=== PATIENT | male | born 1975 | race Caucasian/White ===

== ENCOUNTER → 2017-02-13 | Outpatient (CLI) | payer MEDICAID | LOC: RAD 09:00 | PROVIDERS: ATTEND Internal Medicine | DX: F03.91 Unspecified dementia, unspecified severity, with behavioral disturbance (principal) | CPT/HCPCS: 70551 ==

== ENCOUNTER 2017-04-28 15:52 | Emergency (ER) | payer MEDICAID ==
[2017-04-28] MEDS ORDERED: NORMAL SALINE 1000 ML 1,000 ML IV ONE (16:26)
--- NOTE | 2017-04-28 16:28 | ER Document Report ---
ED Medical Screen (RME) - General Chief Complaint: Chest Pain Stated Complaint: CHEST PAIN Time Seen by Provider: 04/28/17 16:25 Mode of Arrival: Wheelchair Information source: Patient TRAVEL OUTSIDE OF THE [place] IN LAST 30 DAYS: No - HPI Patient complains to provider of: dizziness, weakness , CP Onset: Other - Pt with h/o alcohol abuse with recent ETOH use with c/o dizziness , CP, and hallucinations for the past 1-2 days. - Related Data Allergies/Adverse Reactions: Coconut * [Coconut] Adverse Reaction (Severe, Verified 03/24/15 15:37) stomach swells pineapple [Pineapple] Adverse Reaction (Severe, Verified 03/24/15 15:37) stomach swells cherries Adverse Reaction (Severe, Uncoded 03/24/15 15:37) stomach swells Past Medical History - Social History Chew tobacco use (# tins/day): No Frequency of alcohol use: Heavy Drug Abuse: None - Past Medical History Cardiac Medical History: Reports: Hx Hypercholesterolemia, Hx Hypertension Denies: Hx Coronary Artery Disease, Hx Heart Attack Pulmonary Medical History: Reports: Hx Asthma, Hx Bronchitis, Hx COPD, Hx Pneumonia - multiple Neurological Medical History: Reports: Hx Migraine, Hx Seizures. Denies: Hx Cerebrovascular Accident Renal/ Medical History: Denies: Hx Peritoneal Dialysis Musculoskeltal Medical History: Reports Hx Arthritis, Reports Hx Musculoskeletal Deformity, Reports Hx Musculoskeletal Trauma Psychiatric Medical History: Reports: Hx Depression Traumatic Medical History: Reports: Hx Fractures Past Surgical History: Reports: Hx Oral Surgery, Hx Orthopedic Surgery - bilateral knees, left hand, leg - Immunizations Immunizations up to date: Yes Hx Diphtheria, Pertussis, Tetanus Vaccination: Yes Physical Exam - Vital signs Vitals: Temp Pulse Resp BP Pulse Ox 98.1 F 84 20 125/84 94 04/28/17 16:09 04/28/17 16:09 04/28/17 16:09 04/28/17 16:09 04/28/17 16:09 Course - Vital Signs Vital signs: Temp Pulse Resp BP Pulse Ox 98.1 F 82 20 125/84 90 L 04/28/17 16:09 04/28/17 16:19 04/28/17 16:09 04/28/17 16:09 04/28/17 16:19
--- NOTE | 2017-04-28 16:58 | ER Document Report ---
ED Cardiac - General Chief Complaint: Chest Pain Stated Complaint: CHEST PAIN Time Seen by Provider: 04/28/17 16:25 Mode of Arrival: Wheelchair Notes: The patient is a 41-year-old male, past medical history chronic alcoholism, COPD , presents with 3 weeks of chest heaviness, lightheadedness and intermittent hallucinations. He was to see his primary care physician this week for these symptoms, but he was unable to see him. Patient is not currently having any chest pain or hallucinations at this time. He denies shortness of breath, leg swelling, nausea, vomiting, hemoptysis, headache, numbness, tingling or ataxia. TRAVEL OUTSIDE OF THE [place] IN LAST 30 DAYS: No - Related Data Allergies/Adverse Reactions: Coconut * [Coconut] Adverse Reaction (Severe, Verified 03/24/15 15:37) stomach swells pineapple [Pineapple] Adverse Reaction (Severe, Verified 03/24/15 15:37) stomach swells cherries Adverse Reaction (Severe, Uncoded 03/24/15 15:37) stomach swells Past Medical History - General Information source: Patient - Social History Smoking Status: Current Every Day Smoker Chew tobacco use (# tins/day): No Frequency of alcohol use: Heavy Drug Abuse: None Family History: Arthritis, Hypertension, Malignancy Patient has suicidal ideation: No Patient has homicidal ideation: No - Past Medical History Cardiac Medical History: Reports: Hx Hypercholesterolemia, Hx Hypertension Denies: Hx Coronary Artery Disease, Hx Heart Attack Pulmonary Medical History: Reports: Hx Asthma, Hx Bronchitis, Hx COPD, Hx Pneumonia - multiple Neurological Medical History: Reports: Hx Migraine, Hx Seizures. Denies: Hx Cerebrovascular Accident Renal/ Medical History: Denies: Hx Peritoneal Dialysis Musculoskeltal Medical History: Reports Hx Arthritis, Reports Hx Musculoskeletal Deformity, Reports Hx Musculoskeletal Trauma Psychiatric Medical History: Reports: Hx Depression Traumatic Medical History: Reports: Hx Fractures Past Surgical History: Reports: Hx Oral Surgery, Hx Orthopedic Surgery - bilateral knees, left hand, leg - Immunizations Immunizations up to date: Yes Hx Diphtheria, Pertussis, Tetanus Vaccination: Yes Hx Pneumococcal Vaccination: 07/16/13 Review of Systems - Review of Systems Notes: REVIEW OF SYSTEMS: CONSTITUTIONAL: -fevers, -chills EENT: -eye pain, -difficulty swallowing, -nasal congestion CARDIOVASCULAR: +chest pain, -syncope. RESPIRATORY: -cough, -SOB GASTROINTESTINAL: -abdominal pain, -nausea, -vomiting, -diarrhea GENITOURINARY: -dysuria, -hematuria MUSCULOSKELETAL: -back pain, -neck pain SKIN: -rash or skin lesions. HEMATOLOGIC: -easy bruising or bleeding. LYMPHATIC: -swollen, enlarged glands. NEUROLOGICAL: -altered mental status or loss of consciousness, -headache PSYCHIATRIC: -anxiety, -depression, +intermittent hallucinations ALL OTHER SYSTEMS REVIEWED AND NEGATIVE. Physical Exam - Vital signs Vitals: Temp Pulse Resp BP Pulse Ox 98.1 F 84 20 125/84 94 04/28/17 16:04/28/17 16:04/28/17 16:04/28/17 16:04/28/17 16:09 - Notes Notes: PHYSICAL EXAMINATION: GENERAL: Well-appearing, well-nourished and in no acute distress. HEAD: Atraumatic, normocephalic. EYES: Pupils equal round and reactive to light, extraocular movements intact, sclera anicteric, conjunctiva are normal. ENT: nares patent, oropharynx clear without exudates. Moist mucous membranes. NECK: Normal range of motion, supple without lymphadenopathy LUNGS: Respiratory distress, mild wheezing HEART: Regular rate and rhythm without murmurs ABDOMEN: Soft, nontender, normoactive bowel sounds. No guarding, no rebound. No masses appreciated. EXTREMITIES: Normal range of motion, no pitting or edema. No cyanosis. NEUROLOGICAL: Cranial nerves grossly intact. Normal speech, normal gait. Normal sensory and motor exams. No posterior cerebellar signs. PSYCH: Normal mood, normal affect. SKIN: Warm, Dry, normal turgor, no rashes or lesions noted. Course - Re-evaluation Re-evalutation: Patient appears well. He has no signs of posterior cerebellar involvement at this time. His alcohol level was 333, but he is ambulating with a steady gait and his family member is in the emergency room who is sober and will take him home. His ETOH level is frequently in the 300s and has known to go through withdrawal if he gets any lower. Offered detox, but he declined at this time. Labs are unremarkable. His HEART is 2 and he is PERC negative. Patient is safe to go home with follow-up with his primary care physician. Will send him home with thiamine, folate and instructions to drink plenty of fluids. He may have possible early onset Wernike's/Korsakoff's due to the heavy drinking that may be causing some of his symptoms. - Vital Signs Vital signs: Temp Pulse Resp BP Pulse Ox 97.9 F 79 14 138/85 H 95 04/28/17 19:09 04/28/17 19:09 04/28/17 19:09 04/28/17 19:09 04/28/17 19:09 - Laboratory Result Diagrams: 04/28/17 18:06 04/28/17 16:35 Laboratory results interpreted by me: 04/28/17 04/28/17 04/28/17 16:35 16:40 18:06 WBC 3.4 L RDW 16.3 H Plt Count 47 L Monocytes % 15.0 H BUN 6 L Glucose 154 H AST 92 H Urine Protein 100 H Urine Ketones TRACE H Urine Urobilinogen 4.0 H Ur Leukocyte Esterase TRACE H Serum Alcohol 332 H* - Diagnostic Test Radiology reviewed: Image reviewed, Reports reviewed Radiology results interpreted by me: CT Head: NAD CXR: NAD - EKG Interpretation by Me EKG shows normal: Sinus rhythm, [place], Intervals, QRS Complexes, ST-T Waves Rate: Normal When compared to previous EKG there are: No significant change Discharge - Discharge Clinical Impression: Alcohol intoxication Qualifiers: Complication of substance-induced condition: uncomplicated Qualified Code(s): F10.920 - Alcohol use, unspecified with intoxication, uncomplicated Chest pain Qualifiers: Chest pain type: unspecified Qualified Code(s): R07.9 - Chest pain, unspecified Condition: Stable Disposition: HOME, SELF-CARE Additional Instructions: Your blood work, EKG, head CT and chest x-ray does not show any emergent findings. You must follow-up with your primary care physician for further evaluation and treatment. Take folate and thiamine as directed. Try to cut down on your alcohol use. CHEST PAIN OF UNCLEAR CAUSE: The exact cause of your chest pain isn't clear. Fortunately, there is no evidence of a dangerous medical condition. Further testing may be required to find the source of the pain. Most often, we find that this pain is coming from the chest wall -- the muscles or rib joints in the chest. But chest pain can come from the lung and lung lining, the esophagus, the heart valves or heart lining, and even the stomach or gallbladder. Rest. Eat lightly until the pain is gone. We may prescribe medicine for pain and inflammation. You should call the physician immediately if the pain radiates to the shoulder, jaw or arms; if you start to run a fever or develop a cough; or if you develop shortness of breath, or other new or alarming symptoms. NORMAL EXAM AND WORKUP: At this time, your examination and workup show no significant abnormality. No significant abnormal physical findings were noted. All laboratory, EKG, and imaging (x-ray, CT scans, ultrasound) studies that were ordered show no significant abnormality. Although your examination and all studies that were ordered showed no significant abnormal finding, there are no examinations and no studies that are 100% accurate. There is always the possibility that some abnormality could exist and not be detected with physical examination or within the limits and capabilities of laboratory and other studies. You should return or follow up as you were instructed on your visit today for further evaluation if your symptoms do not resolve. CHEST WALL PAIN: Your chest pain may be coming from the chest wall. This is often caused by straining the muscles or joints in the chest during physical activity, direct trauma, coughing, or vigorous vomiting. Persons with arthritis are especially prone to this type of pain, due to inflammation of the cartilage joints near the breast bone. Occasionally, no cause can be found. Rest from strenuous physical activity. This kind of chest pain is usually made worse by movement of the chest. Depending on the symptoms, we may prescribe medicine for pain, muscle relaxation, and antiinflammatory effects. If the pain is new, and seems to be due to muscle strain, cold packs can help. Otherwise, apply gentle warmth to the painful area for 15 minutes every hour or two. You should call contact the doctor immediately if things change. Further evaluation is needed if you develop a fever or cough, if the nature of the pain changes, or if you become short of breath. ANGINA EPISODE: Your physician has diagnosed the pain you experienced as an episode of angina. Angina occurs when a portion of the heart muscle temporarily lacks oxygen. It does not cause any permanent heart damage, but serves as a warning. Hospitalization is not necessary now. Evaluation of your cardiac condition , and medical therapy for angina will be necessary. It's important you be sure to keep all appointments and take medication exactly as prescribed. Angina is usually treated with a type of "nitrate" medication. This is available as ointment, pills, or sublingual (under the tongue) tablets. Depending on your clinical situation, other medications may be added to help control angina. These may include beta blockers or calcium blockers. If episodes of angina are occurring with increased frequency, or if chest pain lasts longer than 15 minutes or does not respond to nitroglycerin, you must seek emergency medical care immediately. FOLLOW-UP CARE: If you have been referred to a physician for follow-up care, call the physician s office for an appointment as you were instructed or within the next two days. If you experience worsening or a significant change in your symptoms, notify the physician immediately or return to the Emergency Department at any time for re-evaluation. ACUTE ALCOHOL INTOXICATION and ALCOHOL ABUSE: Your evaluation revealed very high levels of alcohol. You can from drinking a large amount of alcohol rapidly! Further, there's the risk of falls , traffic accidents, and fights. A high portion (about 50 percent) of the serious injuries seen in hospital emergency rooms are caused by alcohol. Alcohol overdosage is usually due to an underlying emotional or psychiatric problem. You may benefit from counselling. If "binge" drinking is an ongoing problem for you, or if you drink ANY AMOUNT of alcohol EVERY day, you most likely have a tendency to alcoholism. You should avoid alcohol totally. We can refer you for treatment. Persons with alcohol problems are often also prone to other addictions -- you should discuss any use of medications or drugs with the doctor. You should be watched at home for the next several hours by someone who has not been drinking. Get extra fluids for the next 24 hours. Call the doctor if there is repeated vomiting, increasing headache, decreasing level of alertness, or any other worsening. CHRONIC ALCOHOLISM and ALCOHOL ABUSE: Your evaluation reveals evidence of chronic alcoholism, an addiction to alcohol. The tendency to alcoholism may be inherited. Chronic use of alcohol weakens muscles, causes fatty deposits in the liver , damages the stomach, makes you more prone to infections, and can cause defects in unborn children. In the long run, brain atrophy and cirrhosis of the liver result. You are also at greater risk for certain types of cancer, such as cancer of the mouth, throat, stomach, and liver. Counselling services are available to help you. In-hospital treatment programs often help. Support groups such as Alcoholics Anonymous can be very useful in beating this addiction. Your physician can make a referral for you. As alcoholics often are prone to other addictions, you should discuss your use of any other medications with the doctor. FOLLOW-UP CARE: If you have been referred to a physician for follow-up care, call the physician s office for an appointment as you were instructed or within the next two days. If you experience worsening or a significant change in your symptoms, notify the physician immediately or return to the Emergency Department at any time for re-evaluation. Prescriptions: Folic Acid 1 mg PO DAILY #30 tablet Thiamine HCl [Thiamine 100 mg Tablet] 100 mg PO DAILY #30 tablet Referrals: TOMAS UMANA MD [Primary Care Provider] - Follow up as needed
--- NOTE | 2017-04-28 17:12 | RADIOLOGY REPORT (SQ) ---
EXAM DESCRIPTION: CHEST PA/LAT COMPLETED DATE/TIME: 04/28/2017 4:56 pm REASON FOR STUDY: CP COMPARISON: 01/12/2016 EXAM PARAMETERS: NUMBER OF VIEWS: two views TECHNIQUE: Digital Frontal and Lateral radiographic views of the chest acquired. RADIATION DOSE: NA LIMITATIONS: none FINDINGS: LUNGS AND PLEURA: No opacities, masses or pneumothorax. No pleural effusion. MEDIASTINUM AND HILAR STRUCTURES: No masses or contour abnormalities. HEART AND VASCULAR STRUCTURES: Heart normal size. No evidence for failure. BONES: No acute findings. HARDWARE: None in the chest. OTHER: No other significant finding. IMPRESSION: NO SIGNIFICANT RADIOGRAPHIC FINDING IN THE CHEST. TECHNICAL DOCUMENTATION: JOB ID: [id number] [employer]- All Rights Reserved
--- NOTE | 2017-04-28 17:17 | RADIOLOGY REPORT (SQ) ---
EXAM DESCRIPTION: CT HEAD WITHOUT COMPLETED DATE/TIME: 04/28/2017 4:58 pm REASON FOR STUDY: CP COMPARISON: MRI 02/13/2017 CT 04/26/2014 TECHNIQUE: Axial images acquired through the brain without intravenous contrast. Images reviewed wi th bone, brain and subdural windows. Images stored on PACS. All CT scanners at this facility use dose modulation, iterative reconstruction, and/or weight based d osing when appropriate to reduce radiation dose to as low as reasonably achievable (ALARA). [facility]: Dose Right [facility]: CareDose [facility]: Dose Right [facility]: Teradose 4D [facility]: Fitness Interactive Experience RADIATION DOSE: Up-to-date CT equipment and radiation dose reduction techniques were employed. CTDIv ol: 64.6 mGy. DLP: 1163 mGy-cm. mGy. LIMITATIONS: None. FINDINGS: VENTRICLES: Normal size and contour. CEREBRUM: No masses. No hemorrhage. No midline shift. Normal hammer/white matter differentiation. N o evidence for acute infarction. CEREBELLUM: No masses. No hemorrhage. No alteration of density. No evidence for acute infarction. EXTRAAXIAL SPACES: No fluid collections. No masses. ORBITS AND GLOBE: No intra- or extraconal masses. Normal contour of globe without masses. CALVARIUM: No fracture. PARANASAL SINUSES: No fluid or mucosal thickening. SOFT TISSUES: No mass or hematoma. OTHER: No other significant finding. IMPRESSION: NORMAL BRAIN CT WITHOUT CONTRAST. TECHNICAL DOCUMENTATION: JOB ID: [id number] Quality ID # [id number]: Final reports with documentation of one or more dose reduction techniques (e.g., Au tomated exposure control, adjustment of the mA and/or kV according to patient size, use of iterative reconstruction technique) 2010 [employer]- All Rights Reserved
[2017-04-28 17:34] LABS: APPEARANCE,URINE SLIGHTLY-CLOUDY; BILIRUBIN,URINE NEGATIVE (NEGATIVE); GLUCOSE, URINE NEGATIVE (NEGATIVE); KETONES,URINE TRACE mg/dL (NEGATIVE); LEUKOCYTE ESTERASE,URINE TRACE (NEGATIVE); NITRITE,URINE NEGATIVE (NEGATIVE); PROTEIN,URINE 100 mg/dL (NEGATIVE); URINE SPECIFIC GRAVITY 1.029
[2017-04-28 17:43] LABS: URINE BARBITURATES SCREEN NEGATIVE; URINE METHADONE SCREEN NEGATIVE; URINE OPIATES LOW NEGATIVE; URINE PHENCYCLIDINE SCREEN NEGATIVE
[2017-04-28 17:52] LABS: ALANINE AMINOTRANSFERASE 42 U/L (21-72); ALKALINE PHOSPHATASE 94 U/L (38-126); ANION GAP 13 (5-19); ASPARTATE AMINO TRANSFERASE 92 U/L (17-59); BILIRUBIN,DIRECT 0.4 mg/dL (0.0-0.4); BILIRUBIN,TOTAL 0.6 mg/dL (0.2-1.3); BLOOD UREA NITROGEN 6 mg/dL (7-20); CALCIUM 8.5 mg/dL (8.4-10.2); CARBON DIOXIDE 27 mmol/L (22-30); CHLORIDE 99 mmol/L (98-107); CREATINE KINASE 149 U/L (55-170); CREATININE RESULT 0.52 mg/dL (0.52-1.25); GLUCOSE 154 mg/dL (75-110); POTASSIUM 4.6 mmol/L (3.6-5.0); SODIUM 138.7 mmol/L (137-145); TOTAL PROTEIN 7.8 g/dL (6.3-8.2)
[2017-04-28 18:03] LABS: ALCOHOL 332 mg/dL (NONE DETECTED)
[2017-04-28] MEDS ORDERED: FOLIC ACID 1 MG TABLET PO ONE (18:07)
[2017-04-28] MEDS ORDERED: THIAMINE HCL 100 MG TABLET PO ONE (18:07)
[2017-04-28 18:21] LABS: ABSOLUTE LYMPHOCYTES (AUTO) 0.6 10^3/uL (0.5-4.7); ABSOLUTE MONOCYTES (AUTO) 0.5 10^3/uL (0.1-1.4); ABSOLUTE NEUT (AUTO) 2.3 10^3/uL (1.7-8.2); BASOPHILS % (AUTO) 0.6 % (0-2); EOSINOPHILS % (AUTO) 0.1 % (0-6); HEMATOCRIT 43.6 % (37.9-51.0); HEMOGLOBIN 14.4 g/dL (13.5-17.0); HGB HCT DIFFERENCE -0.4; LYMPHOCYTES % (AUTO) 17.7 % (13-45); MEAN CORPUSCULAR HEMOGLOBIN 31.8 pg (27.0-33.4); MEAN CORPUSCULAR HGB CONC 33.1 g/dL (32.0-36.0); MEAN CORPUSCULAR VOLUME 96 fl (80-97); RED BLOOD COUNT 4.53 10^6/uL (4.35-5.55); RED CELL DISTRIBUTION WIDTH 16.3 % (11.5-14.0); SEGMENTED NEUTROPHILS % (AUTO) 66.6 % (42-78); WHITE BLOOD COUNT 3.4 10^3/uL (4.0-10.5)
[2017-04-28] MEDS ORDERED: IPRATROPIUM/ALBUTEROL 0.5-2.5 MG/3 ML AMPUL NEB ONE (18:40)
[2017-04-28 19:09] VITALS: BP 138/85
--- NOTE | 2017-04-28 20:19 | EKG REPORT ---
SEVERITY:- NORMAL ECG - SINUS RHYTHM : Confirmed by: Daniel Arciniega MD 28-Apr-2017 20:18:25
== END 2017-04-28 19:21 | disposition home or self-care (01) ==
LOC: ER 15:52
DX: R07.9 Chest pain, unspecified (principal); F10.920 Alcohol use, unspecified with intoxication, uncomplicated; F17.200 Nicotine dependence, unspecified, uncomplicated; R44.3 Hallucinations, unspecified; J44.9 Chronic obstructive pulmonary disease, unspecified; E78.00 Pure hypercholesterolemia, unspecified; I10 Essential (primary) hypertension; Y90.8 Blood alcohol level of 240 mg/100 ml or more
CPT/HCPCS: 93005; 94640; 99285; 96360; 36415; 80307 ×2; 82550; 85025; 80053; 81001; 84484; 71020; 70450; 93010; J3490 ×2; J7030; J7620

== ENCOUNTER 2018-01-30 07:25 | Inpatient (IN) | payer MEDICAID ==
--- NOTE | 2018-01-30 07:30 | ER Document Report ---
ED General - General Stated Complaint: DIFFICULTY BREATHING Time Seen by Provider: 01/30/18 07:30 Mode of Arrival: Medic Information source: Patient, Emergency Med Personnel Notes: 42-year-old male history of COPD presents with complaints of productive cough of unknown duration. Patient was found by EMS to have a temperature 100.2 satting 89% on room air. Patient is not on oxygen at home, he was given DuoNeb and Solu-Medrol. Patient does have a history of cirrhosis of liver patient denies any abdominal pain chest pain does note he fell earlier this morning. Does have a history of alcohol use TRAVEL OUTSIDE OF THE [place] IN LAST 30 DAYS: No - HPI Onset: Other Onset/Duration: Worse Quality of pain: No pain Severity: Moderate Pain Level: Denies Associated symptoms: Productive cough, Fever, Shortness of breath Exacerbated by: Coughing Relieved by: Denies Similar symptoms previously: Yes Recently seen / treated by doctor: Yes - Related Data Allergies/Adverse Reactions: Coconut * [Coconut] Adverse Reaction (Severe, Verified 03/24/15 15:37) stomach swells pineapple [Pineapple] Adverse Reaction (Severe, Verified 03/24/15 15:37) stomach swells cherries Adverse Reaction (Severe, Uncoded 03/24/15 15:37) stomach swells Past Medical History - Social History Smoking Status: Current Every Day Smoker Cigarette use (# per day): Yes Chew tobacco use (# tins/day): No Smoking Education Provided: No Family History: Arthritis, Hypertension, Malignancy - Past Medical History Cardiac Medical History: Reports: Hx Hypercholesterolemia, Hx Hypertension Denies: Hx Coronary Artery Disease, Hx Heart Attack Pulmonary Medical History: Reports: Hx Asthma, Hx Bronchitis, Hx COPD, Hx Pneumonia - multiple Neurological Medical History: Reports: Hx Migraine, Hx Seizures. Denies: Hx Cerebrovascular Accident Renal/ Medical History: Denies: Hx Peritoneal Dialysis Musculoskeltal Medical History: Reports Hx Arthritis, Reports Hx Musculoskeletal Deformity, Reports Hx Musculoskeletal Trauma Psychiatric Medical History: Reports: Hx Depression Traumatic Medical History: Reports: Hx Fractures Past Surgical History: Reports: Hx Oral Surgery, Hx Orthopedic Surgery - bilateral knees, left hand, leg - Immunizations Immunizations up to date: Yes Hx Diphtheria, Pertussis, Tetanus Vaccination: Yes Hx Pneumococcal Vaccination: 07/16/13 Review of Systems - Review of Systems Notes: REVIEW OF SYSTEMS: CONSTITUTIONAL : admits ot feeling warm EENT: Denies eye, ear, throat, or mouth pain or symptoms. Denies nasal or sinus congestion or discharge. Denies throat, tongue, or mouth swelling or difficulty swallowing. CARDIOVASCULAR: Denies chest pain. Denies palpitations or racing or irregular heart beat. Denies ankle edema. RESPIRATORY: admits to productive cough GASTROINTESTINAL: Denies abdominal pain or distention. Denies nausea, vomiting , or diarrhea. Denies blood in vomitus, stools, or per rectum. Denies black, tarry stools. Denies constipation. GENITOURINARY: Denies difficulty urinating, painful urination, burning, frequency, blood in urine, or discharge. MUSCULOSKELETAL: Denies back or neck pain or stiffness. Denies joint pain or swelling. SKIN: Denies rash, lesions or sores. HEMATOLOGIC : Denies easy bruising or bleeding. LYMPHATIC: Denies swollen, enlarged glands. NEUROLOGICAL: Denies confusion or altered mental status. Denies passing out or loss of consciousness. Denies dizziness or lightheadedness. Denies headache. Denies weakness or paralysis or loss of use of either side. Denies problems with gait or speech. Denies sensory loss, numbness, or tingling. Denies seizures. PSYCHIATRIC: Denies anxiety or stress. Denies depression, suicidal ideation, or homicidal ideation. ALL OTHER SYSTEMS REVIEWED AND NEGATIVE. Dictation was performed using [employer] voice recognition software PHYSICAL EXAMINATION: GENERAL: appears older than stated age , temp 100.2 HEAD: Atraumatic, normocephalic. EYES: Pupils equal round and reactive to light, extraocular movements intact, sclera anicteric, conjunctiva are normal. ENT: Nares patent, oropharynx clear without exudates. Moist mucous membranes. NECK: Normal range of motion, supple without lymphadenopathy LUNGS: crackles with wheezing all throughout HEART: Regular rate and rhythm without murmurs ABDOMEN: Soft, nontender, nondistended abdomen. No guarding, no rebound. No masses appreciated. Musculoskeletal: Normal range of motion, no pitting or edema. No cyanosis. NEUROLOGICAL: Cranial nerves grossly intact. Normal speech, normal gait. Normal sensory, motor exams PSYCH: Normal mood, normal affect. SKIN: hot ot touch, old scars left leg Physical Exam - Vital signs Vitals: Resp BP Pulse Ox 21 H 159/94 H 91 L 04/17/18 07:36 01/30/18 07:36 01/30/18 07:36 Course - Re-evaluation Re-evalutation: 01/30/18 07:40 Patient has probable pneumonia and meets sirs criteria at this time, he will be kept on nasal cannula, lab work pending 01/30/18 09:49 pt noted to have pneumonia, meets spesis criteria at this time, will admit ot pcp - Vital Signs Vital signs: Temp Pulse Resp BP Pulse Ox 100.7 F H 30 H 159/94 H 92 01/30/18 07:43 01/30/18 09:00 01/30/18 07:36 01/30/18 09:00 - Laboratory Result Diagrams: 01/30/18 07:30 01/30/18 07:30 Laboratory results interpreted by me: 01/30/18 01/30/18 01/30/18 07:30 07:30 07:30 RBC 4.19 L MCV 98 H RDW 17.0 H Plt Count 50 L Seg Neutrophils % 78.7 H Lymphocytes % 8.3 L Sodium 135.3 L Chloride 93 L BUN 3 L Creatinine 0.51 L Lactic Acid 2.6 H Direct Bilirubin 0.6 H Urine Protein Urine Ketones Urine Blood 01/30/18 08:05 RBC MCV RDW Plt Count Seg Neutrophils % Lymphocytes % Sodium Chloride BUN Creatinine Lactic Acid Direct Bilirubin Urine Protein >=500 H Urine Ketones 20 H Urine Blood MODERATE H - Diagnostic Test Radiology reviewed: Image reviewed - chest 2 view consistnat with pneumonia, Reports reviewed Critical Care Note - Critical Care Note Total time excluding time spent on procedures (mins): 38 Comments: minutes of critical care time spent in direct contact evaluating and reevaluating the patient, treating symptoms, reviewing labs and studies and speaking with family and consultants excluding any procedures Discharge - Discharge Clinical Impression: Hypoxemia COPD (chronic obstructive pulmonary disease) Qualifiers: COPD type: unspecified COPD Qualified Code(s): J44.9 - Chronic obstructive pulmonary disease, unspecified Pneumonia Qualifiers: Pneumonia type: due to unspecified organism Laterality: right Lung location: upper lobe of lung Qualified Code(s): J18.1 - Lobar pneumonia, unspecified organism Condition: Stable Disposition: ADMITTED INPATIENT Admitting Provider: Hospitalist Unit Admitted: [facility]
[2018-01-30] MEDS ORDERED: IBUPROFEN 800 MG TABLET PO ONE (07:31)
[2018-01-30] MEDS ORDERED: CEFTRIAXONE INJ 1000 MG VIAL IV ONE (07:31)
[2018-01-30 07:49] LABS: VENOUS BLOOD BASE EXCESS 3.5 mmol/L; VENOUS BLOOD HCO3 28.9 mmol/L (20-32); VENOUS BLOOD PCO2 46.5 mmHg (35-63); VENOUS BLOOD PH 7.41 (7.30-7.42)
[2018-01-30] MEDS: NORMAL SALINE 1000 ML 1,000 ML IV PRN ×3 (07:57→21:24)
[2018-01-30 08:00] LABS: INTERNATIONAL RATION (INR) 1.07; PROTHROMBIN TIME 14.4 SEC (11.4-15.4)
[2018-01-30 08:03] LABS: ABSOLUTE LYMPHOCYTES (AUTO) 0.7 10^3/uL (0.5-4.7); ABSOLUTE NEUT (AUTO) 6.5 10^3/uL (1.7-8.2); BASOPHILS % (AUTO) 0.1 % (0-2); EOSINOPHILS % (AUTO) 0.1 % (0-6); HEMOGLOBIN 13.9 g/dL (13.5-17.0); LYMPHOCYTES % (AUTO) 8.3 % (13-45); MEAN CORPUSCULAR HEMOGLOBIN 33.1 pg (27.0-33.4); MEAN CORPUSCULAR HGB CONC 33.8 g/dL (32.0-36.0); MEAN CORPUSCULAR VOLUME 98 fl (80-97); MONOCYTES % (AUTO) 12.8 % (3-13); RED BLOOD COUNT 4.19 10^6/uL (4.35-5.55); SEGMENTED NEUTROPHILS % (AUTO) 78.7 % (42-78); TOTAL CELLS COUNTED % (AUTO) 100 %; WHITE BLOOD COUNT 8.2 10^3/uL (4.0-10.5)
[2018-01-30 08:08] LABS: ALANINE AMINOTRANSFERASE 35 U/L (21-72); ALBUMIN 3.8 g/dL (3.5-5.0); ALKALINE PHOSPHATASE 78 U/L (38-126); ANION GAP 14 (5-19); ASPARTATE AMINO TRANSFERASE 49 U/L (17-59); BILIRUBIN,DIRECT 0.6 mg/dL (0.0-0.4); BILIRUBIN,TOTAL 0.9 mg/dL (0.2-1.3); BLOOD UREA NITROGEN 3 mg/dL (7-20); CALCIUM 9.3 mg/dL (8.4-10.2); CARBON DIOXIDE 28 mmol/L (22-30); CHLORIDE 93 mmol/L (98-107); GLUCOSE 105 mg/dL (75-110); POTASSIUM 3.9 mmol/L (3.6-5.0); SODIUM 135.3 mmol/L (137-145); TOTAL PROTEIN 7.3 g/dL (6.3-8.2)
[2018-01-30] MEDS ORDERED: NORMAL SALINE 1000 ML 1,000 ML IV ONE (08:10)
[2018-01-30 08:19] LABS: PLATELET COUNT 50 10^3/uL (150-450)
--- NOTE | 2018-01-30 08:19 | RADIOLOGY REPORT (SQ) ---
EXAM DESCRIPTION: CHEST SINGLE VIEW COMPLETED DATE/TIME: 01/30/2018 8:07 am REASON FOR STUDY: bed 20 sepsis protocol COMPARISON: Chest films 04/28/2017, 01/12/2016 EXAM PARAMETERS: NUMBER OF VIEWS: One view. TECHNIQUE: Single frontal radiographic view of the chest acquired. RADIATION DOSE: NA LIMITATIONS: None. FINDINGS: LUNGS AND PLEURA: Question early or developing infiltrate in the medial aspect right upper lobe marked with a crow. Remainder of the lungs are well inflated and clear. No pleural effusion. No pneumothorax. MEDIASTINUM AND HILAR STRUCTURES: No masses. Contour normal. HEART AND VASCULAR STRUCTURES: Heart normal in size. Normal vasculature. BONES: No acute findings. HARDWARE: None in the chest. OTHER: No other significant finding. IMPRESSION: Airspace disease medial right upper lobe, worrisome for early or developing pneumonia. TECHNICAL DOCUMENTATION: JOB ID: [id number] [employer]- All Rights Reserved Reading location - IP/workstation name: [email or web address]
[2018-01-30 08:38] LABS: APPEARANCE,URINE SLIGHTLY-CLOUDY; BILIRUBIN,URINE NEGATIVE (NEGATIVE); COLOR,URINE YELLOW; GLUCOSE, URINE NEGATIVE (NEGATIVE); KETONES,URINE 20 mg/dL (NEGATIVE); LEUKOCYTE ESTERASE,URINE NEGATIVE (NEGATIVE); NITRITE,URINE NEGATIVE (NEGATIVE); PROTEIN,URINE >=500 mg/dL (NEGATIVE); URINE SPECIFIC GRAVITY 1.011; UROBILINOGEN,URINE NEGATIVE mg/dL (<2.0)
--- NOTE | 2018-01-30 09:24 | EKG REPORT ---
SEVERITY:- BORDERLINE ECG - SINUS TACHYCARDIA PROBABLE LEFT ATRIAL ABNORMALITY BORDERLINE PROLONGED QT INTERVAL : Confirmed by: Cherelle Castro 30-Jan-2018 09:23:23
[2018-01-30] MEDS: LORAZEPAM INJ 2 MG/1 ML VIAL IV SCH (18:32)
[2018-01-30 20:15] LABS: URINE CREATININE 102.1 mg/dL (22-328)
[2018-01-30 20:24] LABS: UR PRO/CREAT RATIO RESULT 3.3 mg/mg (0.0-0.2); URINE PROTEIN 332.7 mg/dL (<12)
[2018-01-30 21:02] LABS: HEMATOCRIT 42.7 % (37.9-51.0); HEMOGLOBIN 14.2 g/dL (13.5-17.0); MEAN CORPUSCULAR HGB CONC 33.2 g/dL (32.0-36.0); MEAN CORPUSCULAR VOLUME 99 fl (80-97); RED CELL DISTRIBUTION WIDTH 16.7 % (11.5-14.0); WHITE BLOOD COUNT 7.6 10^3/uL (4.0-10.5)
[2018-01-30 21:03] LABS: INTERNATIONAL RATION (INR) 1.11; PROTHROMBIN TIME 14.8 SEC (11.4-15.4)
[2018-01-30 21:18] LABS: PLATELET COUNT 51 10^3/uL (150-450)
[2018-01-30 21:18] LABS: APPEARANCE,URINE CLEAR; BILIRUBIN,URINE NEGATIVE (NEGATIVE); COLOR,URINE YELLOW; GLUCOSE, URINE 50 mg/dL (NEGATIVE); KETONES,URINE 80 mg/dL (NEGATIVE); LEUKOCYTE ESTERASE,URINE NEGATIVE (NEGATIVE); NITRITE,URINE NEGATIVE (NEGATIVE); PROTEIN,URINE 100 mg/dL (NEGATIVE); URINE SPECIFIC GRAVITY 1.011; UROBILINOGEN,URINE NEGATIVE mg/dL (<2.0)
[2018-01-30 21:21] LABS: ABSOLUTE LYMPHOCYTES# (MANUAL) 0.6 10^3/uL (0.5-4.7); ABSOLUTE MONOCYTES # (MANUAL) 0.1 10^3/uL (0.1-1.4); ABSOLUTE NEUTROPHILS# (MANUAL) 6.9 10^3/uL (1.7-8.2); ALANINE AMINOTRANSFERASE 31 U/L (21-72); ALBUMIN 3.5 g/dL (3.5-5.0); ALKALINE PHOSPHATASE 77 U/L (38-126); AMYLASE < 30 U/L (30-110); ANION GAP 11 (5-19); ASPARTATE AMINO TRANSFERASE 47 U/L (17-59); BASOPHILS % (MANUAL) 0 % (0-2); BILIRUBIN,DIRECT 0.5 mg/dL (0.0-0.4); BILIRUBIN,TOTAL 0.7 mg/dL (0.2-1.3); BLOOD UREA NITROGEN 9 mg/dL (7-20); CALCIUM 9.1 mg/dL (8.4-10.2); CARBON DIOXIDE 31 mmol/L (22-30); CHLORIDE 100 mmol/L (98-107); EOSINOPHILS % (MANUAL) 0 % (0-6); GLUCOSE 126 mg/dL (75-110); LIPASE 14.3 U/L (23-300); LYMPHOCYTES % (MANUAL) 8 % (13-45); MONOCYTES % (MANUAL) 1 % (3-13); PHOSPHORUS 3.7 mg/dL (2.5-4.5); POTASSIUM 3.4 mmol/L (3.6-5.0); SEGMENTED NEUTROPHILS % (MAN) 91 % (42-78); SODIUM 141.7 mmol/L (137-145); TOTAL CELLS COUNTED 100; TOTAL PROTEIN 6.9 g/dL (6.3-8.2)
[2018-01-30 21:22] LABS: ANISOCYTOSIS 1+; PLATELET COMMENT DECREASED; POIKILOCYTOSIS SLIGHT; POLYCHROMASIA SLIGHT; TARGET CELLS SLIGHT
[2018-01-30] MEDS: CLINDAMYCIN 600 MG/D5W RTU 600 MG/50 ML RTUPB IV SCH (21:24)
[2018-01-30 21:31] LABS: CREATINE KINASE MB 1.38 ng/mL (<4.55)
[2018-01-30 21:32] LABS: URINE AMPHETAMINES SCREEN NEGATIVE; URINE BARBITURATES SCREEN NEGATIVE; URINE COCAINE SCREEN NEGATIVE; URINE MARIJUANA (THC) SCREEN NEGATIVE; URINE METHADONE SCREEN NEGATIVE; URINE PHENCYCLIDINE SCREEN NEGATIVE
[2018-01-30 21:35] LABS: FREE T4 (FREE THYROXINE) 1.19 ng/dL (0.78-2.19); TROPONIN I < 0.012 ng/mL
[2018-01-30 21:41] LABS: ARTERIAL BLOOD BASE EXCESS 4.3 mmol/L; ARTERIAL BLOOD HCO3 28.9 mmol/L (20-26); ARTERIAL BLOOD O2 SATURATION 93.4 % (94-98); ARTERIAL BLOOD PCO2 43.2 mmHg (35-45); ARTERIAL BLOOD PH 7.44 (7.35-7.45); ARTERIAL BLOOD PO2 64.8 mmHg (80-100); ARTERIAL BLOOD TOTAL CO2 30.3 mmol/L (23-27)
[2018-01-30 21:43] LABS: URINE BENZODIAZEPINES SCREEN UNCONFIRMED POSITIVE
[2018-01-30 21:44] LABS: ARTERIAL BLOOD FIO2 26%
[2018-01-30 21:49] LABS: THYROID STIMULATING HORMONE 0.32 uIU/mL (0.47-4.68)
[2018-01-30] MEDS ORDERED: THIAMINE HCL INJ 200 MG/2 ML VIAL IV PRN (22:05)
[2018-01-30] MEDS ORDERED: FOLIC ACID INJ 5 MG/1 ML 10 ML VIAL IV PRN (22:06)
[2018-01-30] MEDS ORDERED: ALBUTEROL SULFATE HFA (90 MCG/PUFF) 200 PUFF/8.5 GM MDI IH PRN (22:14)
--- NOTE | 2018-01-30 22:14 | PDOC H&P ---
History of Present Illness Admission Date/PCP: 01/30/18 09:59 History of Present Illness: RODNEY L[address] is a 42 year old male, Patient is an alcoholic he was transferred from his residence by EMS to the emergency room for evaluation of shortness of breath. When he arrived in the emergency room he was evaluated he was found to be alcohol intoxicated it was just 9 a.m. in the morning on his alcohol level is above legal limit, this patient has remained drunk all the time he has alcohol liver disease, alcohol liver cirrhosis complicated with thrombocytopenia, hepatic encephalopathy. In the emergency room a chest x-ray was done it showed infiltrate in the right upper lobe probably due to aspiration. The blood gas on FiO2 of 26%, pH is 7.4, PO2 64.8, bicarbonate 28.9 PCO2 43.2, he also have hyperammonemia, history taking was a challenge from this patient.He was appropriately Given IV lorazepam in the emerrgency , The last time he was admitted to this hospital he developed alcohol withdrawal syndrome history taking was a challenge Due to excessive somnolence most likely from the intravenous lorazepam but he was given the emergency room Past Medical History Cardiac Medical History: Reports: Hyperlipidema, Hypertension Pulmonary Medical History: Reports: Asthma, Bronchitis, Chronic Obstructive Pulmonary Disease (COPD), Pneumonia - multiple Neurological Medical History: Reports: Migraine, Seizures GI Medical History: Reports: Cirrhosis Musculoskeltal Medical History: Reports: Arthritis Psychiatric Medical History: Reports: Alcohol Dependency, Depression Hematology: Reports: Other - Thrombocytopenia Past Surgical History Past Surgical History: Reports: Orthopedic Surgery - bilateral knees, left hand , leg Social History Smoking Status: Current Every Day Smoker Frequency of Alcohol Use: Heavy Hx Recreational Drug Use: No Drugs: None Hx Prescription Drug Abuse: No Family History Family History: Arthritis, Hypertension, Malignancy Parental Family History Reviewed: Yes Children Family History Reviewed: Yes Sibling(s) Family History Reviewed.: Yes Medication/Allergy Home Medications: Albuterol Sulfate [Proair HFA Inhalation Aerosol 8.5 gm MDI] 2 puff IH Q4HP PRN 01/30/18 Albuterol Sulfate [Ventolin 0.083% Neb 2.5 mg/3 mL Ampul] 2.5 mg NEB RTQ4HP PRN 01/30/18 Aspirin/Caffeine [Bc Powder Packet] 1 packet PO Q6HP PRN 01/30/18 Clonidine HCl [Catapres 0.2 mg Tablet] 0.2 mg PO Q8 01/30/18 Cyclobenzaprine HCl [Flexeril 10 mg Tablet] 10 mg PO TID 01/30/18 Diazepam [Valium 5 mg Tablet] 5 mg PO QPMP PRN 01/30/18 Donepezil HCl [Aricept 5 mg Tablet] 5 mg PO QHS 01/30/18 Fluoxetine HCl [Prozac] 40 mg PO QAM 01/30/18 Fluticasone/Salmeterol [Advair 250-50 Diskus 28 dose] 1 puff IH Q12 01/30/18 Hydrocodone/Acetaminophen [[place] 10-325 mg Tablet] 1 tab PO QID 01/30/18 Levetiracetam [Keppra 500 mg Tablet] 500 mg PO Q12 01/30/18 Pregabalin [Lyrica 50 mg Capsule] 50 mg PO Q12 01/30/18 Quetiapine Fumarate [Seroquel Xr] 150 mg PO QPM 01/30/18 Thiamine HCl [Vitamin B-1] 500 mg PO DAILY 01/30/18 Tiotropium [place] [Spiriva Handihaler 18 mcg/dose (30 Dose)] 18 mcg PO DAILY Trazodone HCl [Desyrel] 150 mg PO QHS 01/30/18 Allergies/Adverse Reactions: Coconut * [Coconut] Adverse Reaction (Severe, Verified 03/24/15 15:37) stomach swells pineapple [Pineapple] Adverse Reaction (Severe, Verified 03/24/15 15:37) stomach swells cherries Adverse Reaction (Severe, Uncoded 03/24/15 15:37) stomach swells Review of Systems ROS unobtainable: Due to mental status Physical Exam Vital Signs: Temp Pulse Resp BP Pulse Ox 97.4 F 65 20 181/99 H 96 01/30/18 20:33 01/30/18 20:33 01/30/18 20:33 01/30/18 20:33 01/30/18 20:33 Intake & Output 01/29/18 01/30/18 01/31/18 06:59 06:59 06:59 Intake Total 10 Balance 10 Weight 85.6 kg General appearance: PRESENT: other - Excessive somnolence Head exam: PRESENT: atraumatic, normocephalic Eye exam: PRESENT: conjunctiva pink, EOMI, PERRLA Ear exam: PRESENT: normal external ear exam Mouth exam: PRESENT: moist, tongue midline Neck exam: PRESENT: full ROM Respiratory exam: PRESENT: rhonchi Cardiovascular exam: PRESENT: RRR, +S1, +S2 Pulses: PRESENT: normal dorsalis pedis pul, +2 pedal pulses bilateral Vascular exam: PRESENT: normal capillary refill GI/Abdominal exam: PRESENT: normal bowel sounds, soft Rectal exam: PRESENT: deferred Neurological exam: PRESENT: altered Skin exam: PRESENT: dry, intact, warm. ABSENT: cyanosis, rash Results Laboratory Results: 01/30/18 20:30 01/30/18 20:30 01/30/18 01/30/18 01/30/18 11:30 20:30 20:30 WBC 7.6 RBC 4.30 L Hgb 14.2 Hct 42.7 MCV 99 H MCH 33.0 MCHC 33.2 RDW 16.7 H Plt Count 51 L Seg Neutrophils % Not Reportable Lymphocytes % Not Reportable Monocytes % Not Reportable Eosinophils % Not Reportable Basophils % Not Reportable Absolute Neutrophils Not Reportable Absolute Lymphocytes Not Reportable Absolute Monocytes Not Reportable Absolute Eosinophils Not Reportable Absolute Basophils Not Reportable Carbonic Acid HCO3/H2CO3 Ratio ABG pH ABG pCO2 ABG pO2 ABG HCO3 ABG O2 Saturation ABG Base Excess FiO2 Sodium 141.7 Potassium 3.4 L Chloride 100 Carbon Dioxide 31 H Anion Gap 11 BUN 9 Creatinine 0.37 L Est GFR ( Amer) > 60 Est GFR (Non-Af Amer) > 60 Glucose 126 H Lactic Acid 1.2 Calcium 9.1 Phosphorus 3.7 Magnesium 1.9 Total Bilirubin 0.7 AST 47 ALT 31 Alkaline Phosphatase 77 Ammonia Total Protein 6.9 Albumin 3.5 Amylase < 30 L Lipase 14.3 L TSH Free T4 Urine Color Urine Appearance Urine pH Ur Specific [place] Urine Protein Urine Glucose (UA) Urine Ketones Urine Blood Urine Nitrite Ur Leukocyte Esterase Urine RBC (Auto) 01/30/18 01/30/18 01/30/18 20:30 20:30 20:50 WBC RBC Hgb Hct MCV MCH MCHC RDW Plt Count Seg Neutrophils % Lymphocytes % Monocytes % Eosinophils % Basophils % Absolute Neutrophils Absolute Lymphocytes Absolute Monocytes Absolute Eosinophils Absolute Basophils Carbonic Acid HCO3/H2CO3 Ratio ABG pH ABG pCO2 ABG pO2 ABG HCO3 ABG O2 Saturation ABG Base Excess FiO2 Sodium Potassium Chloride Carbon Dioxide Anion Gap BUN Creatinine Est GFR ( Amer) Est GFR (Non-Af Amer) Glucose Lactic Acid Calcium Phosphorus Magnesium Total Bilirubin AST ALT Alkaline Phosphatase Ammonia 38.6 H Total Protein Albumin Amylase Lipase TSH 0.32 L Free T4 1.19 Urine Color YELLOW Urine Appearance CLEAR Urine pH 5.0 Ur Specific [place] 1.011 Urine Protein 100 H Urine Glucose (UA) 50 H Urine Ketones 80 H Urine Blood MODERATE H Urine Nitrite NEGATIVE Ur Leukocyte Esterase NEGATIVE Urine RBC (Auto) 1 01/30/18 21:28 WBC RBC Hgb Hct MCV MCH MCHC RDW Plt Count Seg Neutrophils % Lymphocytes % Monocytes % Eosinophils % Basophils % Absolute Neutrophils Absolute Lymphocytes Absolute Monocytes Absolute Eosinophils Absolute Basophils Carbonic Acid 1.30 HCO3/H2CO3 Ratio 22:1 ABG pH 7.44 ABG pCO2 43.2 ABG pO2 64.8 L ABG HCO3 28.9 H ABG O2 Saturation 93.4 L ABG Base Excess 4.3 FiO2 26% Sodium Potassium Chloride Carbon Dioxide Anion Gap BUN Creatinine Est GFR ( Amer) Est GFR (Non-Af Amer) Glucose Lactic Acid Calcium Phosphorus Magnesium Total Bilirubin AST ALT Alkaline Phosphatase Ammonia Total Protein Albumin Amylase Lipase TSH Free T4 Urine Color Urine Appearance Urine pH Ur Specific [place] Urine Protein Urine Glucose (UA) Urine Ketones Urine Blood Urine Nitrite Ur Leukocyte Esterase Urine RBC (Auto) 01/30/18 01/30/18 01/30/18 20:30 20:30 20:30 Creatine Kinase 180 H CK-MB (CK-2) 1.38 Troponin I < 0.012 NT-Pro-B Natriuret Pep 1200 H Impressions: Chest X-Ray 01/30/18 07:26 IMPRESSION: Airspace disease medial right upper lobe, worrisome for early or developing pneumonia. Assessment & Plan - Diagnosis (1) Acute hypoxemic respiratory failure Is this a current diagnosis for this admission?: Yes Plan: Continue oxygen nasal cannula (2) Aspiration pneumonia Qualifiers: Aspiration pneumonia type: unspecified Laterality: right Lung location: upper lobe of lung Qualified Code(s): J69.0 - Pneumonitis due to inhalation of food and vomit Is this a current diagnosis for this admission?: Yes Plan: Start Levaquin and clindamycin (3) Alcohol intoxication Qualifiers: Complication of substance-induced condition: with delirium Qualified Code(s ): F10.921 - Alcohol use, unspecified with intoxication delirium Is this a current diagnosis for this admission?: Yes Plan: Continue lorazepam (4) COPD (chronic obstructive pulmonary disease) Qualifiers: COPD type: unspecified COPD Qualified Code(s): J44.9 - Chronic obstructive pulmonary disease, unspecified Is this a current diagnosis for this admission?: Yes (5) Thrombocytopenia Is this a current diagnosis for this admission?: Yes
[2018-01-30] MEDS ORDERED: THIAMINE HCL 100 MG, FOLIC ACID 1 MG in NORMAL SALINE 250 ML IV ONE (22:15)
[2018-01-30] MEDS: IPRATROPIUM/ALBUTEROL 0.5-2.5 MG/3 ML AMPUL NEB SCH (22:36)
[2018-01-30] MEDS: LEVOFLOXACIN 750 MG/D5W RTU 750 MG/150 ML RTUPB IV SCH (22:47)
--- NOTE | 2018-01-30 22:54 | RADIOLOGY REPORT (SQ) ---
EXAM DESCRIPTION: CT CHEST WITHOUT COMPLETED DATE/TIME: 01/30/2018 10:24 pm REASON FOR STUDY: pneumonia COMPARISON: 01/02/2016 TECHNIQUE: CT scan performed of the chest without intravenous contrast. Images reviewed with lung, soft tissue and bone windows. Reconstructed coronal and sagittal MPR images reviewed. All images st ored on PACS. All CT scanners at this facility use dose modulation, iterative reconstruction, and/or weight based d osing when appropriate to reduce radiation dose to as low as reasonably achievable (ALARA). [facility]: Dose Right [facility]: CareDose [facility]: Dose Right [facility]: Teradose 4D [facility]: [employer] RADIATION DOSE: CT Rad equipment meets quality standard of care and radiation dose reduction techniq ues were employed. CTDIvol: 19.0 mGy. DLP: 712 mGy-cm. mGy. LIMITATIONS: No technical limitations. FINDINGS: LUNGS AND PLEURA: Multiple areas of patchy consolidation and slhoeut-khvjaa-tnyhx opacity throughout both lungs, greatest in the right upper parahilar region. No pneumothorax. No pleural ef fusion. HILAR AND MEDIASTINAL STRUCTURES: Similar scattered small lymph nodes. HEART AND VASCULAR STRUCTURES: No aneurysm. No pericardial effusion. UPPER ABDOMEN: Moderate fat stranding in the left pararenal space. Fatty liver. Limited exam. THYROID AND OTHER SOFT TISSUES: No masses. No adenopathy. BONES: No acute finding. HARDWARE: None in the chest. OTHER: No other significant findings. IMPRESSION: Multiple areas of patchy consolidation and fxqkpzu-zethvd-zufqn opacity throughout both lungs, greatest in the right upper parahilar region. Moderate fat stranding in the left pararenal spa ce. TECHNICAL DOCUMENTATION: JOB ID: [id number] Quality ID # [id number]: Final reports with documentation of one or more dose reduction techniques (e.g., Au tomated exposure control, adjustment of the mA and/or kV according to patient size, use of iterative reconstruction technique) 2010 [employer]- All Rights Reserved Reading location - IP/workstation name: [email or web address]
[2018-01-30] MEDS ORDERED: FLUTICASONE/SALMETEROL DISKUS 250-50 MCG/DOSE IH ONE ×2 (23:00→23:32)
[2018-01-30] MEDS ORDERED: TRAZODONE HCL 50 MG TABLET PO ONE (23:00)
[2018-01-30] MEDS ORDERED: PREGABALIN 50 MG CAPSULE PO ONE (23:00)
[2018-01-30] MEDS ORDERED: CLONIDINE HCL 0.2 MG TABLET PO ONE (23:00)
[2018-01-30] MEDS ORDERED: FOLIC ACID INJ 5 MG/1 ML 10 ML VIAL ONE (23:33)
[2018-01-31] MEDS: FLUOXETINE HCL 20 MG CAPSULE PO SCH ×2 (00:29→07:58)
[2018-01-31] MEDS: LORAZEPAM INJ 2 MG/1 ML VIAL IV SCH ×5 (00:43→21:09)
[2018-01-31] MEDS: IPRATROPIUM/ALBUTEROL 0.5-2.5 MG/3 ML AMPUL NEB SCH ×5 (01:39→14:00)
[2018-01-31 03:23] LABS: CREATINE KINASE MB 1.29 ng/mL (<4.55); TROPONIN I < 0.012 ng/mL
[2018-01-31] MEDS: CLINDAMYCIN 600 MG/D5W RTU 600 MG/50 ML RTUPB IV SCH ×3 (06:09→21:09)
[2018-01-31] MEDS: CLONIDINE HCL 0.2 MG TABLET PO SCH ×3 (06:11→21:07)
[2018-01-31 08:37] LABS: HEMATOCRIT 40.6 % (37.9-51.0); HEMOGLOBIN 13.5 g/dL (13.5-17.0); MEAN CORPUSCULAR HGB CONC 33.2 g/dL (32.0-36.0); MEAN CORPUSCULAR VOLUME 100 fl (80-97); RED BLOOD COUNT 4.08 10^6/uL (4.35-5.55); RED CELL DISTRIBUTION WIDTH 16.8 % (11.5-14.0); WHITE BLOOD COUNT 7.3 10^3/uL (4.0-10.5)
[2018-01-31 08:54] LABS: ALANINE AMINOTRANSFERASE 34 U/L (21-72); ALBUMIN 3.2 g/dL (3.5-5.0); ALKALINE PHOSPHATASE 68 U/L (38-126); ANION GAP 11 (5-19); ASPARTATE AMINO TRANSFERASE 49 U/L (17-59); BILIRUBIN,DIRECT 0.5 mg/dL (0.0-0.4); BILIRUBIN,TOTAL 0.6 mg/dL (0.2-1.3); BLOOD UREA NITROGEN 12 mg/dL (7-20); CALCIUM 8.8 mg/dL (8.4-10.2); CARBON DIOXIDE 29 mmol/L (22-30); CHLORIDE 103 mmol/L (98-107); CHOLESTEROL 119.11 mg/dL (0-200); GLUCOSE 127 mg/dL (75-110); POTASSIUM 3.2 mmol/L (3.6-5.0); SODIUM 143.2 mmol/L (137-145); TOTAL PROTEIN 6.4 g/dL (6.3-8.2); TRIGLYCERIDES 65 mg/dL (<150)
[2018-01-31 08:55] LABS: ABSOLUTE LYMPHOCYTES# (MANUAL) 0.2 10^3/uL (0.5-4.7); ABSOLUTE MONOCYTES # (MANUAL) 0.7 10^3/uL (0.1-1.4); ABSOLUTE NEUTROPHILS# (MANUAL) 6.4 10^3/uL (1.7-8.2); BASOPHILS % (MANUAL) 0 % (0-2); EOSINOPHILS % (MANUAL) 0 % (0-6); LYMPHOCYTES % (MANUAL) 3 % (13-45); MONOCYTES % (MANUAL) 9 % (3-13); SEGMENTED NEUTROPHILS % (MAN) 88 % (42-78); TOTAL CELLS COUNTED 100
[2018-01-31 08:58] LABS: CREATINE KINASE MB 1.02 ng/mL (<4.55)
[2018-01-31 09:05] LABS: DIRECT LDL 40 mg/dL (<100)
[2018-01-31 09:08] LABS: TROPONIN I < 0.012 ng/mL
[2018-01-31 09:12] LABS: TOXIC GRANULATION SLIGHT; TOXIC VACUOLATION PRESENT
[2018-01-31 09:13] LABS: ANISOCYTOSIS 1+; POLYCHROMASIA SLIGHT
[2018-01-31 09:14] LABS: PLATELET COMMENT DECREASED; PLATELET COUNT 53 10^3/uL (150-450)
[2018-01-31] MEDS ORDERED: THIAMINE HCL 100 MG, FOLIC ACID 1 MG in NORMAL SALINE 250 ML IV SCH ×2 (10:00→22:00)
[2018-01-31] MEDS ORDERED: LORAZEPAM INJ 2 MG/1 ML VIAL ONE (10:49)
[2018-01-31] MEDS: PREGABALIN 50 MG CAPSULE PO SCH ×2 (10:50→21:08)
[2018-01-31] MEDS: FLUTICASONE/SALMETEROL DISKUS 250-50 MCG/DOSE IH SCH ×2 (10:51→21:03)
[2018-01-31] MEDS ORDERED: LORAZEPAM INJ 2 MG/1 ML VIAL IV ONE (11:00)
[2018-01-31] MEDS: NORMAL SALINE 1000 ML 1,000 ML IV PRN (11:09)
[2018-01-31] MEDS ORDERED: TRAMADOL HCL 50 MG TABLET PO PRN (16:08)
[2018-01-31] MEDS ORDERED: POTASSIUM CHLORIDE 10 MEQ TABLET.SA PO ONE (16:30)
[2018-01-31] MEDS ORDERED: LORAZEPAM 1 MG TABLET PO SCH (18:00)
--- NOTE | 2018-01-31 18:57 | PDOC PROGRESS REPORT ---
Subjective Progress Note for:: 01/31/18 Subjective:: He was seen by the bedside, he has diffuse bilateral pneumonia, he has tremors of his extremities, the frequency of the Lorazepam was increased from every 6 hours to every 4 hours Reason For Visit: ASPIRATION PNEUMONIA, ALCOHOLISM, ETOH LIVER Physical Exam Vital Signs: Temp Pulse Resp BP Pulse Ox 98.6 F 82 21 H 167/91 H 93 01/31/18 16:02 01/31/18 16:54 01/31/18 16:54 01/31/18 16:02 01/31/18 16:54 Intake & Output 01/30/18 01/31/18 02/01/18 06:59 06:59 06:59 Intake Total 1410 3850 Output Total 1200 Balance 210 3850 Weight 84.4 kg General appearance: PRESENT: mild distress Eye exam: PRESENT: PERRLA Respiratory exam: PRESENT: rhonchi Cardiovascular exam: PRESENT: +S1, +S2 GI/Abdominal exam: PRESENT: soft Neurological exam: PRESENT: alert Results Laboratory Results: 01/31/18 08:10 01/31/18 08:10 01/30/18 01/30/18 01/30/18 20:30 20:30 20:30 WBC 7.6 RBC 4.30 L Hgb 14.2 Hct 42.7 MCV 99 H MCH 33.0 MCHC 33.2 RDW 16.7 H Plt Count 51 L Seg Neutrophils % Not Reportable Lymphocytes % Not Reportable Monocytes % Not Reportable Eosinophils % Not Reportable Basophils % Not Reportable Absolute Neutrophils Not Reportable Absolute Lymphocytes Not Reportable Absolute Monocytes Not Reportable Absolute Eosinophils Not Reportable Absolute Basophils Not Reportable Carbonic Acid HCO3/H2CO3 Ratio ABG pH ABG pCO2 ABG pO2 ABG HCO3 ABG O2 Saturation ABG Base Excess FiO2 Sodium 141.7 Potassium 3.4 L Chloride 100 Carbon Dioxide 31 H Anion Gap 11 BUN 9 Creatinine 0.37 L Est GFR ( Amer) > 60 Est GFR (Non-Af Amer) > 60 Glucose 126 H Calcium 9.1 Phosphorus 3.7 Magnesium 1.9 Total Bilirubin 0.7 AST 47 ALT 31 Alkaline Phosphatase 77 Ammonia Total Protein 6.9 Albumin 3.5 Triglycerides Cholesterol LDL Cholesterol Direct VLDL Cholesterol HDL Cholesterol Amylase < 30 L Lipase 14.3 L TSH 0.32 L Free T4 1.19 Urine Color Urine Appearance Urine pH Ur Specific [place] Urine Protein Urine Glucose (UA) Urine Ketones Urine Blood Urine Nitrite Ur Leukocyte Esterase Urine RBC (Auto) 01/30/18 01/30/18 01/30/18 20:30 20:50 21:28 WBC RBC Hgb Hct MCV MCH MCHC RDW Plt Count Seg Neutrophils % Lymphocytes % Monocytes % Eosinophils % Basophils % Absolute Neutrophils Absolute Lymphocytes Absolute Monocytes Absolute Eosinophils Absolute Basophils Carbonic Acid 1.30 HCO3/H2CO3 Ratio 22:1 ABG pH 7.44 ABG pCO2 43.2 ABG pO2 64.8 L ABG HCO3 28.9 H ABG O2 Saturation 93.4 L ABG Base Excess 4.3 FiO2 26% Sodium Potassium Chloride Carbon Dioxide Anion Gap BUN Creatinine Est GFR ( Amer) Est GFR (Non-Af Amer) Glucose Calcium Phosphorus Magnesium Total Bilirubin AST ALT Alkaline Phosphatase Ammonia 38.6 H Total Protein Albumin Triglycerides Cholesterol LDL Cholesterol Direct VLDL Cholesterol HDL Cholesterol Amylase Lipase TSH Free T4 Urine Color YELLOW Urine Appearance CLEAR Urine pH 5.0 Ur Specific [place] 1.011 Urine Protein 100 H Urine Glucose (UA) 50 H Urine Ketones 80 H Urine Blood MODERATE H Urine Nitrite NEGATIVE Ur Leukocyte Esterase NEGATIVE Urine RBC (Auto) 1 01/31/18 01/31/18 08:10 08:10 WBC 7.3 RBC 4.08 L Hgb 13.5 Hct 40.6 MCV 100 H MCH 33.0 MCHC 33.2 RDW 16.8 H Plt Count 53 L Seg Neutrophils % Not Reportable Lymphocytes % Not Reportable Monocytes % Not Reportable Eosinophils % Not Reportable Basophils % Not Reportable Absolute Neutrophils Not Reportable Absolute Lymphocytes Not Reportable Absolute Monocytes Not Reportable Absolute Eosinophils Not Reportable Absolute Basophils Not Reportable Carbonic Acid HCO3/H2CO3 Ratio ABG pH ABG pCO2 ABG pO2 ABG HCO3 ABG O2 Saturation ABG Base Excess FiO2 Sodium 143.2 Potassium 3.2 L Chloride 103 Carbon Dioxide 29 Anion Gap 11 BUN 12 Creatinine 0.41 L Est GFR ( Amer) > 60 Est GFR (Non-Af Amer) > 60 Glucose 127 H Calcium 8.8 Phosphorus Magnesium 1.9 Total Bilirubin 0.6 AST 49 ALT 34 Alkaline Phosphatase 68 Ammonia Total Protein 6.4 Albumin 3.2 L Triglycerides 65 Cholesterol 119.11 LDL Cholesterol Direct 40 VLDL Cholesterol 13.0 HDL Cholesterol 58 Amylase Lipase TSH Free T4 Urine Color Urine Appearance Urine pH Ur Specific [place] Urine Protein Urine Glucose (UA) Urine Ketones Urine Blood Urine Nitrite Ur Leukocyte Esterase Urine RBC (Auto) 01/30/18 01/30/18 01/30/18 20:30 20:30 20:30 Creatine Kinase 180 H CK-MB (CK-2) 1.38 Troponin I < 0.012 NT-Pro-B Natriuret Pep 1200 H 01/31/18 01/31/18 01/31/18 02:37 02:37 08:10 Creatine Kinase 130 98 CK-MB (CK-2) 1.29 Troponin I < 0.012 NT-Pro-B Natriuret Pep 01/31/18 08:10 Creatine Kinase CK-MB (CK-2) 1.02 Troponin I < 0.012 NT-Pro-B Natriuret Pep Impressions: Chest CT 01/30/18 00:00 IMPRESSION: Multiple areas of patchy consolidation and vntiqvc-xivegf-aucub opacity throughout both lungs, greatest in the right upper parahilar region. Moderate fat stranding in the left pararenal space. Chest X-Ray 01/30/18 07:26 IMPRESSION: Airspace disease medial right upper lobe, worrisome for early or developing pneumonia. Assessment & Plan - Diagnosis (1) Acute hypoxemic respiratory failure Is this a current diagnosis for this admission?: Yes (2) Aspiration pneumonia Qualifiers: Aspiration pneumonia type: unspecified Laterality: right Lung location: upper lobe of lung Qualified Code(s): J69.0 - Pneumonitis due to inhalation of food and vomit Is this a current diagnosis for this admission?: Yes Plan: Continue IV antibiotic (3) Alcohol intoxication Qualifiers: Complication of substance-induced condition: with delirium Qualified Code(s ): F10.921 - Alcohol use, unspecified with intoxication delirium Is this a current diagnosis for this admission?: Yes Plan: Continue IV lorazepam to prevent alcohol withdrawal syndrome (4) COPD (chronic obstructive pulmonary disease) Qualifiers: COPD type: unspecified COPD Qualified Code(s): J44.9 - Chronic obstructive pulmonary disease, unspecified Is this a current diagnosis for this admission?: Yes (5) Thrombocytopenia Is this a current diagnosis for this admission?: Yes
[2018-01-31] MEDS: LEVOFLOXACIN 750 MG/D5W RTU 750 MG/150 ML RTUPB IV SCH (20:21)
[2018-01-31] MEDS: TRAZODONE HCL 50 MG TABLET PO SCH (21:08)
[2018-02-01] MEDS: LORAZEPAM INJ 2 MG/1 ML VIAL IV SCH ×4 (01:04→11:15)
--- NOTE | 2018-02-01 02:02 | Physician Advisory Note ---
Physician Advisor ProgressNote .: Pursuant to the plan for [facility], I have reviewed the medical record for this patient. Physician Advisor Statement: Pt with "labored" breathing initially, with low pO2 1st PM, O2 sats as low as 94 % despite 2L O2, along w/initial tachycardia/tachypnea, supporting dx of Ac REsp Failure. Please consider documenting, if you agree: 1. Dx for which pt takes Aricept 2. Medical necessity: each day, the reason(s) pt not yet safe for d/c home, what is being done for pt Thanks! CK
[2018-02-01] MEDS: CLONIDINE HCL 0.2 MG TABLET PO SCH ×3 (04:36→21:14)
[2018-02-01 05:44] LABS: ABSOLUTE LYMPHOCYTES (AUTO) 0.6 10^3/uL (0.5-4.7); ABSOLUTE MONOCYTES (AUTO) 0.7 10^3/uL (0.1-1.4); ABSOLUTE NEUT (AUTO) 3.6 10^3/uL (1.7-8.2); BASOPHILS % (AUTO) 0.2 % (0-2); HEMATOCRIT 40.8 % (37.9-51.0); HEMOGLOBIN 13.6 g/dL (13.5-17.0); LYMPHOCYTES % (AUTO) 12.1 % (13-45); MEAN CORPUSCULAR HGB CONC 33.3 g/dL (32.0-36.0); MEAN CORPUSCULAR VOLUME 99 fl (80-97); RED BLOOD COUNT 4.12 10^6/uL (4.35-5.55); RED CELL DISTRIBUTION WIDTH 16.9 % (11.5-14.0); SEGMENTED NEUTROPHILS % (AUTO) 72.7 % (42-78); TOTAL CELLS COUNTED % (AUTO) 100 %; WHITE BLOOD COUNT 4.9 10^3/uL (4.0-10.5)
[2018-02-01] MEDS: CLINDAMYCIN 600 MG/D5W RTU 600 MG/50 ML RTUPB IV SCH ×3 (05:50→21:19)
[2018-02-01 05:57] LABS: ALANINE AMINOTRANSFERASE 74 U/L (21-72); ALBUMIN 3.5 g/dL (3.5-5.0); ALKALINE PHOSPHATASE 79 U/L (38-126); ANION GAP 13 (5-19); ASPARTATE AMINO TRANSFERASE 178 U/L (17-59); BILIRUBIN,DIRECT 0.6 mg/dL (0.0-0.4); BLOOD UREA NITROGEN 9 mg/dL (7-20); CALCIUM 8.9 mg/dL (8.4-10.2); CARBON DIOXIDE 28 mmol/L (22-30); CHLORIDE 95 mmol/L (98-107); GLUCOSE 95 mg/dL (75-110); POTASSIUM 3.3 mmol/L (3.6-5.0); SODIUM 136.2 mmol/L (137-145); TOTAL PROTEIN 6.9 g/dL (6.3-8.2)
[2018-02-01 06:19] LABS: PLATELET COUNT 56 10^3/uL (150-450)
[2018-02-01] MEDS ORDERED: LORAZEPAM INJ 2 MG/1 ML VIAL IV ONE ×3 (06:45→13:15)
[2018-02-01] MEDS: FLUOXETINE HCL 20 MG CAPSULE PO SCH (07:28)
[2018-02-01] MEDS ORDERED: SUCCINYLCHOLINE CHLORIDE INJ 200 MG/10 ML VIAL ONE (07:52)
[2018-02-01] MEDS ORDERED: ROCURONIUM BROMIDE INJ 50 MG/5 ML VIAL IV ONE (07:52)
[2018-02-01] MEDS: PREGABALIN 50 MG CAPSULE PO SCH ×2 (09:44→21:18)
[2018-02-01] MEDS: FLUTICASONE/SALMETEROL DISKUS 250-50 MCG/DOSE IH SCH ×2 (09:44→21:06)
[2018-02-01] MEDS ORDERED: POTASSIUM CHLORIDE 10 MEQ TABLET.SA PO ONE (10:30)
[2018-02-01] MEDS ORDERED: MAGNESIUM SULFATE 1 GM/D5W 100 ML IV ONE (11:00)
[2018-02-01] MEDS: MAGNESIUM SULFATE/D5W 1 GM/100 ML RTUPB IV SCH ×5 (13:00→16:35)
[2018-02-01] MEDS ORDERED: LORAZEPAM INJ 2 MG/1 ML VIAL ONE ×2 (13:15→13:47)
[2018-02-01] MEDS ORDERED: MAGNESIUM SULFATE/D5W 1 GM/100 ML RTUPB IV ONE ×2 (13:19→13:21)
[2018-02-01] MEDS ORDERED: PROPOFOL 100 ML IV ONE (13:32)
[2018-02-01 13:34] LABS: ARTERIAL BLOOD BASE EXCESS 1.1 mmol/L; ARTERIAL BLOOD FIO2 100%; ARTERIAL BLOOD H2CO3 1.03 mmol/L (1.05-1.35); ARTERIAL BLOOD HCO3 24.2 mmol/L (20-26); ARTERIAL BLOOD O2 SATURATION 98.1 % (94-98); ARTERIAL BLOOD PCO2 34.3 mmHg (35-45); ARTERIAL BLOOD PH 7.47 (7.35-7.45); ARTERIAL BLOOD PO2 104.1 mmHg (80-100); ARTERIAL BLOOD TOTAL CO2 25.2 mmol/L (23-27)
[2018-02-01] MEDS ORDERED: HYDROMORPHONE HCL INJ/PF 2 MG/ML AMPULE ONE (13:44)
[2018-02-01] MEDS ORDERED: POTASSIUM CHLORIDE 10 MEQ TABLET.SA PO SCH (14:00)
--- NOTE | 2018-02-01 14:10 | Progress Note ---
Provider Note Provider Note: A manuela clarke was called at approximately 1 pm. The patient is 42 yr old male with a h/o ETOH abuse. He reportedly had seizures, vent into Ventriculat tachycardia followed by unresponsiveness and loss of pulse. He lost his pulse and Dr. Castro noted V fib. CPR was started and he was shocked once with ROSC. He was given a total of 4 mg IV Ativan for tremulousness likely due to alcohol withdrawal. He was also hypomagnesemic and was given 2 grams of Mag sulfate. I discussed his case with his attending physician Dr. Mccarty and he was in agreement with transfer to ICU, intubation and Ativan gtt.
[2018-02-01 15:05] LABS: ARTERIAL BLOOD BASE EXCESS 2.8 mmol/L; ARTERIAL BLOOD H2CO3 1.27 mmol/L (1.05-1.35); ARTERIAL BLOOD HCO3 27.4 mmol/L (20-26); ARTERIAL BLOOD O2 SATURATION 96.3 % (94-98); ARTERIAL BLOOD PCO2 42.1 mmHg (35-45); ARTERIAL BLOOD PH 7.43 (7.35-7.45); ARTERIAL BLOOD PO2 81.3 mmHg (80-100); ARTERIAL BLOOD TOTAL CO2 28.7 mmol/L (23-27)
[2018-02-01] MEDS ORDERED: POTASSI CL 20 MEQ/50 ML RIDER 20 MEQ/50 ML RTUPB IV SCH (15:06)
[2018-02-01 15:09] LABS: ARTERIAL BLOOD FIO2 40%
[2018-02-01] MEDS: PROPOFOL 100 ML IV PRN ×3 (15:09→20:33)
--- NOTE | 2018-02-01 15:23 | RADIOLOGY REPORT (SQ) ---
EXAM DESCRIPTION: CHEST SINGLE VIEW COMPLETED DATE/TIME: 02/01/2018 3:08 pm REASON FOR STUDY: Intubation/NG tube placement COMPARISON: 01/30/2018. NUMBER OF VIEWS: One view. TECHNIQUE: Single frontal radiographic image of the chest acquired. LIMITATIONS: Overlying support apparatus. FINDINGS: LUNGS AND PLEURA: Stable appearance. No pneumothorax. MEDIASTINUM AND HEART: Stable heart size and mediastinal structures. SUPPORT DEVICES: Endotracheal tube tip between thoracic inlet and varghese. Nasogastric tube tip in th e stomach. BONY STRUCTURES: No acute findings. HARDWARE: None. OTHER: No other significant finding. IMPRESSION: Good position of support apparatus. No pneumothorax. Reading location - IP/workstation name: [email or web address]
[2018-02-01] MEDS ORDERED: POTASSIUM CHLORIDE 20 MEQ/15 ML UDCUP NG ONE (15:30)
[2018-02-01] MEDS: LORAZEPAM INJ 2 MG/1 ML VIAL IV PRN (15:32)
[2018-02-01 15:38] LABS: ABSOLUTE LYMPHOCYTES (AUTO) 1.3 10^3/uL (0.5-4.7); ABSOLUTE MONOCYTES (AUTO) 0.7 10^3/uL (0.1-1.4); ABSOLUTE NEUT (AUTO) 2.8 10^3/uL (1.7-8.2); BASOPHILS % (AUTO) 0.3 % (0-2); EOSINOPHILS % (AUTO) 0.1 % (0-6); HEMATOCRIT 44.9 % (37.9-51.0); LYMPHOCYTES % (AUTO) 26.8 % (13-45); MEAN CORPUSCULAR HEMOGLOBIN 33.1 pg (27.0-33.4); MEAN CORPUSCULAR HGB CONC 33.4 g/dL (32.0-36.0); MEAN CORPUSCULAR VOLUME 99 fl (80-97); RED BLOOD COUNT 4.54 10^6/uL (4.35-5.55); RED CELL DISTRIBUTION WIDTH 16.8 % (11.5-14.0); SEGMENTED NEUTROPHILS % (AUTO) 57.8 % (42-78); TOTAL CELLS COUNTED % (AUTO) 100 %; WHITE BLOOD COUNT 4.8 10^3/uL (4.0-10.5)
[2018-02-01 15:43] LABS: ALANINE AMINOTRANSFERASE 120 U/L (21-72); ALBUMIN 3.8 g/dL (3.5-5.0); ALKALINE PHOSPHATASE 89 U/L (38-126); ANION GAP 7 (5-19); ASPARTATE AMINO TRANSFERASE 400 U/L (17-59); BILIRUBIN,DIRECT 0.7 mg/dL (0.0-0.4); BILIRUBIN,TOTAL 1.2 mg/dL (0.2-1.3); BLOOD UREA NITROGEN 11 mg/dL (7-20); CALCIUM 10.1 mg/dL (8.4-10.2); CARBON DIOXIDE 34 mmol/L (22-30); CHLORIDE 92 mmol/L (98-107); CREATINE KINASE 874 U/L (55-170); GLUCOSE 147 mg/dL (75-110); PHOSPHORUS 4.7 mg/dL (2.5-4.5); POTASSIUM 3.5 mmol/L (3.6-5.0); SODIUM 133.1 mmol/L (137-145); TOTAL PROTEIN 7.2 g/dL (6.3-8.2)
[2018-02-01 15:52] LABS: PLATELET COUNT 58 10^3/uL (150-450)
[2018-02-01 15:55] LABS: CREATINE KINASE MB 1.95 ng/mL (<4.55); TROPONIN I 0.019 ng/mL
--- NOTE | 2018-02-01 17:25 | RADIOLOGY REPORT (SQ) ---
EXAM DESCRIPTION: CT HEAD WITH COMPLETED DATE/TIME: 02/01/2018 5:09 pm REASON FOR STUDY: new seiziures in thrombocytopenic patient COMPARISON: April 2017 TECHNIQUE: Axial images acquired through the brain with intravenous contrast. Images reviewed with b one, brain and subdural windows. Images stored on PACS. All CT scanners at this facility use dose modulation, iterative reconstruction, and/or weight based d osing when appropriate to reduce radiation dose to as low as reasonably achievable (ALARA). [facility]: Dose Right [facility]: CareDose [facility]: Dose Right [facility]: Teradose 4D [facility]: [employer] CONTRAST TYPE AND DOSE: contrast/concentration: Isovue 370.00 mg/ml; Total Contrast Delivered: 50.0 ml; Total Saline Delivered: 50.0 ml RENAL FUNCTION: None required. The patient is less than 50 years old. RADIATION DOSE: CT Rad equipment meets quality standard of care and radiation dose reduction techniq ues were employed. CTDIvol: 64.6 mGy. DLP: 1292 mGy-cm.. LIMITATIONS: None. FINDINGS: VENTRICLES: Normal size and contour. CEREBRUM: No masses. No hemorrhage. No midline shift. Normal hammer/white matter differentiation. No ev idence for acute infarction. No enhancing lesions. There is some mild prominence of the cortical sul ci unchanged from the previous study CEREBELLUM: No masses. No hemorrhage. No alteration of density. No evidence for acute infarction. No enhancing lesions. EXTRA-AXIAL SPACES: No fluid collections. No enhancing lesions. ORBITS AND GLOBE: No intra- or extraconal masses. Normal contour of globe without masses. CALVARIUM: No fracture. PARANASAL SINUSES: No fluid or mucosal thickening. SOFT TISSUES: No mass or hematoma. OTHER: On the more inferior sections and NG tube and ET tube are identified IMPRESSION: No significant intracranial abnormalities were identified. Other findings as noted abov e. EVIDENCE OF ACUTE STROKE: NO. TECHNICAL DOCUMENTATION: JOB ID: [id number] Quality ID # [id number]: Final reports with documentation of one or more dose reduction techniques (e.g., Au tomated exposure control, adjustment of the mA and/or kV according to patient size, use of iterative reconstruction technique) 2010 [employer]- All Rights Reserved Reading location - IP/workstation name: [email or web address]
[2018-02-01] MEDS ORDERED: POTASSIUM CHLORIDE 20 MEQ/15 ML UDCUP NG SCH ×2 (18:00→19:30)
[2018-02-01] MEDS: NORMAL SALINE 1000 ML 1,000 ML IV PRN (18:38)
[2018-02-01 18:41] LABS: APPEARANCE,URINE SLIGHTLY-CLOUDY; BILIRUBIN,URINE NEGATIVE (NEGATIVE); COLOR,URINE YELLOW; GLUCOSE, URINE 50 mg/dL (NEGATIVE); KETONES,URINE TRACE mg/dL (NEGATIVE); LEUKOCYTE ESTERASE,URINE NEGATIVE (NEGATIVE); NITRITE,URINE NEGATIVE (NEGATIVE); PROTEIN,URINE 100 mg/dL (NEGATIVE); URINE SPECIFIC GRAVITY 1.019; UROBILINOGEN,URINE NEGATIVE mg/dL (<2.0)
--- NOTE | 2018-02-01 19:28 | XCELERA REPORT ---
[address] [address] Transthoracic Echocardiogram Report Name: RODNEY LANE Age: 42 yrs Gender: Male : 1975 Patient Status: Inpatient Patient Location: ICU^2^A Study Date: 02/01/2018 03:23 PM Height: 72 in Weight: 195 lb BSA: 2.1 m2 Procedure: A complete two-dimensional transthoracic echocardiogram was performed (2D, M-mode, spectral and color flow Doppler). The study was technically difficult with many images being suboptimal in quality. Reason For Study: Left Ventricular Hypertrophy, ETOH Abuse Ordering Physician: CHERELLE HUBBARD Performed By: Mary Biswas Interpretation Summary There is mild concentric left ventricular hypertrophy. The left ventricle is grossly normal size. Left ventricular systolic function is borderline reduced. The Ejection Fraction estimate is 50-55% Doppler measurements suggest pseudonormalized left ventricular relaxation, which is associated with grade II/IV or mild to moderate diastolic dysfunction There is borderline global hypokinesis of the left ventricle. Borderline right ventricular enlargement. The right ventricular systolic function is borderline reduced. Borderline left atrial enlargement. The right atrium is normal in size There is a trace amount of mitral regurgitation There is no mitral valve stenosis. There is no aortic valve stenosis No aortic regurgitation is present. There is a trace or physiologic amount of tricuspid regurgitation Tricuspid regurgitation jet envelope not well defined to measure RV systolic pressure accurately. There is no tricuspid stenosis. The aortic root is not well visualized but is probably normal size. The inferior vena cava appeared normal and decreased < 50% with respiration (RAP 10-15 mmHg) There is no pericardial effusion. MMode/2D Measurements & Calculations RVDd: 2.9 cm LVIDd: 4.7 cm FS: 24.8 % Ao root diam: 2.7 cm IVSd: 1.2 cm LVIDs: 3.5 cm EDV(Teich): 100.7 ml LVPWd: 1.2 cm ESV(Teich): 51.3 ml Ao root area: 5.7 cm2 EF(Teich): 49.1 % Doppler Measurements & Calculations MV E max aguilar: MV dec slope: Ao V2 max: LV V1 max P.2 cm/sec 77.9 cm/sec 2.1 mmHg MV A max aguilar: 158.7 cm/sec2 Ao max PG: LV V1 max: 35.3 cm/sec MV dec time: 0.27 sec2.4 mmHg 71.7 cm/sec MV E/A: 1.2 PA V2 max: 59.5 cm/sec PA max P.4 mmHg Left Ventricle The left ventricle is grossly normal size. There is mild concentric left ventricular hypertrophy. Left ventricular systolic function is borderline reduced. The Ejection Fraction estimate is 50-55%. Doppler measurements suggest pseudonormalized left ventricular relaxation, which is associated with grade II/IV or mild to moderate diastolic dysfunction. There is borderline global hypokinesis of the left ventricle. Right Ventricle Borderline right ventricular enlargement. There is normal right ventricular wall thickness. The right ventricular systolic function is borderline reduced. Atria The right atrium is normal in size. Borderline left atrial enlargement. Interarterial septum not well visualized and not well dopplered. Cannot comment on ASD/PFO presence. Mitral Valve The mitral valve is grossly normal. There is no mitral valve stenosis. There is a trace amount of mitral regurgitation. Aortic Valve The aortic valve is not well visualized secondary to technical limitations. There is no aortic valve stenosis. No aortic regurgitation is present. Tricuspid Valve The tricuspid valve is not well visualized secondary to technical limitations. There is no tricuspid stenosis. There is a trace or physiologic amount of tricuspid regurgitation. Tricuspid regurgitation jet envelope not well defined to measure RV systolic pressure accurately. Pulmonic Valve The pulmonic valve is not well visualized. Great Vessels The aortic root is not well visualized but is probably normal size. The inferior vena cava appeared normal and decreased < 50% with respiration (RAP 10-15 mmHg). Effusions There is no pericardial effusion. : CHERELLE HUBBARD > Cherelle Hubbard
[2018-02-01] MEDS: LEVOFLOXACIN 750 MG/D5W RTU 750 MG/150 ML RTUPB IV SCH (20:33)
[2018-02-01] MEDS: TRAZODONE HCL 50 MG TABLET PO SCH (21:18)
[2018-02-01] MEDS: LORAZEPAM 24 MG/240 ML BAG IV PRN (21:43)
--- NOTE | 2018-02-01 21:58 | PDOC CONSULTATION ---
Consultation Consult Date: 02/01/18 Attending physician:: LYNN LAWRENCE Consult reason:: Acute respiratory failure/seizures/pna History of Present Illness Admission Date/PCP: 01/30/18 09:59 History of Present Illness: RODNEY LANE is a 42 year old male Admitted to 3 S. reportedly had witnessed seizures followed by apnea and cardiopulmonary arrest he subsequently brought to the ICU intubated and sedated. It is suspected that he may have gone into DTs compouned by thrombocytopenia most likely from alcohol bone marrow supression Past Medical History Cardiac Medical History: Reports: Hyperlipidema, Hypertension Denies: Coronary Artery Disease, Myocardial Infarction Pulmonary Medical History: Reports: Asthma, Bronchitis, Chronic Obstructive Pulmonary Disease (COPD), Pneumonia - multiple EENT Medical History: Reports: Other - Thrombocytopenia Neurological Medical History: Reports: Migraine, Seizures GI Medical History: Reports: Cirrhosis Musculoskeltal Medical History: Reports: Arthritis Psychiatric Medical History: Reports: Alcohol Dependency, Depression Hematology: Reports: Other - Thrombocytopenia Denies: Anemia Past Surgical History Past Surgical History: Reports: Orthopedic Surgery - bilateral knees, left hand , leg Social History Smoking Status: Current Every Day Smoker Frequency of Alcohol Use: Heavy Hx Recreational Drug Use: No Drugs: None Hx Prescription Drug Abuse: No Family History Family History: Arthritis, Hypertension, Malignancy Parental Family History Reviewed: No Children Family History Reviewed: No Sibling(s) Family History Reviewed.: No Medication/Allergy Home Medications: Albuterol Sulfate [Proair HFA Inhalation Aerosol 8.5 gm MDI] 2 puff IH Q4HP PRN 01/30/18 Albuterol Sulfate [Ventolin 0.083% Neb 2.5 mg/3 mL Ampul] 2.5 mg NEB RTQ4HP PRN 01/30/18 Aspirin/Caffeine [Bc Powder Packet] 1 packet PO Q6HP PRN 01/30/18 Clonidine HCl [Catapres 0.2 mg Tablet] 0.2 mg PO Q8 01/30/18 Cyclobenzaprine HCl [Flexeril 10 mg Tablet] 10 mg PO TID 01/30/18 Diazepam [Valium 5 mg Tablet] 5 mg PO QPMP PRN 01/30/18 Donepezil HCl [Aricept 5 mg Tablet] 5 mg PO QHS 01/30/18 Fluoxetine HCl [Prozac] 40 mg PO QAM 01/30/18 Fluticasone/Salmeterol [Advair 250-50 Diskus 28 dose] 1 puff IH Q12 01/30/18 Hydrocodone/Acetaminophen [Belen 10-325 mg Tablet] 1 tab PO QID 01/30/18 Levetiracetam [Keppra 500 mg Tablet] 500 mg PO Q12 01/30/18 Pregabalin [Lyrica 50 mg Capsule] 50 mg PO Q12 01/30/18 Quetiapine Fumarate [Seroquel Xr] 150 mg PO QPM 01/30/18 Thiamine HCl [Vitamin B-1] 500 mg PO DAILY 01/30/18 Tiotropium [place] [Spiriva Handihaler 18 mcg/dose (30 Dose)] 18 mcg PO DAILY Trazodone HCl [Desyrel] 150 mg PO QHS 01/30/18 Allergies/Adverse Reactions: Coconut * [Coconut] Adverse Reaction (Severe, Verified 03/24/15 15:37) stomach swells pineapple [Pineapple] Adverse Reaction (Severe, Verified 03/24/15 15:37) stomach swells cherries Adverse Reaction (Severe, Uncoded 03/24/15 15:37) stomach swells Review of Systems ROS unobtainable: Due to endotracheal tube Physical Exam Vital Signs: Temp Pulse Resp BP Pulse Ox 99.1 F 93 16 165/90 H 98 02/01/18 11:51 02/01/18 11:51 02/01/18 11:51 02/01/18 11:51 02/01/18 13:54 Intake & Output 01/31/18 02/01/18 02/02/18 06:59 06:59 06:59 Intake Total 1410 5600 Output Total 1200 1225 Balance 210 4375 Weight 84.4 kg 88.8 kg General appearance: PRESENT: no acute distress, disheveled, well-developed, well -nourished. ABSENT: cooperative Head exam: PRESENT: atraumatic, normocephalic Eye exam: PRESENT: conjunctiva pale. ABSENT: EOMI, nystagmus, periorbital swelling, scleral icterus Mouth exam: PRESENT: dry mucosa, neck supple, tongue midline, other - ET tube Neck exam: ABSENT: carotid bruit, JVD, lymphadenopathy, thyromegaly, tracheal deviation, tracheostomy Respiratory exam: PRESENT: decreased breath sounds, prolonged expiratory phas, rales, rhonchi, symmetrical, unlabored. ABSENT: retraction, stridor, tachypnea Cardiovascular exam: PRESENT: RRR, +S1, +S2, tachycardia Pulses: PRESENT: normal radial pulses GI/Abdominal exam: PRESENT: diminished bowel sounds, soft Extremities exam: ABSENT: calf tenderness, clubbing, joint swelling Neurological exam: ABSENT: awake, oriented to person Skin exam: PRESENT: dry, warm Results Laboratory Results: 02/01/18 05:21 02/01/18 05:21 02/01/18 02/01/18 02/01/18 05:21 05:21 09:33 WBC 4.9 RBC 4.12 L Hgb 13.6 Hct 40.8 MCV 99 H MCH 33.0 MCHC 33.3 RDW 16.9 H Plt Count 56 L Seg Neutrophils % 72.7 Lymphocytes % 12.1 L Monocytes % 15.0 H Eosinophils % 0.0 Basophils % 0.2 Absolute Neutrophils 3.6 Absolute Lymphocytes 0.6 Absolute Monocytes 0.7 Absolute Eosinophils 0.0 Absolute Basophils 0.0 Carbonic Acid HCO3/H2CO3 Ratio ABG pH ABG pCO2 ABG pO2 ABG HCO3 ABG O2 Saturation ABG Base Excess FiO2 Sodium 136.2 L Potassium 3.3 L Chloride 95 L Carbon Dioxide 28 Anion Gap 13 BUN 9 Creatinine 0.44 L Est GFR ( Amer) > 60 Est GFR (Non-Af Amer) > 60 Glucose 95 Calcium 8.9 Magnesium 1.5 L Total Bilirubin 1.0 AST 178 H ALT 74 H Alkaline Phosphatase 79 Total Protein 6.9 Albumin 3.5 Stool Occult Blood NEGATIVE 02/01/18 13:21 WBC RBC Hgb Hct MCV MCH MCHC RDW Plt Count Seg Neutrophils % Lymphocytes % Monocytes % Eosinophils % Basophils % Absolute Neutrophils Absolute Lymphocytes Absolute Monocytes Absolute Eosinophils Absolute Basophils Carbonic Acid 1.03 L HCO3/H2CO3 Ratio 23:1 ABG pH 7.47 H ABG pCO2 34.3 L ABG pO2 104.1 H ABG HCO3 24.2 ABG O2 Saturation 98.1 H ABG Base Excess 1.1 FiO2 100% Sodium Potassium Chloride Carbon Dioxide Anion Gap BUN Creatinine Est GFR ( Amer) Est GFR (Non-Af Amer) Glucose Calcium Magnesium Total Bilirubin AST ALT Alkaline Phosphatase Total Protein Albumin Stool Occult Blood 01/30/18 01/30/18 01/30/18 20:30 20:30 20:30 Creatine Kinase 180 H CK-MB (CK-2) 1.38 Troponin I < 0.012 NT-Pro-B Natriuret Pep 1200 H 01/31/18 01/31/18 01/31/18 02:37 02:37 08:10 Creatine Kinase 130 98 CK-MB (CK-2) 1.29 Troponin I < 0.012 NT-Pro-B Natriuret Pep 01/31/18 08:10 Creatine Kinase CK-MB (CK-2) 1.02 Troponin I < 0.012 NT-Pro-B Natriuret Pep Impressions: Chest CT 01/30/18 00:00 IMPRESSION: Multiple areas of patchy consolidation and thwygds-gkwxwn-ahyxw opacity throughout both lungs, greatest in the right upper parahilar region. Moderate fat stranding in the left pararenal space. Chest X-Ray 01/30/18 07:26 IMPRESSION: Airspace disease medial right upper lobe, worrisome for early or developing pneumonia. Assessment & Plan - Diagnosis (1) Acute hypoxemic respiratory failure Is this a current diagnosis for this admission?: Yes Plan: mechanical ventilation maintain ph,PAO2 (2) Aspiration pneumonia Qualifiers: Aspiration pneumonia type: unspecified Laterality: right Lung location: upper lobe of lung Qualified Code(s): J69.0 - Pneumonitis due to inhalation of food and vomit Is this a current diagnosis for this admission?: Yes Plan: culture ,antibiotic as you have initiated (3) COPD (chronic obstructive pulmonary disease) Qualifiers: COPD type: unspecified COPD Qualified Code(s): J44.9 - Chronic obstructive pulmonary disease, unspecified Is this a current diagnosis for this admission?: Yes Plan: LABA+LAMA and prn CLIVE (4) Thrombocytopenia Is this a current diagnosis for this admission?: Yes Plan: Labs- All tests 24 hr 01/30/18 01/30/18 01/31/18 07:30 20:30 08:10 Plt Count 50 L 51 L 53 L 02/01/18 02/01/18 05:21 13:21 Plt Count 56 L 58 L (5) Alcohol withdrawal seizure with complication Is this a current diagnosis for this admission?: Yes Plan: r/o 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
[2018-02-01] MEDS: NORMAL SALINE 1000 ML 1,000 ML with THIAMINE HCL 100 MG, MVI, ADULT NO.1 WITH VIT K 10 ... IV SCH ×4 (22:12)
--- NOTE | 2018-02-01 22:38 | PDOC PROGRESS REPORT ---
Subjective Progress Note for:: 02/01/18 Subjective:: Patient developed ventricular fibrillation, CODE BLUE was activated, transferred to ICU intubated on mechanical ventilation Reason For Visit: ASPIRATION PNEUMONIA, ALCOHOLISM, ETOH LIVER Physical Exam Vital Signs: Temp Pulse Resp BP Pulse Ox 98.2 F 74 14 131/99 H 99 02/01/18 22:00 02/01/18 18:00 02/01/18 21:02 02/01/18 21:02 02/01/18 21:02 Intake & Output 01/31/18 02/01/18 02/02/18 06:59 06:59 06:59 Intake Total 1410 5600 908 Output Total 1200 1225 600 Balance 210 4375 308 Weight 84.4 kg 88.8 kg General appearance: PRESENT: other - Sedated and intubated Eye exam: PRESENT: PERRLA Respiratory exam: PRESENT: other - Auscultation, equal air entry in both lung fournier Cardiovascular exam: PRESENT: +S1, +S2 GI/Abdominal exam: PRESENT: soft Neurological exam: PRESENT: other - Sedated Results Laboratory Results: 02/01/18 13:21 02/01/18 13:21 02/01/18 02/01/18 02/01/18 05:21 05:21 05:21 WBC 4.9 RBC 4.12 L Hgb 13.6 Hct 40.8 MCV 99 H MCH 33.0 MCHC 33.3 RDW 16.9 H Plt Count 56 L Seg Neutrophils % 72.7 Lymphocytes % 12.1 L Monocytes % 15.0 H Eosinophils % 0.0 Basophils % 0.2 Absolute Neutrophils 3.6 Absolute Lymphocytes 0.6 Absolute Monocytes 0.7 Absolute Eosinophils 0.0 Absolute Basophils 0.0 Carbonic Acid HCO3/H2CO3 Ratio ABG pH ABG pCO2 ABG pO2 ABG HCO3 ABG O2 Saturation ABG Base Excess FiO2 Sodium 136.2 L Potassium 3.3 L Chloride 95 L Carbon Dioxide 28 Anion Gap 13 BUN 9 Creatinine 0.44 L Est GFR ( Amer) > 60 Est GFR (Non-Af Amer) > 60 Glucose 95 Calcium 8.9 Phosphorus Magnesium 1.5 L Total Bilirubin 1.0 AST 178 H ALT 74 H Alkaline Phosphatase 79 Total Protein 6.9 Albumin 3.5 Triglycerides 83 Urine Color Urine Appearance Urine pH Ur Specific [place] Urine Protein Urine Glucose (UA) Urine Ketones Urine Blood Urine Nitrite Ur Leukocyte Esterase Urine WBC (Auto) Urine RBC (Auto) Stool Occult Blood 02/01/18 02/01/18 02/01/18 09:33 13:21 13:21 WBC RBC Hgb Hct MCV MCH MCHC RDW Plt Count Seg Neutrophils % Lymphocytes % Monocytes % Eosinophils % Basophils % Absolute Neutrophils Absolute Lymphocytes Absolute Monocytes Absolute Eosinophils Absolute Basophils Carbonic Acid 1.03 L HCO3/H2CO3 Ratio 23:1 ABG pH 7.47 H ABG pCO2 34.3 L ABG pO2 104.1 H ABG HCO3 24.2 ABG O2 Saturation 98.1 H ABG Base Excess 1.1 FiO2 100% Sodium 133.1 L Potassium 3.5 L Chloride 92 L Carbon Dioxide 34 H Anion Gap 7 BUN 11 Creatinine 0.56 Est GFR ( Amer) > 60 Est GFR (Non-Af Amer) > 60 Glucose 147 H Calcium 10.1 Phosphorus 4.7 H Magnesium 2.4 H Total Bilirubin 1.2 AST 400 H ALT 120 H Alkaline Phosphatase 89 Total Protein 7.2 Albumin 3.8 Triglycerides Urine Color Urine Appearance Urine pH Ur Specific [place] Urine Protein Urine Glucose (UA) Urine Ketones Urine Blood Urine Nitrite Ur Leukocyte Esterase Urine WBC (Auto) Urine RBC (Auto) Stool Occult Blood NEGATIVE 02/01/18 02/01/18 02/01/18 13:21 14:45 18:00 WBC 4.8 RBC 4.54 Hgb 15.0 Hct 44.9 MCV 99 H MCH 33.1 MCHC 33.4 RDW 16.8 H Plt Count 58 L Seg Neutrophils % 57.8 Lymphocytes % 26.8 Monocytes % 15.0 H Eosinophils % 0.1 Basophils % 0.3 Absolute Neutrophils 2.8 Absolute Lymphocytes 1.3 Absolute Monocytes 0.7 Absolute Eosinophils 0.0 Absolute Basophils 0.0 Carbonic Acid 1.27 HCO3/H2CO3 Ratio 21:1 ABG pH 7.43 ABG pCO2 42.1 ABG pO2 81.3 ABG HCO3 27.4 H ABG O2 Saturation 96.3 ABG Base Excess 2.8 FiO2 40% Sodium Potassium Chloride Carbon Dioxide Anion Gap BUN Creatinine Est GFR ( Amer) Est GFR (Non-Af Amer) Glucose Calcium Phosphorus Magnesium Total Bilirubin AST ALT Alkaline Phosphatase Total Protein Albumin Triglycerides Urine Color YELLOW Urine Appearance SLIGHTLY-CLOUDY Urine pH 7.0 Ur Specific [place] 1.019 Urine Protein 100 H Urine Glucose (UA) 50 H Urine Ketones TRACE H Urine Blood SMALL H Urine Nitrite NEGATIVE Ur Leukocyte Esterase NEGATIVE Urine WBC (Auto) 2 Urine RBC (Auto) 1 Stool Occult Blood 01/30/18 01/30/18 01/30/18 20:30 20:30 20:30 Creatine Kinase 180 H CK-MB (CK-2) 1.38 Troponin I < 0.012 NT-Pro-B Natriuret Pep 1200 H 01/31/18 01/31/18 01/31/18 02:37 02:37 08:10 Creatine Kinase 130 98 CK-MB (CK-2) 1.29 Troponin I < 0.012 NT-Pro-B Natriuret Pep 01/31/18 02/01/18 02/01/18 08:10 13:21 13:21 Creatine Kinase 874 H CK-MB (CK-2) 1.02 1.95 Troponin I < 0.012 0.019 NT-Pro-B Natriuret Pep Impressions: Chest CT 01/30/18 00:00 IMPRESSION: Multiple areas of patchy consolidation and fuxinya-mfyrpn-gtqbm opacity throughout both lungs, greatest in the right upper parahilar region. Moderate fat stranding in the left pararenal space. Chest X-Ray 02/01/18 00:00 IMPRESSION: Good position of support apparatus. No pneumothorax. Head CT 02/01/18 15:11 IMPRESSION: No significant intracranial abnormalities were identified. Other findings as noted above. EVIDENCE OF ACUTE STROKE: NO. Assessment & Plan - Diagnosis (1) Acute hypoxemic respiratory failure Is this a current diagnosis for this admission?: Yes (2) Aspiration pneumonia Qualifiers: Aspiration pneumonia type: unspecified Laterality: right Lung location: upper lobe of lung Qualified Code(s): J69.0 - Pneumonitis due to inhalation of food and vomit Is this a current diagnosis for this admission?: Yes (3) Alcohol intoxication Qualifiers: Complication of substance-induced condition: with delirium Qualified Code(s ): F10.921 - Alcohol use, unspecified with intoxication delirium Is this a current diagnosis for this admission?: Yes (4) COPD (chronic obstructive pulmonary disease) Qualifiers: COPD type: unspecified COPD Qualified Code(s): J44.9 - Chronic obstructive pulmonary disease, unspecified Is this a current diagnosis for this admission?: Yes (5) Thrombocytopenia Is this a current diagnosis for this admission?: Yes (6) Cardiopulmonary arrest Is this a current diagnosis for this admission?: Yes Plan: Patient Supposedly developed ventricular fibrillation status post defibrillation (7) Alcohol withdrawal syndrome Qualifiers: Complication of substance-induced condition: with unspecified complication Qualified Code(s): F10.239 - Alcohol dependence with withdrawal, unspecified Is this a current diagnosis for this admission?: Yes Plan: Start lorazepam drip patient probably developed alcohol withdrawal syndrome (8) Ventricular fibrillation Is this a current diagnosis for this admission?: Yes Plan: 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
--- NOTE | 2018-02-01 23:02 | EKG REPORT ---
SEVERITY:- ABNORMAL ECG - SINUS RHYTHM BORDERLINE INFERIOR Q WAVES BORDERLINE T ABNORMALITIES, ANT-LAT LEADS PROLONGED QT INTERVAL : Confirmed by: Cherelle Castro 01-Feb-2018 23:01:44
--- NOTE | 2018-02-01 23:03 | EKG REPORT ---
SEVERITY:- ABNORMAL ECG - SINUS RHYTHM BORDERLINE INFERIOR Q WAVES BORDERLINE T ABNORMALITIES, ANT-LAT LEADS PROLONGED QT INTERVAL : Confirmed by: Cherelle Castro 01-Feb-2018 23:02:19
[2018-02-02] MEDS: PROPOFOL 100 ML IV PRN ×6 (00:25→23:55)
[2018-02-02] MEDS: LORAZEPAM 24 MG/240 ML BAG IV PRN ×8 (00:43→23:54)
[2018-02-02 04:11] LABS: ABSOLUTE LYMPHOCYTES (AUTO) 0.5 10^3/uL (0.5-4.7); ABSOLUTE MONOCYTES (AUTO) 0.5 10^3/uL (0.1-1.4); ABSOLUTE NEUT (AUTO) 1.6 10^3/uL (1.7-8.2); BASOPHILS % (AUTO) 0.4 % (0-2); EOSINOPHILS % (AUTO) 0.3 % (0-6); HEMATOCRIT 39.3 % (37.9-51.0); HEMOGLOBIN 13.3 g/dL (13.5-17.0); LYMPHOCYTES % (AUTO) 17.8 % (13-45); MEAN CORPUSCULAR HGB CONC 33.7 g/dL (32.0-36.0); MEAN CORPUSCULAR VOLUME 98 fl (80-97); MONOCYTES % (AUTO) 18.8 % (3-13); RED BLOOD COUNT 4.02 10^6/uL (4.35-5.55); RED CELL DISTRIBUTION WIDTH 16.6 % (11.5-14.0); SEGMENTED NEUTROPHILS % (AUTO) 62.7 % (42-78); TOTAL CELLS COUNTED % (AUTO) 100 %
[2018-02-02 04:20] LABS: ALANINE AMINOTRANSFERASE 128 U/L (21-72); ALBUMIN 2.9 g/dL (3.5-5.0); ALKALINE PHOSPHATASE 68 U/L (38-126); ANION GAP 9 (5-19); ASPARTATE AMINO TRANSFERASE 220 U/L (17-59); BILIRUBIN,DIRECT 0.6 mg/dL (0.0-0.4); BILIRUBIN,TOTAL 0.7 mg/dL (0.2-1.3); BLOOD UREA NITROGEN 10 mg/dL (7-20); CALCIUM 7.7 mg/dL (8.4-10.2); CARBON DIOXIDE 26 mmol/L (22-30); CHLORIDE 97 mmol/L (98-107); GLUCOSE 136 mg/dL (75-110); POTASSIUM 3.7 mmol/L (3.6-5.0); SODIUM 131.6 mmol/L (137-145); TOTAL PROTEIN 5.9 g/dL (6.3-8.2)
[2018-02-02 04:43] LABS: WHITE BLOOD COUNT 2.6 10^3/uL (4.0-10.5)
[2018-02-02 04:55] LABS: PLATELET COUNT 50 10^3/uL (150-450)
[2018-02-02 06:08] LABS: ARTERIAL BLOOD BASE EXCESS 1.4 mmol/L; ARTERIAL BLOOD H2CO3 1.23 mmol/L (1.05-1.35); ARTERIAL BLOOD HCO3 25.9 mmol/L (20-26); ARTERIAL BLOOD PCO2 40.8 mmHg (35-45); ARTERIAL BLOOD PH 7.42 (7.35-7.45); ARTERIAL BLOOD PO2 89.6 mmHg (80-100); ARTERIAL BLOOD TOTAL CO2 27.2 mmol/L (23-27)
[2018-02-02 06:11] LABS: ARTERIAL BLOOD FIO2 30%
[2018-02-02] MEDS: NORMAL SALINE 1000 ML 1,000 ML IV PRN ×2 (06:17→20:05)
[2018-02-02] MEDS: CLONIDINE HCL 0.2 MG TABLET PO SCH ×3 (06:23→21:55)
[2018-02-02] MEDS: CLINDAMYCIN 600 MG/D5W RTU 600 MG/50 ML RTUPB IV SCH ×3 (06:24→21:54)
--- NOTE | 2018-02-02 07:23 | RADIOLOGY REPORT (SQ) ---
EXAM DESCRIPTION: CHEST SINGLE VIEW CLINICAL HISTORY: resp arrest. Intubated patient. COMPARISON: 02/01/2018 FINDINGS: Single frontal view of the chest. No tracheal tube with tip 3 cm above the varghese. NG tube and side-port below the diaphragm. Leads overlie the chest. Cardiomediastinal silhouette is unremarkable. No consolidation, pneumothorax, or pleural effusion. No displaced rib fractures identified. Upper abdominal soft tissues are unremarkable. IMPRESSION: 1. Support tubes and lines in appropriate radiographic position. No significant interval change.
[2018-02-02] MEDS: HYDROMORPHONE HCL INJ/PF 2 MG/ML AMPULE IV PRN ×2 (09:31→18:44)
[2018-02-02] MEDS: PREGABALIN 50 MG CAPSULE PO SCH ×2 (10:01→21:55)
[2018-02-02] MEDS: FLUOXETINE HCL 20 MG CAPSULE PO SCH (10:03)
--- NOTE | 2018-02-02 10:23 | EKG REPORT ---
SEVERITY:- ABNORMAL ECG - SINUS RHYTHM PROBABLE LEFT ATRIAL ABNORMALITY NONSPECIFIC INTRAVENTRICULAR CONDUCTION DELAY QT PROLONGED : Confirmed by: Cherelle Castro 02-Feb-2018 10:23:33
[2018-02-02] MEDS: FLUTICASONE/SALMETEROL DISKUS 250-50 MCG/DOSE IH SCH ×2 (11:17→21:36)
[2018-02-02] MEDS ORDERED: METOPROLOL TARTRATE PF/INJ 5 MG/5 ML SDV IV ONE (11:28)
[2018-02-02] MEDS: MORPHINE SULFATE 10 MG/ML INJ IV PRN ×3 (11:35→22:19)
--- NOTE | 2018-02-02 21:08 | PDOC PROGRESS REPORT ---
Subjective Progress Note for:: 02/02/18 Subjective:: Patient seen by the bedside intubated and sedated Reason For Visit: ASPIRATION PNEUMONIA, ALCOHOLISM, ETOH LIVER Physical Exam Vital Signs: Temp Pulse Resp BP Pulse Ox 99.0 F 69 18 144/102 H 97 02/02/18 18:00 02/02/18 18:00 02/02/18 19:02 02/02/18 19:02 02/02/18 19:02 Intake & Output 02/01/18 02/02/18 02/03/18 06:59 06:59 06:59 Intake Total 5600 4469 1949 Output Total 1225 1075 640 Balance 4375 3394 1309 Weight 88.8 kg 88.1 kg Head exam: PRESENT: other - Sedated Respiratory exam: PRESENT: clear to auscultation nikia Cardiovascular exam: PRESENT: +S1, +S2 Neurological exam: PRESENT: other - Sedated Results Laboratory Results: 02/02/18 03:54 02/02/18 03:54 02/02/18 02/02/18 02/02/18 03:54 03:54 05:45 WBC 2.6 L D RBC 4.02 L Hgb 13.3 L Hct 39.3 MCV 98 H MCH 33.0 MCHC 33.7 RDW 16.6 H Plt Count 50 L Seg Neutrophils % 62.7 Lymphocytes % 17.8 Monocytes % 18.8 H Eosinophils % 0.3 Basophils % 0.4 Absolute Neutrophils 1.6 L Absolute Lymphocytes 0.5 Absolute Monocytes 0.5 Absolute Eosinophils 0.0 Absolute Basophils 0.0 Carbonic Acid 1.23 HCO3/H2CO3 Ratio 21:1 ABG pH 7.42 ABG pCO2 40.8 ABG pO2 89.6 ABG HCO3 25.9 ABG O2 Saturation 97.0 ABG Base Excess 1.4 FiO2 30% Sodium 131.6 L Potassium 3.7 Chloride 97 L Carbon Dioxide 26 Anion Gap 9 BUN 10 Creatinine 0.37 L Est GFR ( Amer) > 60 Est GFR (Non-Af Amer) > 60 Glucose 136 H Calcium 7.7 L Magnesium 1.9 Total Bilirubin 0.7 AST 220 H ALT 128 H Alkaline Phosphatase 68 Total Protein 5.9 L Albumin 2.9 L 01/30/18 01/30/18 01/30/18 20:30 20:30 20:30 Creatine Kinase 180 H CK-MB (CK-2) 1.38 Troponin I < 0.012 NT-Pro-B Natriuret Pep 1200 H 01/31/18 01/31/18 01/31/18 02:37 02:37 08:10 Creatine Kinase 130 98 CK-MB (CK-2) 1.29 Troponin I < 0.012 NT-Pro-B Natriuret Pep 01/31/18 02/01/18 02/01/18 08:10 13:21 13:21 Creatine Kinase 874 H CK-MB (CK-2) 1.02 1.95 Troponin I < 0.012 0.019 NT-Pro-B Natriuret Pep 02/02/18 10:10 Creatine Kinase CK-MB (CK-2) Troponin I < 0.012 NT-Pro-B Natriuret Pep Impressions: Chest CT 01/30/18 00:00 IMPRESSION: Multiple areas of patchy consolidation and khwuytk-eikhth-gqfau opacity throughout both lungs, greatest in the right upper parahilar region. Moderate fat stranding in the left pararenal space. Head CT 02/01/18 15:11 IMPRESSION: No significant intracranial abnormalities were identified. Other findings as noted above. EVIDENCE OF ACUTE STROKE: NO. Chest X-Ray 02/02/18 06:00 IMPRESSION: 1. Support tubes and lines in appropriate radiographic position. No significant interval change. Assessment & Plan - Diagnosis (1) Acute hypoxemic respiratory failure Is this a current diagnosis for this admission?: Yes Plan: Continue oxygen nasal cannula (2) Aspiration pneumonia Qualifiers: Aspiration pneumonia type: unspecified Laterality: right Lung location: upper lobe of lung Qualified Code(s): J69.0 - Pneumonitis due to inhalation of food and vomit Is this a current diagnosis for this admission?: Yes Plan: Continue IV antibiotic (3) Alcohol intoxication Qualifiers: Complication of substance-induced condition: with delirium Qualified Code(s ): F10.921 - Alcohol use, unspecified with intoxication delirium Is this a current diagnosis for this admission?: Yes Plan: Continue IV lorazepam to prevent alcohol withdrawal syndrome (4) COPD (chronic obstructive pulmonary disease) Qualifiers: COPD type: unspecified COPD Qualified Code(s): J44.9 - Chronic obstructive pulmonary disease, unspecified Is this a current diagnosis for this admission?: Yes (5) Thrombocytopenia Is this a current diagnosis for this admission?: Yes (6) Cardiopulmonary arrest Is this a current diagnosis for this admission?: Yes Plan: Patient Supposedly developed ventricular fibrillation status post defibrillation (7) Alcohol withdrawal syndrome Qualifiers: Complication of substance-induced condition: with unspecified complication Qualified Code(s): F10.239 - Alcohol dependence with withdrawal, unspecified Is this a current diagnosis for this admission?: Yes Plan: Start lorazepam drip patient probably developed alcohol withdrawal syndrome (8) Ventricular fibrillation Is this a current diagnosis for this admission?: Yes Plan: 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
[2018-02-02] MEDS: TRAZODONE HCL 50 MG TABLET PO SCH (21:54)
[2018-02-02] MEDS ORDERED: CEFAZOLIN 1 GM/D5W RTU 1 GM/50 ML RTUPB IV SCH (22:00)
[2018-02-02] MEDS ORDERED: LEVOFLOXACIN 750 MG/D5W RTU 750 MG/150 ML RTUPB IV SCH (22:00)
[2018-02-02] MEDS: NORMAL SALINE 1000 ML 1,000 ML with THIAMINE HCL 100 MG, MVI, ADULT NO.1 WITH VIT K 10 ... IV SCH ×4 (22:06)
[2018-02-02] MEDS ORDERED: CEFEPIME 1 GM/D5W RTU 1 GM/50 ML RTUPB IV ONE (22:47)
[2018-02-02] MEDS: CEFEPIME 1 GM/D5W RTU 1 GM/50 ML RTUPB IV SCH (23:06)
[2018-02-03] MEDS: PROPOFOL 100 ML IV PRN ×3 (04:20→23:56)
[2018-02-03] MEDS: LORAZEPAM 24 MG/240 ML BAG IV PRN (04:21)
[2018-02-03 04:37] LABS: INTERNATIONAL RATION (INR) 1.08; PARTIAL THROMBOPLASTIN TIME 24.7 SEC (23.5-35.8); PROTHROMBIN TIME 14.6 SEC (11.4-15.4)
[2018-02-03 04:38] LABS: ALANINE AMINOTRANSFERASE 95 U/L (21-72); ALBUMIN 2.6 g/dL (3.5-5.0); ALKALINE PHOSPHATASE 57 U/L (38-126); ANION GAP 9 (5-19); ASPARTATE AMINO TRANSFERASE 107 U/L (17-59); BILIRUBIN,DIRECT 0.4 mg/dL (0.0-0.4); BILIRUBIN,TOTAL 0.6 mg/dL (0.2-1.3); BLOOD UREA NITROGEN 5 mg/dL (7-20); CALCIUM 7.9 mg/dL (8.4-10.2); CARBON DIOXIDE 25 mmol/L (22-30); CHLORIDE 101 mmol/L (98-107); GLUCOSE 127 mg/dL (75-110); POTASSIUM 3.6 mmol/L (3.6-5.0); SODIUM 135.2 mmol/L (137-145); TOTAL PROTEIN 5.4 g/dL (6.3-8.2)
[2018-02-03 04:43] LABS: HEMATOCRIT 39.8 % (37.9-51.0); HEMOGLOBIN 13.3 g/dL (13.5-17.0); MEAN CORPUSCULAR HEMOGLOBIN 32.5 pg (27.0-33.4); MEAN CORPUSCULAR HGB CONC 33.3 g/dL (32.0-36.0); MEAN CORPUSCULAR VOLUME 98 fl (80-97); RED BLOOD COUNT 4.08 10^6/uL (4.35-5.55); RED CELL DISTRIBUTION WIDTH 16.4 % (11.5-14.0); WHITE BLOOD COUNT 2.4 10^3/uL (4.0-10.5)
[2018-02-03 04:58] LABS: ABSOLUTE LYMPHOCYTES# (MANUAL) 0.6 10^3/uL (0.5-4.7); ABSOLUTE MONOCYTES # (MANUAL) 0.4 10^3/uL (0.1-1.4); ABSOLUTE NEUTROPHILS# (MANUAL) 1.4 10^3/uL (1.7-8.2); BAND NEUTROPHILS % (MANUAL) 2 % (3-5); EOSINOPHILS % (MANUAL) 1 % (0-6); LYMPHOCYTES % (MANUAL) 23 % (13-45); MONOCYTES % (MANUAL) 16 % (3-13); SEGMENTED NEUTROPHILS % (MAN) 56 % (42-78); TOTAL CELLS COUNTED 100
[2018-02-03 05:02] LABS: ANISOCYTOSIS 1+; POIKILOCYTOSIS SLIGHT; TOXIC GRANULATION SLIGHT; TOXIC VACUOLATION PRESENT
[2018-02-03 05:03] LABS: OVALOCYTES SLIGHT; PLATELET COMMENT DECREASED; PLATELET COUNT 62 10^3/uL (150-450); TEAR DROP CELLS SLIGHT
[2018-02-03] MEDS: CLINDAMYCIN 600 MG/D5W RTU 600 MG/50 ML RTUPB IV SCH ×3 (05:22→21:01)
[2018-02-03] MEDS: CLONIDINE HCL 0.2 MG TABLET PO SCH ×3 (05:23→21:06)
[2018-02-03 05:24] LABS: ARTERIAL BLOOD BASE EXCESS 0.9 mmol/L; ARTERIAL BLOOD FIO2 35%; ARTERIAL BLOOD H2CO3 1.36 mmol/L (1.05-1.35); ARTERIAL BLOOD HCO3 26.4 mmol/L (20-26); ARTERIAL BLOOD O2 SATURATION 96.3 % (94-98); ARTERIAL BLOOD PCO2 45.3 mmHg (35-45); ARTERIAL BLOOD PH 7.38 (7.35-7.45); ARTERIAL BLOOD PO2 85.7 mmHg (80-100); ARTERIAL BLOOD TOTAL CO2 27.8 mmol/L (23-27)
--- NOTE | 2018-02-03 07:08 | RADIOLOGY REPORT (SQ) ---
EXAM DESCRIPTION: CHEST SINGLE VIEW CLINICAL HISTORY: pna/resp failure. Intubated patient. COMPARISON: 02/02/2018 FINDINGS: Single frontal view of the chest. Endotracheal tube with tip 3 cm above the varghese. NG tube with tip below the diaphragm. Leads overlie the chest. Cardiomediastinal silhouette is unremarkable. No consolidation, pneumothorax, or pleural effusion. No displaced rib fractures identified. Upper abdominal soft tissues are unremarkable. IMPRESSION: 1. Support tubes and lines in appropriate radiographic position. No significant interval change. Electronically signed by: Sarbjit Riley 02/03/2018 6:06 AM
[2018-02-03] MEDS: FLUOXETINE HCL 20 MG CAPSULE PO SCH (08:25)
--- NOTE | 2018-02-03 09:19 | EKG REPORT ---
SEVERITY:- ABNORMAL ECG - SINUS RHYTHM PROBABLE LEFT ATRIAL ABNORMALITY PROLONGED QT INTERVAL : Confirmed by: Cherelle Castro 03-Feb-2018 09:18:30
[2018-02-03] MEDS: CEFEPIME 1 GM/D5W RTU 1 GM/50 ML RTUPB IV SCH ×2 (09:20→21:07)
[2018-02-03] MEDS: PREGABALIN 50 MG CAPSULE PO SCH ×2 (09:21→21:10)
[2018-02-03] MEDS: FLUTICASONE/SALMETEROL DISKUS 250-50 MCG/DOSE IH SCH ×2 (09:21→21:17)
--- NOTE | 2018-02-03 09:39 | PDOC CONSULTATION ---
Consultation Consult Date: 02/01/18 Attending physician:: TOMAS UMANA Consult reason:: Status post CPR following torsade History of Present Illness Admission Date/PCP: 01/30/18 09:59 Patient complains of: Currently intubated and sedated. Patient was admitted with alcohol withdrawal. History of Present Illness: RODNEY L[address] is a 42 year old malewith history of alcohol abuse, who was recuperating on the floor when he was noted to go into a cardiac arrest precipitated clearly by polymorphic ventricular tachycardia or torsade noted on the cardiac monitor technician. CPR was started and soon patient was defibrillated into normal rhythm. It seems subsequently patient had a seizures and may have aspirated. He developed some respiratory distress and was subsequently intubated. I been asked to evaluate patient because of polymorphic ventricular tachycardia. Patient had EKGs performed which showed significantly prolonged QTC. Initial cardiac enzyme was noted to be negative. EKGs was without any acute ST-T wave changes. Past Medical History Cardiac Medical History: Reports: Hyperlipidema, Hypertension Denies: Coronary Artery Disease, Myocardial Infarction Pulmonary Medical History: Reports: Asthma, Bronchitis, Chronic Obstructive Pulmonary Disease (COPD), Pneumonia - multiple EENT Medical History: Reports: Other - Thrombocytopenia Neurological Medical History: Reports: Migraine, Seizures GI Medical History: Reports: Cirrhosis Musculoskeltal Medical History: Reports: Arthritis Psychiatric Medical History: Reports: Alcohol Dependency, Depression Hematology: Reports: Other - Thrombocytopenia Denies: Anemia Past Surgical History Past Surgical History: Reports: Orthopedic Surgery - bilateral knees, left hand , leg Social History Information Source: Patient Smoking Status: Current Every Day Smoker Frequency of Alcohol Use: Heavy Hx Recreational Drug Use: No Drugs: None Hx Prescription Drug Abuse: No - Advance Directive Resuscitation Status: Full Code Surrogate healthcare decision maker:: Patient's is the surrogate decision-maker Family History Family History: Arthritis, Hypertension, Malignancy Parental Family History Reviewed: Yes Children Family History Reviewed: Yes Sibling(s) Family History Reviewed.: Yes Medication/Allergy Home Medications: Albuterol Sulfate [Proair HFA Inhalation Aerosol 8.5 gm MDI] 2 puff IH Q4HP PRN 01/30/18 Albuterol Sulfate [Ventolin 0.083% Neb 2.5 mg/3 mL Ampul] 2.5 mg NEB RTQ4HP PRN 01/30/18 Aspirin/Caffeine [Bc Powder Packet] 1 packet PO Q6HP PRN 01/30/18 Clonidine HCl [Catapres 0.2 mg Tablet] 0.2 mg PO Q8 01/30/18 Cyclobenzaprine HCl [Flexeril 10 mg Tablet] 10 mg PO TID 01/30/18 Diazepam [Valium 5 mg Tablet] 5 mg PO QPMP PRN 01/30/18 Donepezil HCl [Aricept 5 mg Tablet] 5 mg PO QHS 01/30/18 Fluoxetine HCl [Prozac] 40 mg PO QAM 01/30/18 Fluticasone/Salmeterol [Advair 250-50 Diskus 28 dose] 1 puff IH Q12 01/30/18 Hydrocodone/Acetaminophen [[place] 10-325 mg Tablet] 1 tab PO QID 01/30/18 Levetiracetam [Keppra 500 mg Tablet] 500 mg PO Q12 01/30/18 Pregabalin [Lyrica 50 mg Capsule] 50 mg PO Q12 01/30/18 Quetiapine Fumarate [Seroquel Xr] 150 mg PO QPM 01/30/18 Thiamine HCl [Vitamin B-1] 500 mg PO DAILY 01/30/18 Tiotropium [place] [Spiriva Handihaler 18 mcg/dose (30 Dose)] 18 mcg PO DAILY Trazodone HCl [Desyrel] 150 mg PO QHS 01/30/18 Allergies/Adverse Reactions: Coconut * [Coconut] Adverse Reaction (Severe, Verified 03/24/15 15:37) stomach swells pineapple [Pineapple] Adverse Reaction (Severe, Verified 03/24/15 15:37) stomach swells cherries Adverse Reaction (Severe, Uncoded 03/24/15 15:37) stomach swells Review of Systems ROS unobtainable: Due to endotracheal tube Physical Exam Vital Signs: Temp Pulse Resp BP Pulse Ox 98.4 F 74 14 119/93 H 99 02/01/18 18:00 02/01/18 18:00 02/01/18 18:00 02/01/18 17:32 02/01/18 18:00 Intake & Output 01/31/18 02/01/18 02/02/18 06:59 06:59 06:59 Intake Total 1410 5600 908 Output Total 1200 1225 525 Balance 210 4377 383 Weight 84.4 kg 88.8 kg Exam: GENERAL: well-nourished and in no acute distress. Patient is intubated and sedated. Orientation cannot be checked HEAD: Atraumatic, normocephalic. EYES: Pupils equal round and reactive to light, extraocular movements could not be checked, sclera anicteric, conjunctiva are normal. ENT: TMs normal, nares patent, oropharynx clear without exudates. Moist mucous membranes. No oral ulcerations or bleeding gums noted NECK: supple without lymphadenopathy or JVD. Trachea is central. No cervical or axillary lymphadenopathy noted. Carotids are 2+ LUNGS: Breath sounds mostly clear to auscultation patient is noted to have bibasal crackles at the extreme bases CHEST: Palpation of the chest wall shows no significant chest wall tenderness or abnormalities. HEART: [place] [employer], No PSH, 2/6 TRENT aortic area, 1/6 hawkins systolic murmur mitral area , no rubs or gallops. ABDOMEN: Soft, no significant tenderness appreciated, normoactive bowel sounds. No guarding, no rebound. No rigidity noted . No masses appreciated. EXTREMITIES: Pedal pulses are 1-2+, no calf tenderness noted, 1+ pedal edema noted. No clubbing or cyanosis. NEUROLOGICAL: The patient cannot participate in the neurological exam but no facial asymmetry noted. Extremities slightly hypotonic PSYCH: This cannot be evaluated. Patient cannot participate. SKIN: No significant ecchymosis, rash, or signs of pruritus noted. MUSCULOSKELETAL EXAM: No significant joint swelling noted. Patient cannot participate in musculoskeletal exam Results Laboratory Results: 02/01/18 13:21 02/01/18 13:21 02/01/18 02/01/18 02/01/18 05:21 05:21 05:21 WBC 4.9 RBC 4.12 L Hgb 13.6 Hct 40.8 MCV 99 H MCH 33.0 MCHC 33.3 RDW 16.9 H Plt Count 56 L Seg Neutrophils % 72.7 Lymphocytes % 12.1 L Monocytes % 15.0 H Eosinophils % 0.0 Basophils % 0.2 Absolute Neutrophils 3.6 Absolute Lymphocytes 0.6 Absolute Monocytes 0.7 Absolute Eosinophils 0.0 Absolute Basophils 0.0 Carbonic Acid HCO3/H2CO3 Ratio ABG pH ABG pCO2 ABG pO2 ABG HCO3 ABG O2 Saturation ABG Base Excess FiO2 Sodium 136.2 L Potassium 3.3 L Chloride 95 L Carbon Dioxide 28 Anion Gap 13 BUN 9 Creatinine 0.44 L Est GFR ( Amer) > 60 Est GFR (Non-Af Amer) > 60 Glucose 95 Calcium 8.9 Phosphorus Magnesium 1.5 L Total Bilirubin 1.0 AST 178 H ALT 74 H Alkaline Phosphatase 79 Total Protein 6.9 Albumin 3.5 Triglycerides 83 Urine Color Urine Appearance Urine pH Ur Specific [place] Urine Protein Urine Glucose (UA) Urine Ketones Urine Blood Urine Nitrite Ur Leukocyte Esterase Urine WBC (Auto) Urine RBC (Auto) Stool Occult Blood 02/01/18 02/01/18 02/01/18 09:33 13:21 13:21 WBC RBC Hgb Hct MCV MCH MCHC RDW Plt Count Seg Neutrophils % Lymphocytes % Monocytes % Eosinophils % Basophils % Absolute Neutrophils Absolute Lymphocytes Absolute Monocytes Absolute Eosinophils Absolute Basophils Carbonic Acid 1.03 L HCO3/H2CO3 Ratio 23:1 ABG pH 7.47 H ABG pCO2 34.3 L ABG pO2 104.1 H ABG HCO3 24.2 ABG O2 Saturation 98.1 H ABG Base Excess 1.1 FiO2 100% Sodium 133.1 L Potassium 3.5 L Chloride 92 L Carbon Dioxide 34 H Anion Gap 7 BUN 11 Creatinine 0.56 Est GFR ( Amer) > 60 Est GFR (Non-Af Amer) > 60 Glucose 147 H Calcium 10.1 Phosphorus 4.7 H Magnesium 2.4 H Total Bilirubin 1.2 AST 400 H ALT 120 H Alkaline Phosphatase 89 Total Protein 7.2 Albumin 3.8 Triglycerides Urine Color Urine Appearance Urine pH Ur Specific [place] Urine Protein Urine Glucose (UA) Urine Ketones Urine Blood Urine Nitrite Ur Leukocyte Esterase Urine WBC (Auto) Urine RBC (Auto) Stool Occult Blood NEGATIVE 02/01/18 02/01/18 02/01/18 13:21 14:45 18:00 WBC 4.8 RBC 4.54 Hgb 15.0 Hct 44.9 MCV 99 H MCH 33.1 MCHC 33.4 RDW 16.8 H Plt Count 58 L Seg Neutrophils % 57.8 Lymphocytes % 26.8 Monocytes % 15.0 H Eosinophils % 0.1 Basophils % 0.3 Absolute Neutrophils 2.8 Absolute Lymphocytes 1.3 Absolute Monocytes 0.7 Absolute Eosinophils 0.0 Absolute Basophils 0.0 Carbonic Acid 1.27 HCO3/H2CO3 Ratio 21:1 ABG pH 7.43 ABG pCO2 42.1 ABG pO2 81.3 ABG HCO3 27.4 H ABG O2 Saturation 96.3 ABG Base Excess 2.8 FiO2 40% Sodium Potassium Chloride Carbon Dioxide Anion Gap BUN Creatinine Est GFR ( Amer) Est GFR (Non-Af Amer) Glucose Calcium Phosphorus Magnesium Total Bilirubin AST ALT Alkaline Phosphatase Total Protein Albumin Triglycerides Urine Color YELLOW Urine Appearance SLIGHTLY-CLOUDY Urine pH 7.0 Ur Specific [place] 1.019 Urine Protein 100 H Urine Glucose (UA) 50 H Urine Ketones TRACE H Urine Blood SMALL H Urine Nitrite NEGATIVE Ur Leukocyte Esterase NEGATIVE Urine WBC (Auto) 2 Urine RBC (Auto) 1 Stool Occult Blood 01/30/18 01/30/18 01/30/18 20:30 20:30 20:30 Creatine Kinase 180 H CK-MB (CK-2) 1.38 Troponin I < 0.012 NT-Pro-B Natriuret Pep 1200 H 01/31/18 01/31/18 01/31/18 02:37 02:37 08:10 Creatine Kinase 130 98 CK-MB (CK-2) 1.29 Troponin I < 0.012 NT-Pro-B Natriuret Pep 01/31/18 02/01/18 02/01/18 08:10 13:21 13:21 Creatine Kinase 874 H CK-MB (CK-2) 1.02 1.95 Troponin I < 0.012 0.019 NT-Pro-B Natriuret Pep EKG Comments: Showed sinus rhythm, significantly prolonged QTC, no acute ST-T wave changes are noted. Impressions: Chest CT 01/30/18 00:00 IMPRESSION: Multiple areas of patchy consolidation and [id number]-[id number] opacity throughout both lungs, greatest in the right upper parahilar region. Moderate fat stranding in the left pararenal space. Chest X-Ray 02/01/18 00:00 IMPRESSION: Good position of support apparatus. No pneumothorax. Head CT 02/01/18 15:11 IMPRESSION: No significant intracranial abnormalities were identified. Other findings as noted above. EVIDENCE OF ACUTE STROKE: NO. Assessment & Plan - Diagnosis (1) Cardiac arrest Is this a current diagnosis for this admission?: Yes (2) Polymorphic ventricular tachycardia Is this a current diagnosis for this admission?: Yes (3) Acute hypoxemic respiratory failure Is this a current diagnosis for this admission?: Yes (4) Alcohol intoxication Qualifiers: Complication of substance-induced condition: with delirium Qualified Code(s ): F10.921 - Alcohol use, unspecified with intoxication delirium Is this a current diagnosis for this admission?: Yes (5) Alcohol withdrawal syndrome Qualifiers: Complication of substance-induced condition: with unspecified complication Qualified Code(s): F10.239 - Alcohol dependence with withdrawal, unspecified Is this a current diagnosis for this admission?: Yes (6) Alcohol withdrawal seizure with complication Is this a current diagnosis for this admission?: Yes (7) Hypokalemia Is this a current diagnosis for this admission?: Yes (8) Hypomagnesemia Is this a current diagnosis for this admission?: Yes - Notes Notes: Cardiac arrest: This is secondary to polymorphic tachycardia, torsade, which was clearly identified on cardiac monitor technician and subsequently patient was resuscitated with single DC shock. Patient's EKG had shown significant QTC prolongation. At this point, causes of QTC prolongation could be ischemia, increased sympathetic discharge from withdrawal, medications etc. Recommend repeat EKG and holding medications that can cause QTC prolongation. Polymorphic ventricular tachycardia: Please see discussion above under cardiac arrest. Hypoxemic respiratory failure: Possibly related to aspiration versus other metabolic cause. May consider ruling out pulmonary embolism at a later date. Continue with intubation and artificial ventilation as well as oxygen supplementation. Alcohol intoxication and withdrawal: Agree with clonidine therapy. Consider beta-sunil therapy. Seizure disorder: Patient has a history of seizure disorder: Continue to observe patient and antiepileptic use as needed or on a regular basis. Hypokalemia: Recommend correction. Hypomagnesemia: Recommend correction - Time Time Spent: 30 to 50 Minutes - CODE STATUS was discussed, patient remains full code. Surrogate decision-maker unchanged. Multiple medical problems were addressed. More than 50% of the time spent coordinating care, discussing management plans with involved caregivers. Management plans discussed with involved personnels. Medical decision making was of moderate to high complexity , patient's has multiple comorbidities. Medications reviewed and adjusted accordingly: Yes
--- NOTE | 2018-02-03 09:43 | PDOC PROGRESS REPORT ---
Subjective Progress Note for:: 02/02/18 Subjective:: Patient about the same but has made some progress. There is no significant change in general condition. Patient remains intubated, sedated, patient however looks comfortable and in acute distress. Medications reviewed. System review: No significant changes Medications reviewed. Patient is maintaining sinus rhythm. QTC noted to be prolonged on EKG Medications: Medications have been reviewed. Reason For Visit: ASPIRATION PNEUMONIA, ALCOHOLISM, ETOH LIVER Physical Exam Vital Signs: Temp Pulse Resp BP Pulse Ox 99.0 F 69 18 144/102 H 97 02/02/18 18:00 02/02/18 18:00 02/02/18 19:02 02/02/18 19:02 02/02/18 20:50 Intake & Output 02/01/18 02/02/18 02/03/18 06:59 06:59 06:59 Intake Total 5600 4469 1949 Output Total 1225 1075 640 Balance 4375 3394 1309 Weight 88.8 kg 88.1 kg Exam: GENERAL: well-nourished and in no acute distress. Patient is intubated and sedated. Orientation cannot be checked HEAD: Atraumatic, normocephalic. EYES: Pupils equal round and reactive to light, extraocular movements could not be checked, sclera anicteric, conjunctiva are normal. ENT: TMs normal, nares patent, oropharynx clear without exudates. Moist mucous membranes. No oral ulcerations or bleeding gums noted NECK: supple without lymphadenopathy or JVD. Trachea is central. No cervical or axillary lymphadenopathy noted. Carotids are 2+ LUNGS: Breath sounds mostly clear to auscultation patient is noted to have bibasal crackles at the extreme bases CHEST: Palpation of the chest wall shows no significant chest wall tenderness or abnormalities. 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 ABDOMEN: Soft, no significant tenderness appreciated, normoactive bowel sounds. No guarding, no rebound. No rigidity noted . No masses appreciated. EXTREMITIES: Pedal pulses are 1-2+, no calf tenderness noted, 1+ pedal edema noted. No clubbing or cyanosis. NEUROLOGICAL: The patient cannot participate in the neurological exam but no facial asymmetry noted. Extremities slightly hypotonic PSYCH: This cannot be evaluated. Patient cannot participate. SKIN: No significant ecchymosis, rash, or signs of pruritus noted. MUSCULOSKELETAL EXAM: No significant joint swelling noted. Patient cannot participate in musculoskeletal exam. Results Laboratory Results: 02/02/18 03:54 02/02/18 03:54 02/02/18 02/02/18 02/02/18 03:54 03:54 05:45 WBC 2.6 L D RBC 4.02 L Hgb 13.3 L Hct 39.3 MCV 98 H MCH 33.0 MCHC 33.7 RDW 16.6 H Plt Count 50 L Seg Neutrophils % 62.7 Lymphocytes % 17.8 Monocytes % 18.8 H Eosinophils % 0.3 Basophils % 0.4 Absolute Neutrophils 1.6 L Absolute Lymphocytes 0.5 Absolute Monocytes 0.5 Absolute Eosinophils 0.0 Absolute Basophils 0.0 Carbonic Acid 1.23 HCO3/H2CO3 Ratio 21:1 ABG pH 7.42 ABG pCO2 40.8 ABG pO2 89.6 ABG HCO3 25.9 ABG O2 Saturation 97.0 ABG Base Excess 1.4 FiO2 30% Sodium 131.6 L Potassium 3.7 Chloride 97 L Carbon Dioxide 26 Anion Gap 9 BUN 10 Creatinine 0.37 L Est GFR ( Amer) > 60 Est GFR (Non-Af Amer) > 60 Glucose 136 H Calcium 7.7 L Magnesium 1.9 Total Bilirubin 0.7 AST 220 H ALT 128 H Alkaline Phosphatase 68 Total Protein 5.9 L Albumin 2.9 L 01/30/18 01/30/18 01/30/18 20:30 20:30 20:30 Creatine Kinase 180 H CK-MB (CK-2) 1.38 Troponin I < 0.012 NT-Pro-B Natriuret Pep 1200 H 01/31/18 01/31/18 01/31/18 02:37 02:37 08:10 Creatine Kinase 130 98 CK-MB (CK-2) 1.29 Troponin I < 0.012 NT-Pro-B Natriuret Pep 01/31/18 02/01/18 02/01/18 08:10 13:21 13:21 Creatine Kinase 874 H CK-MB (CK-2) 1.02 1.95 Troponin I < 0.012 0.019 NT-Pro-B Natriuret Pep 02/02/18 10:10 Creatine Kinase CK-MB (CK-2) Troponin I < 0.012 NT-Pro-B Natriuret Pep EKG Comments: Rhythm strips reviewed shows no recurrence of ventricular tachycardia. Twelve- lead EKG shows prolonged QTC. Repeat EKG in a.m. Impressions: Chest CT 01/30/18 00:00 IMPRESSION: Multiple areas of patchy consolidation and yybyprb-gsglcu-fjzqj opacity throughout both lungs, greatest in the right upper parahilar region. Moderate fat stranding in the left pararenal space. Head CT 02/01/18 15:11 IMPRESSION: No significant intracranial abnormalities were identified. Other findings as noted above. EVIDENCE OF ACUTE STROKE: NO. Chest X-Ray 02/02/18 06:00 IMPRESSION: 1. Support tubes and lines in appropriate radiographic position. No significant interval change. Assessment & Plan - Diagnosis (1) Polymorphic ventricular tachycardia Is this a current diagnosis for this admission?: Yes (2) Cardiac arrest Is this a current diagnosis for this admission?: Yes (3) Acute hypoxemic respiratory failure Is this a current diagnosis for this admission?: Yes (4) Alcohol intoxication Qualifiers: Complication of substance-induced condition: with delirium Qualified Code(s ): F10.921 - Alcohol use, unspecified with intoxication delirium Is this a current diagnosis for this admission?: Yes (5) COPD (chronic obstructive pulmonary disease) Qualifiers: COPD type: unspecified COPD Qualified Code(s): J44.9 - Chronic obstructive pulmonary disease, unspecified Is this a current diagnosis for this admission?: Yes (6) Alcohol withdrawal seizure with complication Is this a current diagnosis for this admission?: Yes (7) Hypokalemia Is this a current diagnosis for this admission?: Yes (8) Hypomagnesemia Is this a current diagnosis for this admission?: Yes - Notes Notes: QT interval is still prolonged on EKG. QTC prolonged. Recommend stopping Floxin IV, will have pharmacy review other medications. Cardiac enzymes repeated and was noted to be negative. 2D echo results reviewed. 2D echo was relatively unremarkable. Cardiac arrest: This is secondary to polymorphic tachycardia, torsade, which was clearly identified on compliance monitor and subsequently patient was resuscitated with single DC shock. Patient's EKG had shown significant QTC prolongation. At this point, causes of QTC prolongation could be ischemia, increased sympathetic discharge from withdrawal, medications etc. Recommend repeat EKG and holding medications that can cause QTC prolongation. Polymorphic ventricular tachycardia: Please see discussion above under cardiac arrest. Hypoxemic respiratory failure: Possibly related to aspiration versus other metabolic cause. May consider ruling out pulmonary embolism at a later date. Continue with intubation and artificial ventilation as well as oxygen supplementation. Alcohol intoxication and withdrawal: Agree with clonidine therapy. Consider beta-sunil therapy. Seizure disorder: Patient has a history of seizure disorder: Continue to observe patient and antiepileptic use as needed or on a regular basis. Electrolyte imbalance: Including hypomagnesemia and hypokalemia has been corrected. - Time Time with patient: Greater than 35 minutes - CODE STATUS was discussed, patient remains full code. Surrogate decision-maker unchanged. Multiple medical problems were addressed. More than 50% of the time spent coordinating care, discussing management plans with involved caregivers. Management plans discussed with involved personnels. Medical decision making was of moderate to high complexity, patient's has multiple comorbidities. Medications reviewed and adjusted accordingly: Yes
--- NOTE | 2018-02-03 09:45 | PDOC PROGRESS REPORT ---
Subjective Progress Note for:: 02/03/18 Subjective:: Patient about the same but has made some progress. There is no significant change in general condition. Patient remains intubated, sedated, patient however looks comfortable and in acute distress. Medications reviewed. System review: No significant changes Medications reviewed. Patient is maintaining sinus rhythm. QTC noted to be prolonged on EKG Medications: Medications have been reviewed. Reason For Visit: ASPIRATION PNEUMONIA, ALCOHOLISM, ETOH LIVER Physical Exam Vital Signs: Temp Pulse Resp BP Pulse Ox 97.5 F 68 19 140/90 H 92 02/03/18 08:00 02/03/18 08:00 02/03/18 09:03 02/03/18 09:03 02/03/18 09:03 Intake & Output 02/02/18 02/03/18 02/04/18 06:59 06:59 06:59 Intake Total 4469 4423 Output Total 1075 4215 575 Balance 3394 208 -575 Weight 88.1 kg 89.8 kg Exam: GENERAL: well-nourished and in no acute distress. Patient is intubated and sedated. Orientation cannot be checked HEAD: Atraumatic, normocephalic. EYES: Pupils equal round and reactive to light, extraocular movements could not be checked, sclera anicteric, conjunctiva are normal. ENT: TMs normal, nares patent, oropharynx clear without exudates. Moist mucous membranes. No oral ulcerations or bleeding gums noted NECK: supple without lymphadenopathy or JVD. Trachea is central. No cervical or axillary lymphadenopathy noted. Carotids are 2+ LUNGS: Breath sounds mostly clear to auscultation patient is noted to have bibasal crackles at the extreme bases CHEST: Palpation of the chest wall shows no significant chest wall tenderness or abnormalities. 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 ABDOMEN: Soft, no significant tenderness appreciated, normoactive bowel sounds. No guarding, no rebound. No rigidity noted . No masses appreciated. EXTREMITIES: Pedal pulses are 1-2+, no calf tenderness noted, 1+ pedal edema noted. No clubbing or cyanosis. NEUROLOGICAL: The patient cannot participate in the neurological exam but no facial asymmetry noted. Extremities slightly hypotonic PSYCH: This cannot be evaluated. Patient cannot participate. SKIN: No significant ecchymosis, rash, or signs of pruritus noted. MUSCULOSKELETAL EXAM: No significant joint swelling noted. Patient cannot participate in musculoskeletal exam Results Laboratory Results: 02/03/18 04:08 02/03/18 04:08 02/03/18 02/03/18 02/03/18 04:08 04:08 05:15 WBC 2.4 L RBC 4.08 L Hgb 13.3 L Hct 39.8 MCV 98 H MCH 32.5 MCHC 33.3 RDW 16.4 H Plt Count 62 L Seg Neutrophils % Not Reportable Lymphocytes % Not Reportable Monocytes % Not Reportable Eosinophils % Not Reportable Basophils % Not Reportable Absolute Neutrophils Not Reportable Absolute Lymphocytes Not Reportable Absolute Monocytes Not Reportable Absolute Eosinophils Not Reportable Absolute Basophils Not Reportable Carbonic Acid 1.36 H HCO3/H2CO3 Ratio 19:1 ABG pH 7.38 ABG pCO2 45.3 H ABG pO2 85.7 ABG HCO3 26.4 H ABG O2 Saturation 96.3 ABG Base Excess 0.9 FiO2 35% Sodium 135.2 L Potassium 3.6 Chloride 101 Carbon Dioxide 25 Anion Gap 9 BUN 5 L Creatinine 0.39 L Est GFR ( Amer) > 60 Est GFR (Non-Af Amer) > 60 Glucose 127 H Calcium 7.9 L Magnesium 1.8 Total Bilirubin 0.6 AST 107 H ALT 95 H Alkaline Phosphatase 57 Total Protein 5.4 L Albumin 2.6 L 01/30/18 01/30/18 01/30/18 20:30 20:30 20:30 Creatine Kinase 180 H CK-MB (CK-2) 1.38 Troponin I < 0.012 NT-Pro-B Natriuret Pep 1200 H 01/31/18 01/31/18 01/31/18 02:37 02:37 08:10 Creatine Kinase 130 98 CK-MB (CK-2) 1.29 Troponin I < 0.012 NT-Pro-B Natriuret Pep 01/31/18 02/01/18 02/01/18 08:10 13:21 13:21 Creatine Kinase 874 H CK-MB (CK-2) 1.02 1.95 Troponin I < 0.012 0.019 NT-Pro-B Natriuret Pep 02/02/18 10:10 Creatine Kinase CK-MB (CK-2) Troponin I < 0.012 NT-Pro-B Natriuret Pep EKG Comments: Twelve-lead EKG shows sinus rhythm, prolonged QTC is still noted. Impressions: Chest CT 01/30/18 00:00 IMPRESSION: Multiple areas of patchy consolidation and hukavcm-zsnhrl-ritef opacity throughout both lungs, greatest in the right upper parahilar region. Moderate fat stranding in the left pararenal space. Head CT 02/01/18 15:11 IMPRESSION: No significant intracranial abnormalities were identified. Other findings as noted above. EVIDENCE OF ACUTE STROKE: NO. Chest X-Ray 02/03/18 06:00 IMPRESSION: 1. Support tubes and lines in appropriate radiographic position. No significant interval change. Assessment & Plan - Diagnosis (1) Polymorphic ventricular tachycardia Is this a current diagnosis for this admission?: Yes (2) Cardiac arrest Is this a current diagnosis for this admission?: Yes (3) Acute hypoxemic respiratory failure Is this a current diagnosis for this admission?: Yes (4) Alcohol intoxication Qualifiers: Complication of substance-induced condition: with delirium Qualified Code(s ): F10.921 - Alcohol use, unspecified with intoxication delirium Is this a current diagnosis for this admission?: Yes (5) COPD (chronic obstructive pulmonary disease) Qualifiers: COPD type: unspecified COPD Qualified Code(s): J44.9 - Chronic obstructive pulmonary disease, unspecified Is this a current diagnosis for this admission?: Yes (6) Alcohol withdrawal seizure with complication Is this a current diagnosis for this admission?: Yes - Notes Notes: Levofloxacin IV is stopped today. We will stop trazodone today. Will have pharmacy consult on other medications likely to prolonged QTC. Cardiac arrest: This is secondary to polymorphic tachycardia, torsade, which was clearly identified on engine monitor and subsequently patient was resuscitated with single DC shock. Patient's EKG had shown significant QTC prolongation. At this point, causes of QTC prolongation could be ischemia, increased sympathetic discharge from withdrawal, medications etc. Recommend repeat EKG and holding medications that can cause QTC prolongation. Polymorphic ventricular tachycardia: Please see discussion above under cardiac arrest. Hypoxemic respiratory failure: Possibly related to aspiration versus other metabolic cause. May consider ruling out pulmonary embolism at a later date. Continue with intubation and artificial ventilation as well as oxygen supplementation. Alcohol intoxication and withdrawal: Agree with clonidine therapy. Consider beta-sunil therapy. Seizure disorder: Patient has a history of seizure disorder: Continue to observe patient and antiepileptic use as needed or on a regular basis. - Time Time with patient: 15-25 minutes - CODE STATUS was discussed, patient remains full code. Surrogate decision-maker unchanged. Multiple medical problems were addressed. More than 50% of the time spent coordinating care, discussing management plans with involved caregivers. Management plans discussed with involved personnels. Medical decision making was of moderate to high complexity , patient's has multiple comorbidities. Medications reviewed and adjusted accordingly: Yes
--- NOTE | 2018-02-03 11:42 | PDOC PROGRESS REPORT ---
Subjective Progress Note for:: 02/03/18 Subjective:: pt Is currently under sedation reducing his Patients that present on the Levaquin is currently stopped due to acute QT prolonged Patient's status post cardiac arrest Reason For Visit: ASPIRATION PNEUMONIA, ALCOHOLISM, ETOH LIVER Physical Exam Vital Signs: Temp Pulse Resp BP Pulse Ox 98.2 F 75 9 L 150/99 H 93 02/03/18 10:00 02/03/18 10:00 02/03/18 10:03 02/03/18 10:03 02/03/18 10:03 Intake & Output 02/02/18 02/03/18 02/04/18 06:59 06:59 06:59 Intake Total 4469 4423 Output Total 1075 4215 635 Balance 3394 208 -635 Weight 88.1 kg 89.8 kg Physical Exam: Currently under sedation elevated anf itubated Eye exam: PRESENT: PERRLA Respiratory exam: PRESENT: clear to auscultation nikia Cardiovascular exam: PRESENT: +S1, +S2 GI/Abdominal exam: PRESENT: normal bowel sounds, soft. ABSENT: tenderness Extremities exam: PRESENT: pedal edema Neurological exam: PRESENT: alert, awake, oriented to person Skin exam: PRESENT: dry Results Laboratory Results: 02/03/18 04:08 02/03/18 04:08 02/03/18 02/03/18 02/03/18 04:08 04:08 05:15 WBC 2.4 L RBC 4.08 L Hgb 13.3 L Hct 39.8 MCV 98 H MCH 32.5 MCHC 33.3 RDW 16.4 H Plt Count 62 L Seg Neutrophils % Not Reportable Lymphocytes % Not Reportable Monocytes % Not Reportable Eosinophils % Not Reportable Basophils % Not Reportable Absolute Neutrophils Not Reportable Absolute Lymphocytes Not Reportable Absolute Monocytes Not Reportable Absolute Eosinophils Not Reportable Absolute Basophils Not Reportable Carbonic Acid 1.36 H HCO3/H2CO3 Ratio 19:1 ABG pH 7.38 ABG pCO2 45.3 H ABG pO2 85.7 ABG HCO3 26.4 H ABG O2 Saturation 96.3 ABG Base Excess 0.9 FiO2 35% Sodium 135.2 L Potassium 3.6 Chloride 101 Carbon Dioxide 25 Anion Gap 9 BUN 5 L Creatinine 0.39 L Est GFR ( Amer) > 60 Est GFR (Non-Af Amer) > 60 Glucose 127 H Calcium 7.9 L Magnesium 1.8 Total Bilirubin 0.6 AST 107 H ALT 95 H Alkaline Phosphatase 57 Total Protein 5.4 L Albumin 2.6 L 01/30/18 01/30/18 01/30/18 20:30 20:30 20:30 Creatine Kinase 180 H CK-MB (CK-2) 1.38 Troponin I < 0.012 NT-Pro-B Natriuret Pep 1200 H 01/31/18 01/31/18 01/31/18 02:37 02:37 08:10 Creatine Kinase 130 98 CK-MB (CK-2) 1.29 Troponin I < 0.012 NT-Pro-B Natriuret Pep 01/31/18 02/01/18 02/01/18 08:10 13:21 13:21 Creatine Kinase 874 H CK-MB (CK-2) 1.02 1.95 Troponin I < 0.012 0.019 NT-Pro-B Natriuret Pep 02/02/18 10:10 Creatine Kinase CK-MB (CK-2) Troponin I < 0.012 NT-Pro-B Natriuret Pep Impressions: Chest CT 01/30/18 00:00 IMPRESSION: Multiple areas of patchy consolidation and bvacvis-vqzxed-giqkg opacity throughout both lungs, greatest in the right upper parahilar region. Moderate fat stranding in the left pararenal space. Head CT 02/01/18 15:11 IMPRESSION: No significant intracranial abnormalities were identified. Other findings as noted above. EVIDENCE OF ACUTE STROKE: NO. Chest X-Ray 02/03/18 06:00 IMPRESSION: 1. Support tubes and lines in appropriate radiographic position. No significant interval change. Assessment & Plan - Diagnosis (1) Acute hypoxemic respiratory failure Is this a current diagnosis for this admission?: Yes (2) Alcohol intoxication Qualifiers: Complication of substance-induced condition: with delirium Qualified Code(s ): F10.921 - Alcohol use, unspecified with intoxication delirium Is this a current diagnosis for this admission?: Yes (3) COPD (chronic obstructive pulmonary disease) Qualifiers: COPD type: unspecified COPD Qualified Code(s): J44.9 - Chronic obstructive pulmonary disease, unspecified Is this a current diagnosis for this admission?: Yes (4) Cardiac arrest Is this a current diagnosis for this admission?: Yes (5) Thrombocytopenia Is this a current diagnosis for this admission?: Yes - Time Time Spent with patient: 15-24 minutes Medications reviewed and adjusted accordingly: Yes Anticipated discharge: Other Within: Other - Inpatient Certification Medical Necessity: Need Close Monitoring Due to Risk of Patient Decompensation Post Hospital Care: D/C [place] Documentation - Plan Summary Plan Summary: stable
[2018-02-03] MEDS: MORPHINE SULFATE 10 MG/ML INJ IV PRN (15:15)
[2018-02-03] MEDS: METOPROLOL TARTRATE PF/INJ 5 MG/5 ML SDV IV PRN (20:48)
[2018-02-03] MEDS: FAMOTIDINE INJ/PF 20 MG/2 ML SDV IV SCH (21:03)
[2018-02-03] MEDS: NORMAL SALINE 1000 ML 1,000 ML with THIAMINE HCL 100 MG, MVI, ADULT NO.1 WITH VIT K 10 ... IV SCH ×4 (21:14)
[2018-02-03] MEDS: HYDROMORPHONE HCL INJ/PF 2 MG/ML AMPULE IV PRN (23:44)
[2018-02-04] MEDS: LORAZEPAM 24 MG/240 ML BAG IV PRN ×2 (00:42→21:12)
[2018-02-04] MEDS: HYDROMORPHONE HCL INJ/PF 2 MG/ML AMPULE IV PRN ×2 (01:53→22:34)
[2018-02-04] MEDS: METOPROLOL TARTRATE PF/INJ 5 MG/5 ML SDV IV PRN (03:54)
[2018-02-04] MEDS: PROPOFOL 100 ML IV PRN ×2 (03:56→20:49)
[2018-02-04] MEDS ORDERED: HYDRALAZINE HCL INJ/PF 20 MG/1 ML SDV ONE (04:27)
[2018-02-04 04:29] LABS: ABSOLUTE EOSINOPHILS # (AUTO) 0.1 10^3/uL (0.0-0.6); ABSOLUTE LYMPHOCYTES (AUTO) 0.7 10^3/uL (0.5-4.7); ABSOLUTE MONOCYTES (AUTO) 0.5 10^3/uL (0.1-1.4); ABSOLUTE NEUT (AUTO) 1.8 10^3/uL (1.7-8.2); BASOPHILS % (AUTO) 0.9 % (0-2); EOSINOPHILS % (AUTO) 1.7 % (0-6); HEMATOCRIT 41.2 % (37.9-51.0); HEMOGLOBIN 13.8 g/dL (13.5-17.0); MEAN CORPUSCULAR HEMOGLOBIN 32.9 pg (27.0-33.4); MEAN CORPUSCULAR HGB CONC 33.6 g/dL (32.0-36.0); MEAN CORPUSCULAR VOLUME 98 fl (80-97); RED CELL DISTRIBUTION WIDTH 16.5 % (11.5-14.0); SEGMENTED NEUTROPHILS % (AUTO) 57.4 % (42-78); TOTAL CELLS COUNTED % (AUTO) 100 %; WHITE BLOOD COUNT 3.1 10^3/uL (4.0-10.5)
[2018-02-04 04:42] LABS: ANION GAP 9 (5-19); BLOOD UREA NITROGEN 6 mg/dL (7-20); CALCIUM 8.1 mg/dL (8.4-10.2); CARBON DIOXIDE 27 mmol/L (22-30); CHLORIDE 106 mmol/L (98-107); GLUCOSE 94 mg/dL (75-110); POTASSIUM 3.3 mmol/L (3.6-5.0); SODIUM 141.7 mmol/L (137-145); TRIGLYCERIDES 108 mg/dL (<150)
[2018-02-04 04:52] LABS: PLATELET COUNT 77 10^3/uL (150-450)
[2018-02-04 04:56] LABS: ARTERIAL BLOOD BASE EXCESS 2.2 mmol/L; ARTERIAL BLOOD HCO3 26.4 mmol/L (20-26); ARTERIAL BLOOD O2 SATURATION 91.9 % (94-98); ARTERIAL BLOOD PCO2 39.9 mmHg (35-45); ARTERIAL BLOOD PH 7.44 (7.35-7.45); ARTERIAL BLOOD PO2 59.9 mmHg (80-100); ARTERIAL BLOOD TOTAL CO2 27.7 mmol/L (23-27)
[2018-02-04 05:00] LABS: ARTERIAL BLOOD FIO2 30%
[2018-02-04] MEDS: CLONIDINE HCL 0.2 MG TABLET PO SCH ×3 (05:03→21:13)
[2018-02-04] MEDS: CLINDAMYCIN 600 MG/D5W RTU 600 MG/50 ML RTUPB IV SCH ×3 (05:03→21:10)
--- NOTE | 2018-02-04 07:01 | RADIOLOGY REPORT (SQ) ---
EXAM DESCRIPTION: CHEST SINGLE VIEW CLINICAL HISTORY: resp failure. Intubated patient. COMPARISON: 02/03/2018 FINDINGS: Single frontal view of the chest. Endotracheal tube with tip 5 cm above the varghese. NG tube with tip below the diaphragm. Leads overlie the chest. Cardiomediastinal silhouette is unremarkable. No consolidation, pneumothorax, or pleural effusion. No displaced rib fractures identified. Upper abdominal soft tissues are unremarkable. IMPRESSION: 1. Support tubes and lines in appropriate radiographic position. No significant interval change. Electronically signed by: Sarbjit Riley 02/04/2018 5:59 AM CDT
[2018-02-04] MEDS: MORPHINE SULFATE 10 MG/ML INJ IV PRN (08:38)
[2018-02-04] MEDS: FLUOXETINE HCL 20 MG CAPSULE PO SCH (08:38)
[2018-02-04] MEDS: NORMAL SALINE 1000 ML 1,000 ML IV PRN ×2 (08:40→19:41)
[2018-02-04] MEDS: FLUTICASONE/SALMETEROL DISKUS 250-50 MCG/DOSE IH SCH ×2 (09:05→21:20)
[2018-02-04] MEDS: FAMOTIDINE INJ/PF 20 MG/2 ML SDV IV SCH ×2 (09:08→21:14)
[2018-02-04] MEDS: PREGABALIN 50 MG CAPSULE PO SCH ×2 (09:10→21:20)
[2018-02-04] MEDS: CEFEPIME 1 GM/D5W RTU 1 GM/50 ML RTUPB IV SCH ×2 (09:11→21:14)
[2018-02-04] MEDS: POTASSIUM CHLORIDE 10 MEQ TABLET.SA PO SCH ×2 (09:17→12:14)
--- NOTE | 2018-02-04 09:35 | EKG REPORT ---
SEVERITY:- ABNORMAL ECG - SINUS RHYTHM PROBABLE INFERIOR INFARCT, AGE INDETERMINATE PROLONGED QT INTERVAL BORDERLINE T ABNORMALITIES, ANT LEADS : Confirmed by: Cherelle Castro 04-Feb-2018 09:35:03
--- NOTE | 2018-02-04 10:51 | PDOC PROGRESS REPORT ---
Subjective Progress Note for:: 02/04/18 Subjective:: Patient is currently doing same Blood pressure was elevated and add the hydralazine Still intubated under sedation's Reason For Visit: ASPIRATION PNEUMONIA, ALCOHOLISM, ETOH LIVER Physical Exam Vital Signs: Temp Pulse Resp BP Pulse Ox 97.6 F 73 14 118/70 99 02/04/18 07:54 02/04/18 08:00 02/04/18 06:18 02/04/18 06:18 02/04/18 08:00 Intake & Output 02/03/18 02/04/18 02/05/18 06:59 06:59 06:59 Intake Total 4423 3426 Output Total 4211 7838 475 Balance 208 -69 -475 Weight 89.8 kg 86.4 kg Physical Exam: Still intubated under sedation General appearance: PRESENT: no acute distress Eye exam: PRESENT: PERRLA Mouth exam: PRESENT: neck supple Respiratory exam: PRESENT: clear to auscultation nikia Cardiovascular exam: PRESENT: +S1, +S2 GI/Abdominal exam: PRESENT: normal bowel sounds, soft Skin exam: PRESENT: dry Results Laboratory Results: 02/04/18 04:13 02/04/18 04:13 02/04/18 02/04/18 02/04/18 04:13 04:13 04:48 WBC 3.1 L RBC 4.20 L Hgb 13.8 Hct 41.2 MCV 98 H MCH 32.9 MCHC 33.6 RDW 16.5 H Plt Count 77 L Seg Neutrophils % 57.4 Lymphocytes % 24.0 Monocytes % 16.0 H Eosinophils % 1.7 Basophils % 0.9 Absolute Neutrophils 1.8 Absolute Lymphocytes 0.7 Absolute Monocytes 0.5 Absolute Eosinophils 0.1 Absolute Basophils 0.0 Carbonic Acid 1.20 HCO3/H2CO3 Ratio 22:1 ABG pH 7.44 ABG pCO2 39.9 ABG pO2 59.9 L ABG HCO3 26.4 H ABG O2 Saturation 91.9 L ABG Base Excess 2.2 FiO2 30% Sodium 141.7 Potassium 3.3 L Chloride 106 Carbon Dioxide 27 Anion Gap 9 BUN 6 L Creatinine 0.39 L Est GFR ( Amer) > 60 Est GFR (Non-Af Amer) > 60 Glucose 94 Calcium 8.1 L Magnesium 1.6 Triglycerides 108 02/01/18 13:57 Sputum Gram Stain - Final 02/01/18 13:57 Sputum Sputum Culture - Final NORMAL DAVEY 01/30/18 01/30/18 01/30/18 20:30 20:30 20:30 Creatine Kinase 180 H CK-MB (CK-2) 1.38 Troponin I < 0.012 NT-Pro-B Natriuret Pep 1200 H 01/31/18 01/31/18 01/31/18 02:37 02:37 08:10 Creatine Kinase 130 98 CK-MB (CK-2) 1.29 Troponin I < 0.012 NT-Pro-B Natriuret Pep 01/31/18 02/01/18 02/01/18 08:10 13:21 13:21 Creatine Kinase 874 H CK-MB (CK-2) 1.02 1.95 Troponin I < 0.012 0.019 NT-Pro-B Natriuret Pep 02/02/18 10:10 Creatine Kinase CK-MB (CK-2) Troponin I < 0.012 NT-Pro-B Natriuret Pep Impressions: Chest CT 01/30/18 00:00 IMPRESSION: Multiple areas of patchy consolidation and vrhgfuu-swulcp-ccuit opacity throughout both lungs, greatest in the right upper parahilar region. Moderate fat stranding in the left pararenal space. Head CT 02/01/18 15:11 IMPRESSION: No significant intracranial abnormalities were identified. Other findings as noted above. EVIDENCE OF ACUTE STROKE: NO. Chest X-Ray 02/04/18 06:00 IMPRESSION: 1. Support tubes and lines in appropriate radiographic position. No significant interval change. Assessment & Plan - Diagnosis (1) Acute hypoxemic respiratory failure Is this a current diagnosis for this admission?: Yes (2) Alcohol intoxication Qualifiers: Complication of substance-induced condition: with delirium Qualified Code(s ): F10.921 - Alcohol use, unspecified with intoxication delirium Is this a current diagnosis for this admission?: Yes (3) COPD (chronic obstructive pulmonary disease) Qualifiers: COPD type: unspecified COPD Qualified Code(s): J44.9 - Chronic obstructive pulmonary disease, unspecified Is this a current diagnosis for this admission?: Yes (4) Cardiac arrest Is this a current diagnosis for this admission?: Yes (5) Thrombocytopenia Is this a current diagnosis for this admission?: Yes - Time Time Spent with patient: 25-34 minutes Medications reviewed and adjusted accordingly: Yes Anticipated discharge: Other Within: Other - Inpatient Certification Medical Necessity: Need Close Monitoring Due to Risk of Patient Decompensation Post Hospital Care: D/C [place] Documentation - Plan Summary Plan Summary: Continues current medication follow with the pulmonary and cardiology
--- NOTE | 2018-02-04 16:16 | PDOC PROGRESS REPORT ---
Subjective Progress Note for:: 02/02/18 Subjective:: Intubated and sedated Reason For Visit: ASPIRATION PNEUMONIA, ALCOHOLISM, ETOH LIVER Physical Exam Vital Signs: Temp Pulse Resp BP Pulse Ox 98.1 F 69 16 106/104 H 97 02/02/18 07:55 02/02/18 07:55 02/02/18 07:55 02/02/18 07:55 02/02/18 07:55 Intake & Output 02/01/18 02/02/18 02/03/18 06:59 06:59 06:59 Intake Total 5600 4469 Output Total 1225 1075 200 Balance 4375 3394 -200 Weight 88.8 kg 88.1 kg General appearance: PRESENT: no acute distress. ABSENT: cooperative Head exam: PRESENT: atraumatic, normocephalic Eye exam: PRESENT: conjunctiva pale. ABSENT: EOMI, nystagmus, periorbital swelling, scleral icterus Mouth exam: PRESENT: dry mucosa, neck supple, tongue midline, other - ET tube in place Neck exam: ABSENT: carotid bruit, JVD, lymphadenopathy, thyromegaly, tracheal deviation, tracheostomy Respiratory exam: PRESENT: decreased breath sounds, prolonged expiratory phas, rales, rhonchi, symmetrical, unlabored. ABSENT: retraction, stridor, tachypnea Cardiovascular exam: PRESENT: RRR, +S1, +S2 Pulses: PRESENT: normal radial pulses GI/Abdominal exam: PRESENT: diminished bowel sounds, soft Gentrourinary exam: PRESENT: indwelling catheter Extremities exam: ABSENT: clubbing, joint swelling Musculoskeletal exam: ABSENT: deformity, dislocation Neurological exam: ABSENT: awake, oriented to person Skin exam: PRESENT: dry, warm Results Laboratory Results: 02/02/18 03:54 02/02/18 03:54 02/01/18 02/01/18 02/01/18 05:21 09:33 13:21 WBC RBC Hgb Hct MCV MCH MCHC RDW Plt Count Seg Neutrophils % Lymphocytes % Monocytes % Eosinophils % Basophils % Absolute Neutrophils Absolute Lymphocytes Absolute Monocytes Absolute Eosinophils Absolute Basophils Carbonic Acid 1.03 L HCO3/H2CO3 Ratio 23:1 ABG pH 7.47 H ABG pCO2 34.3 L ABG pO2 104.1 H ABG HCO3 24.2 ABG O2 Saturation 98.1 H ABG Base Excess 1.1 FiO2 100% Sodium Potassium Chloride Carbon Dioxide Anion Gap BUN Creatinine Est GFR ( Amer) Est GFR (Non-Af Amer) Glucose Calcium Phosphorus Magnesium Total Bilirubin AST ALT Alkaline Phosphatase Total Protein Albumin Triglycerides 83 Urine Color Urine Appearance Urine pH Ur Specific [place] Urine Protein Urine Glucose (UA) Urine Ketones Urine Blood Urine Nitrite Ur Leukocyte Esterase Urine WBC (Auto) Urine RBC (Auto) Stool Occult Blood NEGATIVE 02/01/18 02/01/18 02/01/18 13:21 13:21 14:45 WBC 4.8 RBC 4.54 Hgb 15.0 Hct 44.9 MCV 99 H MCH 33.1 MCHC 33.4 RDW 16.8 H Plt Count 58 L Seg Neutrophils % 57.8 Lymphocytes % 26.8 Monocytes % 15.0 H Eosinophils % 0.1 Basophils % 0.3 Absolute Neutrophils 2.8 Absolute Lymphocytes 1.3 Absolute Monocytes 0.7 Absolute Eosinophils 0.0 Absolute Basophils 0.0 Carbonic Acid 1.27 HCO3/H2CO3 Ratio 21:1 ABG pH 7.43 ABG pCO2 42.1 ABG pO2 81.3 ABG HCO3 27.4 H ABG O2 Saturation 96.3 ABG Base Excess 2.8 FiO2 40% Sodium 133.1 L Potassium 3.5 L Chloride 92 L Carbon Dioxide 34 H Anion Gap 7 BUN 11 Creatinine 0.56 Est GFR ( Amer) > 60 Est GFR (Non-Af Amer) > 60 Glucose 147 H Calcium 10.1 Phosphorus 4.7 H Magnesium 2.4 H Total Bilirubin 1.2 AST 400 H ALT 120 H Alkaline Phosphatase 89 Total Protein 7.2 Albumin 3.8 Triglycerides Urine Color Urine Appearance Urine pH Ur Specific [place] Urine Protein Urine Glucose (UA) Urine Ketones Urine Blood Urine Nitrite Ur Leukocyte Esterase Urine WBC (Auto) Urine RBC (Auto) Stool Occult Blood 02/01/18 02/02/18 02/02/18 18:00 03:54 03:54 WBC 2.6 L D RBC 4.02 L Hgb 13.3 L Hct 39.3 MCV 98 H MCH 33.0 MCHC 33.7 RDW 16.6 H Plt Count 50 L Seg Neutrophils % 62.7 Lymphocytes % 17.8 Monocytes % 18.8 H Eosinophils % 0.3 Basophils % 0.4 Absolute Neutrophils 1.6 L Absolute Lymphocytes 0.5 Absolute Monocytes 0.5 Absolute Eosinophils 0.0 Absolute Basophils 0.0 Carbonic Acid HCO3/H2CO3 Ratio ABG pH ABG pCO2 ABG pO2 ABG HCO3 ABG O2 Saturation ABG Base Excess FiO2 Sodium 131.6 L Potassium 3.7 Chloride 97 L Carbon Dioxide 26 Anion Gap 9 BUN 10 Creatinine 0.37 L Est GFR ( Amer) > 60 Est GFR (Non-Af Amer) > 60 Glucose 136 H Calcium 7.7 L Phosphorus Magnesium 1.9 Total Bilirubin 0.7 AST 220 H ALT 128 H Alkaline Phosphatase 68 Total Protein 5.9 L Albumin 2.9 L Triglycerides Urine Color YELLOW Urine Appearance SLIGHTLY-CLOUDY Urine pH 7.0 Ur Specific [place] 1.019 Urine Protein 100 H Urine Glucose (UA) 50 H Urine Ketones TRACE H Urine Blood SMALL H Urine Nitrite NEGATIVE Ur Leukocyte Esterase NEGATIVE Urine WBC (Auto) 2 Urine RBC (Auto) 1 Stool Occult Blood 02/02/18 05:45 WBC RBC Hgb Hct MCV MCH MCHC RDW Plt Count Seg Neutrophils % Lymphocytes % Monocytes % Eosinophils % Basophils % Absolute Neutrophils Absolute Lymphocytes Absolute Monocytes Absolute Eosinophils Absolute Basophils Carbonic Acid 1.23 HCO3/H2CO3 Ratio 21:1 ABG pH 7.42 ABG pCO2 40.8 ABG pO2 89.6 ABG HCO3 25.9 ABG O2 Saturation 97.0 ABG Base Excess 1.4 FiO2 30% Sodium Potassium Chloride Carbon Dioxide Anion Gap BUN Creatinine Est GFR ( Amer) Est GFR (Non-Af Amer) Glucose Calcium Phosphorus Magnesium Total Bilirubin AST ALT Alkaline Phosphatase Total Protein Albumin Triglycerides Urine Color Urine Appearance Urine pH Ur Specific [place] Urine Protein Urine Glucose (UA) Urine Ketones Urine Blood Urine Nitrite Ur Leukocyte Esterase Urine WBC (Auto) Urine RBC (Auto) Stool Occult Blood 01/30/18 01/30/18 01/30/18 20:30 20:30 20:30 Creatine Kinase 180 H CK-MB (CK-2) 1.38 Troponin I < 0.012 NT-Pro-B Natriuret Pep 1200 H 01/31/18 01/31/18 01/31/18 02:37 02:37 08:10 Creatine Kinase 130 98 CK-MB (CK-2) 1.29 Troponin I < 0.012 NT-Pro-B Natriuret Pep 01/31/18 02/01/18 02/01/18 08:10 13:21 13:21 Creatine Kinase 874 H CK-MB (CK-2) 1.02 1.95 Troponin I < 0.012 0.019 NT-Pro-B Natriuret Pep Impressions: Chest CT 01/30/18 00:00 IMPRESSION: Multiple areas of patchy consolidation and exrfjcc-xoplym-ruckn opacity throughout both lungs, greatest in the right upper parahilar region. Moderate fat stranding in the left pararenal space. Head CT 02/01/18 15:11 IMPRESSION: No significant intracranial abnormalities were identified. Other findings as noted above. EVIDENCE OF ACUTE STROKE: NO. Chest X-Ray 02/02/18 06:00 IMPRESSION: 1. Support tubes and lines in appropriate radiographic position. No significant interval change. Assessment & Plan - Diagnosis (1) Acute hypoxemic respiratory failure Is this a current diagnosis for this admission?: Yes Plan: He did well briefly on sedation vacation;mechanical ventilation maintain ph,PAO2 (2) Aspiration pneumonia Qualifiers: Aspiration pneumonia type: unspecified Laterality: right Lung location: upper lobe of lung Qualified Code(s): J69.0 - Pneumonitis due to inhalation of food and vomit Is this a current diagnosis for this admission?: Yes Plan: culture ,antibiotic as you have initiated (3) COPD (chronic obstructive pulmonary disease) Qualifiers: COPD type: unspecified COPD Qualified Code(s): J44.9 - Chronic obstructive pulmonary disease, unspecified Is this a current diagnosis for this admission?: Yes Plan: LABA+LAMA and prn CLIVE (4) Thrombocytopenia Is this a current diagnosis for this admission?: Yes Plan: Persistent (5) Alcohol withdrawal seizure with complication Is this a current diagnosis for this admission?: Yes Plan: r/o LINEN TECH bleed protect airway benzodiazepam - Time Total Critical Time (Minutes): 40
--- NOTE | 2018-02-04 16:18 | PDOC PROGRESS REPORT ---
Subjective Progress Note for:: 02/03/18 Subjective:: Intubated and sedated Reason For Visit: ASPIRATION PNEUMONIA, ALCOHOLISM, ETOH LIVER Physical Exam Vital Signs: Temp Pulse Resp BP Pulse Ox 97.5 F 68 9 L 150/99 H 93 02/03/18 08:00 02/03/18 08:00 02/03/18 10:03 02/03/18 10:03 02/03/18 10:03 Intake & Output 02/02/18 02/03/18 02/04/18 06:59 06:59 06:59 Intake Total 4469 4423 Output Total 1075 4215 575 Balance 3394 208 -575 Weight 88.1 kg 89.8 kg General appearance: PRESENT: no acute distress, disheveled Head exam: PRESENT: atraumatic, normocephalic Eye exam: PRESENT: conjunctiva pale. ABSENT: EOMI, nystagmus, periorbital swelling, scleral icterus Mouth exam: PRESENT: dry mucosa, neck supple, tongue midline, other - ET tube in place Neck exam: ABSENT: carotid bruit, JVD, lymphadenopathy, thyromegaly, tracheal deviation, tracheostomy Respiratory exam: PRESENT: decreased breath sounds, prolonged expiratory phas, rales, rhonchi, unlabored. ABSENT: retraction, stridor Cardiovascular exam: PRESENT: RRR, +S1, +S2 Pulses: PRESENT: normal radial pulses GI/Abdominal exam: PRESENT: diminished bowel sounds, soft Gentrourinary exam: PRESENT: indwelling catheter Extremities exam: ABSENT: clubbing, joint swelling Musculoskeletal exam: ABSENT: deformity, dislocation Neurological exam: ABSENT: awake, oriented to person Skin exam: PRESENT: dry, warm Results Laboratory Results: 02/03/18 04:08 02/03/18 04:08 02/03/18 02/03/18 02/03/18 04:08 04:08 05:15 WBC 2.4 L RBC 4.08 L Hgb 13.3 L Hct 39.8 MCV 98 H MCH 32.5 MCHC 33.3 RDW 16.4 H Plt Count 62 L Seg Neutrophils % Not Reportable Lymphocytes % Not Reportable Monocytes % Not Reportable Eosinophils % Not Reportable Basophils % Not Reportable Absolute Neutrophils Not Reportable Absolute Lymphocytes Not Reportable Absolute Monocytes Not Reportable Absolute Eosinophils Not Reportable Absolute Basophils Not Reportable Carbonic Acid 1.36 H HCO3/H2CO3 Ratio 19:1 ABG pH 7.38 ABG pCO2 45.3 H ABG pO2 85.7 ABG HCO3 26.4 H ABG O2 Saturation 96.3 ABG Base Excess 0.9 FiO2 35% Sodium 135.2 L Potassium 3.6 Chloride 101 Carbon Dioxide 25 Anion Gap 9 BUN 5 L Creatinine 0.39 L Est GFR ( Amer) > 60 Est GFR (Non-Af Amer) > 60 Glucose 127 H Calcium 7.9 L Magnesium 1.8 Total Bilirubin 0.6 AST 107 H ALT 95 H Alkaline Phosphatase 57 Total Protein 5.4 L Albumin 2.6 L 01/30/18 01/30/18 01/30/18 20:30 20:30 20:30 Creatine Kinase 180 H CK-MB (CK-2) 1.38 Troponin I < 0.012 NT-Pro-B Natriuret Pep 1200 H 01/31/18 01/31/18 01/31/18 02:37 02:37 08:10 Creatine Kinase 130 98 CK-MB (CK-2) 1.29 Troponin I < 0.012 NT-Pro-B Natriuret Pep 01/31/18 02/01/18 02/01/18 08:10 13:21 13:21 Creatine Kinase 874 H CK-MB (CK-2) 1.02 1.95 Troponin I < 0.012 0.019 NT-Pro-B Natriuret Pep 02/02/18 10:10 Creatine Kinase CK-MB (CK-2) Troponin I < 0.012 NT-Pro-B Natriuret Pep Impressions: Chest CT 01/30/18 00:00 IMPRESSION: Multiple areas of patchy consolidation and lzoanqi-vtpmiv-xjjyr opacity throughout both lungs, greatest in the right upper parahilar region. Moderate fat stranding in the left pararenal space. Head CT 02/01/18 15:11 IMPRESSION: No significant intracranial abnormalities were identified. Other findings as noted above. EVIDENCE OF ACUTE STROKE: NO. Chest X-Ray 02/03/18 06:00 IMPRESSION: 1. Support tubes and lines in appropriate radiographic position. No significant interval change. Assessment & Plan - Diagnosis (1) Acute hypoxemic respiratory failure Is this a current diagnosis for this admission?: Yes Plan: He did well briefly on sedation vacation;mechanical ventilation maintain ph,PAO2 (2) Aspiration pneumonia Qualifiers: Aspiration pneumonia type: unspecified Laterality: right Lung location: upper lobe of lung Qualified Code(s): J69.0 - Pneumonitis due to inhalation of food and vomit Is this a current diagnosis for this admission?: Yes Plan: culture ,antibiotic as you have initiated (3) COPD (chronic obstructive pulmonary disease) Qualifiers: COPD type: unspecified COPD Qualified Code(s): J44.9 - Chronic obstructive pulmonary disease, unspecified Is this a current diagnosis for this admission?: Yes Plan: LABA+LAMA and prn CLIVE (4) Thrombocytopenia Is this a current diagnosis for this admission?: Yes Plan: Persistent (5) Alcohol withdrawal seizure with complication Is this a current diagnosis for this admission?: Yes Plan: r/o COMMUTATOR INSPECTOR bleed protect airway benzodiazepam - Time Total Critical Time (Minutes): 40
--- NOTE | 2018-02-04 16:20 | PDOC PROGRESS REPORT ---
Subjective Progress Note for:: 02/04/18 Subjective:: Intubated and sedated Reason For Visit: ASPIRATION PNEUMONIA, ALCOHOLISM, ETOH LIVER Physical Exam Vital Signs: Temp Pulse Resp BP Pulse Ox 97.1 F 71 14 118/70 95 02/04/18 06:00 02/03/18 19:53 02/04/18 06:18 02/04/18 06:18 02/04/18 06:18 Intake & Output 02/03/18 02/04/18 02/05/18 06:59 06:59 06:59 Intake Total 4490 3426 Output Total 4216 5955 Balance 208 -69 Weight 89.8 kg 86.4 kg General appearance: PRESENT: no acute distress. ABSENT: cooperative, disheveled Head exam: PRESENT: atraumatic, normocephalic Eye exam: PRESENT: conjunctiva pale. ABSENT: EOMI, nystagmus, periorbital swelling, scleral icterus Mouth exam: PRESENT: dry mucosa, neck supple, tongue midline, other - ET tube in place Neck exam: ABSENT: carotid bruit, JVD, lymphadenopathy, thyromegaly, tracheal deviation, tracheostomy Respiratory exam: PRESENT: decreased breath sounds, prolonged expiratory phas, rales, rhonchi, unlabored. ABSENT: retraction, stridor Cardiovascular exam: PRESENT: RRR, +S1, +S2 Pulses: PRESENT: normal radial pulses GI/Abdominal exam: PRESENT: diminished bowel sounds, soft Gentrourinary exam: PRESENT: indwelling catheter Extremities exam: ABSENT: clubbing, joint swelling Musculoskeletal exam: ABSENT: deformity, dislocation Neurological exam: ABSENT: awake, oriented to person Skin exam: PRESENT: dry, warm Results Laboratory Results: 02/04/18 04:13 02/04/18 04:13 02/04/18 02/04/18 02/04/18 04:13 04:13 04:48 WBC 3.1 L RBC 4.20 L Hgb 13.8 Hct 41.2 MCV 98 H MCH 32.9 MCHC 33.6 RDW 16.5 H Plt Count 77 L Seg Neutrophils % 57.4 Lymphocytes % 24.0 Monocytes % 16.0 H Eosinophils % 1.7 Basophils % 0.9 Absolute Neutrophils 1.8 Absolute Lymphocytes 0.7 Absolute Monocytes 0.5 Absolute Eosinophils 0.1 Absolute Basophils 0.0 Carbonic Acid 1.20 HCO3/H2CO3 Ratio 22:1 ABG pH 7.44 ABG pCO2 39.9 ABG pO2 59.9 L ABG HCO3 26.4 H ABG O2 Saturation 91.9 L ABG Base Excess 2.2 FiO2 30% Sodium 141.7 Potassium 3.3 L Chloride 106 Carbon Dioxide 27 Anion Gap 9 BUN 6 L Creatinine 0.39 L Est GFR ( Amer) > 60 Est GFR (Non-Af Amer) > 60 Glucose 94 Calcium 8.1 L Magnesium 1.6 Triglycerides 108 01/30/18 01/30/18 01/30/18 20:30 20:30 20:30 Creatine Kinase 180 H CK-MB (CK-2) 1.38 Troponin I < 0.012 NT-Pro-B Natriuret Pep 1200 H 01/31/18 01/31/18 01/31/18 02:37 02:37 08:10 Creatine Kinase 130 98 CK-MB (CK-2) 1.29 Troponin I < 0.012 NT-Pro-B Natriuret Pep 01/31/18 02/01/18 02/01/18 08:10 13:21 13:21 Creatine Kinase 874 H CK-MB (CK-2) 1.02 1.95 Troponin I < 0.012 0.019 NT-Pro-B Natriuret Pep 02/02/18 10:10 Creatine Kinase CK-MB (CK-2) Troponin I < 0.012 NT-Pro-B Natriuret Pep Impressions: Chest CT 01/30/18 00:00 IMPRESSION: Multiple areas of patchy consolidation and ajchmhq-ofqqpn-fibwf opacity throughout both lungs, greatest in the right upper parahilar region. Moderate fat stranding in the left pararenal space. Head CT 02/01/18 15:11 IMPRESSION: No significant intracranial abnormalities were identified. Other findings as noted above. EVIDENCE OF ACUTE STROKE: NO. Chest X-Ray 02/04/18 06:00 IMPRESSION: 1. Support tubes and lines in appropriate radiographic position. No significant interval change. Assessment & Plan - Diagnosis (1) Acute hypoxemic respiratory failure Is this a current diagnosis for this admission?: Yes Plan: He did well briefly on sedation vacation;mechanical ventilation maintain ph,PAO2 (2) Aspiration pneumonia Qualifiers: Aspiration pneumonia type: unspecified Laterality: right Lung location: upper lobe of lung Qualified Code(s): J69.0 - Pneumonitis due to inhalation of food and vomit Is this a current diagnosis for this admission?: Yes Plan: culture ,antibiotic as you have initiated (3) COPD (chronic obstructive pulmonary disease) Qualifiers: COPD type: unspecified COPD Qualified Code(s): J44.9 - Chronic obstructive pulmonary disease, unspecified Is this a current diagnosis for this admission?: Yes Plan: LABA+LAMA and prn CLIVE (4) Thrombocytopenia Is this a current diagnosis for this admission?: Yes Plan: Persistent (5) Alcohol withdrawal seizure with complication Is this a current diagnosis for this admission?: Yes Plan: r/o ETCHED CIRCUIT PROCESSOR bleed protect airway benzodiazepam - Time Total Critical Time (Minutes): 40
--- NOTE | 2018-02-04 17:58 | PDOC PROGRESS REPORT ---
Subjective Progress Note for:: 02/04/18 Subjective:: Patient about the same but has made some progress. There is no significant change in general condition. Patient remains intubated, sedated, patient however looks comfortable and in acute distress. Medications reviewed. System review: No significant changes Medications reviewed. Patient is maintaining sinus rhythm. QTC noted to be prolonged on EKG however this is gradually improving. Medications: Medications have been reviewed. Reason For Visit: ASPIRATION PNEUMONIA, ALCOHOLISM, ETOH LIVER Physical Exam Vital Signs: Temp Pulse Resp BP Pulse Ox 97.6 F 73 22 H 162/99 H 97 02/04/18 07:54 02/04/18 08:00 02/04/18 14:00 02/04/18 13:49 02/04/18 16:00 Intake & Output 02/03/18 02/04/18 02/05/18 06:59 06:59 06:59 Intake Total 4423 3426 Output Total 4215 3495 950 Balance 208 -69 -950 Weight 89.8 kg 86.4 kg Exam: GENERAL: well-nourished and in no acute distress. Patient is intubated and sedated. Orientation cannot be checked HEAD: Atraumatic, normocephalic. EYES: Pupils equal round and reactive to light, extraocular movements could not be checked, sclera anicteric, conjunctiva are normal. ENT: TMs normal, nares patent, oropharynx clear without exudates. Moist mucous membranes. No oral ulcerations or bleeding gums noted NECK: supple without lymphadenopathy or JVD. Trachea is central. No cervical or axillary lymphadenopathy noted. Carotids are 2+ LUNGS: Breath sounds mostly clear to auscultation patient is noted to have bibasal crackles at the extreme bases CHEST: Palpation of the chest wall shows no significant chest wall tenderness or abnormalities. 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 ABDOMEN: Soft, no significant tenderness appreciated, normoactive bowel sounds. No guarding, no rebound. No rigidity noted . No masses appreciated. EXTREMITIES: Pedal pulses are 1-2+, no calf tenderness noted, 1+ pedal edema noted. No clubbing or cyanosis. NEUROLOGICAL: The patient cannot participate in the neurological exam but no facial asymmetry noted. Extremities slightly hypotonic PSYCH: This cannot be evaluated. Patient cannot participate. SKIN: No significant ecchymosis, rash, or signs of pruritus noted. MUSCULOSKELETAL EXAM: No significant joint swelling noted. Patient cannot participate in musculoskeletal exam. Results Laboratory Results: 02/04/18 04:13 02/04/18 04:13 02/04/18 02/04/18 02/04/18 04:13 04:13 04:48 WBC 3.1 L RBC 4.20 L Hgb 13.8 Hct 41.2 MCV 98 H MCH 32.9 MCHC 33.6 RDW 16.5 H Plt Count 77 L Seg Neutrophils % 57.4 Lymphocytes % 24.0 Monocytes % 16.0 H Eosinophils % 1.7 Basophils % 0.9 Absolute Neutrophils 1.8 Absolute Lymphocytes 0.7 Absolute Monocytes 0.5 Absolute Eosinophils 0.1 Absolute Basophils 0.0 Carbonic Acid 1.20 HCO3/H2CO3 Ratio 22:1 ABG pH 7.44 ABG pCO2 39.9 ABG pO2 59.9 L ABG HCO3 26.4 H ABG O2 Saturation 91.9 L ABG Base Excess 2.2 FiO2 30% Sodium 141.7 Potassium 3.3 L Chloride 106 Carbon Dioxide 27 Anion Gap 9 BUN 6 L Creatinine 0.39 L Est GFR ( Amer) > 60 Est GFR (Non-Af Amer) > 60 Glucose 94 Calcium 8.1 L Magnesium 1.6 Triglycerides 108 02/01/18 13:57 Sputum Gram Stain - Final 02/01/18 13:57 Sputum Sputum Culture - Final NORMAL DAVEY 01/30/18 01/30/18 01/30/18 20:30 20:30 20:30 Creatine Kinase 180 H CK-MB (CK-2) 1.38 Troponin I < 0.012 NT-Pro-B Natriuret Pep 1200 H 01/31/18 01/31/18 01/31/18 02:37 02:37 08:10 Creatine Kinase 130 98 CK-MB (CK-2) 1.29 Troponin I < 0.012 NT-Pro-B Natriuret Pep 01/31/18 02/01/18 02/01/18 08:10 13:21 13:21 Creatine Kinase 874 H CK-MB (CK-2) 1.02 1.95 Troponin I < 0.012 0.019 NT-Pro-B Natriuret Pep 02/02/18 10:10 Creatine Kinase CK-MB (CK-2) Troponin I < 0.012 NT-Pro-B Natriuret Pep EKG Comments: Telemetry shows sinus rhythm without any sustained tachycardia or bradycardia. Impressions: Chest CT 01/30/18 00:00 IMPRESSION: Multiple areas of patchy consolidation and mdavopg-njgjqb-payvk opacity throughout both lungs, greatest in the right upper parahilar region. Moderate fat stranding in the left pararenal space. Head CT 02/01/18 15:11 IMPRESSION: No significant intracranial abnormalities were identified. Other findings as noted above. EVIDENCE OF ACUTE STROKE: NO. Chest X-Ray 02/04/18 06:00 IMPRESSION: 1. Support tubes and lines in appropriate radiographic position. No significant interval change. Assessment & Plan - Diagnosis (1) Polymorphic ventricular tachycardia Is this a current diagnosis for this admission?: Yes (2) Cardiac arrest Is this a current diagnosis for this admission?: Yes (3) Acute hypoxemic respiratory failure Is this a current diagnosis for this admission?: Yes (4) Alcohol intoxication Qualifiers: Complication of substance-induced condition: with delirium Qualified Code(s ): F10.921 - Alcohol use, unspecified with intoxication delirium Is this a current diagnosis for this admission?: Yes (5) COPD (chronic obstructive pulmonary disease) Qualifiers: COPD type: unspecified COPD Qualified Code(s): J44.9 - Chronic obstructive pulmonary disease, unspecified Is this a current diagnosis for this admission?: Yes (6) Alcohol withdrawal seizure with complication Is this a current diagnosis for this admission?: Yes - Notes Notes: Levofloxacin IV is stopped day before yesterday. We will stop trazodone yesterday. Pharmacy consultation was performed. At this point these at the 2 suspected culprit for QTC prolongation. Cardiac arrest: This is secondary to polymorphic tachycardia, torsade, which was clearly identified on fitter helper and subsequently patient was resuscitated with single DC shock. Patient's EKG had shown significant QTC prolongation. At this point, causes of QTC prolongation could be ischemia, increased sympathetic discharge from withdrawal, medications etc. from EKG QTC is gradually improving. So far no recurrence of ventricular polymorphic tachycardia. Polymorphic ventricular tachycardia: Please see discussion above under cardiac arrest. Hypoxemic respiratory failure: Possibly related to aspiration versus other metabolic cause. May consider ruling out pulmonary embolism at a later date. Continue with intubation and artificial ventilation as well as oxygen supplementation. Alcohol intoxication and withdrawal: Agree with clonidine therapy. Consider beta-sunil therapy. Seizure disorder: Patient has a history of seizure disorder: Continue to observe patient and antiepileptic use as needed or on a regular basis. - Time Time with patient: Greater than 35 minutes - Continue current support. Will recommend a nuclear stress test prior to discharge to rule out ischemia as cause of QTC prolongation. Medications reviewed and adjusted accordingly: Yes
[2018-02-04] MEDS: NORMAL SALINE 1000 ML 1,000 ML with THIAMINE HCL 100 MG, MVI, ADULT NO.1 WITH VIT K 10 ... IV SCH ×4 (21:15)
--- NOTE | 2018-02-04 23:26 | RADIOLOGY REPORT (SQ) ---
EXAM DESCRIPTION: KUB/ABDOMEN (SINGLE VIEW) COMPLETED DATE/TIME: 02/04/2018 10:47 pm REASON FOR STUDY: NGT Placement COMPARISON: 01/07/2016 NUMBER OF VIEWS: One view. TECHNIQUE: Supine radiographic image of the abdomen acquired. LIMITATIONS: None. FINDINGS: A nasogastric catheter is present with tip overlying the body of the stomach, side port is below the GE junction. Moderate bowel gas. Left basilar atelectasis -effusion. OTHER: No other significant finding. IMPRESSION: A nasogastric catheter is present with tip overlying the body of the stomach, side port is below the GE junction. Moderate bowel gas. Left basilar atelectasis -effusion. TECHNICAL DOCUMENTATION: JOB ID: [id number] [employer]- All Rights Reserved Reading location - IP/workstation name: [email or web address]
[2018-02-05] MEDS: PROPOFOL 100 ML IV PRN ×7 (02:12→21:57)
[2018-02-05 04:07] LABS: ABSOLUTE EOSINOPHILS # (AUTO) 0.1 10^3/uL (0.0-0.6); ABSOLUTE LYMPHOCYTES (AUTO) 0.7 10^3/uL (0.5-4.7); ABSOLUTE MONOCYTES (AUTO) 0.7 10^3/uL (0.1-1.4); ABSOLUTE NEUT (AUTO) 3.3 10^3/uL (1.7-8.2); EOSINOPHILS % (AUTO) 1.7 % (0-6); HEMATOCRIT 38.2 % (37.9-51.0); HEMOGLOBIN 12.8 g/dL (13.5-17.0); MEAN CORPUSCULAR HEMOGLOBIN 32.6 pg (27.0-33.4); MEAN CORPUSCULAR HGB CONC 33.5 g/dL (32.0-36.0); MEAN CORPUSCULAR VOLUME 97 fl (80-97); MONOCYTES % (AUTO) 14.4 % (3-13); RED BLOOD COUNT 3.92 10^6/uL (4.35-5.55); RED CELL DISTRIBUTION WIDTH 16.7 % (11.5-14.0); SEGMENTED NEUTROPHILS % (AUTO) 68.9 % (42-78); TOTAL CELLS COUNTED % (AUTO) 100 %; WHITE BLOOD COUNT 4.8 10^3/uL (4.0-10.5)
[2018-02-05 04:18] LABS: ALANINE AMINOTRANSFERASE 58 U/L (21-72); ALBUMIN 2.5 g/dL (3.5-5.0); ALKALINE PHOSPHATASE 55 U/L (38-126); ANION GAP 7 (5-19); ASPARTATE AMINO TRANSFERASE 49 U/L (17-59); BILIRUBIN,DIRECT 0.4 mg/dL (0.0-0.4); BILIRUBIN,TOTAL 0.7 mg/dL (0.2-1.3); BLOOD UREA NITROGEN 6 mg/dL (7-20); CARBON DIOXIDE 29 mmol/L (22-30); CHLORIDE 102 mmol/L (98-107); GLUCOSE 90 mg/dL (75-110); POTASSIUM 3.1 mmol/L (3.6-5.0); SODIUM 137.6 mmol/L (137-145); TOTAL PROTEIN 5.2 g/dL (6.3-8.2)
[2018-02-05 04:29] LABS: PLATELET COUNT 81 10^3/uL (150-450)
[2018-02-05] MEDS: CLINDAMYCIN 600 MG/D5W RTU 600 MG/50 ML RTUPB IV SCH ×3 (05:36→21:59)
[2018-02-05] MEDS: CLONIDINE HCL 0.2 MG TABLET PO SCH ×3 (05:36→21:58)
[2018-02-05 05:56] LABS: ARTERIAL BLOOD BASE EXCESS 4.7 mmol/L; ARTERIAL BLOOD H2CO3 1.27 mmol/L (1.05-1.35); ARTERIAL BLOOD HCO3 29.1 mmol/L (20-26); ARTERIAL BLOOD O2 SATURATION 95.7 % (94-98); ARTERIAL BLOOD PCO2 42.3 mmHg (35-45); ARTERIAL BLOOD PH 7.46 (7.35-7.45); ARTERIAL BLOOD PO2 75.1 mmHg (80-100); ARTERIAL BLOOD TOTAL CO2 30.4 mmol/L (23-27)
[2018-02-05 06:05] LABS: ARTERIAL BLOOD FIO2 30%
[2018-02-05] MEDS: NORMAL SALINE 1000 ML 1,000 ML IV PRN ×2 (07:19→18:09)
[2018-02-05] MEDS: FLUOXETINE HCL 20 MG CAPSULE PO SCH (07:20)
--- NOTE | 2018-02-05 08:44 | RADIOLOGY REPORT (SQ) ---
EXAM DESCRIPTION: CHEST SINGLE VIEW COMPLETED DATE/TIME: 02/05/2018 6:09 am REASON FOR STUDY: resp failure COMPARISON: 02/05/2018 EXAM PARAMETERS: NUMBER OF VIEWS: One view. TECHNIQUE: Single frontal radiographic view of the chest acquired. RADIATION DOSE: NA LIMITATIONS: None. FINDINGS: LUNGS AND PLEURA: Persistent slight atelectasis or infiltrate at the left lung base. The right lung is clear. No pneumothorax or pleural effusion. MEDIASTINUM AND HILAR STRUCTURES: No masses. Contour normal. HEART AND VASCULAR STRUCTURES: Heart normal in size. Normal vasculature. BONES: No acute findings. HARDWARE: Endotracheal and nasogastric tubes are again identified. Tip of the nasogastric tube in t he fundus of the stomach. OTHER: No other significant finding. IMPRESSION: 1 No significant interval changes since the prior study dated 02/05/2018. Stable appeara nce to the chest. TECHNICAL DOCUMENTATION: JOB ID: [id number] [employer]- All Rights Reserved Reading location - IP/workstation name: [email or web address]
[2018-02-05] MEDS: PREGABALIN 50 MG CAPSULE PO SCH ×2 (09:46→21:58)
[2018-02-05] MEDS: POTASSIUM CHLORIDE 20 MEQ/15 ML UDCUP NG SCH ×2 (09:47→12:04)
[2018-02-05] MEDS: FAMOTIDINE INJ/PF 20 MG/2 ML SDV IV SCH ×2 (09:47→21:57)
[2018-02-05] MEDS: CEFEPIME 1 GM/D5W RTU 1 GM/50 ML RTUPB IV SCH ×2 (09:48→21:59)
[2018-02-05] MEDS: MAGNESIUM SULFATE 1 GM/D5W 100 ML IV SCH ×2 (09:48→12:05)
[2018-02-05] MEDS: FLUTICASONE/SALMETEROL DISKUS 250-50 MCG/DOSE IH SCH ×2 (09:49→22:00)
[2018-02-05] MEDS: LORAZEPAM 24 MG/240 ML BAG IV PRN ×3 (12:02→20:25)
--- NOTE | 2018-02-05 16:00 | PDOC PROGRESS REPORT ---
Subjective Progress Note for:: 02/05/18 Subjective:: Intubated and sedated Reason For Visit: ASPIRATION PNEUMONIA, ALCOHOLISM, ETOH LIVER Physical Exam Vital Signs: Temp Pulse Resp BP Pulse Ox 97.5 F 73 14 159/90 H 98 02/05/18 08:00 02/05/18 08:00 02/05/18 08:00 02/05/18 08:00 02/05/18 08:21 Intake & Output 02/04/18 02/05/18 02/06/18 06:59 06:59 06:59 Intake Total 3426 4892 Output Total 3495 2110 400 Balance -69 2782 -400 Weight 86.4 kg 89.1 kg General appearance: PRESENT: no acute distress, disheveled. ABSENT: cooperative , obese Head exam: PRESENT: atraumatic, normocephalic Eye exam: PRESENT: conjunctiva pale. ABSENT: EOMI, nystagmus, periorbital swelling, scleral icterus Mouth exam: PRESENT: dry mucosa, neck supple, tongue midline, other - ET tube Neck exam: ABSENT: carotid bruit, JVD, lymphadenopathy, thyromegaly, tracheal deviation, tracheostomy Respiratory exam: PRESENT: decreased breath sounds, prolonged expiratory phas, rhonchi, symmetrical, unlabored. ABSENT: retraction, stridor Cardiovascular exam: PRESENT: RRR, +S1, +S2, tachycardia Pulses: PRESENT: normal radial pulses GI/Abdominal exam: PRESENT: diminished bowel sounds, soft Extremities exam: ABSENT: clubbing, joint swelling Musculoskeletal exam: ABSENT: deformity, dislocation Neurological exam: ABSENT: awake, oriented to person Skin exam: PRESENT: dry, warm Results Laboratory Results: 02/05/18 03:54 02/05/18 03:54 02/05/18 02/05/18 02/05/18 03:54 03:54 05:45 WBC 4.8 RBC 3.92 L Hgb 12.8 L Hct 38.2 MCV 97 MCH 32.6 MCHC 33.5 RDW 16.7 H Plt Count 81 L Seg Neutrophils % 68.9 Lymphocytes % 14.0 Monocytes % 14.4 H Eosinophils % 1.7 Basophils % 1.0 Absolute Neutrophils 3.3 Absolute Lymphocytes 0.7 Absolute Monocytes 0.7 Absolute Eosinophils 0.1 Absolute Basophils 0.0 Carbonic Acid 1.27 HCO3/H2CO3 Ratio 22:1 ABG pH 7.46 H ABG pCO2 42.3 ABG pO2 75.1 L ABG HCO3 29.1 H ABG O2 Saturation 95.7 ABG Base Excess 4.7 FiO2 30% Sodium 137.6 Potassium 3.1 L Chloride 102 Carbon Dioxide 29 Anion Gap 7 BUN 6 L Creatinine 0.37 L Est GFR ( Amer) > 60 Est GFR (Non-Af Amer) > 60 Glucose 90 Calcium 8.0 L Magnesium 1.3 L Total Bilirubin 0.7 AST 49 ALT 58 Alkaline Phosphatase 55 Total Protein 5.2 L Albumin 2.5 L 02/01/18 13:57 Sputum Gram Stain - Final 02/01/18 13:57 Sputum Sputum Culture - Final NORMAL DAVEY 01/30/18 01/30/18 01/30/18 20:30 20:30 20:30 Creatine Kinase 180 H CK-MB (CK-2) 1.38 Troponin I < 0.012 NT-Pro-B Natriuret Pep 1200 H 01/31/18 01/31/18 01/31/18 02:37 02:37 08:10 Creatine Kinase 130 98 CK-MB (CK-2) 1.29 Troponin I < 0.012 NT-Pro-B Natriuret Pep 01/31/18 02/01/18 02/01/18 08:10 13:21 13:21 Creatine Kinase 874 H CK-MB (CK-2) 1.02 1.95 Troponin I < 0.012 0.019 NT-Pro-B Natriuret Pep 02/02/18 10:10 Creatine Kinase CK-MB (CK-2) Troponin I < 0.012 NT-Pro-B Natriuret Pep Impressions: Chest CT 01/30/18 00:00 IMPRESSION: Multiple areas of patchy consolidation and xafwehy-zrawjg-kgtzd opacity throughout both lungs, greatest in the right upper parahilar region. Moderate fat stranding in the left pararenal space. Head CT 02/01/18 15:11 IMPRESSION: No significant intracranial abnormalities were identified. Other findings as noted above. EVIDENCE OF ACUTE STROKE: NO. KUB X-Ray 02/04/18 22:21 IMPRESSION: A nasogastric catheter is present with tip overlying the body of the stomach, side port is below the GE junction. Moderate bowel gas. Left basilar atelectasis -effusion. Assessment & Plan - Diagnosis (1) Acute hypoxemic respiratory failure Is this a current diagnosis for this admission?: Yes Plan: He did well briefly on sedation vacation;mechanical ventilation maintain ph,PAO2 (2) Aspiration pneumonia Qualifiers: Aspiration pneumonia type: unspecified Laterality: right Lung location: upper lobe of lung Qualified Code(s): J69.0 - Pneumonitis due to inhalation of food and vomit Is this a current diagnosis for this admission?: Yes Plan: culture ,antibiotic as you have initiated (3) COPD (chronic obstructive pulmonary disease) Qualifiers: COPD type: unspecified COPD Qualified Code(s): J44.9 - Chronic obstructive pulmonary disease, unspecified Is this a current diagnosis for this admission?: Yes Plan: LABA+LAMA and prn CLIVE (4) Thrombocytopenia Is this a current diagnosis for this admission?: Yes Plan: Persistent (5) Alcohol withdrawal seizure with complication Is this a current diagnosis for this admission?: Yes - Time Total Critical Time (Minutes): 45
[2018-02-05] MEDS ORDERED: FUROSEMIDE INJ/PF 20 MG/2 ML SDV ONE (18:35)
[2018-02-05 18:37] LABS: ANION GAP 6 (5-19); BLOOD UREA NITROGEN 4 mg/dL (7-20); CALCIUM 8.3 mg/dL (8.4-10.2); CARBON DIOXIDE 28 mmol/L (22-30); CHLORIDE 101 mmol/L (98-107); GLUCOSE 107 mg/dL (75-110); POTASSIUM 3.9 mmol/L (3.6-5.0); SODIUM 135.1 mmol/L (137-145)
[2018-02-05] MEDS: HYDROMORPHONE HCL INJ/PF 2 MG/ML AMPULE IV PRN (18:47)
--- NOTE | 2018-02-05 19:50 | PDOC PROGRESS REPORT ---
Subjective Progress Note for:: 02/05/18 Subjective:: Patient about the same but has made some progress. There was an attempted extubation this morning but patient failed. Otherwise there is no significant change in general condition. Patient remains intubated, sedated, patient however looks comfortable and in acute distress. Medications reviewed. System review: No significant changes Medications reviewed. Patient is maintaining sinus rhythm. QTC seems to be shortening gradually. Medications: Medications have been reviewed. Reason For Visit: ASPIRATION PNEUMONIA, ALCOHOLISM, ETOH LIVER Physical Exam Vital Signs: Temp Pulse Resp BP Pulse Ox 99.1 F 75 24 H 139/92 H 99 02/05/18 18:00 02/05/18 19:43 02/05/18 18:00 02/05/18 18:00 02/05/18 18:00 Intake & Output 02/04/18 02/05/18 02/06/18 06:59 06:59 06:59 Intake Total 3426 4892 1876 Output Total 3495 2110 2200 Balance -69 2782 -324 Weight 86.4 kg 89.1 kg Exam: GENERAL: well-nourished and in no acute distress. Patient is intubated and sedated. Orientation cannot be checked HEAD: Atraumatic, normocephalic. EYES: Pupils equal round and reactive to light, extraocular movements could not be checked, sclera anicteric, conjunctiva are normal. ENT: TMs normal, nares patent, oropharynx clear without exudates. Moist mucous membranes. No oral ulcerations or bleeding gums noted NECK: supple without lymphadenopathy or JVD. Trachea is central. No cervical or axillary lymphadenopathy noted. Carotids are 2+ LUNGS: Breath sounds mostly clear to auscultation patient is noted to have bibasal crackles at the extreme bases CHEST: Palpation of the chest wall shows no significant chest wall tenderness or abnormalities. 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 ABDOMEN: Soft, no significant tenderness appreciated, normoactive bowel sounds. No guarding, no rebound. No rigidity noted . No masses appreciated. EXTREMITIES: Pedal pulses are 1-2+, no calf tenderness noted, 1+ pedal edema noted. No clubbing or cyanosis. NEUROLOGICAL: The patient cannot participate in the neurological exam but no facial asymmetry noted. Extremities slightly hypotonic PSYCH: This cannot be evaluated. Patient cannot participate. SKIN: No significant ecchymosis, rash, or signs of pruritus noted. MUSCULOSKELETAL EXAM: No significant joint swelling noted. Patient cannot participate in musculoskeletal exam Results Laboratory Results: 02/05/18 03:54 02/05/18 17:50 02/05/18 02/05/18 02/05/18 03:54 03:54 05:45 WBC 4.8 RBC 3.92 L Hgb 12.8 L Hct 38.2 MCV 97 MCH 32.6 MCHC 33.5 RDW 16.7 H Plt Count 81 L Seg Neutrophils % 68.9 Lymphocytes % 14.0 Monocytes % 14.4 H Eosinophils % 1.7 Basophils % 1.0 Absolute Neutrophils 3.3 Absolute Lymphocytes 0.7 Absolute Monocytes 0.7 Absolute Eosinophils 0.1 Absolute Basophils 0.0 Carbonic Acid 1.27 HCO3/H2CO3 Ratio 22:1 ABG pH 7.46 H ABG pCO2 42.3 ABG pO2 75.1 L ABG HCO3 29.1 H ABG O2 Saturation 95.7 ABG Base Excess 4.7 FiO2 30% Sodium 137.6 Potassium 3.1 L Chloride 102 Carbon Dioxide 29 Anion Gap 7 BUN 6 L Creatinine 0.37 L Est GFR ( Amer) > 60 Est GFR (Non-Af Amer) > 60 Glucose 90 Calcium 8.0 L Magnesium 1.3 L Total Bilirubin 0.7 AST 49 ALT 58 Alkaline Phosphatase 55 Total Protein 5.2 L Albumin 2.5 L Stool Occult Blood 02/05/18 02/05/18 11:00 17:50 WBC RBC Hgb Hct MCV MCH MCHC RDW Plt Count Seg Neutrophils % Lymphocytes % Monocytes % Eosinophils % Basophils % Absolute Neutrophils Absolute Lymphocytes Absolute Monocytes Absolute Eosinophils Absolute Basophils Carbonic Acid HCO3/H2CO3 Ratio ABG pH ABG pCO2 ABG pO2 ABG HCO3 ABG O2 Saturation ABG Base Excess FiO2 Sodium 135.1 L Potassium 3.9 Chloride 101 Carbon Dioxide 28 Anion Gap 6 BUN 4 L Creatinine 0.38 L Est GFR ( Amer) > 60 Est GFR (Non-Af Amer) > 60 Glucose 107 Calcium 8.3 L Magnesium 1.9 Total Bilirubin AST ALT Alkaline Phosphatase Total Protein Albumin Stool Occult Blood NEGATIVE 01/30/18 01/30/18 01/30/18 20:30 20:30 20:30 Creatine Kinase 180 H CK-MB (CK-2) 1.38 Troponin I < 0.012 NT-Pro-B Natriuret Pep 1200 H 01/31/18 01/31/18 01/31/18 02:37 02:37 08:10 Creatine Kinase 130 98 CK-MB (CK-2) 1.29 Troponin I < 0.012 NT-Pro-B Natriuret Pep 01/31/18 02/01/18 02/01/18 08:10 13:21 13:21 Creatine Kinase 874 H CK-MB (CK-2) 1.02 1.95 Troponin I < 0.012 0.019 NT-Pro-B Natriuret Pep 02/02/18 10:10 Creatine Kinase CK-MB (CK-2) Troponin I < 0.012 NT-Pro-B Natriuret Pep EKG Comments: Shows sinus rhythm without any sustained tachycardia or bradycardia. Impressions: Chest CT 01/30/18 00:00 IMPRESSION: Multiple areas of patchy consolidation and oygmtvo-vmlhde-ckhjb opacity throughout both lungs, greatest in the right upper parahilar region. Moderate fat stranding in the left pararenal space. Head CT 02/01/18 15:11 IMPRESSION: No significant intracranial abnormalities were identified. Other findings as noted above. EVIDENCE OF ACUTE STROKE: NO. KUB X-Ray 02/04/18 22:21 IMPRESSION: A nasogastric catheter is present with tip overlying the body of the stomach, side port is below the GE junction. Moderate bowel gas. Left basilar atelectasis -effusion. Chest X-Ray 02/05/18 06:00 IMPRESSION: 1 No significant interval changes since the prior study dated 2017. Stable appearance to the chest. Assessment & Plan - Diagnosis (1) Polymorphic ventricular tachycardia Is this a current diagnosis for this admission?: Yes (2) Cardiac arrest Is this a current diagnosis for this admission?: Yes (3) Acute hypoxemic respiratory failure Is this a current diagnosis for this admission?: Yes (4) Alcohol intoxication Qualifiers: Complication of substance-induced condition: with delirium Qualified Code(s ): F10.921 - Alcohol use, unspecified with intoxication delirium Is this a current diagnosis for this admission?: Yes (5) COPD (chronic obstructive pulmonary disease) Qualifiers: COPD type: unspecified COPD Qualified Code(s): J44.9 - Chronic obstructive pulmonary disease, unspecified Is this a current diagnosis for this admission?: Yes (6) Alcohol withdrawal seizure with complication Is this a current diagnosis for this admission?: Yes (7) Hypokalemia Is this a current diagnosis for this admission?: Yes (8) Hypomagnesemia Is this a current diagnosis for this admission?: Yes - Notes Notes: Cardiac arrest: This is secondary to polymorphic tachycardia, torsade, which was clearly identified on hall monitor and subsequently patient was resuscitated with single DC shock. Patient's EKG had shown significant QTC prolongation. At this point, causes of QTC prolongation could be ischemia, increased sympathetic discharge from withdrawal, medications etc. from EKG QTC is gradually improving. So far no recurrence of ventricular polymorphic tachycardia. Polymorphic ventricular tachycardia: Please see discussion above under cardiac arrest. Hypoxemic respiratory failure: Possibly related to aspiration versus other metabolic cause. May consider ruling out pulmonary embolism at a later date. Continue with intubation and artificial ventilation as well as oxygen supplementation. Alcohol intoxication and withdrawal: Agree with clonidine therapy. Consider beta-sunil therapy. Seizure disorder: Patient has a history of seizure disorder: Continue to observe patient and antiepileptic use as needed or on a regular basis. Patient has remained stable from cardiac standpoint for last several days. Point will see patient on as needed basis. Please let me know once patient is extubated and is stable enough to undergo ischemia evaluation with his stress test. Will also recommend a predischarge EKG. - Time Time with patient: 15-25 minutes - CODE STATUS was discussed, patient remains full code. Surrogate decision-maker unchanged. Multiple medical problems were addressed. More than 50% of the time spent coordinating care, discussing management plans with involved caregivers. Management plans discussed with involved personnels. Medical decision making was of moderate to high complexity , patient's has multiple comorbidities. Medications reviewed and adjusted accordingly: Yes
[2018-02-05] MEDS ORDERED: FUROSEMIDE INJ/PF 20 MG/2 ML SDV IV ONE (20:00)
[2018-02-05] MEDS: NORMAL SALINE 1000 ML 1,000 ML with THIAMINE HCL 100 MG, MVI, ADULT NO.1 WITH VIT K 10 ... IV SCH ×4 (21:59)
--- NOTE | 2018-02-05 22:14 | PDOC PROGRESS REPORT ---
Subjective Progress Note for:: 02/05/18 Subjective:: Patient's remaining intubated, sedated ,comfortable Reason For Visit: ASPIRATION PNEUMONIA, ALCOHOLISM, ETOH LIVER Physical Exam Vital Signs: Temp Pulse Resp BP Pulse Ox 99.1 F 75 14 127/78 H 96 02/05/18 18:00 02/05/18 19:43 02/05/18 20:00 02/05/18 19:49 02/05/18 20:00 Intake & Output 02/04/18 02/05/18 02/06/18 06:59 06:59 06:59 Intake Total 3426 4892 1876 Output Total 3497 2969 4185 Balance -69 2782 -849 Weight 86.4 kg 89.1 kg General appearance: PRESENT: no acute distress Head exam: PRESENT: atraumatic, normocephalic Neck exam: PRESENT: full ROM Respiratory exam: PRESENT: clear to auscultation nikia Cardiovascular exam: PRESENT: RRR, +S1, +S2 Pulses: PRESENT: normal dorsalis pedis pul, +2 pedal pulses bilateral Vascular exam: PRESENT: normal capillary refill GI/Abdominal exam: PRESENT: normal bowel sounds, soft Rectal exam: PRESENT: deferred Skin exam: PRESENT: dry, intact, warm Results Laboratory Results: 02/05/18 03:54 02/05/18 17:50 02/05/18 02/05/18 02/05/18 03:54 03:54 05:45 WBC 4.8 RBC 3.92 L Hgb 12.8 L Hct 38.2 MCV 97 MCH 32.6 MCHC 33.5 RDW 16.7 H Plt Count 81 L Seg Neutrophils % 68.9 Lymphocytes % 14.0 Monocytes % 14.4 H Eosinophils % 1.7 Basophils % 1.0 Absolute Neutrophils 3.3 Absolute Lymphocytes 0.7 Absolute Monocytes 0.7 Absolute Eosinophils 0.1 Absolute Basophils 0.0 Carbonic Acid 1.27 HCO3/H2CO3 Ratio 22:1 ABG pH 7.46 H ABG pCO2 42.3 ABG pO2 75.1 L ABG HCO3 29.1 H ABG O2 Saturation 95.7 ABG Base Excess 4.7 FiO2 30% Sodium 137.6 Potassium 3.1 L Chloride 102 Carbon Dioxide 29 Anion Gap 7 BUN 6 L Creatinine 0.37 L Est GFR ( Amer) > 60 Est GFR (Non-Af Amer) > 60 Glucose 90 Calcium 8.0 L Magnesium 1.3 L Total Bilirubin 0.7 AST 49 ALT 58 Alkaline Phosphatase 55 Total Protein 5.2 L Albumin 2.5 L Stool Occult Blood 02/05/18 02/05/18 11:00 17:50 WBC RBC Hgb Hct MCV MCH MCHC RDW Plt Count Seg Neutrophils % Lymphocytes % Monocytes % Eosinophils % Basophils % Absolute Neutrophils Absolute Lymphocytes Absolute Monocytes Absolute Eosinophils Absolute Basophils Carbonic Acid HCO3/H2CO3 Ratio ABG pH ABG pCO2 ABG pO2 ABG HCO3 ABG O2 Saturation ABG Base Excess FiO2 Sodium 135.1 L Potassium 3.9 Chloride 101 Carbon Dioxide 28 Anion Gap 6 BUN 4 L Creatinine 0.38 L Est GFR ( Amer) > 60 Est GFR (Non-Af Amer) > 60 Glucose 107 Calcium 8.3 L Magnesium 1.9 Total Bilirubin AST ALT Alkaline Phosphatase Total Protein Albumin Stool Occult Blood NEGATIVE 01/30/18 01/30/18 01/30/18 20:30 20:30 20:30 Creatine Kinase 180 H CK-MB (CK-2) 1.38 Troponin I < 0.012 NT-Pro-B Natriuret Pep 1200 H 01/31/18 01/31/18 01/31/18 02:37 02:37 08:10 Creatine Kinase 130 98 CK-MB (CK-2) 1.29 Troponin I < 0.012 NT-Pro-B Natriuret Pep 01/31/18 02/01/18 02/01/18 08:10 13:21 13:21 Creatine Kinase 874 H CK-MB (CK-2) 1.02 1.95 Troponin I < 0.012 0.019 NT-Pro-B Natriuret Pep 02/02/18 10:10 Creatine Kinase CK-MB (CK-2) Troponin I < 0.012 NT-Pro-B Natriuret Pep Impressions: Chest CT 01/30/18 00:00 IMPRESSION: Multiple areas of patchy consolidation and fhsfctw-yjslye-hriuj opacity throughout both lungs, greatest in the right upper parahilar region. Moderate fat stranding in the left pararenal space. Head CT 02/01/18 15:11 IMPRESSION: No significant intracranial abnormalities were identified. Other findings as noted above. EVIDENCE OF ACUTE STROKE: NO. KUB X-Ray 02/04/18 22:21 IMPRESSION: A nasogastric catheter is present with tip overlying the body of the stomach, side port is below the GE junction. Moderate bowel gas. Left basilar atelectasis -effusion. Chest X-Ray 02/05/18 06:00 IMPRESSION: 1 No significant interval changes since the prior study dated 2017. Stable appearance to the chest. Assessment & Plan - Diagnosis (1) Acute hypoxemic respiratory failure Is this a current diagnosis for this admission?: Yes (2) Aspiration pneumonia Qualifiers: Aspiration pneumonia type: unspecified Laterality: right Lung location: upper lobe of lung Qualified Code(s): J69.0 - Pneumonitis due to inhalation of food and vomit Is this a current diagnosis for this admission?: Yes (3) Alcohol intoxication Qualifiers: Complication of substance-induced condition: with delirium Qualified Code(s ): F10.921 - Alcohol use, unspecified with intoxication delirium Is this a current diagnosis for this admission?: Yes (4) COPD (chronic obstructive pulmonary disease) Qualifiers: COPD type: unspecified COPD Qualified Code(s): J44.9 - Chronic obstructive pulmonary disease, unspecified Is this a current diagnosis for this admission?: Yes (5) Thrombocytopenia Is this a current diagnosis for this admission?: Yes (6) Cardiopulmonary arrest Is this a current diagnosis for this admission?: Yes (7) Alcohol withdrawal syndrome Qualifiers: Complication of substance-induced condition: with unspecified complication Qualified Code(s): F10.239 - Alcohol dependence with withdrawal, unspecified Is this a current diagnosis for this admission?: Yes (8) Ventricular fibrillation Is this a current diagnosis for this admission?: Yes (9) COPD (chronic obstructive pulmonary disease) Qualifiers: COPD type: unspecified COPD Qualified Code(s): J44.9 - Chronic obstructive pulmonary disease, unspecified Is this a current diagnosis for this admission?: Yes (10) Polymorphic ventricular tachycardia Is this a current diagnosis for this admission?: Yes - Plan Summary Plan Summary: Start tube feed, continue mechanical ventilation, continue sedation
[2018-02-06] MEDS: LORAZEPAM 24 MG/240 ML BAG IV PRN ×6 (00:24→21:19)
[2018-02-06] MEDS: PROPOFOL 100 ML IV PRN ×7 (01:15→21:21)
[2018-02-06 04:12] LABS: HEMATOCRIT 39.7 % (37.9-51.0); HEMOGLOBIN 13.4 g/dL (13.5-17.0); MEAN CORPUSCULAR HEMOGLOBIN 32.8 pg (27.0-33.4); MEAN CORPUSCULAR HGB CONC 33.7 g/dL (32.0-36.0); MEAN CORPUSCULAR VOLUME 97 fl (80-97); RED BLOOD COUNT 4.08 10^6/uL (4.35-5.55); RED CELL DISTRIBUTION WIDTH 16.7 % (11.5-14.0); WHITE BLOOD COUNT 4.6 10^3/uL (4.0-10.5)
[2018-02-06 04:15] LABS: PLATELET COUNT 94 10^3/uL (150-450)
[2018-02-06 04:25] LABS: ANION GAP 8 (5-19); BLOOD UREA NITROGEN 5 mg/dL (7-20); CALCIUM 8.3 mg/dL (8.4-10.2); CARBON DIOXIDE 31 mmol/L (22-30); CHLORIDE 101 mmol/L (98-107); GLUCOSE 113 mg/dL (75-110); SODIUM 139.8 mmol/L (137-145)
[2018-02-06 04:28] LABS: POTASSIUM 3.1 mmol/L (3.6-5.0)
[2018-02-06 04:34] LABS: ABSOLUTE LYMPHOCYTES# (MANUAL) 0.9 10^3/uL (0.5-4.7); ABSOLUTE MONOCYTES # (MANUAL) 0.9 10^3/uL (0.1-1.4); ABSOLUTE NEUTROPHILS# (MANUAL) 2.7 10^3/uL (1.7-8.2); BASOPHILS % (MANUAL) 0 % (0-2); EOSINOPHILS % (MANUAL) 2 % (0-6); LYMPHOCYTES % (MANUAL) 19 % (13-45); MONOCYTES % (MANUAL) 20 % (3-13); SEGMENTED NEUTROPHILS % (MAN) 59 % (42-78); TOTAL CELLS COUNTED 100
[2018-02-06 04:36] LABS: ANISOCYTOSIS 1+
[2018-02-06 04:37] LABS: PLATELET COMMENT DECREASED
[2018-02-06 05:31] LABS: ARTERIAL BLOOD BASE EXCESS 5.2 mmol/L; ARTERIAL BLOOD H2CO3 1.29 mmol/L (1.05-1.35); ARTERIAL BLOOD HCO3 29.6 mmol/L (20-26); ARTERIAL BLOOD O2 SATURATION 95.8 % (94-98); ARTERIAL BLOOD PCO2 42.7 mmHg (35-45); ARTERIAL BLOOD PH 7.46 (7.35-7.45); ARTERIAL BLOOD PO2 75.9 mmHg (80-100); ARTERIAL BLOOD TOTAL CO2 30.9 mmol/L (23-27)
[2018-02-06 05:32] LABS: ARTERIAL BLOOD FIO2 30%
[2018-02-06] MEDS: POTASSIUM CHLORIDE 20 MEQ/15 ML UDCUP NG SCH ×2 (05:54→08:03)
[2018-02-06] MEDS: CLINDAMYCIN 600 MG/D5W RTU 600 MG/50 ML RTUPB IV SCH ×2 (05:54→14:25)
[2018-02-06] MEDS: CLONIDINE HCL 0.2 MG TABLET PO SCH ×3 (05:54→21:20)
[2018-02-06] MEDS: FLUOXETINE HCL 20 MG CAPSULE PO SCH (08:04)
--- NOTE | 2018-02-06 08:27 | RADIOLOGY REPORT (SQ) ---
EXAM DESCRIPTION: CHEST SINGLE VIEW COMPLETED DATE/TIME: 02/06/2018 6:52 am REASON FOR STUDY: pna COMPARISON: CT chest 01/30/2018 Chest films 02/03/2018, 02/04/2018, 02/05/2018 EXAM PARAMETERS: NUMBER OF VIEWS: One view. TECHNIQUE: Single frontal radiographic view of the chest acquired. RADIATION DOSE: NA LIMITATIONS: None. FINDINGS: LUNGS AND PLEURA: Persistent consolidation left lower lobe worrisome for pneumonia. Remainder lungs are well inflated and clear. No pneumothorax. No pleural effusions. MEDIASTINUM AND HILAR STRUCTURES: No masses. Contour normal. HEART AND VASCULAR STRUCTURES: Heart normal in size. Normal vasculature. BONES: No acute findings. HARDWARE: Endotracheal tube tip 4 to 5 cm above the varghese. Nasogastric tube tip and side port in th e stomach. OTHER: No other significant finding. IMPRESSION: Persistent left lower lobe consolidation TECHNICAL DOCUMENTATION: JOB ID: [id number] [employer]- All Rights Reserved Reading location - IP/workstation name: [email or web address]
[2018-02-06] MEDS: FAMOTIDINE INJ/PF 20 MG/2 ML SDV IV SCH ×2 (09:23→21:20)
[2018-02-06] MEDS: CEFEPIME 1 GM/D5W RTU 1 GM/50 ML RTUPB IV SCH ×2 (09:23→21:21)
[2018-02-06] MEDS: PREGABALIN 50 MG CAPSULE PO SCH ×2 (09:23→21:20)
[2018-02-06] MEDS: FLUTICASONE/SALMETEROL DISKUS 250-50 MCG/DOSE IH SCH ×2 (09:24→21:22)
[2018-02-06] MEDS ORDERED: ACETYLCYSTEINE 20% SOLN 800 MG/4 ML VIAL.NEB NEB ONE (10:00)
[2018-02-06] MEDS: HYDRALAZINE HCL INJ/PF 20 MG/1 ML SDV IV PRN (12:32)
[2018-02-06 14:24] LABS: ARTERIAL BLOOD BASE EXCESS 4.9 mmol/L; ARTERIAL BLOOD H2CO3 1.07 mmol/L (1.05-1.35); ARTERIAL BLOOD HCO3 27.8 mmol/L (20-26); ARTERIAL BLOOD O2 SATURATION 93.3 % (94-98); ARTERIAL BLOOD PCO2 35.6 mmHg (35-45); ARTERIAL BLOOD PH 7.51 (7.35-7.45); ARTERIAL BLOOD TOTAL CO2 28.9 mmol/L (23-27)
[2018-02-06 14:25] LABS: ARTERIAL BLOOD FIO2 30%
[2018-02-06] MEDS: IPRATROPIUM/ALBUTEROL 0.5-2.5 MG/3 ML AMPUL NEB PRN ×2 (14:33→20:19)
--- NOTE | 2018-02-06 18:36 | PDOC PROGRESS REPORT ---
Subjective Progress Note for:: 02/06/18 Subjective:: Intubated and sedated Reason For Visit: ASPIRATION PNEUMONIA, ALCOHOLISM, ETOH LIVER Physical Exam Vital Signs: Temp Pulse Resp BP Pulse Ox 96.1 F L 71 14 134/86 H 99 02/06/18 08:00 02/06/18 08:00 02/06/18 08:00 02/06/18 08:00 02/06/18 08:00 Intake & Output 02/05/18 02/06/18 02/07/18 06:59 06:59 06:59 Intake Total 4892 4078 Output Total 7998 4758 160 Balance 2782 -652 -160 Weight 89.1 kg 92.2 kg General appearance: PRESENT: no acute distress, disheveled, well-developed. ABSENT: cooperative Head exam: PRESENT: atraumatic, normocephalic Eye exam: PRESENT: conjunctiva pale. ABSENT: EOMI, nystagmus, periorbital swelling, scleral icterus Mouth exam: PRESENT: dry mucosa, neck supple, tongue midline, other - ET tube in place Neck exam: ABSENT: carotid bruit, JVD, lymphadenopathy, thyromegaly, tracheal deviation, tracheostomy Respiratory exam: PRESENT: decreased breath sounds, prolonged expiratory phas, rhonchi, unlabored. ABSENT: retraction, stridor, tachypnea Cardiovascular exam: PRESENT: RRR, +S1, +S2, tachycardia Pulses: PRESENT: normal radial pulses GI/Abdominal exam: PRESENT: diminished bowel sounds, soft Gentrourinary exam: PRESENT: indwelling catheter Extremities exam: ABSENT: clubbing, joint swelling Musculoskeletal exam: ABSENT: ambulatory, deformity, dislocation Neurological exam: ABSENT: awake, oriented to person Skin exam: PRESENT: dry, warm Results Laboratory Results: 02/06/18 03:55 02/06/18 03:55 02/05/18 02/05/18 02/06/18 11:00 17:50 03:55 WBC RBC Hgb Hct MCV MCH MCHC RDW Plt Count Seg Neutrophils % Lymphocytes % Monocytes % Eosinophils % Basophils % Absolute Neutrophils Absolute Lymphocytes Absolute Monocytes Absolute Eosinophils Absolute Basophils Carbonic Acid HCO3/H2CO3 Ratio ABG pH ABG pCO2 ABG pO2 ABG HCO3 ABG O2 Saturation ABG Base Excess FiO2 Sodium 135.1 L 139.8 Potassium 3.9 3.1 L Chloride 101 101 Carbon Dioxide 28 31 H Anion Gap 6 8 BUN 4 L 5 L Creatinine 0.38 L 0.40 L Est GFR ( Amer) > 60 > 60 Est GFR (Non-Af Amer) > 60 > 60 Glucose 107 113 H Calcium 8.3 L 8.3 L Magnesium 1.9 1.9 Stool Occult Blood NEGATIVE 02/06/18 02/06/18 03:55 05:20 WBC 4.6 RBC 4.08 L Hgb 13.4 L Hct 39.7 MCV 97 MCH 32.8 MCHC 33.7 RDW 16.7 H Plt Count 94 L Seg Neutrophils % Not Reportable Lymphocytes % Not Reportable Monocytes % Not Reportable Eosinophils % Not Reportable Basophils % Not Reportable Absolute Neutrophils Not Reportable Absolute Lymphocytes Not Reportable Absolute Monocytes Not Reportable Absolute Eosinophils Not Reportable Absolute Basophils Not Reportable Carbonic Acid 1.29 HCO3/H2CO3 Ratio 22:1 ABG pH 7.46 H ABG pCO2 42.7 ABG pO2 75.9 L ABG HCO3 29.6 H ABG O2 Saturation 95.8 ABG Base Excess 5.2 FiO2 30% Sodium Potassium Chloride Carbon Dioxide Anion Gap BUN Creatinine Est GFR ( Amer) Est GFR (Non-Af Amer) Glucose Calcium Magnesium Stool Occult Blood 01/30/18 01/30/18 01/30/18 20:30 20:30 20:30 Creatine Kinase 180 H CK-MB (CK-2) 1.38 Troponin I < 0.012 NT-Pro-B Natriuret Pep 1200 H 01/31/18 01/31/18 01/31/18 02:37 02:37 08:10 Creatine Kinase 130 98 CK-MB (CK-2) 1.29 Troponin I < 0.012 NT-Pro-B Natriuret Pep 01/31/18 02/01/18 02/01/18 08:10 13:21 13:21 Creatine Kinase 874 H CK-MB (CK-2) 1.02 1.95 Troponin I < 0.012 0.019 NT-Pro-B Natriuret Pep 02/02/18 10:10 Creatine Kinase CK-MB (CK-2) Troponin I < 0.012 NT-Pro-B Natriuret Pep Impressions: Chest CT 01/30/18 00:00 IMPRESSION: Multiple areas of patchy consolidation and jzmqktn-lhlbzu-ojeim opacity throughout both lungs, greatest in the right upper parahilar region. Moderate fat stranding in the left pararenal space. Head CT 02/01/18 15:11 IMPRESSION: No significant intracranial abnormalities were identified. Other findings as noted above. EVIDENCE OF ACUTE STROKE: NO. KUB X-Ray 02/04/18 22:21 IMPRESSION: A nasogastric catheter is present with tip overlying the body of the stomach, side port is below the GE junction. Moderate bowel gas. Left basilar atelectasis -effusion. Chest X-Ray 02/06/18 06:00 IMPRESSION: Persistent left lower lobe consolidation Assessment & Plan - Diagnosis (1) Acute hypoxemic respiratory failure Is this a current diagnosis for this admission?: Yes Plan: Weaning attempt was unsuccessful resulting in tachycardia tachypnea patient still did not respond appropriately to commands (2) Aspiration pneumonia Qualifiers: Aspiration pneumonia type: unspecified Laterality: right Lung location: upper lobe of lung Qualified Code(s): J69.0 - Pneumonitis due to inhalation of food and vomit Is this a current diagnosis for this admission?: Yes Plan: culture ,antibiotic as you have initiated (3) COPD (chronic obstructive pulmonary disease) Qualifiers: COPD type: unspecified COPD Qualified Code(s): J44.9 - Chronic obstructive pulmonary disease, unspecified Is this a current diagnosis for this admission?: Yes Plan: LABA+LAMA and prn CLIVE (4) Thrombocytopenia Is this a current diagnosis for this admission?: Yes Plan: Slowly improving (5) Alcohol withdrawal seizure with complication Is this a current diagnosis for this admission?: Yes - Time Total Critical Time (Minutes): 45
[2018-02-06] MEDS: ACETYLCYSTEINE 20% SOLN 800 MG/4 ML VIAL.NEB NEB SCH (20:19)
--- NOTE | 2018-02-06 21:01 | PDOC PROGRESS REPORT ---
Subjective Progress Note for:: 02/06/18 Subjective:: Patient is sedated Reason For Visit: ASPIRATION PNEUMONIA, ALCOHOLISM, ETOH LIVER Physical Exam Vital Signs: Temp Pulse Resp BP Pulse Ox 98.6 F 95 22 H 109/66 91 L 02/06/18 18:00 02/06/18 19:43 02/06/18 18:00 02/06/18 18:00 02/06/18 18:00 Intake & Output 02/05/18 02/06/18 02/07/18 06:59 06:59 06:59 Intake Total 4886 7928 4009 Output Total 4835 2901 1335 Balance 6682 -858 992 Weight 89.1 kg 92.2 kg General appearance: PRESENT: no acute distress Respiratory exam: PRESENT: clear to auscultation nikia Cardiovascular exam: PRESENT: +S1, +S2 GI/Abdominal exam: PRESENT: soft Results Laboratory Results: 02/06/18 03:55 02/06/18 03:55 02/06/18 02/06/18 02/06/18 03:55 03:55 05:20 WBC 4.6 RBC 4.08 L Hgb 13.4 L Hct 39.7 MCV 97 MCH 32.8 MCHC 33.7 RDW 16.7 H Plt Count 94 L Seg Neutrophils % Not Reportable Lymphocytes % Not Reportable Monocytes % Not Reportable Eosinophils % Not Reportable Basophils % Not Reportable Absolute Neutrophils Not Reportable Absolute Lymphocytes Not Reportable Absolute Monocytes Not Reportable Absolute Eosinophils Not Reportable Absolute Basophils Not Reportable Carbonic Acid 1.29 HCO3/H2CO3 Ratio 22:1 ABG pH 7.46 H ABG pCO2 42.7 ABG pO2 75.9 L ABG HCO3 29.6 H ABG O2 Saturation 95.8 ABG Base Excess 5.2 FiO2 30% Sodium 139.8 Potassium 3.1 L Chloride 101 Carbon Dioxide 31 H Anion Gap 8 BUN 5 L Creatinine 0.40 L Est GFR ( Amer) > 60 Est GFR (Non-Af Amer) > 60 Glucose 113 H Calcium 8.3 L Magnesium 1.9 02/06/18 14:15 WBC RBC Hgb Hct MCV MCH MCHC RDW Plt Count Seg Neutrophils % Lymphocytes % Monocytes % Eosinophils % Basophils % Absolute Neutrophils Absolute Lymphocytes Absolute Monocytes Absolute Eosinophils Absolute Basophils Carbonic Acid 1.07 HCO3/H2CO3 Ratio 25:1 ABG pH 7.51 H ABG pCO2 35.6 ABG pO2 60.0 L ABG HCO3 27.8 H ABG O2 Saturation 93.3 L ABG Base Excess 4.9 FiO2 30% Sodium Potassium Chloride Carbon Dioxide Anion Gap BUN Creatinine Est GFR ( Amer) Est GFR (Non-Af Amer) Glucose Calcium Magnesium 01/30/18 01/30/18 01/30/18 20:30 20:30 20:30 Creatine Kinase 180 H CK-MB (CK-2) 1.38 Troponin I < 0.012 NT-Pro-B Natriuret Pep 1200 H 01/31/18 01/31/18 01/31/18 02:37 02:37 08:10 Creatine Kinase 130 98 CK-MB (CK-2) 1.29 Troponin I < 0.012 NT-Pro-B Natriuret Pep 01/31/18 02/01/18 02/01/18 08:10 13:21 13:21 Creatine Kinase 874 H CK-MB (CK-2) 1.02 1.95 Troponin I < 0.012 0.019 NT-Pro-B Natriuret Pep 02/02/18 10:10 Creatine Kinase CK-MB (CK-2) Troponin I < 0.012 NT-Pro-B Natriuret Pep Impressions: Chest CT 01/30/18 00:00 IMPRESSION: Multiple areas of patchy consolidation and ufglqbf-tqvbcw-grkjt opacity throughout both lungs, greatest in the right upper parahilar region. Moderate fat stranding in the left pararenal space. Head CT 02/01/18 15:11 IMPRESSION: No significant intracranial abnormalities were identified. Other findings as noted above. EVIDENCE OF ACUTE STROKE: NO. KUB X-Ray 02/04/18 22:21 IMPRESSION: A nasogastric catheter is present with tip overlying the body of the stomach, side port is below the GE junction. Moderate bowel gas. Left basilar atelectasis -effusion. Chest X-Ray 02/06/18 06:00 IMPRESSION: Persistent left lower lobe consolidation Assessment & Plan - Diagnosis (1) Acute hypoxemic respiratory failure Is this a current diagnosis for this admission?: Yes (2) Aspiration pneumonia Qualifiers: Aspiration pneumonia type: unspecified Laterality: right Lung location: upper lobe of lung Qualified Code(s): J69.0 - Pneumonitis due to inhalation of food and vomit Is this a current diagnosis for this admission?: Yes (3) Alcohol intoxication Qualifiers: Complication of substance-induced condition: with delirium Qualified Code(s ): F10.921 - Alcohol use, unspecified with intoxication delirium Is this a current diagnosis for this admission?: Yes (4) COPD (chronic obstructive pulmonary disease) Qualifiers: COPD type: unspecified COPD Qualified Code(s): J44.9 - Chronic obstructive pulmonary disease, unspecified Is this a current diagnosis for this admission?: Yes (5) Thrombocytopenia Is this a current diagnosis for this admission?: Yes (6) Cardiopulmonary arrest Is this a current diagnosis for this admission?: Yes (7) Alcohol withdrawal syndrome Qualifiers: Complication of substance-induced condition: with unspecified complication Qualified Code(s): F10.239 - Alcohol dependence with withdrawal, unspecified Is this a current diagnosis for this admission?: Yes (8) Ventricular fibrillation Is this a current diagnosis for this admission?: Yes (9) COPD (chronic obstructive pulmonary disease) Qualifiers: COPD type: unspecified COPD Qualified Code(s): J44.9 - Chronic obstructive pulmonary disease, unspecified Is this a current diagnosis for this admission?: Yes (10) Polymorphic ventricular tachycardia Is this a current diagnosis for this admission?: Yes - Plan Summary Plan Summary: Continue mechanical ventilation support, continue Lorazepam infusion, continue tube feeds, continue IV antibiotic. Patient scheduled for weaning trials tomorrow with light sedation
[2018-02-06] MEDS: NORMAL SALINE 1000 ML 1,000 ML IV PRN (21:19)
[2018-02-06] MEDS: NORMAL SALINE 1000 ML 1,000 ML with THIAMINE HCL 100 MG, MVI, ADULT NO.1 WITH VIT K 10 ... IV SCH ×4 (21:20)
[2018-02-07] MEDS: PROPOFOL 100 ML IV PRN ×4 (01:41→23:56)
[2018-02-07 04:05] LABS: ABSOLUTE EOSINOPHILS # (AUTO) 0.1 10^3/uL (0.0-0.6); ABSOLUTE LYMPHOCYTES (AUTO) 0.7 10^3/uL (0.5-4.7); ABSOLUTE MONOCYTES (AUTO) 0.8 10^3/uL (0.1-1.4); ABSOLUTE NEUT (AUTO) 2.7 10^3/uL (1.7-8.2); BASOPHILS % (AUTO) 0.9 % (0-2); EOSINOPHILS % (AUTO) 1.2 % (0-6); HEMATOCRIT 38.5 % (37.9-51.0); HEMOGLOBIN 12.9 g/dL (13.5-17.0); LYMPHOCYTES % (AUTO) 15.7 % (13-45); MEAN CORPUSCULAR HEMOGLOBIN 32.7 pg (27.0-33.4); MEAN CORPUSCULAR HGB CONC 33.6 g/dL (32.0-36.0); MEAN CORPUSCULAR VOLUME 97 fl (80-97); MONOCYTES % (AUTO) 18.8 % (3-13); PLATELET COUNT 113 10^3/uL (150-450); RED BLOOD COUNT 3.95 10^6/uL (4.35-5.55); SEGMENTED NEUTROPHILS % (AUTO) 63.4 % (42-78); TOTAL CELLS COUNTED % (AUTO) 100 %; WHITE BLOOD COUNT 4.2 10^3/uL (4.0-10.5)
[2018-02-07 04:19] LABS: ANION GAP 8 (5-19); BLOOD UREA NITROGEN 6 mg/dL (7-20); CALCIUM 8.6 mg/dL (8.4-10.2); CARBON DIOXIDE 30 mmol/L (22-30); CHLORIDE 104 mmol/L (98-107); GLUCOSE 115 mg/dL (75-110); POTASSIUM 3.7 mmol/L (3.6-5.0); SODIUM 141.7 mmol/L (137-145); TRIGLYCERIDES 53 mg/dL (<150)
[2018-02-07] MEDS: LORAZEPAM 24 MG/240 ML BAG IV PRN ×2 (04:20→14:39)
[2018-02-07] MEDS: HYDRALAZINE HCL INJ/PF 20 MG/1 ML SDV IV PRN ×2 (04:24→17:34)
[2018-02-07] MEDS: CLONIDINE HCL 0.2 MG TABLET PO SCH ×3 (05:08→21:33)
[2018-02-07 05:20] LABS: ARTERIAL BLOOD FIO2 30%; ARTERIAL BLOOD H2CO3 0.95 mmol/L (1.05-1.35); ARTERIAL BLOOD HCO3 26.1 mmol/L (20-26); ARTERIAL BLOOD O2 SATURATION 96.6 % (94-98); ARTERIAL BLOOD PCO2 31.6 mmHg (35-45); ARTERIAL BLOOD PH 7.54 (7.35-7.45); ARTERIAL BLOOD PO2 75.8 mmHg (80-100); ARTERIAL BLOOD TOTAL CO2 27.1 mmol/L (23-27)
--- NOTE | 2018-02-07 07:33 | RADIOLOGY REPORT (SQ) ---
EXAM DESCRIPTION: CHEST SINGLE VIEW CLINICAL HISTORY: 42 years Male, pna/resp failure COMPARISON: One day prior. NUMBER OF VIEWS/TECHNIQUE: 1/AP FINDINGS: Moderate opacity-layered effusion of the left lower hemithorax, normal cardiac silhouette, adequate appearing endotracheal tube tip is 4.5 cm from the varghese, and adequate appearing enteric tube with tip partially obscured. No pneumothorax. No acute bone defect. IMPRESSION: No significant change.
[2018-02-07] MEDS: FLUOXETINE HCL 20 MG CAPSULE PO SCH (08:04)
[2018-02-07] MEDS: NORMAL SALINE 1000 ML 1,000 ML IV PRN ×2 (08:05→19:33)
[2018-02-07] MEDS: IPRATROPIUM/ALBUTEROL 0.5-2.5 MG/3 ML AMPUL NEB PRN ×2 (08:34→20:27)
[2018-02-07] MEDS: ACETYLCYSTEINE 20% SOLN 800 MG/4 ML VIAL.NEB NEB SCH ×2 (08:35→20:27)
[2018-02-07] MEDS: MORPHINE SULFATE 10 MG/ML INJ IV PRN ×2 (08:35→11:54)
[2018-02-07] MEDS: FLUTICASONE/SALMETEROL DISKUS 250-50 MCG/DOSE IH SCH ×2 (09:45→21:34)
[2018-02-07] MEDS: PREGABALIN 50 MG CAPSULE PO SCH ×2 (09:48→21:34)
[2018-02-07] MEDS: FAMOTIDINE INJ/PF 20 MG/2 ML SDV IV SCH ×2 (09:48→21:33)
[2018-02-07] MEDS: CEFEPIME 1 GM/D5W RTU 1 GM/50 ML RTUPB IV SCH ×2 (09:48→21:33)
[2018-02-07 10:27] LABS: ARTERIAL BLOOD BASE EXCESS 3.4 mmol/L; ARTERIAL BLOOD H2CO3 1.05 mmol/L (1.05-1.35); ARTERIAL BLOOD HCO3 26.4 mmol/L (20-26); ARTERIAL BLOOD O2 SATURATION 97.6 % (94-98); ARTERIAL BLOOD PCO2 34.9 mmHg (35-45); ARTERIAL BLOOD PO2 90.9 mmHg (80-100); ARTERIAL BLOOD TOTAL CO2 27.5 mmol/L (23-27)
[2018-02-07 10:28] LABS: ARTERIAL BLOOD FIO2 1L
--- NOTE | 2018-02-07 19:58 | PDOC PROGRESS REPORT ---
Subjective Progress Note for:: 02/07/18 Subjective:: Patient was seen in the unit today presently on weaning trials, on light sedation with lorazepam infusion Reason For Visit: ASPIRATION PNEUMONIA, ALCOHOLISM, ETOH LIVER Physical Exam Vital Signs: Temp Pulse Resp BP Pulse Ox 98.8 F 96 13 124/74 97 02/07/18 18:46 02/07/18 18:46 02/07/18 18:46 02/07/18 18:46 02/07/18 18:46 Intake & Output 02/06/18 02/07/18 02/08/18 06:59 06:59 06:59 Intake Total 4070 6553 2173 Output Total 2376 6315 1150 Balance -652 2813 1023 Weight 92.2 kg 93.3 kg Eye exam: PRESENT: PERRLA Neck exam: PRESENT: full ROM Respiratory exam: PRESENT: clear to auscultation nikia Cardiovascular exam: PRESENT: RRR, +S1, +S2 Vascular exam: PRESENT: normal capillary refill GI/Abdominal exam: PRESENT: soft Rectal exam: PRESENT: deferred Results Laboratory Results: 02/07/18 03:57 02/07/18 03:57 02/07/18 02/07/18 02/07/18 03:57 03:57 05:09 WBC 4.2 RBC 3.95 L Hgb 12.9 L Hct 38.5 MCV 97 MCH 32.7 MCHC 33.6 RDW 17.0 H Plt Count 113 L Seg Neutrophils % 63.4 Lymphocytes % 15.7 Monocytes % 18.8 H Eosinophils % 1.2 Basophils % 0.9 Absolute Neutrophils 2.7 Absolute Lymphocytes 0.7 Absolute Monocytes 0.8 Absolute Eosinophils 0.1 Absolute Basophils 0.0 Carbonic Acid 0.95 L HCO3/H2CO3 Ratio 27:1 ABG pH 7.54 H ABG pCO2 31.6 L ABG pO2 75.8 L ABG HCO3 26.1 H ABG O2 Saturation 96.6 ABG Base Excess 4.0 FiO2 30% Sodium 141.7 Potassium 3.7 Chloride 104 Carbon Dioxide 30 Anion Gap 8 BUN 6 L Creatinine 0.36 L Est GFR ( Amer) > 60 Est GFR (Non-Af Amer) > 60 Glucose 115 H Calcium 8.6 Magnesium 1.9 Triglycerides 53 02/07/18 10:05 WBC RBC Hgb Hct MCV MCH MCHC RDW Plt Count Seg Neutrophils % Lymphocytes % Monocytes % Eosinophils % Basophils % Absolute Neutrophils Absolute Lymphocytes Absolute Monocytes Absolute Eosinophils Absolute Basophils Carbonic Acid 1.05 HCO3/H2CO3 Ratio 25:1 ABG pH 7.50 H ABG pCO2 34.9 L ABG pO2 90.9 ABG HCO3 26.4 H ABG O2 Saturation 97.6 ABG Base Excess 3.4 FiO2 1L Sodium Potassium Chloride Carbon Dioxide Anion Gap BUN Creatinine Est GFR ( Amer) Est GFR (Non-Af Amer) Glucose Calcium Magnesium Triglycerides 01/30/18 01/30/18 01/30/18 20:30 20:30 20:30 Creatine Kinase 180 H CK-MB (CK-2) 1.38 Troponin I < 0.012 NT-Pro-B Natriuret Pep 1200 H 01/31/18 01/31/18 01/31/18 02:37 02:37 08:10 Creatine Kinase 130 98 CK-MB (CK-2) 1.29 Troponin I < 0.012 NT-Pro-B Natriuret Pep 01/31/18 02/01/18 02/01/18 08:10 13:21 13:21 Creatine Kinase 874 H CK-MB (CK-2) 1.02 1.95 Troponin I < 0.012 0.019 NT-Pro-B Natriuret Pep 02/02/18 10:10 Creatine Kinase CK-MB (CK-2) Troponin I < 0.012 NT-Pro-B Natriuret Pep Impressions: Chest CT 01/30/18 00:00 IMPRESSION: Multiple areas of patchy consolidation and nfsrzht-thxmss-ngrqb opacity throughout both lungs, greatest in the right upper parahilar region. Moderate fat stranding in the left pararenal space. Head CT 02/01/18 15:11 IMPRESSION: No significant intracranial abnormalities were identified. Other findings as noted above. EVIDENCE OF ACUTE STROKE: NO. KUB X-Ray 02/04/18 22:21 IMPRESSION: A nasogastric catheter is present with tip overlying the body of the stomach, side port is below the GE junction. Moderate bowel gas. Left basilar atelectasis -effusion. Chest X-Ray 02/07/18 06:00 IMPRESSION: No significant change. Assessment & Plan - Diagnosis (1) Acute hypoxemic respiratory failure Is this a current diagnosis for this admission?: Yes Plan: Patient still on mechanical ventilation (2) Aspiration pneumonia Qualifiers: Aspiration pneumonia type: unspecified Laterality: right Lung location: upper lobe of lung Qualified Code(s): J69.0 - Pneumonitis due to inhalation of food and vomit Is this a current diagnosis for this admission?: Yes Plan: Continue IV antibiotic (3) Alcohol intoxication Qualifiers: Complication of substance-induced condition: with delirium Qualified Code(s ): F10.921 - Alcohol use, unspecified with intoxication delirium Is this a current diagnosis for this admission?: Yes Plan: On IV lorazepam infusion (4) COPD (chronic obstructive pulmonary disease) Qualifiers: COPD type: unspecified COPD Qualified Code(s): J44.9 - Chronic obstructive pulmonary disease, unspecified Is this a current diagnosis for this admission?: Yes (5) Thrombocytopenia Is this a current diagnosis for this admission?: Yes (6) Cardiopulmonary arrest Is this a current diagnosis for this admission?: Yes (7) Alcohol withdrawal syndrome Qualifiers: Complication of substance-induced condition: with unspecified complication Qualified Code(s): F10.239 - Alcohol dependence with withdrawal, unspecified Is this a current diagnosis for this admission?: Yes (8) Ventricular fibrillation Is this a current diagnosis for this admission?: Yes (9) COPD (chronic obstructive pulmonary disease) Qualifiers: COPD type: unspecified COPD Qualified Code(s): J44.9 - Chronic obstructive pulmonary disease, unspecified Is this a current diagnosis for this admission?: Yes (10) Polymorphic ventricular tachycardia Is this a current diagnosis for this admission?: Yes
[2018-02-07] MEDS: NORMAL SALINE 1000 ML 1,000 ML with THIAMINE HCL 100 MG, MVI, ADULT NO.1 WITH VIT K 10 ... IV SCH ×4 (21:33)
[2018-02-08] MEDS: LORAZEPAM 24 MG/240 ML BAG IV PRN (01:56)
[2018-02-08] MEDS: HYDRALAZINE HCL INJ/PF 20 MG/1 ML SDV IV PRN ×3 (04:02→18:00)
[2018-02-08] MEDS: PROPOFOL 100 ML IV PRN (04:02)
[2018-02-08 05:21] LABS: ARTERIAL BLOOD BASE EXCESS 4.1 mmol/L; ARTERIAL BLOOD HCO3 27.4 mmol/L (20-26); ARTERIAL BLOOD PCO2 36.4 mmHg (35-45); ARTERIAL BLOOD PH 7.49 (7.35-7.45); ARTERIAL BLOOD TOTAL CO2 28.5 mmol/L (23-27)
[2018-02-08 05:23] LABS: ARTERIAL BLOOD FIO2 30%
[2018-02-08] MEDS: NORMAL SALINE 1000 ML 1,000 ML IV PRN ×2 (05:27→15:47)
[2018-02-08] MEDS: CLONIDINE HCL 0.2 MG TABLET PO SCH ×3 (05:27→21:10)
--- NOTE | 2018-02-08 06:42 | RADIOLOGY REPORT (SQ) ---
EXAM DESCRIPTION: CHEST SINGLE VIEW CLINICAL HISTORY: 42 years Male, resp failure COMPARISON: One day prior. NUMBER OF VIEWS/TECHNIQUE: 1/AP FINDINGS: Small bilateral costophrenic effusion/opacity. Normal cardiac silhouette. Adequate appearing endotracheal tube with tip 6.5 cm from the vagrhese. Adequate enteric tube with tip obscured distally. No pneumothorax. No acute bone defect. IMPRESSION: No significant change.
[2018-02-08 06:47] LABS: ABSOLUTE BASOPHILS # (AUTO) 0.1 10^3/uL (0.0-0.2); ABSOLUTE EOSINOPHILS # (AUTO) 0.1 10^3/uL (0.0-0.6); ABSOLUTE LYMPHOCYTES (AUTO) 0.6 10^3/uL (0.5-4.7); ABSOLUTE MONOCYTES (AUTO) 0.7 10^3/uL (0.1-1.4); ABSOLUTE NEUT (AUTO) 3.8 10^3/uL (1.7-8.2); BASOPHILS % (AUTO) 1.4 % (0-2); EOSINOPHILS % (AUTO) 1.5 % (0-6); HEMATOCRIT 36.6 % (37.9-51.0); HEMOGLOBIN 12.3 g/dL (13.5-17.0); LYMPHOCYTES % (AUTO) 11.7 % (13-45); MEAN CORPUSCULAR HEMOGLOBIN 32.7 pg (27.0-33.4); MEAN CORPUSCULAR HGB CONC 33.7 g/dL (32.0-36.0); MEAN CORPUSCULAR VOLUME 97 fl (80-97); MONOCYTES % (AUTO) 13.1 % (3-13); PLATELET COUNT 133 10^3/uL (150-450); RED BLOOD COUNT 3.77 10^6/uL (4.35-5.55); SEGMENTED NEUTROPHILS % (AUTO) 72.3 % (42-78); TOTAL CELLS COUNTED % (AUTO) 100 %; WHITE BLOOD COUNT 5.3 10^3/uL (4.0-10.5)
[2018-02-08 07:02] LABS: ANION GAP 9 (5-19); BLOOD UREA NITROGEN 7 mg/dL (7-20); CALCIUM 8.8 mg/dL (8.4-10.2); CARBON DIOXIDE 28 mmol/L (22-30); CHLORIDE 104 mmol/L (98-107); GLUCOSE 110 mg/dL (75-110); POTASSIUM 3.8 mmol/L (3.6-5.0); SODIUM 140.9 mmol/L (137-145)
[2018-02-08] MEDS: FLUOXETINE HCL 20 MG CAPSULE PO SCH (07:56)
[2018-02-08] MEDS: IPRATROPIUM/ALBUTEROL 0.5-2.5 MG/3 ML AMPUL NEB PRN (08:13)
[2018-02-08] MEDS: ACETYLCYSTEINE 20% SOLN 800 MG/4 ML VIAL.NEB NEB SCH ×2 (08:13→20:19)
[2018-02-08] MEDS: FLUTICASONE/SALMETEROL DISKUS 250-50 MCG/DOSE IH SCH ×2 (08:17→21:12)
[2018-02-08] MEDS: HYDROMORPHONE HCL INJ/PF 2 MG/ML AMPULE IV PRN ×2 (08:35→18:00)
[2018-02-08] MEDS ORDERED: DEXAMETHASONE SOD PHOSPHATE INJ 4 MG/1 ML VIAL IV ONE (09:13)
[2018-02-08] MEDS: CEFEPIME 1 GM/D5W RTU 1 GM/50 ML RTUPB IV SCH ×2 (09:13→21:10)
[2018-02-08] MEDS: FAMOTIDINE INJ/PF 20 MG/2 ML SDV IV SCH ×2 (09:14→21:11)
[2018-02-08] MEDS: PREGABALIN 50 MG CAPSULE PO SCH ×2 (09:14→21:10)
[2018-02-08] MEDS ORDERED: METHYLPREDNISOLONE INJ 40 MG/1 ML SDV IV SCH (10:00)
--- NOTE | 2018-02-08 11:56 | PDOC PROGRESS REPORT ---
Subjective Progress Note for:: 02/07/18 Subjective:: Intubated and sedated Reason For Visit: ASPIRATION PNEUMONIA, ALCOHOLISM, ETOH LIVER Physical Exam Vital Signs: Temp Pulse Resp BP Pulse Ox 99.1 F 78 0 L 140/88 H 97 02/06/18 22:00 02/07/18 07:49 02/07/18 06:00 02/07/18 05:51 02/07/18 06:00 Intake & Output 02/06/18 02/07/18 02/08/18 06:59 06:59 06:59 Intake Total 4073 5737 Output Total 4757 5465 Balance -652 2813 Weight 92.2 kg 93.3 kg General appearance: PRESENT: no acute distress, disheveled, well-developed, well -nourished. ABSENT: cooperative Head exam: PRESENT: atraumatic, normocephalic Eye exam: PRESENT: conjunctiva pale. ABSENT: EOMI, nystagmus, periorbital swelling, scleral icterus Mouth exam: PRESENT: dry mucosa, neck supple, tongue midline, other - ET tube Neck exam: ABSENT: carotid bruit, JVD, lymphadenopathy, thyromegaly, tracheal deviation, tracheostomy Respiratory exam: PRESENT: decreased breath sounds, prolonged expiratory phas, rales, rhonchi, unlabored. ABSENT: retraction, stridor, tachypnea Cardiovascular exam: PRESENT: RRR, +S1, +S2, tachycardia Pulses: PRESENT: normal radial pulses GI/Abdominal exam: PRESENT: diminished bowel sounds, soft Extremities exam: ABSENT: calf tenderness, clubbing, joint swelling Musculoskeletal exam: ABSENT: ambulatory, deformity, dislocation Neurological exam: ABSENT: awake, oriented to person Skin exam: PRESENT: dry, warm Results Laboratory Results: 02/07/18 03:57 02/07/18 03:57 02/06/18 02/07/18 02/07/18 14:15 03:57 03:57 WBC 4.2 RBC 3.95 L Hgb 12.9 L Hct 38.5 MCV 97 MCH 32.7 MCHC 33.6 RDW 17.0 H Plt Count 113 L Seg Neutrophils % 63.4 Lymphocytes % 15.7 Monocytes % 18.8 H Eosinophils % 1.2 Basophils % 0.9 Absolute Neutrophils 2.7 Absolute Lymphocytes 0.7 Absolute Monocytes 0.8 Absolute Eosinophils 0.1 Absolute Basophils 0.0 Carbonic Acid 1.07 HCO3/H2CO3 Ratio 25:1 ABG pH 7.51 H ABG pCO2 35.6 ABG pO2 60.0 L ABG HCO3 27.8 H ABG O2 Saturation 93.3 L ABG Base Excess 4.9 FiO2 30% Sodium 141.7 Potassium 3.7 Chloride 104 Carbon Dioxide 30 Anion Gap 8 BUN 6 L Creatinine 0.36 L Est GFR ( Amer) > 60 Est GFR (Non-Af Amer) > 60 Glucose 115 H Calcium 8.6 Magnesium 1.9 Triglycerides 53 02/07/18 05:09 WBC RBC Hgb Hct MCV MCH MCHC RDW Plt Count Seg Neutrophils % Lymphocytes % Monocytes % Eosinophils % Basophils % Absolute Neutrophils Absolute Lymphocytes Absolute Monocytes Absolute Eosinophils Absolute Basophils Carbonic Acid 0.95 L HCO3/H2CO3 Ratio 27:1 ABG pH 7.54 H ABG pCO2 31.6 L ABG pO2 75.8 L ABG HCO3 26.1 H ABG O2 Saturation 96.6 ABG Base Excess 4.0 FiO2 30% Sodium Potassium Chloride Carbon Dioxide Anion Gap BUN Creatinine Est GFR ( Amer) Est GFR (Non-Af Amer) Glucose Calcium Magnesium Triglycerides 01/30/18 01/30/18 01/30/18 20:30 20:30 20:30 Creatine Kinase 180 H CK-MB (CK-2) 1.38 Troponin I < 0.012 NT-Pro-B Natriuret Pep 1200 H 01/31/18 01/31/18 01/31/18 02:37 02:37 08:10 Creatine Kinase 130 98 CK-MB (CK-2) 1.29 Troponin I < 0.012 NT-Pro-B Natriuret Pep 01/31/18 02/01/18 02/01/18 08:10 13:21 13:21 Creatine Kinase 874 H CK-MB (CK-2) 1.02 1.95 Troponin I < 0.012 0.019 NT-Pro-B Natriuret Pep 02/02/18 10:10 Creatine Kinase CK-MB (CK-2) Troponin I < 0.012 NT-Pro-B Natriuret Pep Impressions: Chest CT 01/30/18 00:00 IMPRESSION: Multiple areas of patchy consolidation and xmuejuj-lobxzx-zqemp opacity throughout both lungs, greatest in the right upper parahilar region. Moderate fat stranding in the left pararenal space. Head CT 02/01/18 15:11 IMPRESSION: No significant intracranial abnormalities were identified. Other findings as noted above. EVIDENCE OF ACUTE STROKE: NO. KUB X-Ray 02/04/18 22:21 IMPRESSION: A nasogastric catheter is present with tip overlying the body of the stomach, side port is below the GE junction. Moderate bowel gas. Left basilar atelectasis -effusion. Chest X-Ray 02/07/18 06:00 IMPRESSION: No significant change. Assessment & Plan - Diagnosis (1) Acute hypoxemic respiratory failure Is this a current diagnosis for this admission?: Yes Plan: Weaning attempt was unsuccessful resulting in tachycardia tachypnea patient still did not respond appropriately to commands (2) Aspiration pneumonia Qualifiers: Aspiration pneumonia type: unspecified Laterality: right Lung location: upper lobe of lung Qualified Code(s): J69.0 - Pneumonitis due to inhalation of food and vomit Is this a current diagnosis for this admission?: Yes Plan: culture ,antibiotic as you have initiated (3) COPD (chronic obstructive pulmonary disease) Qualifiers: COPD type: unspecified COPD Qualified Code(s): J44.9 - Chronic obstructive pulmonary disease, unspecified Is this a current diagnosis for this admission?: Yes Plan: LABA+LAMA and prn CLIVE (4) Thrombocytopenia Is this a current diagnosis for this admission?: No (5) Alcohol withdrawal seizure with complication Is this a current diagnosis for this admission?: No - Time Total Critical Time (Minutes): 40
--- NOTE | 2018-02-08 11:59 | PDOC PROGRESS REPORT ---
Subjective Progress Note for:: 02/08/18 Subjective:: Intubated and sedated but arousable Reason For Visit: ASPIRATION PNEUMONIA, ALCOHOLISM, ETOH LIVER Physical Exam Vital Signs: Temp Pulse Resp BP Pulse Ox 98.1 F 94 22 H 153/82 H 95 02/08/18 05:27 02/07/18 20:27 02/08/18 06:09 02/08/18 06:09 02/08/18 06:08 Intake & Output 02/07/18 02/08/18 02/09/18 06:59 06:59 06:59 Intake Total 5768 5339 Output Total 2957 4502 685 Balance 2813 0934 -685 Weight 93.3 kg 94.8 kg General appearance: PRESENT: no acute distress, cooperative, disheveled, well- developed, well-nourished Head exam: PRESENT: atraumatic, normocephalic Eye exam: PRESENT: conjunctiva pale, EOMI. ABSENT: nystagmus, periorbital swelling, scleral icterus Mouth exam: PRESENT: dry mucosa, neck supple, tongue midline, other - ET tube Neck exam: ABSENT: carotid bruit, JVD, lymphadenopathy, thyromegaly, tracheal deviation, tracheostomy Respiratory exam: PRESENT: decreased breath sounds, prolonged expiratory phas, rales, rhonchi, unlabored. ABSENT: retraction, stridor, symmetrical, tachypnea Cardiovascular exam: PRESENT: RRR, +S1, +S2 Pulses: PRESENT: normal radial pulses GI/Abdominal exam: PRESENT: diminished bowel sounds, soft Extremities exam: ABSENT: calf tenderness, clubbing, joint swelling Musculoskeletal exam: ABSENT: deformity, dislocation Neurological exam: PRESENT: awake, oriented to person Skin exam: PRESENT: dry, warm Results Laboratory Results: 02/08/18 06:38 02/08/18 06:38 02/07/18 02/08/18 02/08/18 10:05 05:12 06:38 WBC RBC Hgb Hct MCV MCH MCHC RDW Plt Count Seg Neutrophils % Lymphocytes % Monocytes % Eosinophils % Basophils % Absolute Neutrophils Absolute Lymphocytes Absolute Monocytes Absolute Eosinophils Absolute Basophils Carbonic Acid 1.05 1.10 HCO3/H2CO3 Ratio 25:1 24:1 ABG pH 7.50 H 7.49 H ABG pCO2 34.9 L 36.4 ABG pO2 90.9 84.0 ABG HCO3 26.4 H 27.4 H ABG O2 Saturation 97.6 97.0 ABG Base Excess 3.4 4.1 FiO2 1L 30% Sodium 140.9 Potassium 3.8 Chloride 104 Carbon Dioxide 28 Anion Gap 9 BUN 7 Creatinine 0.34 L Est GFR ( Amer) > 60 Est GFR (Non-Af Amer) > 60 Glucose 110 Calcium 8.8 Magnesium 2.0 02/08/18 06:38 WBC 5.3 RBC 3.77 L Hgb 12.3 L Hct 36.6 L MCV 97 MCH 32.7 MCHC 33.7 RDW 17.0 H Plt Count 133 L Seg Neutrophils % 72.3 Lymphocytes % 11.7 L Monocytes % 13.1 H Eosinophils % 1.5 Basophils % 1.4 Absolute Neutrophils 3.8 Absolute Lymphocytes 0.6 Absolute Monocytes 0.7 Absolute Eosinophils 0.1 Absolute Basophils 0.1 Carbonic Acid HCO3/H2CO3 Ratio ABG pH ABG pCO2 ABG pO2 ABG HCO3 ABG O2 Saturation ABG Base Excess FiO2 Sodium Potassium Chloride Carbon Dioxide Anion Gap BUN Creatinine Est GFR ( Amer) Est GFR (Non-Af Amer) Glucose Calcium Magnesium 01/30/18 01/30/18 01/30/18 20:30 20:30 20:30 Creatine Kinase 180 H CK-MB (CK-2) 1.38 Troponin I < 0.012 NT-Pro-B Natriuret Pep 1200 H 01/31/18 01/31/18 01/31/18 02:37 02:37 08:10 Creatine Kinase 130 98 CK-MB (CK-2) 1.29 Troponin I < 0.012 NT-Pro-B Natriuret Pep 01/31/18 02/01/18 02/01/18 08:10 13:21 13:21 Creatine Kinase 874 H CK-MB (CK-2) 1.02 1.95 Troponin I < 0.012 0.019 NT-Pro-B Natriuret Pep 02/02/18 10:10 Creatine Kinase CK-MB (CK-2) Troponin I < 0.012 NT-Pro-B Natriuret Pep Impressions: Chest CT 01/30/18 00:00 IMPRESSION: Multiple areas of patchy consolidation and qvkegpz-oowqpw-hubwf opacity throughout both lungs, greatest in the right upper parahilar region. Moderate fat stranding in the left pararenal space. Head CT 02/01/18 15:11 IMPRESSION: No significant intracranial abnormalities were identified. Other findings as noted above. EVIDENCE OF ACUTE STROKE: NO. KUB X-Ray 02/04/18 22:21 IMPRESSION: A nasogastric catheter is present with tip overlying the body of the stomach, side port is below the GE junction. Moderate bowel gas. Left basilar atelectasis -effusion. Chest X-Ray 02/08/18 06:00 IMPRESSION: No significant change. Assessment & Plan - Diagnosis (1) Acute hypoxemic respiratory failure Is this a current diagnosis for this admission?: Yes Plan: rr;min vent;fio2;airway pressures ok to extubate (2) Aspiration pneumonia Qualifiers: Aspiration pneumonia type: unspecified Laterality: right Lung location: upper lobe of lung Qualified Code(s): J69.0 - Pneumonitis due to inhalation of food and vomit Is this a current diagnosis for this admission?: Yes Plan: culture ,antibiotic as you have initiated (3) COPD (chronic obstructive pulmonary disease) Qualifiers: COPD type: unspecified COPD Qualified Code(s): J44.9 - Chronic obstructive pulmonary disease, unspecified Is this a current diagnosis for this admission?: Yes (4) Thrombocytopenia Is this a current diagnosis for this admission?: No (5) Alcohol withdrawal seizure with complication Is this a current diagnosis for this admission?: No - Time Total Critical Time (Minutes): 55
[2018-02-08] MEDS: METHYLPREDNISOLONE INJ 40 MG/1 ML SDV IV SCH ×2 (13:19→21:11)
[2018-02-08] MEDS ORDERED: METOPROLOL TARTRATE 50 MG TABLET ONE (15:53)
[2018-02-08] MEDS ORDERED: METOPROLOL SUCCINATE 50 MG TAB.SR.24H PO ONE (16:30)
[2018-02-08] MEDS: LORAZEPAM INJ 2 MG/1 ML VIAL IV PRN ×2 (18:01→21:28)
[2018-02-08 18:19] LABS: ARTERIAL BLOOD H2CO3 1.29 mmol/L (1.05-1.35); ARTERIAL BLOOD HCO3 29.5 mmol/L (20-26); ARTERIAL BLOOD O2 SATURATION 94.7 % (94-98); ARTERIAL BLOOD PCO2 42.8 mmHg (35-45); ARTERIAL BLOOD PH 7.46 (7.35-7.45); ARTERIAL BLOOD PO2 69.5 mmHg (80-100); ARTERIAL BLOOD TOTAL CO2 30.8 mmol/L (23-27)
[2018-02-08 18:21] LABS: ARTERIAL BLOOD FIO2 2L
--- NOTE | 2018-02-08 20:38 | PDOC PROGRESS REPORT ---
Subjective Progress Note for:: 02/08/18 Subjective:: Asked to see patient because of tachycardia. Medications reviewed. System review: No significant changes Medications reviewed. Patient is maintaining sinus rhythm. Sinus tachycardia noted. Blood pressure noted to be elevated. Medications: Medications have been reviewed. Reason For Visit: ASPIRATION PNEUMONIA, ALCOHOLISM, ETOH LIVER Physical Exam Vital Signs: Temp Pulse Resp BP Pulse Ox 98.4 F 102 H 13 158/91 H 96 02/08/18 19:34 02/08/18 20:34 02/08/18 18:55 02/08/18 17:56 02/08/18 18:55 Intake & Output 02/07/18 02/08/18 02/09/18 06:59 06:59 06:59 Intake Total 5787 5339 1340 Output Total 2955 2785 2620 Balance 2813 2554 -1280 Weight 93.3 kg 94.8 kg Exam: GENERAL: well-nourished and in no acute distress. Patient is alert but not oriented to place time or person. HEAD: Atraumatic, normocephalic. EYES: Pupils equal round and reactive to light, extraocular movements intact, sclera anicteric, conjunctiva are normal. ENT: TMs normal, nares patent, oropharynx clear without exudates. Moist mucous membranes. No oral ulcerations or bleeding gums noted NECK: supple without lymphadenopathy or JVD. Trachea is central. No cervical or axillary lymphadenopathy noted. Carotids are 2+ LUNGS: Breath sounds bibasilar fine crackles at bases. No significant dullness noted. CHEST: Palpation of chest wall shows no significant chest wall tenderness. HEART: [place] GLASS ETCHER, No PSH, 2/6 TRENT aortic area, 1/6 hawkins systolic murmur mitral area, rubs or gallops. ABDOMEN: Soft, no significant tenderness appreciated, normoactive bowel sounds. No guarding, no rebound. No rigidity noted . No masses appreciated. EXTREMITIES: Pedal pulses are 1-2+, no calf tenderness noted, Trace + pedal edema noted. No clubbing or cyanosis. NEUROLOGICAL: Patient is alert but is not able to participate in neurological exam because of patient's current mental status PSYCH: Patient cannot participate in a neurologic and psych exam because of the patient's current mental status SKIN: No significant ecchymosis, rash, ulcerations or signs of pruritus noted. MUSCULOSKELETAL EXAM: No significant joint swelling noted. Results Laboratory Results: 02/08/18 06:38 02/08/18 06:38 02/08/18 02/08/18 02/08/18 05:12 06:38 06:38 WBC 5.3 RBC 3.77 L Hgb 12.3 L Hct 36.6 L MCV 97 MCH 32.7 MCHC 33.7 RDW 17.0 H Plt Count 133 L Seg Neutrophils % 72.3 Lymphocytes % 11.7 L Monocytes % 13.1 H Eosinophils % 1.5 Basophils % 1.4 Absolute Neutrophils 3.8 Absolute Lymphocytes 0.6 Absolute Monocytes 0.7 Absolute Eosinophils 0.1 Absolute Basophils 0.1 Carbonic Acid 1.10 HCO3/H2CO3 Ratio 24:1 ABG pH 7.49 H ABG pCO2 36.4 ABG pO2 84.0 ABG HCO3 27.4 H ABG O2 Saturation 97.0 ABG Base Excess 4.1 FiO2 30% Sodium 140.9 Potassium 3.8 Chloride 104 Carbon Dioxide 28 Anion Gap 9 BUN 7 Creatinine 0.34 L Est GFR ( Amer) > 60 Est GFR (Non-Af Amer) > 60 Glucose 110 Calcium 8.8 Magnesium 2.0 02/08/18 18:10 WBC RBC Hgb Hct MCV MCH MCHC RDW Plt Count Seg Neutrophils % Lymphocytes % Monocytes % Eosinophils % Basophils % Absolute Neutrophils Absolute Lymphocytes Absolute Monocytes Absolute Eosinophils Absolute Basophils Carbonic Acid 1.29 HCO3/H2CO3 Ratio 22:1 ABG pH 7.46 H ABG pCO2 42.8 ABG pO2 69.5 L ABG HCO3 29.5 H ABG O2 Saturation 94.7 ABG Base Excess 5.0 FiO2 2L Sodium Potassium Chloride Carbon Dioxide Anion Gap BUN Creatinine Est GFR ( Amer) Est GFR (Non-Af Amer) Glucose Calcium Magnesium 01/30/18 01/30/18 01/30/18 20:30 20:30 20:30 Creatine Kinase 180 H CK-MB (CK-2) 1.38 Troponin I < 0.012 NT-Pro-B Natriuret Pep 1200 H 01/31/18 01/31/18 01/31/18 02:37 02:37 08:10 Creatine Kinase 130 98 CK-MB (CK-2) 1.29 Troponin I < 0.012 NT-Pro-B Natriuret Pep 01/31/18 02/01/18 02/01/18 08:10 13:21 13:21 Creatine Kinase 874 H CK-MB (CK-2) 1.02 1.95 Troponin I < 0.012 0.019 NT-Pro-B Natriuret Pep 02/02/18 10:10 Creatine Kinase CK-MB (CK-2) Troponin I < 0.012 NT-Pro-B Natriuret Pep EKG Comments: Telemetry shows sinus tachycardia. Impressions: Chest CT 01/30/18 00:00 IMPRESSION: Multiple areas of patchy consolidation and klalsmx-fzjito-koyxi opacity throughout both lungs, greatest in the right upper parahilar region. Moderate fat stranding in the left pararenal space. Head CT 02/01/18 15:11 IMPRESSION: No significant intracranial abnormalities were identified. Other findings as noted above. EVIDENCE OF ACUTE STROKE: NO. KUB X-Ray 02/04/18 22:21 IMPRESSION: A nasogastric catheter is present with tip overlying the body of the stomach, side port is below the GE junction. Moderate bowel gas. Left basilar atelectasis -effusion. Chest X-Ray 02/08/18 06:00 IMPRESSION: No significant change. Assessment & Plan - Diagnosis (1) Polymorphic ventricular tachycardia Is this a current diagnosis for this admission?: Yes (2) Cardiac arrest Is this a current diagnosis for this admission?: Yes (3) Acute hypoxemic respiratory failure Is this a current diagnosis for this admission?: Yes (4) Alcohol intoxication Qualifiers: Complication of substance-induced condition: with delirium Qualified Code(s ): F10.921 - Alcohol use, unspecified with intoxication delirium Is this a current diagnosis for this admission?: Yes (5) COPD (chronic obstructive pulmonary disease) Qualifiers: COPD type: unspecified COPD Qualified Code(s): J44.9 - Chronic obstructive pulmonary disease, unspecified Is this a current diagnosis for this admission?: Yes (6) Alcohol withdrawal seizure with complication Is this a current diagnosis for this admission?: No (7) Hypokalemia Is this a current diagnosis for this admission?: Yes (8) Hypomagnesemia Is this a current diagnosis for this admission?: Yes - Notes Notes: Patient currently now extubated. He is noted to have sinus tachycardia. Currently confused and not able to consent. Will start patient on metoprolol succinate 25 mg p.o. twice daily, to be increased as tolerated. Once patient able to consent and cooperate, will consider scheduling a nuclear stress test. For blood pressure control, recommend clonidine and also angiotensin receptor sunil/NADER inhibitor. - Time Time with patient: 15-25 minutes - CODE STATUS was discussed, patient remains full code. Surrogate decision-maker unchanged. Multiple medical problems were addressed. More than 50% of the time spent coordinating care, discussing management plans with involved caregivers. Management plans discussed with involved personnels. Medical decision making was of moderate to high complexity , patient's has multiple comorbidities. Medications reviewed and adjusted accordingly: Yes
[2018-02-08] MEDS: NORMAL SALINE 1000 ML 1,000 ML with THIAMINE HCL 100 MG, MVI, ADULT NO.1 WITH VIT K 10 ... IV SCH ×4 (21:10)
--- NOTE | 2018-02-08 22:45 | PDOC PROGRESS REPORT ---
Subjective Progress Note for:: 02/08/18 Subjective:: Patient is extubated,Still agitated requiring sedation with lorazepam but overall stable Reason For Visit: ASPIRATION PNEUMONIA, ALCOHOLISM, ETOH LIVER Physical Exam Vital Signs: Temp Pulse Resp BP Pulse Ox 98.4 F 102 H 15 154/88 H 98 02/08/18 19:34 02/08/18 20:34 02/08/18 22:36 02/08/18 22:36 02/08/18 22:36 Intake & Output 02/07/18 02/08/18 02/09/18 06:59 06:59 06:59 Intake Total 5726 5339 1340 Output Total 2952 2785 2620 Balance 2813 2554 -1280 Weight 93.3 kg 94.8 kg General appearance: PRESENT: no acute distress Eye exam: PRESENT: PERRLA Respiratory exam: PRESENT: decreased breath sounds Cardiovascular exam: PRESENT: +S1, +S2 GI/Abdominal exam: PRESENT: soft Neurological exam: PRESENT: alert Results Laboratory Results: 02/08/18 06:38 02/08/18 06:38 02/08/18 02/08/18 02/08/18 05:12 06:38 06:38 WBC 5.3 RBC 3.77 L Hgb 12.3 L Hct 36.6 L MCV 97 MCH 32.7 MCHC 33.7 RDW 17.0 H Plt Count 133 L Seg Neutrophils % 72.3 Lymphocytes % 11.7 L Monocytes % 13.1 H Eosinophils % 1.5 Basophils % 1.4 Absolute Neutrophils 3.8 Absolute Lymphocytes 0.6 Absolute Monocytes 0.7 Absolute Eosinophils 0.1 Absolute Basophils 0.1 Carbonic Acid 1.10 HCO3/H2CO3 Ratio 24:1 ABG pH 7.49 H ABG pCO2 36.4 ABG pO2 84.0 ABG HCO3 27.4 H ABG O2 Saturation 97.0 ABG Base Excess 4.1 FiO2 30% Sodium 140.9 Potassium 3.8 Chloride 104 Carbon Dioxide 28 Anion Gap 9 BUN 7 Creatinine 0.34 L Est GFR ( Amer) > 60 Est GFR (Non-Af Amer) > 60 Glucose 110 Calcium 8.8 Magnesium 2.0 02/08/18 18:10 WBC RBC Hgb Hct MCV MCH MCHC RDW Plt Count Seg Neutrophils % Lymphocytes % Monocytes % Eosinophils % Basophils % Absolute Neutrophils Absolute Lymphocytes Absolute Monocytes Absolute Eosinophils Absolute Basophils Carbonic Acid 1.29 HCO3/H2CO3 Ratio 22:1 ABG pH 7.46 H ABG pCO2 42.8 ABG pO2 69.5 L ABG HCO3 29.5 H ABG O2 Saturation 94.7 ABG Base Excess 5.0 FiO2 2L Sodium Potassium Chloride Carbon Dioxide Anion Gap BUN Creatinine Est GFR ( Amer) Est GFR (Non-Af Amer) Glucose Calcium Magnesium 01/30/18 01/30/18 01/30/18 20:30 20:30 20:30 Creatine Kinase 180 H CK-MB (CK-2) 1.38 Troponin I < 0.012 NT-Pro-B Natriuret Pep 1200 H 01/31/18 01/31/18 01/31/18 02:37 02:37 08:10 Creatine Kinase 130 98 CK-MB (CK-2) 1.29 Troponin I < 0.012 NT-Pro-B Natriuret Pep 01/31/18 02/01/18 02/01/18 08:10 13:21 13:21 Creatine Kinase 874 H CK-MB (CK-2) 1.02 1.95 Troponin I < 0.012 0.019 NT-Pro-B Natriuret Pep 02/02/18 10:10 Creatine Kinase CK-MB (CK-2) Troponin I < 0.012 NT-Pro-B Natriuret Pep Impressions: Chest CT 01/30/18 00:00 IMPRESSION: Multiple areas of patchy consolidation and bkofulo-hrdrti-hvxid opacity throughout both lungs, greatest in the right upper parahilar region. Moderate fat stranding in the left pararenal space. Head CT 02/01/18 15:11 IMPRESSION: No significant intracranial abnormalities were identified. Other findings as noted above. EVIDENCE OF ACUTE STROKE: NO. KUB X-Ray 02/04/18 22:21 IMPRESSION: A nasogastric catheter is present with tip overlying the body of the stomach, side port is below the GE junction. Moderate bowel gas. Left basilar atelectasis -effusion. Chest X-Ray 02/08/18 06:00 IMPRESSION: No significant change. Assessment & Plan - Diagnosis (1) Acute hypoxemic respiratory failure Is this a current diagnosis for this admission?: Yes (2) Aspiration pneumonia Qualifiers: Aspiration pneumonia type: unspecified Laterality: right Lung location: upper lobe of lung Qualified Code(s): J69.0 - Pneumonitis due to inhalation of food and vomit Is this a current diagnosis for this admission?: Yes (3) Alcohol intoxication Qualifiers: Complication of substance-induced condition: with delirium Qualified Code(s ): F10.921 - Alcohol use, unspecified with intoxication delirium Is this a current diagnosis for this admission?: Yes (4) COPD (chronic obstructive pulmonary disease) Qualifiers: COPD type: unspecified COPD Qualified Code(s): J44.9 - Chronic obstructive pulmonary disease, unspecified Is this a current diagnosis for this admission?: Yes (5) Thrombocytopenia Is this a current diagnosis for this admission?: Yes (6) Cardiopulmonary arrest Is this a current diagnosis for this admission?: Yes (7) Alcohol withdrawal syndrome Qualifiers: Complication of substance-induced condition: with unspecified complication Qualified Code(s): F10.239 - Alcohol dependence with withdrawal, unspecified Is this a current diagnosis for this admission?: Yes (8) Ventricular fibrillation Is this a current diagnosis for this admission?: Yes (9) COPD (chronic obstructive pulmonary disease) Qualifiers: COPD type: unspecified COPD Qualified Code(s): J44.9 - Chronic obstructive pulmonary disease, unspecified Is this a current diagnosis for this admission?: Yes (10) Polymorphic ventricular tachycardia Is this a current diagnosis for this admission?: Yes - Plan Summary Plan Summary: Continue treatment
[2018-02-09] MEDS: HYDRALAZINE HCL INJ/PF 20 MG/1 ML SDV IV PRN (00:45)
[2018-02-09] MEDS: HYDROMORPHONE HCL INJ/PF 2 MG/ML AMPULE IV PRN ×2 (00:54→12:53)
[2018-02-09 04:05] LABS: ABSOLUTE LYMPHOCYTES (AUTO) 0.6 10^3/uL (0.5-4.7); ABSOLUTE MONOCYTES (AUTO) 0.4 10^3/uL (0.1-1.4); ABSOLUTE NEUT (AUTO) 5.6 10^3/uL (1.7-8.2); BASOPHILS % (AUTO) 0.6 % (0-2); EOSINOPHILS % (AUTO) 0.1 % (0-6); HEMOGLOBIN 12.1 g/dL (13.5-17.0); MEAN CORPUSCULAR HEMOGLOBIN 32.7 pg (27.0-33.4); MEAN CORPUSCULAR HGB CONC 33.7 g/dL (32.0-36.0); MEAN CORPUSCULAR VOLUME 97 fl (80-97); MONOCYTES % (AUTO) 5.8 % (3-13); PLATELET COUNT 151 10^3/uL (150-450); RED CELL DISTRIBUTION WIDTH 16.5 % (11.5-14.0); SEGMENTED NEUTROPHILS % (AUTO) 84.5 % (42-78); TOTAL CELLS COUNTED % (AUTO) 100 %; WHITE BLOOD COUNT 6.6 10^3/uL (4.0-10.5)
[2018-02-09 04:22] LABS: BLOOD UREA NITROGEN 13 mg/dL (7-20); CALCIUM 9.1 mg/dL (8.4-10.2); CHLORIDE 102 mmol/L (98-107); GLUCOSE 110 mg/dL (75-110); POTASSIUM 3.9 mmol/L (3.6-5.0)
[2018-02-09 04:37] LABS: ANION GAP 6 (5-19); CARBON DIOXIDE 31 mmol/L (22-30); SODIUM 138.8 mmol/L (137-145)
[2018-02-09] MEDS: METHYLPREDNISOLONE INJ 40 MG/1 ML SDV IV SCH ×3 (05:21→22:18)
[2018-02-09] MEDS: CLONIDINE HCL 0.2 MG TABLET PO SCH ×3 (05:22→22:15)
[2018-02-09] MEDS: METOPROLOL SUCCINATE 50 MG TAB.SR.24H PO SCH ×2 (05:22→17:39)
[2018-02-09 05:24] LABS: ARTERIAL BLOOD BASE EXCESS 2.7 mmol/L; ARTERIAL BLOOD H2CO3 1.29 mmol/L (1.05-1.35); ARTERIAL BLOOD HCO3 27.5 mmol/L (20-26); ARTERIAL BLOOD O2 SATURATION 96.4 % (94-98); ARTERIAL BLOOD PH 7.42 (7.35-7.45); ARTERIAL BLOOD PO2 83.3 mmHg (80-100); ARTERIAL BLOOD TOTAL CO2 28.8 mmol/L (23-27)
[2018-02-09 05:27] LABS: ARTERIAL BLOOD FIO2 30%
[2018-02-09] MEDS: NORMAL SALINE 1000 ML 1,000 ML IV PRN (05:27)
--- NOTE | 2018-02-09 06:22 | RADIOLOGY REPORT (SQ) ---
EXAM DESCRIPTION: CHEST SINGLE VIEW CLINICAL HISTORY: 42 years Male, pna COMPARISON: One day prior. NUMBER OF VIEWS/TECHNIQUE: 1/AP FINDINGS: Small right basilar opacity-effusion, mild central edema pattern, normal cardiac silhouette, normal cardiac silhouette. Interval extubation. No pneumothorax. No acute bone defect. IMPRESSION: No significant change.
[2018-02-09] MEDS: ACETYLCYSTEINE 20% SOLN 800 MG/4 ML VIAL.NEB NEB SCH ×2 (08:31→19:46)
[2018-02-09] MEDS: ALBUTEROL SULFATE 0.083% NEB 2.5 MG/3 ML AMPUL NEB PRN (08:31)
[2018-02-09] MEDS: PREGABALIN 50 MG CAPSULE PO SCH ×2 (09:21→22:15)
[2018-02-09] MEDS: LORAZEPAM INJ 2 MG/1 ML VIAL IV PRN ×4 (09:21→20:11)
[2018-02-09] MEDS: FAMOTIDINE INJ/PF 20 MG/2 ML SDV IV SCH ×2 (09:21→22:19)
[2018-02-09] MEDS: FLUOXETINE HCL 20 MG CAPSULE PO SCH (09:22)
[2018-02-09] MEDS: CEFEPIME 1 GM/D5W RTU 1 GM/50 ML RTUPB IV SCH (09:26)
[2018-02-09] MEDS: FLUTICASONE/SALMETEROL DISKUS 250-50 MCG/DOSE IH SCH ×2 (09:26→22:21)
[2018-02-09] MEDS ORDERED: FUROSEMIDE INJ/PF 20 MG/2 ML SDV IV ONE (11:00)
[2018-02-09] MEDS ORDERED: OLANZAPINE 2.5 MG TABLET PO ONE (11:30)
[2018-02-09] MEDS ORDERED: HALOPERIDOL LACTATE INJ 5 MG/1 ML VIAL ONE (13:43)
[2018-02-09] MEDS ORDERED: FUROSEMIDE INJ/PF 20 MG/2 ML SDV IV SCH ×2 (18:00→22:00)
[2018-02-09] MEDS: IPRATROPIUM/ALBUTEROL 0.5-2.5 MG/3 ML AMPUL NEB PRN (19:46)
--- NOTE | 2018-02-09 20:53 | PDOC PROGRESS REPORT ---
Subjective Progress Note for:: 02/09/18 Subjective:: Patient was seen by the bedside he remains agitated, presently on lorazepam as needed for agitation he was also giving 1 dose of haldol1 mg IV trying to avoid this medication because it could prolong QTC, patient already suffered from torsades with ventricular fibrillation status post cardiac fibrillation with DC shock. Patient will be transferred to stepdown unit, presently stable enough just for that Reason For Visit: ASPIRATION PNEUMONIA, ALCOHOLISM, ETOH LIVER Physical Exam Vital Signs: Temp Pulse Resp BP Pulse Ox 98.3 F 87 18 151/98 H 96 02/09/18 20:00 02/09/18 20:00 02/09/18 20:00 02/09/18 20:00 02/09/18 20:00 Intake & Output 02/08/18 02/09/18 02/10/18 06:59 06:59 06:59 Intake Total 5339 3189 1717 Output Total 2785 3055 2975 Balance 2554 134 -1258 Weight 94.8 kg 93.9 kg General appearance: PRESENT: no acute distress Eye exam: PRESENT: PERRLA Respiratory exam: PRESENT: clear to auscultation nikia Cardiovascular exam: PRESENT: +S1, +S2 GI/Abdominal exam: PRESENT: soft Neurological exam: PRESENT: alert Results Laboratory Results: 02/09/18 03:53 02/09/18 03:53 02/09/18 02/09/18 02/09/18 03:53 03:53 05:15 WBC 6.6 RBC 3.70 L Hgb 12.1 L Hct 36.0 L MCV 97 MCH 32.7 MCHC 33.7 RDW 16.5 H Plt Count 151 Seg Neutrophils % 84.5 H Lymphocytes % 9.0 L Monocytes % 5.8 Eosinophils % 0.1 Basophils % 0.6 Absolute Neutrophils 5.6 Absolute Lymphocytes 0.6 Absolute Monocytes 0.4 Absolute Eosinophils 0.0 Absolute Basophils 0.0 Carbonic Acid 1.29 HCO3/H2CO3 Ratio 21:1 ABG pH 7.42 ABG pCO2 43.0 ABG pO2 83.3 ABG HCO3 27.5 H ABG O2 Saturation 96.4 ABG Base Excess 2.7 FiO2 30% Sodium 138.8 Potassium 3.9 Chloride 102 Carbon Dioxide 31 H Anion Gap 6 BUN 13 Creatinine 0.33 L Est GFR ( Amer) > 60 Est GFR (Non-Af Amer) > 60 Glucose 110 Calcium 9.1 Magnesium 1.9 Ammonia 02/09/18 18:00 WBC RBC Hgb Hct MCV MCH MCHC RDW Plt Count Seg Neutrophils % Lymphocytes % Monocytes % Eosinophils % Basophils % Absolute Neutrophils Absolute Lymphocytes Absolute Monocytes Absolute Eosinophils Absolute Basophils Carbonic Acid HCO3/H2CO3 Ratio ABG pH ABG pCO2 ABG pO2 ABG HCO3 ABG O2 Saturation ABG Base Excess FiO2 Sodium Potassium Chloride Carbon Dioxide Anion Gap BUN Creatinine Est GFR ( Amer) Est GFR (Non-Af Amer) Glucose Calcium Magnesium Ammonia 17.3 01/30/18 01/30/18 01/30/18 20:30 20:30 20:30 Creatine Kinase 180 H CK-MB (CK-2) 1.38 Troponin I < 0.012 NT-Pro-B Natriuret Pep 1200 H 01/31/18 01/31/18 01/31/18 02:37 02:37 08:10 Creatine Kinase 130 98 CK-MB (CK-2) 1.29 Troponin I < 0.012 NT-Pro-B Natriuret Pep 01/31/18 02/01/18 02/01/18 08:10 13:21 13:21 Creatine Kinase 874 H CK-MB (CK-2) 1.02 1.95 Troponin I < 0.012 0.019 NT-Pro-B Natriuret Pep 02/02/18 10:10 Creatine Kinase CK-MB (CK-2) Troponin I < 0.012 NT-Pro-B Natriuret Pep Impressions: Chest CT 01/30/18 00:00 IMPRESSION: Multiple areas of patchy consolidation and zywxwij-qlbrkx-zrxkx opacity throughout both lungs, greatest in the right upper parahilar region. Moderate fat stranding in the left pararenal space. Head CT 02/01/18 15:11 IMPRESSION: No significant intracranial abnormalities were identified. Other findings as noted above. EVIDENCE OF ACUTE STROKE: NO. KUB X-Ray 02/04/18 22:21 IMPRESSION: A nasogastric catheter is present with tip overlying the body of the stomach, side port is below the GE junction. Moderate bowel gas. Left basilar atelectasis -effusion. Chest X-Ray 02/09/18 06:00 IMPRESSION: No significant change. Assessment & Plan - Diagnosis (1) Acute hypoxemic respiratory failure Is this a current diagnosis for this admission?: Yes (2) Aspiration pneumonia Qualifiers: Aspiration pneumonia type: unspecified Laterality: right Lung location: upper lobe of lung Qualified Code(s): J69.0 - Pneumonitis due to inhalation of food and vomit Is this a current diagnosis for this admission?: Yes (3) Alcohol intoxication Qualifiers: Complication of substance-induced condition: with delirium Qualified Code(s ): F10.921 - Alcohol use, unspecified with intoxication delirium Is this a current diagnosis for this admission?: Yes (4) COPD (chronic obstructive pulmonary disease) Qualifiers: COPD type: unspecified COPD Qualified Code(s): J44.9 - Chronic obstructive pulmonary disease, unspecified Is this a current diagnosis for this admission?: Yes (5) Thrombocytopenia Is this a current diagnosis for this admission?: Yes (6) Cardiopulmonary arrest Is this a current diagnosis for this admission?: Yes (7) Alcohol withdrawal syndrome Qualifiers: Complication of substance-induced condition: with unspecified complication Qualified Code(s): F10.239 - Alcohol dependence with withdrawal, unspecified Is this a current diagnosis for this admission?: Yes (8) Ventricular fibrillation Is this a current diagnosis for this admission?: Yes (9) COPD (chronic obstructive pulmonary disease) Qualifiers: COPD type: unspecified COPD Qualified Code(s): J44.9 - Chronic obstructive pulmonary disease, unspecified Is this a current diagnosis for this admission?: Yes (10) Polymorphic ventricular tachycardia Is this a current diagnosis for this admission?: Yes - Plan Summary Plan Summary: Transfer patient to telemetry floor, continue all other treatment
[2018-02-09] MEDS: NORMAL SALINE 1000 ML 1,000 ML with THIAMINE HCL 100 MG, MVI, ADULT NO.1 WITH VIT K 10 ... IV SCH ×4 (22:14)
[2018-02-10] MEDS: LORAZEPAM INJ 2 MG/1 ML VIAL IV PRN ×5 (01:22→19:04)
[2018-02-10] MEDS: METOPROLOL SUCCINATE 50 MG TAB.SR.24H PO SCH ×2 (06:01→17:04)
[2018-02-10] MEDS: CLONIDINE HCL 0.2 MG TABLET PO SCH ×3 (06:01→21:52)
[2018-02-10] MEDS: METHYLPREDNISOLONE INJ 40 MG/1 ML SDV IV SCH ×2 (06:01→13:43)
[2018-02-10] MEDS: FLUOXETINE HCL 20 MG CAPSULE PO SCH (07:33)
[2018-02-10] MEDS: ALBUTEROL SULFATE 0.083% NEB 2.5 MG/3 ML AMPUL NEB PRN ×2 (08:09→20:19)
[2018-02-10] MEDS: ACETYLCYSTEINE 20% SOLN 800 MG/4 ML VIAL.NEB NEB SCH ×2 (08:10→20:19)
[2018-02-10] MEDS: OLANZAPINE 2.5 MG TABLET PO SCH (09:24)
[2018-02-10] MEDS: PREGABALIN 50 MG CAPSULE PO SCH ×2 (09:25→21:52)
[2018-02-10] MEDS: FLUTICASONE/SALMETEROL DISKUS 250-50 MCG/DOSE IH SCH ×2 (09:27→21:52)
--- NOTE | 2018-02-10 15:31 | PDOC PROGRESS REPORT ---
Subjective Progress Note for:: 02/10/18 Subjective:: Patient was downgraded yesterday to telemetry bed but is still in ICU bed, confused restrained, I advised the RN on the case to ensure that this patient is transferred out of ICU because some of the confusion could be from ICU psychosis, treatment for that is to get him out of ICU immediately. The RN was requesting Haldol to chemically restrain him but I reminded the RN that this patient had torsades due to QTC prolongation and haldol should be avoided Reason For Visit: ASPIRATION PNEUMONIA, ALCOHOLISM, ETOH LIVER Physical Exam Vital Signs: Temp Pulse Resp BP Pulse Ox 99.7 F 94 16 172/87 H 99 02/10/18 07:37 02/10/18 08:10 02/10/18 14:00 02/10/18 13:44 02/10/18 08:10 Intake & Output 02/09/18 02/10/18 02/11/18 06:59 06:59 06:59 Intake Total 3189 2827 100 Output Total 3051 5025 2460 Balance 134 -2198 -2360 Weight 93.9 kg General appearance: PRESENT: no acute distress Respiratory exam: PRESENT: clear to auscultation nikia Cardiovascular exam: PRESENT: +S1, +S2 Results Laboratory Results: 02/09/18 03:53 02/09/18 03:53 02/09/18 18:00 Ammonia 17.3 01/30/18 01/30/18 01/30/18 20:30 20:30 20:30 Creatine Kinase 180 H CK-MB (CK-2) 1.38 Troponin I < 0.012 NT-Pro-B Natriuret Pep 1200 H 01/31/18 01/31/18 01/31/18 02:37 02:37 08:10 Creatine Kinase 130 98 CK-MB (CK-2) 1.29 Troponin I < 0.012 NT-Pro-B Natriuret Pep 01/31/18 02/01/18 02/01/18 08:10 13:21 13:21 Creatine Kinase 874 H CK-MB (CK-2) 1.02 1.95 Troponin I < 0.012 0.019 NT-Pro-B Natriuret Pep 02/02/18 10:10 Creatine Kinase CK-MB (CK-2) Troponin I < 0.012 NT-Pro-B Natriuret Pep Impressions: Chest CT 01/30/18 00:00 IMPRESSION: Multiple areas of patchy consolidation and jwkslyj-xhbtnq-vlsfr opacity throughout both lungs, greatest in the right upper parahilar region. Moderate fat stranding in the left pararenal space. Head CT 02/01/18 15:11 IMPRESSION: No significant intracranial abnormalities were identified. Other findings as noted above. EVIDENCE OF ACUTE STROKE: NO. KUB X-Ray 02/04/18 22:21 IMPRESSION: A nasogastric catheter is present with tip overlying the body of the stomach, side port is below the GE junction. Moderate bowel gas. Left basilar atelectasis -effusion. Chest X-Ray 02/09/18 06:00 IMPRESSION: No significant change. Assessment & Plan - Diagnosis (1) Acute hypoxemic respiratory failure Is this a current diagnosis for this admission?: Yes (2) Aspiration pneumonia Qualifiers: Aspiration pneumonia type: unspecified Laterality: right Lung location: upper lobe of lung Qualified Code(s): J69.0 - Pneumonitis due to inhalation of food and vomit Is this a current diagnosis for this admission?: Yes (3) Alcohol intoxication Qualifiers: Complication of substance-induced condition: with delirium Qualified Code(s ): F10.921 - Alcohol use, unspecified with intoxication delirium Is this a current diagnosis for this admission?: Yes (4) COPD (chronic obstructive pulmonary disease) Qualifiers: COPD type: unspecified COPD Qualified Code(s): J44.9 - Chronic obstructive pulmonary disease, unspecified Is this a current diagnosis for this admission?: Yes (5) Thrombocytopenia Is this a current diagnosis for this admission?: Yes (6) Cardiopulmonary arrest Is this a current diagnosis for this admission?: Yes (7) Alcohol withdrawal syndrome Qualifiers: Complication of substance-induced condition: with unspecified complication Qualified Code(s): F10.239 - Alcohol dependence with withdrawal, unspecified Is this a current diagnosis for this admission?: Yes (8) Ventricular fibrillation Is this a current diagnosis for this admission?: Yes (9) COPD (chronic obstructive pulmonary disease) Qualifiers: COPD type: unspecified COPD Qualified Code(s): J44.9 - Chronic obstructive pulmonary disease, unspecified Is this a current diagnosis for this admission?: Yes (10) Polymorphic ventricular tachycardia Is this a current diagnosis for this admission?: Yes - Plan Summary Plan Summary: Transfer out of ICU 2 discontinue Solu-Medrol. Start prednisone
[2018-02-10 15:58] LABS: ABSOLUTE LYMPHOCYTES (AUTO) 0.7 10^3/uL (0.5-4.7); ABSOLUTE MONOCYTES (AUTO) 0.5 10^3/uL (0.1-1.4); ABSOLUTE NEUT (AUTO) 4.6 10^3/uL (1.7-8.2); BASOPHILS % (AUTO) 0.4 % (0-2); EOSINOPHILS % (AUTO) 0.1 % (0-6); HEMATOCRIT 37.6 % (37.9-51.0); HEMOGLOBIN 12.5 g/dL (13.5-17.0); LYMPHOCYTES % (AUTO) 11.8 % (13-45); MEAN CORPUSCULAR HEMOGLOBIN 32.4 pg (27.0-33.4); MEAN CORPUSCULAR HGB CONC 33.3 g/dL (32.0-36.0); MEAN CORPUSCULAR VOLUME 97 fl (80-97); MONOCYTES % (AUTO) 8.6 % (3-13); RED BLOOD COUNT 3.86 10^6/uL (4.35-5.55); RED CELL DISTRIBUTION WIDTH 16.2 % (11.5-14.0); SEGMENTED NEUTROPHILS % (AUTO) 79.1 % (42-78); TOTAL CELLS COUNTED % (AUTO) 100 %; WHITE BLOOD COUNT 5.9 10^3/uL (4.0-10.5)
[2018-02-10 16:06] LABS: ALANINE AMINOTRANSFERASE 85 U/L (21-72); ALBUMIN 3.5 g/dL (3.5-5.0); ALKALINE PHOSPHATASE 79 U/L (38-126); ANION GAP 13 (5-19); ASPARTATE AMINO TRANSFERASE 92 U/L (17-59); BILIRUBIN,DIRECT 0.4 mg/dL (0.0-0.4); BILIRUBIN,TOTAL 0.9 mg/dL (0.2-1.3); BLOOD UREA NITROGEN 10 mg/dL (7-20); CALCIUM 9.4 mg/dL (8.4-10.2); CARBON DIOXIDE 33 mmol/L (22-30); CHLORIDE 97 mmol/L (98-107); GLUCOSE 136 mg/dL (75-110); SODIUM 142.9 mmol/L (137-145); TOTAL PROTEIN 6.8 g/dL (6.3-8.2)
[2018-02-10 16:30] LABS: PLATELET COUNT 177 10^3/uL (150-450)
[2018-02-10] MEDS: POTASSIUM CHLORIDE 10 MEQ TABLET.SA PO SCH ×2 (17:03→19:01)
[2018-02-10] MEDS: NORMAL SALINE 1000 ML 1,000 ML with THIAMINE HCL 100 MG, MVI, ADULT NO.1 WITH VIT K 10 ... IV SCH ×4 (21:56)
[2018-02-11] MEDS: LORAZEPAM INJ 2 MG/1 ML VIAL IV PRN ×6 (02:47→17:13)
[2018-02-11 04:15] LABS: ABSOLUTE LYMPHOCYTES (AUTO) 1.6 10^3/uL (0.5-4.7); ABSOLUTE MONOCYTES (AUTO) 0.7 10^3/uL (0.1-1.4); ABSOLUTE NEUT (AUTO) 3.5 10^3/uL (1.7-8.2); BASOPHILS % (AUTO) 0.5 % (0-2); EOSINOPHILS % (AUTO) 0.2 % (0-6); HEMATOCRIT 36.6 % (37.9-51.0); HEMOGLOBIN 12.5 g/dL (13.5-17.0); LYMPHOCYTES % (AUTO) 27.6 % (13-45); MEAN CORPUSCULAR HEMOGLOBIN 32.8 pg (27.0-33.4); MEAN CORPUSCULAR VOLUME 97 fl (80-97); MONOCYTES % (AUTO) 12.6 % (3-13); PLATELET COUNT 182 10^3/uL (150-450); RED BLOOD COUNT 3.79 10^6/uL (4.35-5.55); RED CELL DISTRIBUTION WIDTH 16.1 % (11.5-14.0); SEGMENTED NEUTROPHILS % (AUTO) 59.1 % (42-78); TOTAL CELLS COUNTED % (AUTO) 100 %; WHITE BLOOD COUNT 5.9 10^3/uL (4.0-10.5)
[2018-02-11 04:38] LABS: ALANINE AMINOTRANSFERASE 110 U/L (21-72); ALBUMIN 3.2 g/dL (3.5-5.0); ALKALINE PHOSPHATASE 79 U/L (38-126); ANION GAP 9 (5-19); ASPARTATE AMINO TRANSFERASE 123 U/L (17-59); BILIRUBIN,DIRECT 0.3 mg/dL (0.0-0.4); BILIRUBIN,TOTAL 0.8 mg/dL (0.2-1.3); BLOOD UREA NITROGEN 10 mg/dL (7-20); CALCIUM 9.2 mg/dL (8.4-10.2); CARBON DIOXIDE 32 mmol/L (22-30); CHLORIDE 100 mmol/L (98-107); GLUCOSE 95 mg/dL (75-110); POTASSIUM 3.1 mmol/L (3.6-5.0); SODIUM 140.5 mmol/L (137-145); TOTAL PROTEIN 6.4 g/dL (6.3-8.2)
[2018-02-11] MEDS: CLONIDINE HCL 0.2 MG TABLET PO SCH ×3 (05:19→21:40)
[2018-02-11] MEDS: METOPROLOL SUCCINATE 50 MG TAB.SR.24H PO SCH ×2 (05:20→17:14)
[2018-02-11] MEDS: ALBUTEROL SULFATE 0.083% NEB 2.5 MG/3 ML AMPUL NEB PRN (08:17)
[2018-02-11] MEDS: ACETYLCYSTEINE 20% SOLN 800 MG/4 ML VIAL.NEB NEB SCH ×2 (08:17→19:56)
[2018-02-11] MEDS: FLUOXETINE HCL 20 MG CAPSULE PO SCH (08:27)
[2018-02-11] MEDS: PREDNISONE 20 MG TABLET PO SCH (09:31)
[2018-02-11] MEDS: OLANZAPINE 2.5 MG TABLET PO SCH (09:31)
[2018-02-11] MEDS: PREGABALIN 50 MG CAPSULE PO SCH ×2 (09:31→21:40)
[2018-02-11] MEDS: FLUTICASONE/SALMETEROL DISKUS 250-50 MCG/DOSE IH SCH ×2 (09:32→21:41)
[2018-02-11] MEDS ORDERED: POTASSIUM CHLORIDE 10 MEQ TABLET.SA PO ONE (11:30)
--- NOTE | 2018-02-11 14:48 | PDOC PROGRESS REPORT ---
Subjective Progress Note for:: 02/11/18 Subjective:: Patient now more alert and able to be more cooperative. Patient has been downgraded and to be moved out of ICU. Medications reviewed. System review: No significant changes Medications reviewed. Patient is maintaining sinus rhythm. Sinus tachycardia noted. Blood pressure noted to be elevated. Medications: Medications have been reviewed. Reason For Visit: ASPIRATION PNEUMONIA, ALCOHOLISM, ETOH LIVER Physical Exam Vital Signs: Temp Pulse Resp BP Pulse Ox 98.4 F 76 17 161/100 H 100 02/11/18 14:42 02/11/18 08:17 02/11/18 14:37 02/11/18 14:37 02/11/18 14:42 Intake & Output 02/10/18 02/11/18 02/12/18 06:59 06:59 06:59 Intake Total 2827 1607 200 Output Total 5025 6660 2150 Balance -0567 -3012 -0895 Weight 87.9 kg Exam: GENERAL: well-nourished and in no acute distress. Alert and oriented x2 HEAD: Atraumatic, normocephalic. EYES: Pupils equal round and reactive to light, extraocular movements intact, sclera anicteric, conjunctiva are normal. ENT: TMs normal, nares patent, oropharynx clear without exudates. Moist mucous membranes. No oral ulcerations or bleeding gums noted NECK: supple without lymphadenopathy. Trachea is central. No cervical or axillary lymphadenopathy noted. Carotids are 2+, JVD WNL LUNGS: Respiration seems nonlabored, no significant accessory muscle action noted. Breath sounds shows few bibasilar crackles and few a scattered wheezes rales or rhonchi noted. No significant dullness noted on percussion. CHEST: Palpation of the chest wall shows no significant chest wall tenderness. 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 ABDOMEN: Soft, no significant tenderness appreciated, normoactive bowel sounds. No guarding, no rebound. No rigidity noted . No masses appreciated. EXTREMITIES: Pedal pulses are 1-2+, no calf tenderness noted. No clubbing or cyanosis. negative pedal edema noted NEUROLOGICAL: Focused neurological exam showed no significant neurologic deficit. Normal speech, no focal weakness appreciated. PSYCH: Normal mood, normal affect. Judgment and insight not checked. SKIN: No significant ecchymosis, skin is noted to be warm. MUSCULOSKELETAL EXAM: No significant acute joint swelling noted. Results Laboratory Results: 02/11/18 04:07 02/11/18 04:07 02/10/18 02/10/18 02/11/18 15:39 15:39 04:07 WBC 5.9 5.9 RBC 3.86 L 3.79 L Hgb 12.5 L 12.5 L Hct 37.6 L 36.6 L MCV 97 97 MCH 32.4 32.8 MCHC 33.3 34.0 RDW 16.2 H 16.1 H Plt Count 177 182 Seg Neutrophils % 79.1 H 59.1 Lymphocytes % 11.8 L 27.6 Monocytes % 8.6 12.6 Eosinophils % 0.1 0.2 Basophils % 0.4 0.5 Absolute Neutrophils 4.6 3.5 Absolute Lymphocytes 0.7 1.6 Absolute Monocytes 0.5 0.7 Absolute Eosinophils 0.0 0.0 Absolute Basophils 0.0 0.0 Sodium 142.9 Potassium 3.0 L* Chloride 97 L Carbon Dioxide 33 H Anion Gap 13 BUN 10 Creatinine 0.37 L Est GFR ( Amer) > 60 Est GFR (Non-Af Amer) > 60 Glucose 136 H Calcium 9.4 Total Bilirubin 0.9 AST 92 H ALT 85 H Alkaline Phosphatase 79 Total Protein 6.8 Albumin 3.5 02/11/18 04:07 WBC RBC Hgb Hct MCV MCH MCHC RDW Plt Count Seg Neutrophils % Lymphocytes % Monocytes % Eosinophils % Basophils % Absolute Neutrophils Absolute Lymphocytes Absolute Monocytes Absolute Eosinophils Absolute Basophils Sodium 140.5 Potassium 3.1 L Chloride 100 Carbon Dioxide 32 H Anion Gap 9 BUN 10 Creatinine 0.35 L Est GFR ( Amer) > 60 Est GFR (Non-Af Amer) > 60 Glucose 95 Calcium 9.2 Total Bilirubin 0.8 AST 123 H ALT 110 H Alkaline Phosphatase 79 Total Protein 6.4 Albumin 3.2 L 01/30/18 01/30/18 01/30/18 20:30 20:30 20:30 Creatine Kinase 180 H CK-MB (CK-2) 1.38 Troponin I < 0.012 NT-Pro-B Natriuret Pep 1200 H 01/31/18 01/31/18 01/31/18 02:37 02:37 08:10 Creatine Kinase 130 98 CK-MB (CK-2) 1.29 Troponin I < 0.012 NT-Pro-B Natriuret Pep 01/31/18 02/01/18 02/01/18 08:10 13:21 13:21 Creatine Kinase 874 H CK-MB (CK-2) 1.02 1.95 Troponin I < 0.012 0.019 NT-Pro-B Natriuret Pep 02/02/18 10:10 Creatine Kinase CK-MB (CK-2) Troponin I < 0.012 NT-Pro-B Natriuret Pep EKG Comments: Shows sinus rhythm with intermittent tachycardia Impressions: Chest CT 01/30/18 00:00 IMPRESSION: Multiple areas of patchy consolidation and vwjhreb-utdmal-qpjfg opacity throughout both lungs, greatest in the right upper parahilar region. Moderate fat stranding in the left pararenal space. Head CT 02/01/18 15:11 IMPRESSION: No significant intracranial abnormalities were identified. Other findings as noted above. EVIDENCE OF ACUTE STROKE: NO. KUB X-Ray 02/04/18 22:21 IMPRESSION: A nasogastric catheter is present with tip overlying the body of the stomach, side port is below the GE junction. Moderate bowel gas. Left basilar atelectasis -effusion. Chest X-Ray 02/09/18 06:00 IMPRESSION: No significant change. Assessment & Plan - Diagnosis (1) Polymorphic ventricular tachycardia Is this a current diagnosis for this admission?: Yes (2) Cardiac arrest Is this a current diagnosis for this admission?: Yes (3) Acute hypoxemic respiratory failure Is this a current diagnosis for this admission?: Yes (4) Alcohol intoxication Qualifiers: Complication of substance-induced condition: with delirium Qualified Code(s ): F10.921 - Alcohol use, unspecified with intoxication delirium Is this a current diagnosis for this admission?: Yes (5) COPD (chronic obstructive pulmonary disease) Qualifiers: COPD type: unspecified COPD Qualified Code(s): J44.9 - Chronic obstructive pulmonary disease, unspecified Is this a current diagnosis for this admission?: Yes (6) Alcohol withdrawal seizure with complication Is this a current diagnosis for this admission?: No (7) Hypokalemia Is this a current diagnosis for this admission?: Yes (8) Hypomagnesemia Is this a current diagnosis for this admission?: Yes - Notes Notes: Patient generally improved. However did not feel patient will be able to cooperate with his stress test. At this point will possibly tentatively scheduled patient for a stress test on Monday. An EKG will be obtained tomorrow to look for QTc interval. - Time Time with patient: 15-25 minutes
[2018-02-11] MEDS: CYCLOBENZAPRINE HCL 10 MG TABLET PO PRN ×2 (15:27→23:29)
--- NOTE | 2018-02-11 15:53 | PDOC PROGRESS REPORT ---
Subjective Progress Note for:: 02/09/18 Subjective:: 24h s/p extubation stable Reason For Visit: ASPIRATION PNEUMONIA, ALCOHOLISM, ETOH LIVER Physical Exam Vital Signs: Temp Pulse Resp BP Pulse Ox 97.9 F 93 17 145/79 H 99 02/09/18 06:00 02/09/18 08:31 02/09/18 08:36 02/09/18 08:36 02/09/18 08:36 Intake & Output 02/08/18 02/09/18 02/10/18 06:59 06:59 06:59 Intake Total 5339 3189 Output Total 2785 3055 225 Balance 2554 134 -225 Weight 94.8 kg 93.9 kg General appearance: PRESENT: no acute distress, cooperative, disheveled Head exam: PRESENT: atraumatic, normocephalic Eye exam: PRESENT: conjunctiva pale, EOMI. ABSENT: nystagmus, periorbital swelling, scleral icterus Mouth exam: PRESENT: moist, neck supple, tongue midline Neck exam: ABSENT: carotid bruit, JVD, lymphadenopathy, thyromegaly, tracheal deviation, tracheostomy Respiratory exam: PRESENT: decreased breath sounds, rales, rhonchi, unlabored. ABSENT: tachypnea Cardiovascular exam: PRESENT: RRR, +S1, +S2 Pulses: PRESENT: normal radial pulses GI/Abdominal exam: PRESENT: diminished bowel sounds, soft Gentrourinary exam: ABSENT: testicular tenderness Extremities exam: ABSENT: calf tenderness, clubbing Musculoskeletal exam: ABSENT: deformity, dislocation Neurological exam: PRESENT: alert, awake Psychiatric exam: PRESENT: flat affect Skin exam: PRESENT: dry, warm Results Laboratory Results: 02/09/18 03:53 02/09/18 03:53 02/08/18 02/09/18 02/09/18 18:10 03:53 03:53 WBC 6.6 RBC 3.70 L Hgb 12.1 L Hct 36.0 L MCV 97 MCH 32.7 MCHC 33.7 RDW 16.5 H Plt Count 151 Seg Neutrophils % 84.5 H Lymphocytes % 9.0 L Monocytes % 5.8 Eosinophils % 0.1 Basophils % 0.6 Absolute Neutrophils 5.6 Absolute Lymphocytes 0.6 Absolute Monocytes 0.4 Absolute Eosinophils 0.0 Absolute Basophils 0.0 Carbonic Acid 1.29 HCO3/H2CO3 Ratio 22:1 ABG pH 7.46 H ABG pCO2 42.8 ABG pO2 69.5 L ABG HCO3 29.5 H ABG O2 Saturation 94.7 ABG Base Excess 5.0 FiO2 2L Sodium 138.8 Potassium 3.9 Chloride 102 Carbon Dioxide 31 H Anion Gap 6 BUN 13 Creatinine 0.33 L Est GFR ( Amer) > 60 Est GFR (Non-Af Amer) > 60 Glucose 110 Calcium 9.1 Magnesium 1.9 02/09/18 05:15 WBC RBC Hgb Hct MCV MCH MCHC RDW Plt Count Seg Neutrophils % Lymphocytes % Monocytes % Eosinophils % Basophils % Absolute Neutrophils Absolute Lymphocytes Absolute Monocytes Absolute Eosinophils Absolute Basophils Carbonic Acid 1.29 HCO3/H2CO3 Ratio 21:1 ABG pH 7.42 ABG pCO2 43.0 ABG pO2 83.3 ABG HCO3 27.5 H ABG O2 Saturation 96.4 ABG Base Excess 2.7 FiO2 30% Sodium Potassium Chloride Carbon Dioxide Anion Gap BUN Creatinine Est GFR ( Amer) Est GFR (Non-Af Amer) Glucose Calcium Magnesium 01/30/18 01/30/18 01/30/18 20:30 20:30 20:30 Creatine Kinase 180 H CK-MB (CK-2) 1.38 Troponin I < 0.012 NT-Pro-B Natriuret Pep 1200 H 01/31/18 01/31/18 01/31/18 02:37 02:37 08:10 Creatine Kinase 130 98 CK-MB (CK-2) 1.29 Troponin I < 0.012 NT-Pro-B Natriuret Pep 01/31/18 02/01/18 02/01/18 08:10 13:21 13:21 Creatine Kinase 874 H CK-MB (CK-2) 1.02 1.95 Troponin I < 0.012 0.019 NT-Pro-B Natriuret Pep 02/02/18 10:10 Creatine Kinase CK-MB (CK-2) Troponin I < 0.012 NT-Pro-B Natriuret Pep Impressions: Chest CT 01/30/18 00:00 IMPRESSION: Multiple areas of patchy consolidation and uhuskiq-qxohzf-jbhqq opacity throughout both lungs, greatest in the right upper parahilar region. Moderate fat stranding in the left pararenal space. Head CT 02/01/18 15:11 IMPRESSION: No significant intracranial abnormalities were identified. Other findings as noted above. EVIDENCE OF ACUTE STROKE: NO. KUB X-Ray 02/04/18 22:21 IMPRESSION: A nasogastric catheter is present with tip overlying the body of the stomach, side port is below the GE junction. Moderate bowel gas. Left basilar atelectasis -effusion. Chest X-Ray 02/09/18 06:00 IMPRESSION: No significant change. Assessment & Plan - Diagnosis (1) Acute hypoxemic respiratory failure Is this a current diagnosis for this admission?: Yes Plan: stable s/p extubation (2) Aspiration pneumonia Qualifiers: Aspiration pneumonia type: unspecified Laterality: right Lung location: upper lobe of lung Qualified Code(s): J69.0 - Pneumonitis due to inhalation of food and vomit Is this a current diagnosis for this admission?: Yes Plan: improving;not resolved chest physio therapy (3) COPD (chronic obstructive pulmonary disease) Qualifiers: COPD type: unspecified COPD Qualified Code(s): J44.9 - Chronic obstructive pulmonary disease, unspecified Is this a current diagnosis for this admission?: Yes Plan: LABA+LAMA and prn CLIVE (4) Thrombocytopenia Is this a current diagnosis for this admission?: No (5) Alcohol withdrawal seizure with complication Is this a current diagnosis for this admission?: No - Time Total Critical Time (Minutes): 35
--- NOTE | 2018-02-11 15:54 | PDOC PROGRESS REPORT ---
Subjective Progress Note for:: 02/11/18 Subjective:: Patient seen by the bedside he was downgraded 2 days ago he is still in ICU ,He should be moved out of ICU very quickly Reason For Visit: ASPIRATION PNEUMONIA, ALCOHOLISM, ETOH LIVER Physical Exam Vital Signs: Temp Pulse Resp BP Pulse Ox 98.4 F 76 17 161/100 H 100 02/11/18 14:42 02/11/18 08:17 02/11/18 14:37 02/11/18 14:37 02/11/18 14:42 Intake & Output 02/10/18 02/11/18 02/12/18 06:59 06:59 06:59 Intake Total 2827 1607 200 Output Total 3018 1439 9619 [facility] -6198 -7869 -8060 Weight 87.9 kg General appearance: PRESENT: no acute distress Eye exam: PRESENT: PERRLA Respiratory exam: PRESENT: clear to auscultation nikia Cardiovascular exam: PRESENT: +S1, +S2 GI/Abdominal exam: PRESENT: soft Neurological exam: PRESENT: alert Results Laboratory Results: 02/11/18 04:07 02/11/18 04:07 02/10/18 02/10/18 02/11/18 15:39 15:39 04:07 WBC 5.9 5.9 RBC 3.86 L 3.79 L Hgb 12.5 L 12.5 L Hct 37.6 L 36.6 L MCV 97 97 MCH 32.4 32.8 MCHC 33.3 34.0 RDW 16.2 H 16.1 H Plt Count 177 182 Seg Neutrophils % 79.1 H 59.1 Lymphocytes % 11.8 L 27.6 Monocytes % 8.6 12.6 Eosinophils % 0.1 0.2 Basophils % 0.4 0.5 Absolute Neutrophils 4.6 3.5 Absolute Lymphocytes 0.7 1.6 Absolute Monocytes 0.5 0.7 Absolute Eosinophils 0.0 0.0 Absolute Basophils 0.0 0.0 Sodium 142.9 Potassium 3.0 L* Chloride 97 L Carbon Dioxide 33 H Anion Gap 13 BUN 10 Creatinine 0.37 L Est GFR ( Amer) > 60 Est GFR (Non-Af Amer) > 60 Glucose 136 H Calcium 9.4 Total Bilirubin 0.9 AST 92 H ALT 85 H Alkaline Phosphatase 79 Total Protein 6.8 Albumin 3.5 02/11/18 04:07 WBC RBC Hgb Hct MCV MCH MCHC RDW Plt Count Seg Neutrophils % Lymphocytes % Monocytes % Eosinophils % Basophils % Absolute Neutrophils Absolute Lymphocytes Absolute Monocytes Absolute Eosinophils Absolute Basophils Sodium 140.5 Potassium 3.1 L Chloride 100 Carbon Dioxide 32 H Anion Gap 9 BUN 10 Creatinine 0.35 L Est GFR ( Amer) > 60 Est GFR (Non-Af Amer) > 60 Glucose 95 Calcium 9.2 Total Bilirubin 0.8 AST 123 H ALT 110 H Alkaline Phosphatase 79 Total Protein 6.4 Albumin 3.2 L 01/30/18 01/30/18 01/30/18 20:30 20:30 20:30 Creatine Kinase 180 H CK-MB (CK-2) 1.38 Troponin I < 0.012 NT-Pro-B Natriuret Pep 1200 H 01/31/18 01/31/18 01/31/18 02:37 02:37 08:10 Creatine Kinase 130 98 CK-MB (CK-2) 1.29 Troponin I < 0.012 NT-Pro-B Natriuret Pep 01/31/18 02/01/18 02/01/18 08:10 13:21 13:21 Creatine Kinase 874 H CK-MB (CK-2) 1.02 1.95 Troponin I < 0.012 0.019 NT-Pro-B Natriuret Pep 02/02/18 10:10 Creatine Kinase CK-MB (CK-2) Troponin I < 0.012 NT-Pro-B Natriuret Pep Impressions: Chest CT 01/30/18 00:00 IMPRESSION: Multiple areas of patchy consolidation and sxtzjmy-udkutt-cjreh opacity throughout both lungs, greatest in the right upper parahilar region. Moderate fat stranding in the left pararenal space. Head CT 02/01/18 15:11 IMPRESSION: No significant intracranial abnormalities were identified. Other findings as noted above. EVIDENCE OF ACUTE STROKE: NO. KUB X-Ray 02/04/18 22:21 IMPRESSION: A nasogastric catheter is present with tip overlying the body of the stomach, side port is below the GE junction. Moderate bowel gas. Left basilar atelectasis -effusion. Chest X-Ray 02/09/18 06:00 IMPRESSION: No significant change. Assessment & Plan - Diagnosis (1) Acute hypoxemic respiratory failure Is this a current diagnosis for this admission?: Yes (2) Aspiration pneumonia Qualifiers: Qualified Code(s): J69.0 - Pneumonitis due to inhalation of food and vomit Is this a current diagnosis for this admission?: Yes (3) Alcohol intoxication Qualifiers: Qualified Code(s): F10.921 - Alcohol use, unspecified with intoxication delirium Is this a current diagnosis for this admission?: Yes (4) COPD (chronic obstructive pulmonary disease) Qualifiers: Qualified Code(s): J44.9 - Chronic obstructive pulmonary disease, unspecified Is this a current diagnosis for this admission?: Yes (5) Thrombocytopenia Is this a current diagnosis for this admission?: Yes (6) Cardiopulmonary arrest Is this a current diagnosis for this admission?: Yes (7) Alcohol withdrawal syndrome Qualifiers: Qualified Code(s): F10.239 - Alcohol dependence with withdrawal, unspecified Is this a current diagnosis for this admission?: Yes (8) Ventricular fibrillation Is this a current diagnosis for this admission?: Yes (9) COPD (chronic obstructive pulmonary disease) Qualifiers: Qualified Code(s): J44.9 - Chronic obstructive pulmonary disease, unspecified Is this a current diagnosis for this admission?: Yes (10) Polymorphic ventricular tachycardia Is this a current diagnosis for this admission?: Yes
--- NOTE | 2018-02-11 16:16 | PDOC PROGRESS REPORT ---
Subjective Progress Note for:: 02/11/18 Subjective:: Patient seen by the bedside he was downgraded 2 days ago he is still in ICU ,He should be moved out of ICU very quickly Reason For Visit: ASPIRATION PNEUMONIA, ALCOHOLISM, ETOH LIVER Physical Exam Vital Signs: Temp Pulse Resp BP Pulse Ox 98.4 F 76 17 161/100 H 100 02/11/18 14:42 02/11/18 08:17 02/11/18 14:37 02/11/18 14:37 02/11/18 14:42 Intake & Output 02/10/18 02/11/18 02/12/18 06:59 06:59 06:59 Intake Total 2827 1607 200 Output Total 4874 1366 6154 Balance -3753 -7487 -7175 Weight 87.9 kg General appearance: PRESENT: no acute distress Eye exam: PRESENT: PERRLA Respiratory exam: PRESENT: clear to auscultation nikia Cardiovascular exam: PRESENT: +S1, +S2 GI/Abdominal exam: PRESENT: soft Results Laboratory Results: 02/11/18 04:07 02/11/18 04:07 02/10/18 02/11/18 02/11/18 15:39 04:07 04:07 WBC 5.9 5.9 RBC 3.86 L 3.79 L Hgb 12.5 L 12.5 L Hct 37.6 L 36.6 L MCV 97 97 MCH 32.4 32.8 MCHC 33.3 34.0 RDW 16.2 H 16.1 H Plt Count 177 182 Seg Neutrophils % 79.1 H 59.1 Lymphocytes % 11.8 L 27.6 Monocytes % 8.6 12.6 Eosinophils % 0.1 0.2 Basophils % 0.4 0.5 Absolute Neutrophils 4.6 3.5 Absolute Lymphocytes 0.7 1.6 Absolute Monocytes 0.5 0.7 Absolute Eosinophils 0.0 0.0 Absolute Basophils 0.0 0.0 Sodium 140.5 Potassium 3.1 L Chloride 100 Carbon Dioxide 32 H Anion Gap 9 BUN 10 Creatinine 0.35 L Est GFR ( Amer) > 60 Est GFR (Non-Af Amer) > 60 Glucose 95 Calcium 9.2 Total Bilirubin 0.8 AST 123 H ALT 110 H Alkaline Phosphatase 79 Total Protein 6.4 Albumin 3.2 L 01/30/18 01/30/18 01/30/18 20:30 20:30 20:30 Creatine Kinase 180 H CK-MB (CK-2) 1.38 Troponin I < 0.012 NT-Pro-B Natriuret Pep 1200 H 01/31/18 01/31/18 01/31/18 02:37 02:37 08:10 Creatine Kinase 130 98 CK-MB (CK-2) 1.29 Troponin I < 0.012 NT-Pro-B Natriuret Pep 01/31/18 02/01/18 02/01/18 08:10 13:21 13:21 Creatine Kinase 874 H CK-MB (CK-2) 1.02 1.95 Troponin I < 0.012 0.019 NT-Pro-B Natriuret Pep 02/02/18 10:10 Creatine Kinase CK-MB (CK-2) Troponin I < 0.012 NT-Pro-B Natriuret Pep Impressions: Chest CT 01/30/18 00:00 IMPRESSION: Multiple areas of patchy consolidation and gcfxvud-xiyvmu-wccha opacity throughout both lungs, greatest in the right upper parahilar region. Moderate fat stranding in the left pararenal space. Head CT 02/01/18 15:11 IMPRESSION: No significant intracranial abnormalities were identified. Other findings as noted above. EVIDENCE OF ACUTE STROKE: NO. KUB X-Ray 02/04/18 22:21 IMPRESSION: A nasogastric catheter is present with tip overlying the body of the stomach, side port is below the GE junction. Moderate bowel gas. Left basilar atelectasis -effusion. Chest X-Ray 02/09/18 06:00 IMPRESSION: No significant change. Assessment & Plan - Diagnosis (1) Acute hypoxemic respiratory failure Is this a current diagnosis for this admission?: Yes (2) Aspiration pneumonia Qualifiers: Aspiration pneumonia type: unspecified Laterality: right Lung location: upper lobe of lung Qualified Code(s): J69.0 - Pneumonitis due to inhalation of food and vomit Is this a current diagnosis for this admission?: Yes (3) Alcohol intoxication Qualifiers: Complication of substance-induced condition: with delirium Qualified Code(s ): F10.921 - Alcohol use, unspecified with intoxication delirium Is this a current diagnosis for this admission?: Yes (4) COPD (chronic obstructive pulmonary disease) Qualifiers: COPD type: unspecified COPD Qualified Code(s): J44.9 - Chronic obstructive pulmonary disease, unspecified Is this a current diagnosis for this admission?: Yes (5) Thrombocytopenia Is this a current diagnosis for this admission?: Yes (6) Cardiopulmonary arrest Is this a current diagnosis for this admission?: Yes (7) Alcohol withdrawal syndrome Qualifiers: Complication of substance-induced condition: with unspecified complication Qualified Code(s): F10.239 - Alcohol dependence with withdrawal, unspecified Is this a current diagnosis for this admission?: Yes (8) Ventricular fibrillation Is this a current diagnosis for this admission?: Yes (9) COPD (chronic obstructive pulmonary disease) Qualifiers: COPD type: unspecified COPD Qualified Code(s): J44.9 - Chronic obstructive pulmonary disease, unspecified Is this a current diagnosis for this admission?: Yes (10) Polymorphic ventricular tachycardia Is this a current diagnosis for this admission?: Yes
[2018-02-11] MEDS: IPRATROPIUM/ALBUTEROL 0.5-2.5 MG/3 ML AMPUL NEB PRN (19:57)
[2018-02-11] MEDS: NORMAL SALINE 1000 ML 1,000 ML with THIAMINE HCL 100 MG, MVI, ADULT NO.1 WITH VIT K 10 ... IV SCH ×4 (21:35)
[2018-02-12] MEDS: LORAZEPAM INJ 2 MG/1 ML VIAL IV PRN ×2 (04:52→22:08)
[2018-02-12] MEDS: METOPROLOL SUCCINATE 50 MG TAB.SR.24H PO SCH ×2 (06:01→16:36)
[2018-02-12] MEDS: CLONIDINE HCL 0.2 MG TABLET PO SCH ×3 (06:02→21:51)
--- NOTE | 2018-02-12 06:55 | EKG REPORT ---
SEVERITY:- ABNORMAL ECG - SINUS RHYTHM PROLONGED QT INTERVAL : Confirmed by: Cherelle Castro 12-Feb-2018 06:53:58
[2018-02-12] MEDS: FLUOXETINE HCL 20 MG CAPSULE PO SCH (07:43)
[2018-02-12] MEDS: HYDRALAZINE HCL INJ/PF 20 MG/1 ML SDV IV PRN (07:43)
[2018-02-12] MEDS: ACETYLCYSTEINE 20% SOLN 800 MG/4 ML VIAL.NEB NEB SCH ×2 (08:20→20:09)
[2018-02-12] MEDS: IPRATROPIUM/ALBUTEROL 0.5-2.5 MG/3 ML AMPUL NEB PRN (08:20)
--- NOTE | 2018-02-12 08:45 | PDOC PROGRESS REPORT ---
Subjective Progress Note for:: 02/12/18 Subjective:: 24h s/p extubation stable Reason For Visit: ASPIRATION PNEUMONIA, ALCOHOLISM, ETOH LIVER Physical Exam Vital Signs: Temp Pulse Resp BP Pulse Ox 99.0 F 81 14 187/104 H 95 02/12/18 07:45 02/12/18 08:20 02/12/18 08:20 02/12/18 07:45 02/12/18 08:20 Intake & Output 02/11/18 02/12/18 02/13/18 06:59 06:59 06:59 Intake Total 1607 300 Output Total 6660 2150 Balance -5053 -1850 Weight 87.9 kg General appearance: PRESENT: no acute distress, disheveled, well-developed Head exam: PRESENT: atraumatic, normocephalic Eye exam: PRESENT: conjunctiva pale, EOMI. ABSENT: nystagmus, periorbital swelling, scleral icterus Mouth exam: PRESENT: dry mucosa, neck supple, tongue midline Neck exam: ABSENT: carotid bruit, JVD, lymphadenopathy, thyromegaly, tracheal deviation, tracheostomy Respiratory exam: PRESENT: decreased breath sounds, prolonged expiratory phas, unlabored Cardiovascular exam: PRESENT: RRR, +S1, +S2 Pulses: PRESENT: normal radial pulses GI/Abdominal exam: PRESENT: diminished bowel sounds, soft Extremities exam: ABSENT: calf tenderness, clubbing Musculoskeletal exam: ABSENT: deformity, dislocation Neurological exam: PRESENT: awake Skin exam: PRESENT: dry, warm Results Laboratory Results: 02/11/18 04:07 02/11/18 04:07 01/30/18 01/30/18 01/30/18 20:30 20:30 20:30 Creatine Kinase 180 H CK-MB (CK-2) 1.38 Troponin I < 0.012 NT-Pro-B Natriuret Pep 1200 H 01/31/18 01/31/18 01/31/18 02:37 02:37 08:10 Creatine Kinase 130 98 CK-MB (CK-2) 1.29 Troponin I < 0.012 NT-Pro-B Natriuret Pep 01/31/18 02/01/18 02/01/18 08:10 13:21 13:21 Creatine Kinase 874 H CK-MB (CK-2) 1.02 1.95 Troponin I < 0.012 0.019 NT-Pro-B Natriuret Pep 02/02/18 10:10 Creatine Kinase CK-MB (CK-2) Troponin I < 0.012 NT-Pro-B Natriuret Pep Impressions: Chest CT 01/30/18 00:00 IMPRESSION: Multiple areas of patchy consolidation and zenivlq-vukqqa-gcckn opacity throughout both lungs, greatest in the right upper parahilar region. Moderate fat stranding in the left pararenal space. Head CT 02/01/18 15:11 IMPRESSION: No significant intracranial abnormalities were identified. Other findings as noted above. EVIDENCE OF ACUTE STROKE: NO. KUB X-Ray 02/04/18 22:21 IMPRESSION: A nasogastric catheter is present with tip overlying the body of the stomach, side port is below the GE junction. Moderate bowel gas. Left basilar atelectasis -effusion. Chest X-Ray 02/09/18 06:00 IMPRESSION: No significant change. Assessment & Plan - Diagnosis (1) Acute hypoxemic respiratory failure Is this a current diagnosis for this admission?: Yes Plan: stable (2) Aspiration pneumonia Qualifiers: Aspiration pneumonia type: unspecified Laterality: right Lung location: upper lobe of lung Qualified Code(s): J69.0 - Pneumonitis due to inhalation of food and vomit Is this a current diagnosis for this admission?: Yes Plan: improving;not resolved continue chest physio therapy (3) COPD (chronic obstructive pulmonary disease) Qualifiers: COPD type: unspecified COPD Qualified Code(s): J44.9 - Chronic obstructive pulmonary disease, unspecified Is this a current diagnosis for this admission?: Yes Plan: LABA+LAMA and prn CLIVE (4) Thrombocytopenia Is this a current diagnosis for this admission?: No (5) Alcohol withdrawal seizure with complication Is this a current diagnosis for this admission?: No
[2018-02-12] MEDS: PREDNISONE 20 MG TABLET PO SCH (10:09)
[2018-02-12] MEDS: PREGABALIN 50 MG CAPSULE PO SCH ×2 (10:09→21:51)
[2018-02-12] MEDS: OLANZAPINE 2.5 MG TABLET PO SCH (10:09)
[2018-02-12] MEDS: POTASSIUM CHLORIDE 10 MEQ TABLET.SA PO SCH (10:09)
[2018-02-12] MEDS: FLUTICASONE/SALMETEROL DISKUS 250-50 MCG/DOSE IH SCH (10:09)
--- NOTE | 2018-02-12 21:02 | PDOC PROGRESS REPORT ---
Subjective Progress Note for:: 02/12/18 Subjective:: He complaining of dizziness now out of ICU to medical floor Reason For Visit: ASPIRATION PNEUMONIA, ALCOHOLISM, ETOH LIVER Physical Exam Vital Signs: Temp Pulse Resp BP Pulse Ox 98.3 F 73 16 149/95 H 97 02/12/18 15:04 02/12/18 15:04 02/12/18 15:04 02/12/18 15:04 02/12/18 16:14 Intake & Output 02/11/18 02/12/18 02/13/18 06:59 06:59 06:59 Intake Total 1607 300 720 Output Total 6660 2150 400 Balance -5053 -1850 320 Weight 87.9 kg General appearance: PRESENT: no acute distress Eye exam: PRESENT: PERRLA Respiratory exam: PRESENT: clear to auscultation nikia Cardiovascular exam: PRESENT: +S1, +S2 GI/Abdominal exam: PRESENT: soft Neurological exam: PRESENT: alert Results Laboratory Results: 02/11/18 04:07 02/11/18 04:07 01/30/18 01/30/18 01/30/18 20:30 20:30 20:30 Creatine Kinase 180 H CK-MB (CK-2) 1.38 Troponin I < 0.012 NT-Pro-B Natriuret Pep 1200 H 01/31/18 01/31/18 01/31/18 02:37 02:37 08:10 Creatine Kinase 130 98 CK-MB (CK-2) 1.29 Troponin I < 0.012 NT-Pro-B Natriuret Pep 01/31/18 02/01/18 02/01/18 08:10 13:21 13:21 Creatine Kinase 874 H CK-MB (CK-2) 1.02 1.95 Troponin I < 0.012 0.019 NT-Pro-B Natriuret Pep 02/02/18 10:10 Creatine Kinase CK-MB (CK-2) Troponin I < 0.012 NT-Pro-B Natriuret Pep Impressions: Chest CT 01/30/18 00:00 IMPRESSION: Multiple areas of patchy consolidation and hjmwcya-uzxjag-kbkjr opacity throughout both lungs, greatest in the right upper parahilar region. Moderate fat stranding in the left pararenal space. Head CT 02/01/18 15:11 IMPRESSION: No significant intracranial abnormalities were identified. Other findings as noted above. EVIDENCE OF ACUTE STROKE: NO. KUB X-Ray 02/04/18 22:21 IMPRESSION: A nasogastric catheter is present with tip overlying the body of the stomach, side port is below the GE junction. Moderate bowel gas. Left basilar atelectasis -effusion. Chest X-Ray 02/09/18 06:00 IMPRESSION: No significant change. Assessment & Plan - Diagnosis (1) Acute hypoxemic respiratory failure Is this a current diagnosis for this admission?: Yes (2) Aspiration pneumonia Qualifiers: Aspiration pneumonia type: unspecified Laterality: right Lung location: upper lobe of lung Qualified Code(s): J69.0 - Pneumonitis due to inhalation of food and vomit Is this a current diagnosis for this admission?: Yes (3) Alcohol intoxication Qualifiers: Complication of substance-induced condition: with delirium Qualified Code(s ): F10.921 - Alcohol use, unspecified with intoxication delirium Is this a current diagnosis for this admission?: Yes (4) COPD (chronic obstructive pulmonary disease) Qualifiers: COPD type: unspecified COPD Qualified Code(s): J44.9 - Chronic obstructive pulmonary disease, unspecified Is this a current diagnosis for this admission?: Yes (5) Thrombocytopenia Is this a current diagnosis for this admission?: No (6) Cardiopulmonary arrest Is this a current diagnosis for this admission?: Yes (7) Alcohol withdrawal syndrome Qualifiers: Complication of substance-induced condition: with unspecified complication Qualified Code(s): F10.239 - Alcohol dependence with withdrawal, unspecified Is this a current diagnosis for this admission?: Yes (8) Ventricular fibrillation Is this a current diagnosis for this admission?: Yes (9) COPD (chronic obstructive pulmonary disease) Qualifiers: COPD type: unspecified COPD Qualified Code(s): J44.9 - Chronic obstructive pulmonary disease, unspecified Is this a current diagnosis for this admission?: Yes (10) Polymorphic ventricular tachycardia Is this a current diagnosis for this admission?: Yes
[2018-02-12] MEDS: CYCLOBENZAPRINE HCL 10 MG TABLET PO PRN (22:08)
[2018-02-12] MEDS: NORMAL SALINE 1000 ML 1,000 ML with THIAMINE HCL 100 MG, MVI, ADULT NO.1 WITH VIT K 10 ... IV SCH ×4 (22:09)
[2018-02-12] MEDS ORDERED: FLUTICASONE/SALMETEROL DISKUS 250-50 MCG/DOSE IH ONE (23:24)
[2018-02-13] MEDS: LORAZEPAM INJ 2 MG/1 ML VIAL IV PRN ×4 (04:04→21:38)
[2018-02-13] MEDS: FLUTICASONE/SALMETEROL DISKUS 250-50 MCG/DOSE IH SCH ×3 (06:41→21:40)
[2018-02-13] MEDS: CLONIDINE HCL 0.2 MG TABLET PO SCH ×3 (06:56→21:39)
[2018-02-13] MEDS: METOPROLOL SUCCINATE 50 MG TAB.SR.24H PO SCH ×2 (06:57→16:41)
[2018-02-13] MEDS: IPRATROPIUM/ALBUTEROL 0.5-2.5 MG/3 ML AMPUL NEB PRN (08:24)
[2018-02-13] MEDS: ACETYLCYSTEINE 20% SOLN 800 MG/4 ML VIAL.NEB NEB SCH ×2 (08:25→21:05)
[2018-02-13] MEDS: OLANZAPINE 2.5 MG TABLET PO SCH (08:54)
[2018-02-13] MEDS: POTASSIUM CHLORIDE 10 MEQ TABLET.SA PO SCH (08:57)
[2018-02-13] MEDS: FLUOXETINE HCL 20 MG CAPSULE PO SCH (08:57)
[2018-02-13] MEDS: PREDNISONE 20 MG TABLET PO SCH (08:58)
[2018-02-13] MEDS: PREGABALIN 50 MG CAPSULE PO SCH ×2 (08:58→21:39)
[2018-02-13] MEDS: CYCLOBENZAPRINE HCL 10 MG TABLET PO PRN ×2 (10:44→21:39)
--- NOTE | 2018-02-13 13:53 | PDOC PROGRESS REPORT ---
Subjective Progress Note for:: 02/13/18 Subjective:: 24h s/p extubation stable Reason For Visit: ASPIRATION PNEUMONIA, ALCOHOLISM, ETOH LIVER Physical Exam Vital Signs: Temp Pulse Resp BP Pulse Ox 98.4 F 74 19 168/90 H 95 02/13/18 11:45 02/13/18 11:45 02/13/18 11:45 02/13/18 11:45 02/13/18 11:45 Intake & Output 02/12/18 02/13/18 02/14/18 06:59 06:59 06:59 Intake Total 300 2622 Output Total 2150 400 Balance -1850 2222 Weight 82.1 kg General appearance: PRESENT: no acute distress, cooperative, disheveled, well- developed, well-nourished Head exam: PRESENT: atraumatic, normocephalic Eye exam: PRESENT: conjunctiva pale, EOMI. ABSENT: nystagmus, periorbital swelling, scleral icterus Mouth exam: PRESENT: dry mucosa, neck supple, tongue midline Neck exam: ABSENT: carotid bruit, JVD, lymphadenopathy, thyromegaly, tracheal deviation, tracheostomy Respiratory exam: PRESENT: decreased breath sounds, prolonged expiratory phas, rhonchi, unlabored. ABSENT: retraction, stridor, tachypnea Cardiovascular exam: PRESENT: RRR, +S1, +S2 GI/Abdominal exam: PRESENT: diminished bowel sounds, soft Extremities exam: ABSENT: calf tenderness, clubbing, joint swelling Musculoskeletal exam: ABSENT: deformity, dislocation Neurological exam: PRESENT: awake Skin exam: PRESENT: dry, warm Results Laboratory Results: 02/11/18 04:07 02/11/18 04:07 01/30/18 01/30/18 01/30/18 20:30 20:30 20:30 Creatine Kinase 180 H CK-MB (CK-2) 1.38 Troponin I < 0.012 NT-Pro-B Natriuret Pep 1200 H 01/31/18 01/31/18 01/31/18 02:37 02:37 08:10 Creatine Kinase 130 98 CK-MB (CK-2) 1.29 Troponin I < 0.012 NT-Pro-B Natriuret Pep 01/31/18 02/01/18 02/01/18 08:10 13:21 13:21 Creatine Kinase 874 H CK-MB (CK-2) 1.02 1.95 Troponin I < 0.012 0.019 NT-Pro-B Natriuret Pep 02/02/18 10:10 Creatine Kinase CK-MB (CK-2) Troponin I < 0.012 NT-Pro-B Natriuret Pep Impressions: Chest CT 01/30/18 00:00 IMPRESSION: Multiple areas of patchy consolidation and ejiqgtm-mvqwjm-dbylf opacity throughout both lungs, greatest in the right upper parahilar region. Moderate fat stranding in the left pararenal space. Head CT 02/01/18 15:11 IMPRESSION: No significant intracranial abnormalities were identified. Other findings as noted above. EVIDENCE OF ACUTE STROKE: NO. KUB X-Ray 02/04/18 22:21 IMPRESSION: A nasogastric catheter is present with tip overlying the body of the stomach, side port is below the GE junction. Moderate bowel gas. Left basilar atelectasis -effusion. Chest X-Ray 02/09/18 06:00 IMPRESSION: No significant change. Assessment & Plan - Diagnosis (1) Acute hypoxemic respiratory failure Is this a current diagnosis for this admission?: Yes Plan: stable;continues to improve (2) Aspiration pneumonia Qualifiers: Aspiration pneumonia type: unspecified Laterality: right Lung location: upper lobe of lung Qualified Code(s): J69.0 - Pneumonitis due to inhalation of food and vomit Is this a current diagnosis for this admission?: Yes Plan: improving;not resolved continue chest physio therapy (3) COPD (chronic obstructive pulmonary disease) Qualifiers: COPD type: unspecified COPD Qualified Code(s): J44.9 - Chronic obstructive pulmonary disease, unspecified Is this a current diagnosis for this admission?: Yes Plan: Continue current therapy (4) Thrombocytopenia Is this a current diagnosis for this admission?: No (5) Alcohol withdrawal seizure with complication Is this a current diagnosis for this admission?: No
--- NOTE | 2018-02-13 14:28 | EKG REPORT ---
SEVERITY:- BORDERLINE ECG - SINUS RHYTHM BORDERLINE PROLONGED QT INTERVAL : Confirmed by: Cherelle Castro 13-Feb-2018 14:27:22
--- NOTE | 2018-02-13 20:28 | PDOC PROGRESS REPORT ---
Subjective Progress Note for:: 02/13/18 Subjective:: Patient today noted to be alert and oriented. Patient's at bedside.. Medications reviewed. System review: No significant changes Medications reviewed. Patient is maintaining sinus rhythm. Intermittent sinus tachycardia noted. Medications: Medications have been reviewed. Reason For Visit: ASPIRATION PNEUMONIA, ALCOHOLISM, ETOH LIVER Physical Exam Vital Signs: Temp Pulse Resp BP Pulse Ox 98.4 F 69 16 156/82 H 96 02/13/18 19:53 02/13/18 19:53 02/13/18 19:53 02/13/18 19:53 02/13/18 19:53 Intake & Output 02/12/18 02/13/18 02/14/18 06:59 06:59 06:59 Intake Total 300 2622 580 Output Total 2150 400 Balance -1850 2222 580 Weight 82.1 kg Exam: GENERAL: well-nourished and in no acute distress. Alert and oriented x3 HEAD: Atraumatic, normocephalic. EYES: Pupils equal round and reactive to light, extraocular movements intact, sclera anicteric, conjunctiva are normal. ENT: TMs normal, nares patent, oropharynx clear without exudates. Moist mucous membranes. No oral ulcerations or bleeding gums noted NECK: supple without lymphadenopathy. Trachea is central. No cervical or axillary lymphadenopathy noted. Carotids are 2+, JVD WNL LUNGS: Respiration seems nonlabored, no significant accessory muscle action noted. Breath sounds clear to auscultation bilaterally and equal noted. No wheezes rales or rhonchi noted. No significant dullness noted on percussion. CHEST: Palpation of the chest wall shows no significant chest wall tenderness. HEART: [place] [employer]ING [employer]T SANDER, No PSH, 1/6 TRENT aortic area, 1/6 hawkins systolic murmur mitral area, no rubs, no gallops. ABDOMEN: Soft, no significant tenderness appreciated, normoactive bowel sounds. No guarding, no rebound. No rigidity noted . No masses appreciated. EXTREMITIES: Pedal pulses are 1-2+, no calf tenderness noted. No clubbing or cyanosis. negative pedal edema noted NEUROLOGICAL: Focused neurological exam showed no significant neurologic deficit. Normal speech, no focal weakness appreciated. PSYCH: Normal mood, normal affect. Judgment and insight within normal limits. SKIN: No significant ecchymosis, skin is noted to be warm. MUSCULOSKELETAL EXAM: No significant acute joint swelling noted. Results Laboratory Results: 02/11/18 04:07 02/11/18 04:07 01/30/18 01/30/18 01/30/18 20:30 20:30 20:30 Creatine Kinase 180 H CK-MB (CK-2) 1.38 Troponin I < 0.012 NT-Pro-B Natriuret Pep 1200 H 01/31/18 01/31/18 01/31/18 02:37 02:37 08:10 Creatine Kinase 130 98 CK-MB (CK-2) 1.29 Troponin I < 0.012 NT-Pro-B Natriuret Pep 01/31/18 02/01/18 02/01/18 08:10 13:21 13:21 Creatine Kinase 874 H CK-MB (CK-2) 1.02 1.95 Troponin I < 0.012 0.019 NT-Pro-B Natriuret Pep 02/02/18 10:10 Creatine Kinase CK-MB (CK-2) Troponin I < 0.012 NT-Pro-B Natriuret Pep EKG Comments: Telemetry shows sinus rhythm without any sustained tacky or bradycardia arrhythmias. Impressions: Chest CT 01/30/18 00:00 IMPRESSION: Multiple areas of patchy consolidation and picogsk-yfowxt-prnza opacity throughout both lungs, greatest in the right upper parahilar region. Moderate fat stranding in the left pararenal space. Head CT 02/01/18 15:11 IMPRESSION: No significant intracranial abnormalities were identified. Other findings as noted above. EVIDENCE OF ACUTE STROKE: NO. KUB X-Ray 02/04/18 22:21 IMPRESSION: A nasogastric catheter is present with tip overlying the body of the stomach, side port is below the GE junction. Moderate bowel gas. Left basilar atelectasis -effusion. Chest X-Ray 02/09/18 06:00 IMPRESSION: No significant change. Assessment & Plan - Diagnosis (1) Polymorphic ventricular tachycardia Is this a current diagnosis for this admission?: Yes (2) Cardiac arrest Is this a current diagnosis for this admission?: Yes (3) Acute hypoxemic respiratory failure Is this a current diagnosis for this admission?: Yes (4) Alcohol intoxication Qualifiers: Complication of substance-induced condition: with delirium Qualified Code(s ): F10.921 - Alcohol use, unspecified with intoxication delirium Is this a current diagnosis for this admission?: Yes (5) COPD (chronic obstructive pulmonary disease) Qualifiers: COPD type: unspecified COPD Qualified Code(s): J44.9 - Chronic obstructive pulmonary disease, unspecified Is this a current diagnosis for this admission?: Yes (6) Alcohol withdrawal seizure with complication Is this a current diagnosis for this admission?: No (7) Hypokalemia Is this a current diagnosis for this admission?: Yes (8) Hypomagnesemia Is this a current diagnosis for this admission?: Yes - Notes Notes: Polymorphic ventricular tachycardia: This was felt to be related to prolonged QT secondary to medications and electrolyte imbalance in setting of metabolic abnormalities of alcohol withdrawal. Feel that patient not able to cooperate for the stress test to rule out any underlying coronary artery disease as cause of this. Patient to continue with beta-sunil. Maintain electrolytes within normal limit. Status post cardiac arrest: Secondary to ventricular fibrillation related to polymorphic ventricular tachycardia. COPD: Currently stable. Alcohol withdrawal: Currently stable Hypokalemia: Consider spironolactone or eplerenone therapy. Hypomagnesemia: Recommend correction to normal level. - Time Time with patient: Greater than 35 minutes - CODE STATUS was discussed, patient remains full code. Surrogate decision-maker unchanged. Multiple medical problems were addressed. More than 50% of the time spent coordinating care, discussing management plans with involved caregivers. Management plans discussed with involved personnels. Medical decision making was of moderate to high complexity, patient's has multiple comorbidities. Medications reviewed and adjusted accordingly: Yes
[2018-02-13] MEDS: ALBUTEROL SULFATE 0.083% NEB 2.5 MG/3 ML AMPUL NEB PRN (21:06)
--- NOTE | 2018-02-13 21:30 | PDOC PROGRESS REPORT ---
Subjective Progress Note for:: 02/13/18 Subjective:: Patient is seen by the bedside, he is scheduled for a stress test in the morning Reason For Visit: ASPIRATION PNEUMONIA, ALCOHOLISM, ETOH LIVER Physical Exam Vital Signs: Temp Pulse Resp BP Pulse Ox 98.4 F 69 16 156/82 H 96 02/13/18 19:53 02/13/18 19:53 02/13/18 19:53 02/13/18 19:53 02/13/18 19:53 Intake & Output 02/12/18 02/13/18 02/14/18 06:59 06:59 06:59 Intake Total 300 2622 580 Output Total 2150 400 Balance -1850 2222 580 Weight 82.1 kg General appearance: PRESENT: no acute distress Eye exam: PRESENT: PERRLA Respiratory exam: PRESENT: clear to auscultation nikia Cardiovascular exam: PRESENT: +S1, +S2 GI/Abdominal exam: PRESENT: soft Neurological exam: PRESENT: alert Results Laboratory Results: 02/11/18 04:07 02/11/18 04:07 01/30/18 01/30/18 01/30/18 20:30 20:30 20:30 Creatine Kinase 180 H CK-MB (CK-2) 1.38 Troponin I < 0.012 NT-Pro-B Natriuret Pep 1200 H 01/31/18 01/31/18 01/31/18 02:37 02:37 08:10 Creatine Kinase 130 98 CK-MB (CK-2) 1.29 Troponin I < 0.012 NT-Pro-B Natriuret Pep 01/31/18 02/01/18 02/01/18 08:10 13:21 13:21 Creatine Kinase 874 H CK-MB (CK-2) 1.02 1.95 Troponin I < 0.012 0.019 NT-Pro-B Natriuret Pep 02/02/18 10:10 Creatine Kinase CK-MB (CK-2) Troponin I < 0.012 NT-Pro-B Natriuret Pep Impressions: Chest CT 01/30/18 00:00 IMPRESSION: Multiple areas of patchy consolidation and opszxft-rzebrw-uqlrs opacity throughout both lungs, greatest in the right upper parahilar region. Moderate fat stranding in the left pararenal space. Head CT 02/01/18 15:11 IMPRESSION: No significant intracranial abnormalities were identified. Other findings as noted above. EVIDENCE OF ACUTE STROKE: NO. KUB X-Ray 02/04/18 22:21 IMPRESSION: A nasogastric catheter is present with tip overlying the body of the stomach, side port is below the GE junction. Moderate bowel gas. Left basilar atelectasis -effusion. Chest X-Ray 02/09/18 06:00 IMPRESSION: No significant change. Assessment & Plan - Diagnosis (1) Acute hypoxemic respiratory failure Is this a current diagnosis for this admission?: Yes (2) Aspiration pneumonia Qualifiers: Aspiration pneumonia type: unspecified Laterality: right Lung location: upper lobe of lung Qualified Code(s): J69.0 - Pneumonitis due to inhalation of food and vomit Is this a current diagnosis for this admission?: Yes (3) Alcohol intoxication Qualifiers: Complication of substance-induced condition: with delirium Qualified Code(s ): F10.921 - Alcohol use, unspecified with intoxication delirium Is this a current diagnosis for this admission?: Yes (4) COPD (chronic obstructive pulmonary disease) Qualifiers: COPD type: unspecified COPD Qualified Code(s): J44.9 - Chronic obstructive pulmonary disease, unspecified Is this a current diagnosis for this admission?: Yes (5) Thrombocytopenia Is this a current diagnosis for this admission?: No (6) Cardiopulmonary arrest Is this a current diagnosis for this admission?: Yes (7) Alcohol withdrawal syndrome Qualifiers: Complication of substance-induced condition: with unspecified complication Qualified Code(s): F10.239 - Alcohol dependence with withdrawal, unspecified Is this a current diagnosis for this admission?: Yes (8) Ventricular fibrillation Is this a current diagnosis for this admission?: Yes (9) COPD (chronic obstructive pulmonary disease) Qualifiers: COPD type: unspecified COPD Qualified Code(s): J44.9 - Chronic obstructive pulmonary disease, unspecified Is this a current diagnosis for this admission?: Yes (10) Polymorphic ventricular tachycardia Is this a current diagnosis for this admission?: Yes
[2018-02-13] MEDS: NORMAL SALINE 1000 ML 1,000 ML with THIAMINE HCL 100 MG, MVI, ADULT NO.1 WITH VIT K 10 ... IV SCH ×4 (21:40)
[2018-02-14] MEDS: HYDRALAZINE HCL INJ/PF 20 MG/1 ML SDV IV PRN (03:53)
[2018-02-14] MEDS: LORAZEPAM INJ 2 MG/1 ML VIAL IV PRN ×2 (03:56→08:37)
[2018-02-14] MEDS: CLONIDINE HCL 0.2 MG TABLET PO SCH ×2 (05:51→16:00)
[2018-02-14] MEDS: METOPROLOL SUCCINATE 50 MG TAB.SR.24H PO SCH (05:52)
[2018-02-14] MEDS: ACETYLCYSTEINE 20% SOLN 800 MG/4 ML VIAL.NEB NEB SCH (07:49)
[2018-02-14] MEDS: IPRATROPIUM/ALBUTEROL 0.5-2.5 MG/3 ML AMPUL NEB PRN (07:50)
[2018-02-14] MEDS: FLUOXETINE HCL 20 MG CAPSULE PO SCH (08:18)
[2018-02-14] MEDS: PREGABALIN 50 MG CAPSULE PO SCH (10:32)
[2018-02-14] MEDS: PREDNISONE 20 MG TABLET PO SCH (10:32)
[2018-02-14] MEDS: FLUTICASONE/SALMETEROL DISKUS 250-50 MCG/DOSE IH SCH (10:32)
[2018-02-14] MEDS: POTASSIUM CHLORIDE 10 MEQ TABLET.SA PO SCH (10:33)
[2018-02-14] MEDS: OLANZAPINE 2.5 MG TABLET PO SCH (10:33)
--- NOTE | 2018-02-14 12:09 | DRAGON STRESS TEST REPORT ---
INTRAVENOUS LEXISCAN CARDIOLITE STRESS TEST USING SINGLE PHOTON EMMISION COMPUTERIZED TOMOGRAPHIC. DATE OF PROCEDURE: February 14, 2018, INDICATION : Ventricular tachycardia CARDIAC RISK FACTORS: Hypertension, history of smoking RESTING EKG: Sinus rhythm without any significant baseline ST-T wave changes STRESS EKG: No significant ST segment changes noted with LexiScan bolus REASON FOR TERMINATION: Protocol. PROCEDURE REPORT: Baseline heart rate 87 beats per minute with blood pressure of 156/84. Patient had no significant complaints. Patient was bolused with Lexiscan 0.4 mg intravenously followed by saline bolus. Heart rate at 2 minutes post bolus 103 with a blood pressure of 144/73. 3 minutes post bolus heart rate 100 with blood pressure of 142/75. No significant EKG changes were noted. Patient had no significant complaints during the procedure or postprocedure. Patient injected with Aminophyllin 75 mg at 3 minutes or later after Lexiscan bolus. CONCLUSIONS: Normal EKG and hemodynamic response to IV LexiScan. NUCLEAR DATA: At rest the patient was given 12.64 millicuries of technetium 99 sestamibi injected intravenously. As per protocol rest gated SPECT images were obtained. On day of stress test, the patient was given intravenous LexiScan at a dose of 0.4 mg in 5 mL intravenously, followed by flush with normal saline. Subsequently the stress dose of 36.7 millicuries of technetium 99 sestamibi was injected intravenously. As per protocol stress gated images were obtained. NUCLEAR INTERPRETATION: Both raw and processed data were used for interpretation. Visual, qualitative, computer-generated quantitative data was used. There was good myocardial uptake of technetium compound. Motion artifact and soft tissue attenuations were noted. Increased visceral uptake was noted. No definitive areas of transient perfusion defect noted, No definitive areas of fixed perfusion defect or scars noted. EKG gated imaging showed LV EF at 52 %, rest and stress gated EF similar visually. T. I D. ratio was 1.02. Lung heart ratio noted to be within normal limits 0.34. No significant extracardiac and abnormal radiotracer activities were noted. RV free wall uptake was noted to be WNL. IMPRESSION: Also refer to comments under nuclear interpretation. Also test results needs to be interpreted in the context of pretest probability. 1. No definitive areas of transient perfusion defect noted. 2. There is no definitive scintigraphic evidence of myocardial infarction/scar. 3. EKG gated imaging shows left ventricular ejection fraction of approx. 52 %. 4. Clinical correlation requested as occasionally single vessel disease or balanced ischemia could be missed. In approximately 10% of the cases Lexiscan may not cause adequate vasodilatory stress. RECOMMENDATIONS: Aggressive risk factor modification and medical management. Further evaluation may be needed if continued symptoms or other high risk indicators are noted on clinical evaluation. Close cardiology follow-up is also recommended. Clinical correlation with echocardiogram derived ejection fraction. Inability to exercise by itself can lead to increased cardiovascular event risks. Consider cardiology consultation and or follow-up if clinically indicated. 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 JAIR
[2018-02-14] MEDS ORDERED: REGADENOSON INJ 0.4 MG/5 ML DISP.SYRIN IV ONE (12:37)
[2018-02-14] MEDS ORDERED: AMINOPHYLLINE INJ/PF 250 MG/10 ML SDV IV ONE (12:37)
--- NOTE | 2018-02-14 14:47 | PDOC DISCHARGE SUMMARY ---
General - Admit/Disc Date/PCP Admission Date/Primary Care Provider: 01/30/18 09:59 Discharge Date: 02/14/18 - Discharge Diagnosis (1) Acute hypoxemic respiratory failure Is this a current diagnosis for this admission?: Yes (2) Aspiration pneumonia Is this a current diagnosis for this admission?: Yes (3) Alcohol intoxication Is this a current diagnosis for this admission?: Yes (4) COPD (chronic obstructive pulmonary disease) Is this a current diagnosis for this admission?: Yes (5) Thrombocytopenia Is this a current diagnosis for this admission?: Yes (6) Cardiopulmonary arrest Is this a current diagnosis for this admission?: Yes (7) Alcohol withdrawal syndrome Is this a current diagnosis for this admission?: Yes (8) Ventricular fibrillation Is this a current diagnosis for this admission?: Yes (9) COPD (chronic obstructive pulmonary disease) Is this a current diagnosis for this admission?: Yes (10) Polymorphic ventricular tachycardia Is this a current diagnosis for this admission?: Yes (11) Alcoholic cirrhosis of liver Is this a current diagnosis for this admission?: Yes - Additional Information Resuscitation Status: Full Code Home Medications: Albuterol Sulfate [Proair HFA Inhalation Aerosol 8.5 gm MDI] 2 puff IH Q4HP PRN 01/30/18 Albuterol Sulfate [Ventolin 0.083% Neb 2.5 mg/3 mL Ampul] 2.5 mg NEB RTQ4HP PRN 01/30/18 Clonidine HCl [Catapres 0.2 mg Tablet] 0.2 mg PO Q8 01/30/18 Cyclobenzaprine HCl [Flexeril 10 mg Tablet] 10 mg PO TID 01/30/18 Diazepam [Valium 5 mg Tablet] 5 mg PO QPMP PRN 01/30/18 Donepezil HCl [Aricept 5 mg Tablet] 5 mg PO QHS 01/30/18 Fluoxetine HCl [Prozac] 40 mg PO QAM 01/30/18 Fluticasone/Salmeterol [Advair 250-50 Diskus 28 dose] 1 puff IH Q12 01/30/18 Levetiracetam [Keppra 500 mg Tablet] 500 mg PO Q12 01/30/18 Pregabalin [Lyrica 50 mg Capsule] 50 mg PO Q12 01/30/18 Quetiapine Fumarate [Seroquel Xr] 150 mg PO QPM 01/30/18 Thiamine HCl [Vitamin B-1] 500 mg PO DAILY 01/30/18 Tiotropium [place] [Spiriva Handihaler 18 mcg/dose (30 Dose)] 18 mcg PO DAILY Trazodone HCl [Desyrel] 150 mg PO QHS 01/30/18 History of Present Illness History of Present Illness: RODNEY L[address] is a 42 year old male, Patient is an alcoholic he was transferred from his residence by EMS to the emergency room for evaluation of shortness of breath. When he arrived in the emergency room he was evaluated he was found to be alcohol intoxicated it was just 9 a.m. in the morning on his alcohol level is above legal limit, this patient has remained drunk all the time he has alcohol liver disease, alcohol liver cirrhosis complicated with thrombocytopenia, hepatic encephalopathy. In the emergency room a chest x-ray was done it showed infiltrate in the right upper lobe probably due to aspiration. The blood gas on FiO2 of 26%, pH is 7.4, PO2 64.8, bicarbonate 28.9 PCO2 43.2, he also have hyperammonemia, history taking was a challenge from this patient.He was appropriately [facility] , The last time he was admitted to this hospital he developed alcohol withdrawal syndrome history taking was a challenge Due to excessive somnolence most likely from the intravenous lorazepam but he was given the emergency room. Hospital Course Hospital Course: Patient was admitted for the management of aspiration pneumonia, alcohol withdrawal syndrome he developed torsades/cardiopulmonary arrest requiring defibrillation was transferred to ICU intubated on mechanical ventilation . Patient was sedated with IV lorazepam drip because of alcohol withdrawal syndrome he,was seen in consultation by pulmonary, cardiology. He has severe thrombocytopenia due to alcohol liver cirrhosis. 2D echo was done he has low normal Ejectional fraction left ventricle, a Cardiolite stress test was done it was negative for any acute reversibility to suggest ischemic heart disease. Patient is an alcoholic I explained to him that if he continues to drink he would not do well, he said he has back pain, is requesting for pain medication I advised him against the use of opioid for the control of pain especially with liver cirrhosis Physical Exam Vital Signs: Temp Pulse Resp BP Pulse Ox 98.9 F 72 19 161/91 H 99 02/14/18 11:49 02/14/18 11:49 02/14/18 11:49 02/14/18 11:49 02/14/18 11:49 Intake & Output 02/13/18 02/14/18 02/15/18 06:59 06:59 06:59 Intake Total 2622 1580 Output Total 400 Balance 2222 1580 Weight 82.1 kg 83.6 kg General appearance: PRESENT: no acute distress, well-developed, well-nourished Head exam: PRESENT: atraumatic, normocephalic Eye exam: PRESENT: conjunctiva pink, EOMI, PERRLA Ear exam: PRESENT: normal external ear exam Mouth exam: PRESENT: moist, tongue midline Neck exam: PRESENT: full ROM Respiratory exam: PRESENT: clear to auscultation nikia Cardiovascular exam: PRESENT: RRR, +S1, +S2 Pulses: PRESENT: normal dorsalis pedis pul, +2 pedal pulses bilateral Vascular exam: PRESENT: normal capillary refill GI/Abdominal exam: PRESENT: normal bowel sounds, soft Rectal exam: PRESENT: deferred Neurological exam: PRESENT: alert, awake, oriented to person, oriented to place , oriented to time, oriented to situation, CN II-XII grossly intact Psychiatric exam: PRESENT: appropriate affect, normal mood Skin exam: PRESENT: dry, intact, warm Results Laboratory Results: 02/11/18 04:07 02/11/18 04:07 01/30/18 01/30/18 01/30/18 20:30 20:30 20:30 Creatine Kinase 180 H CK-MB (CK-2) 1.38 Troponin I < 0.012 NT-Pro-B Natriuret Pep 1200 H 01/31/18 01/31/18 01/31/18 02:37 02:37 08:10 Creatine Kinase 130 98 CK-MB (CK-2) 1.29 Troponin I < 0.012 NT-Pro-B Natriuret Pep 01/31/18 02/01/18 02/01/18 08:10 13:21 13:21 Creatine Kinase 874 H CK-MB (CK-2) 1.02 1.95 Troponin I < 0.012 0.019 NT-Pro-B Natriuret Pep 02/02/18 10:10 Creatine Kinase CK-MB (CK-2) Troponin I < 0.012 NT-Pro-B Natriuret Pep Impressions: Chest CT 01/30/18 00:00 IMPRESSION: Multiple areas of patchy consolidation and wrbvitv-qdfvsv-ofbhu opacity throughout both lungs, greatest in the right upper parahilar region. Moderate fat stranding in the left pararenal space. Head CT 02/01/18 15:11 IMPRESSION: No significant intracranial abnormalities were identified. Other findings as noted above. EVIDENCE OF ACUTE STROKE: NO. KUB X-Ray 02/04/18 22:21 IMPRESSION: A nasogastric catheter is present with tip overlying the body of the stomach, side port is below the GE junction. Moderate bowel gas. Left basilar atelectasis -effusion. Chest X-Ray 02/09/18 06:00 IMPRESSION: No significant change. Qualifiers - * PATIENT BEING DISCHARGED WITH ANY OF THE FOLLOWING DIAGNOSIS: No
[2018-02-14] MEDS ORDERED: CLONIDINE HCL 0.2 MG TABLET PO ONE (15:45)
[2018-02-14 16:53] VITALS: BP 165/95
--- NOTE | 2018-02-14 19:18 | PDOC PROGRESS REPORT ---
Subjective Progress Note for:: 02/09/18 Subjective:: Asked to see patient because of tachycardia. Medications reviewed. System review: No significant changes Medications reviewed. Patient is maintaining sinus rhythm. Sinus tachycardia noted. Blood pressure noted to be elevated. Medications: Medications have been reviewed. Reason For Visit: ASPIRATION PNEUMONIA, ALCOHOLISM, ETOH LIVER Physical Exam Vital Signs: Temp Pulse Resp BP Pulse Ox 98.3 F 87 18 151/98 H 96 02/09/18 20:00 02/09/18 20:00 02/09/18 20:00 02/09/18 20:00 02/09/18 20:00 Intake & Output 02/08/18 02/09/18 02/10/18 06:59 06:59 06:59 Intake Total 5339 3189 1717 Output Total 2785 3055 2975 Balance 2554 134 -1258 Weight 94.8 kg 93.9 kg Exam: GENERAL: well-nourished and in no acute distress. Patient is alert but not oriented to place time or person. HEAD: Atraumatic, normocephalic. EYES: Pupils equal round and reactive to light, extraocular movements intact, sclera anicteric, conjunctiva are normal. ENT: TMs normal, nares patent, oropharynx clear without exudates. Moist mucous membranes. No oral ulcerations or bleeding gums noted NECK: supple without lymphadenopathy or JVD. Trachea is central. No cervical or axillary lymphadenopathy noted. Carotids are 2+ LUNGS: Breath sounds bibasilar fine crackles at bases. No significant dullness noted. CHEST: Palpation of chest wall shows no significant chest wall tenderness. 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 ABDOMEN: Soft, no significant tenderness appreciated, normoactive bowel sounds. No guarding, no rebound. No rigidity noted . No masses appreciated. EXTREMITIES: Pedal pulses are 1-2+, no calf tenderness noted, Trace + pedal edema noted. No clubbing or cyanosis. NEUROLOGICAL: Patient is alert but is noted to move all extremities well. No focal neurological deficit noted on quick exam. PSYCH: Patient cannot participate in a neurologic and psych exam because of the patient's current mental status SKIN: No significant ecchymosis, rash, ulcerations or signs of pruritus noted. MUSCULOSKELETAL EXAM: No significant joint swelling noted. Results Laboratory Results: 02/09/18 03:53 02/09/18 03:53 02/09/18 02/09/18 02/09/18 03:53 03:53 05:15 WBC 6.6 RBC 3.70 L Hgb 12.1 L Hct 36.0 L MCV 97 MCH 32.7 MCHC 33.7 RDW 16.5 H Plt Count 151 Seg Neutrophils % 84.5 H Lymphocytes % 9.0 L Monocytes % 5.8 Eosinophils % 0.1 Basophils % 0.6 Absolute Neutrophils 5.6 Absolute Lymphocytes 0.6 Absolute Monocytes 0.4 Absolute Eosinophils 0.0 Absolute Basophils 0.0 Carbonic Acid 1.29 HCO3/H2CO3 Ratio 21:1 ABG pH 7.42 ABG pCO2 43.0 ABG pO2 83.3 ABG HCO3 27.5 H ABG O2 Saturation 96.4 ABG Base Excess 2.7 FiO2 30% Sodium 138.8 Potassium 3.9 Chloride 102 Carbon Dioxide 31 H Anion Gap 6 BUN 13 Creatinine 0.33 L Est GFR ( Amer) > 60 Est GFR (Non-Af Amer) > 60 Glucose 110 Calcium 9.1 Magnesium 1.9 Ammonia 02/09/18 18:00 WBC RBC Hgb Hct MCV MCH MCHC RDW Plt Count Seg Neutrophils % Lymphocytes % Monocytes % Eosinophils % Basophils % Absolute Neutrophils Absolute Lymphocytes Absolute Monocytes Absolute Eosinophils Absolute Basophils Carbonic Acid HCO3/H2CO3 Ratio ABG pH ABG pCO2 ABG pO2 ABG HCO3 ABG O2 Saturation ABG Base Excess FiO2 Sodium Potassium Chloride Carbon Dioxide Anion Gap BUN Creatinine Est GFR ( Amer) Est GFR (Non-Af Amer) Glucose Calcium Magnesium Ammonia 17.3 01/30/18 01/30/18 01/30/18 20:30 20:30 20:30 Creatine Kinase 180 H CK-MB (CK-2) 1.38 Troponin I < 0.012 NT-Pro-B Natriuret Pep 1200 H 01/31/18 01/31/18 01/31/18 02:37 02:37 08:10 Creatine Kinase 130 98 CK-MB (CK-2) 1.29 Troponin I < 0.012 NT-Pro-B Natriuret Pep 01/31/18 02/01/18 02/01/18 08:10 13:21 13:21 Creatine Kinase 874 H CK-MB (CK-2) 1.02 1.95 Troponin I < 0.012 0.019 NT-Pro-B Natriuret Pep 02/02/18 10:10 Creatine Kinase CK-MB (CK-2) Troponin I < 0.012 NT-Pro-B Natriuret Pep Impressions: Chest CT 01/30/18 00:00 IMPRESSION: Multiple areas of patchy consolidation and ctuuhll-zgafey-hevmb opacity throughout both lungs, greatest in the right upper parahilar region. Moderate fat stranding in the left pararenal space. Head CT 02/01/18 15:11 IMPRESSION: No significant intracranial abnormalities were identified. Other findings as noted above. EVIDENCE OF ACUTE STROKE: NO. KUB X-Ray 02/04/18 22:21 IMPRESSION: A nasogastric catheter is present with tip overlying the body of the stomach, side port is below the GE junction. Moderate bowel gas. Left basilar atelectasis -effusion. Chest X-Ray 02/09/18 06:00 IMPRESSION: No significant change. Assessment & Plan - Diagnosis (1) Polymorphic ventricular tachycardia Is this a current diagnosis for this admission?: Yes (2) Cardiac arrest Is this a current diagnosis for this admission?: Yes (3) Acute hypoxemic respiratory failure Is this a current diagnosis for this admission?: Yes (4) Alcohol intoxication Qualifiers: Complication of substance-induced condition: with delirium Qualified Code(s ): F10.921 - Alcohol use, unspecified with intoxication delirium Is this a current diagnosis for this admission?: Yes (5) COPD (chronic obstructive pulmonary disease) Qualifiers: COPD type: unspecified COPD Qualified Code(s): J44.9 - Chronic obstructive pulmonary disease, unspecified Is this a current diagnosis for this admission?: Yes (6) Alcohol withdrawal seizure with complication Is this a current diagnosis for this admission?: No (7) Hypokalemia Is this a current diagnosis for this admission?: Yes (8) Hypomagnesemia Is this a current diagnosis for this admission?: Yes (9) Tachycardia Is this a current diagnosis for this admission?: Yes (10) Hypertension Qualifiers: Hypertension type: essential hypertension Qualified Code(s): I10 - Essential (primary) hypertension Is this a current diagnosis for this admission?: Yes - Notes Notes: No recurrence of ventricular tachycardia noted. Patient is slowly improving in general status but still remained confused and intermittently agitated. For hypertension and tachycardia, will increase beta-sunil dose. Obtaining EKGs to review QT intervals. Continue to monitor patient's rhythm closely.
--- NOTE | 2018-02-14 19:21 | PDOC PROGRESS REPORT ---
Subjective Progress Note for:: 02/10/18 Subjective:: Patient remains confused and intermittently agitated. Patient has been downgraded and to be moved out of ICU. Medications reviewed. System review: No significant changes Medications reviewed. Patient is maintaining sinus rhythm. Sinus tachycardia noted. Blood pressure noted to be elevated. Medications: Medications have been reviewed. Reason For Visit: ASPIRATION PNEUMONIA, ALCOHOLISM, ETOH LIVER Physical Exam Vital Signs: Temp Pulse Resp BP Pulse Ox 99.7 F 94 14 164/93 H 99 02/10/18 07:37 02/10/18 08:10 02/10/18 18:00 02/10/18 17:05 02/10/18 08:10 Intake & Output 02/09/18 02/10/18 02/11/18 06:59 06:59 06:59 Intake Total 3189 2827 247 Output Total 3055 5025 3460 Balance 134 -2198 -3213 Weight 93.9 kg Exam: GENERAL: well-nourished and in no acute distress. Patient is alert but not oriented to place time or person. HEAD: Atraumatic, normocephalic. EYES: Pupils equal round and reactive to light, extraocular movements intact, sclera anicteric, conjunctiva are normal. ENT: TMs normal, nares patent, oropharynx clear without exudates. Moist mucous membranes. No oral ulcerations or bleeding gums noted NECK: supple without lymphadenopathy or JVD. Trachea is central. No cervical or axillary lymphadenopathy noted. Carotids are 2+ LUNGS: Breath sounds bibasilar fine crackles at bases. No significant dullness noted. CHEST: Palpation of chest wall shows no significant chest wall tenderness. 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 ABDOMEN: Soft, no significant tenderness appreciated, normoactive bowel sounds. No guarding, no rebound. No rigidity noted . No masses appreciated. EXTREMITIES: Pedal pulses are 1-2+, no calf tenderness noted, Trace + pedal edema noted. No clubbing or cyanosis. NEUROLOGICAL: Patient is alert no obvious neurological deficit noted. PSYCH: Patient cannot participate in a neurologic and psych exam because of the patient's current mental status SKIN: No significant ecchymosis, rash, ulcerations or signs of pruritus noted. MUSCULOSKELETAL EXAM: No significant joint swelling noted. Results Laboratory Results: 02/10/18 15:39 02/10/18 15:39 02/09/18 02/10/18 02/10/18 18:00 15:39 15:39 WBC 5.9 RBC 3.86 L Hgb 12.5 L Hct 37.6 L MCV 97 MCH 32.4 MCHC 33.3 RDW 16.2 H Plt Count 177 Seg Neutrophils % 79.1 H Lymphocytes % 11.8 L Monocytes % 8.6 Eosinophils % 0.1 Basophils % 0.4 Absolute Neutrophils 4.6 Absolute Lymphocytes 0.7 Absolute Monocytes 0.5 Absolute Eosinophils 0.0 Absolute Basophils 0.0 Sodium 142.9 Potassium 3.0 L* Chloride 97 L Carbon Dioxide 33 H Anion Gap 13 BUN 10 Creatinine 0.37 L Est GFR ( Amer) > 60 Est GFR (Non-Af Amer) > 60 Glucose 136 H Calcium 9.4 Total Bilirubin 0.9 AST 92 H ALT 85 H Alkaline Phosphatase 79 Ammonia 17.3 Total Protein 6.8 Albumin 3.5 01/30/18 01/30/18 01/30/18 20:30 20:30 20:30 Creatine Kinase 180 H CK-MB (CK-2) 1.38 Troponin I < 0.012 NT-Pro-B Natriuret Pep 1200 H 01/31/18 01/31/18 01/31/18 02:37 02:37 08:10 Creatine Kinase 130 98 CK-MB (CK-2) 1.29 Troponin I < 0.012 NT-Pro-B Natriuret Pep 01/31/18 02/01/18 02/01/18 08:10 13:21 13:21 Creatine Kinase 874 H CK-MB (CK-2) 1.02 1.95 Troponin I < 0.012 0.019 NT-Pro-B Natriuret Pep 02/02/18 10:10 Creatine Kinase CK-MB (CK-2) Troponin I < 0.012 NT-Pro-B Natriuret Pep EKG Comments: Sinus rhythm with intermittent sinus tachycardia Impressions: Chest CT 01/30/18 00:00 IMPRESSION: Multiple areas of patchy consolidation and xbulsvm-ribabj-hegiv opacity throughout both lungs, greatest in the right upper parahilar region. Moderate fat stranding in the left pararenal space. Head CT 02/01/18 15:11 IMPRESSION: No significant intracranial abnormalities were identified. Other findings as noted above. EVIDENCE OF ACUTE STROKE: NO. KUB X-Ray 02/04/18 22:21 IMPRESSION: A nasogastric catheter is present with tip overlying the body of the stomach, side port is below the GE junction. Moderate bowel gas. Left basilar atelectasis -effusion. Chest X-Ray 02/09/18 06:00 IMPRESSION: No significant change. Assessment & Plan - Diagnosis (1) Polymorphic ventricular tachycardia Is this a current diagnosis for this admission?: Yes (2) Cardiac arrest Is this a current diagnosis for this admission?: Yes (3) Acute hypoxemic respiratory failure Is this a current diagnosis for this admission?: Yes (4) Alcohol intoxication Qualifiers: Complication of substance-induced condition: with delirium Qualified Code(s ): F10.921 - Alcohol use, unspecified with intoxication delirium Is this a current diagnosis for this admission?: Yes (5) COPD (chronic obstructive pulmonary disease) Qualifiers: COPD type: unspecified COPD Qualified Code(s): J44.9 - Chronic obstructive pulmonary disease, unspecified Is this a current diagnosis for this admission?: Yes (6) Alcohol withdrawal seizure with complication Is this a current diagnosis for this admission?: No (7) Hypokalemia Is this a current diagnosis for this admission?: Yes (8) Hypomagnesemia Is this a current diagnosis for this admission?: Yes (9) Hypertension Qualifiers: Hypertension type: essential hypertension Qualified Code(s): I10 - Essential (primary) hypertension Is this a current diagnosis for this admission?: Yes (10) Tachycardia Is this a current diagnosis for this admission?: Yes - Notes Notes: Patient is showing very gradual improvement in overall general status. Patient still intermittently tachycardic. Still has intermittent hypertension. QTC is still mildly elevated. Have reviewed medications. Patient not on his usual antipsychotic medication and has been placed on a numerous antipsychotic medication. Continue to monitor closely. Do not feel patient will be able to cooperate with his stress test at this point but will be considered once patient is more alert and is able to consent. - Time Time with patient: 15-25 minutes - CODE STATUS was discussed, patient remains full code. Surrogate decision-maker unchanged. Multiple medical problems were addressed. More than 50% of the time spent coordinating care, discussing management plans with involved caregivers. Management plans discussed with involved personnels. Medical decision making was of moderate to high complexity , patient's has multiple comorbidities. Medications reviewed and adjusted accordingly: Yes
--- NOTE | 2018-02-15 11:09 | PDOC PROGRESS REPORT ---
Subjective Progress Note for:: 02/14/18 Subjective:: Patient seems to be doing well. He is denying any chest, neck discomfort. Patient today felt able to consent for a stress test and undergo a stress test. Patient was noted to be alert oriented 3. System review: No significant changes Medications reviewed. Patient is maintaining sinus rhythm. Blood pressure still mildly elevated. Medications: Medications have been reviewed. Reason For Visit: ASPIRATION PNEUMONIA, ALCOHOLISM, ETOH LIVER Physical Exam Vital Signs: Temp Pulse Resp BP Pulse Ox 98.9 F 79 17 165/95 H 98 02/14/18 15:56 02/14/18 15:56 02/14/18 15:56 02/14/18 15:56 02/14/18 15:56 Intake & Output 02/14/18 02/15/18 02/16/18 06:59 06:59 06:59 Intake Total 1580 Balance 1580 Weight 83.6 kg Exam: GENERAL: well-nourished and in no acute distress. Alert and oriented x3 HEAD: Atraumatic, normocephalic. EYES: Pupils equal round and reactive to light, extraocular movements intact, sclera anicteric, conjunctiva are normal. ENT: TMs normal, nares patent, oropharynx clear without exudates. Moist mucous membranes. No oral ulcerations or bleeding gums noted NECK: supple without lymphadenopathy. Trachea is central. No cervical or axillary lymphadenopathy noted. Carotids are 2+, JVD WNL LUNGS: Respiration seems nonlabored, no significant accessory muscle action noted. Breath sounds clear to auscultation bilaterally and equal noted. No wheezes rales or rhonchi noted. No significant dullness noted on percussion. CHEST: Palpation of the chest wall shows no significant chest wall tenderness. HEART: [place] [employer], No PSH, 1/6 TRENT aortic area, 1/6 hawkins systolic murmur mitral area, no rubs, no gallops. ABDOMEN: Soft, no significant tenderness appreciated, normoactive bowel sounds. No guarding, no rebound. No rigidity noted . No masses appreciated. EXTREMITIES: Pedal pulses are 1-2+, no calf tenderness noted. No clubbing or cyanosis. negative pedal edema noted NEUROLOGICAL: Focused neurological exam showed no significant neurologic deficit. Normal speech, no focal weakness appreciated. PSYCH: Normal mood, normal affect. Judgment and insight within normal limits. SKIN: No significant ecchymosis, skin is noted to be warm. MUSCULOSKELETAL EXAM: No significant acute joint swelling noted. Results Laboratory Results: 02/11/18 04:07 02/11/18 04:07 01/30/18 01/30/18 01/30/18 20:30 20:30 20:30 Creatine Kinase 180 H CK-MB (CK-2) 1.38 Troponin I < 0.012 NT-Pro-B Natriuret Pep 1200 H 01/31/18 01/31/18 01/31/18 02:37 02:37 08:10 Creatine Kinase 130 98 CK-MB (CK-2) 1.29 Troponin I < 0.012 NT-Pro-B Natriuret Pep 01/31/18 02/01/18 02/01/18 08:10 13:21 13:21 Creatine Kinase 874 H CK-MB (CK-2) 1.02 1.95 Troponin I < 0.012 0.019 NT-Pro-B Natriuret Pep 02/02/18 10:10 Creatine Kinase CK-MB (CK-2) Troponin I < 0.012 NT-Pro-B Natriuret Pep EKG Comments: Telemetry shows sinus rhythm. Previous twelve-lead EKG shows QTC almost normalizing. Impressions: Chest CT 01/30/18 00:00 IMPRESSION: Multiple areas of patchy consolidation and yvueuia-tcebhg-lgbyd opacity throughout both lungs, greatest in the right upper parahilar region. Moderate fat stranding in the left pararenal space. Head CT 02/01/18 15:11 IMPRESSION: No significant intracranial abnormalities were identified. Other findings as noted above. EVIDENCE OF ACUTE STROKE: NO. KUB X-Ray 02/04/18 22:21 IMPRESSION: A nasogastric catheter is present with tip overlying the body of the stomach, side port is below the GE junction. Moderate bowel gas. Left basilar atelectasis -effusion. Chest X-Ray 02/09/18 06:00 IMPRESSION: No significant change. Assessment & Plan - Diagnosis (1) Polymorphic ventricular tachycardia Is this a current diagnosis for this admission?: Yes (2) Cardiac arrest Is this a current diagnosis for this admission?: Yes (3) Acute hypoxemic respiratory failure Is this a current diagnosis for this admission?: Yes (4) Alcohol intoxication Qualifiers: Complication of substance-induced condition: with delirium Qualified Code(s ): F10.921 - Alcohol use, unspecified with intoxication delirium Is this a current diagnosis for this admission?: Yes (5) COPD (chronic obstructive pulmonary disease) Qualifiers: COPD type: unspecified COPD Qualified Code(s): J44.9 - Chronic obstructive pulmonary disease, unspecified Is this a current diagnosis for this admission?: Yes (6) Alcohol withdrawal seizure with complication Is this a current diagnosis for this admission?: No (7) Hypokalemia Is this a current diagnosis for this admission?: Yes (8) Hypomagnesemia Is this a current diagnosis for this admission?: Yes (9) Hypertension Qualifiers: Hypertension type: essential hypertension Qualified Code(s): I10 - Essential (primary) hypertension Is this a current diagnosis for this admission?: Yes (10) Tachycardia Is this a current diagnosis for this admission?: Yes - Notes Notes: QT interval much improved. Visually it is WNL. Patient advised to avoid drugs that can prolong QTc interval. He and his was educated about it. 2D echo results reviewed. 2D echo was relatively unremarkable. Nuclear stress test results were reviewed. This was negative for any pharmacologic stress-induced ischemia. Cardiac arrest: This is secondary to polymorphic tachycardia, torsade, related to possibly metabolic reasons and drugs causing QTC prolongation. Polymorphic ventricular tachycardia: Please see discussion above under cardiac arrest. Hypoxemic respiratory failure: Was related to aspiration and possible respiratory depression secondary to metabolic reason. Alcohol intoxication and withdrawal: Resolved patient will benefit from rehab. Seizure disorder: Patient has a history of seizure disorde currently is stable. Electrolyte imbalance: This was corrected. Hypertension: Currently under reasonable control. Further adjustment of medication can be done as an outpatient. Tachycardia: Stable continue beta-sunil therapy. - Time Time with patient: Greater than 35 minutes - Patient was seen multiple times. Total time exceeds 40 minutes. In the morning nuclear stress test procedure, risks benefits, alternatives were discussed. Patient seen during the stress test. Patient also seen after stress test when results were discussed with the patient in detail. Patient's questions were answered. Nuclear stress test results were discussed with the patient. Patient was informed that no definitive evidence of pharmacologic stress-induced ischemia noted. No definite fixed defects were noted. Patient informed that occasionally significant single vessel disease or balanced ischemia could be missed. However based on the current study results, would recommend aggressive risk factor modification and medical therapy. It may also be worthwhile to consider evaluation or empiric management of other causes of chest pain. Should no other cause be found and if persistent in having chest pain, then cardiac catheterization should be considered. Right now, recommendations are for aggressive risk factor modification and medical management. Patient's is the surrogate decision-maker. Medications reviewed and adjusted accordingly: Yes
--- NOTE | 2018-02-15 13:21 | PDOC PROGRESS REPORT ---
Subjective Progress Note for:: 02/14/18 Subjective:: 24h s/p extubation stable Reason For Visit: ASPIRATION PNEUMONIA, ALCOHOLISM, ETOH LIVER Physical Exam Vital Signs: Temp Pulse Resp BP Pulse Ox 97.6 F 80 20 149/97 H 99 02/14/18 08:03 02/14/18 08:03 02/14/18 08:03 02/14/18 08:03 02/14/18 08:03 Intake & Output 02/13/18 02/14/18 02/15/18 06:59 06:59 06:59 Intake Total 2622 1580 Output Total 400 Balance 2222 1580 Weight 82.1 kg 83.6 kg General appearance: PRESENT: no acute distress, cooperative, disheveled Head exam: PRESENT: atraumatic, normocephalic Eye exam: PRESENT: conjunctiva pale, EOMI. ABSENT: nystagmus, periorbital swelling, scleral icterus Mouth exam: PRESENT: dry mucosa, neck supple, tongue midline Neck exam: ABSENT: carotid bruit, JVD, lymphadenopathy, thyromegaly, tracheal deviation, tracheostomy Respiratory exam: PRESENT: decreased breath sounds, prolonged expiratory phas, rhonchi, unlabored. ABSENT: retraction, stridor, tachypnea Cardiovascular exam: PRESENT: RRR, +S1, +S2 Pulses: PRESENT: normal radial pulses GI/Abdominal exam: PRESENT: diminished bowel sounds Extremities exam: PRESENT: full ROM. ABSENT: calf tenderness, clubbing, joint swelling Musculoskeletal exam: PRESENT: ambulatory, full ROM. ABSENT: deformity, dislocation Neurological exam: PRESENT: alert, awake Psychiatric exam: PRESENT: normal mood Skin exam: PRESENT: dry, warm Results Laboratory Results: 02/11/18 04:07 02/11/18 04:07 01/30/18 01/30/18 01/30/18 20:30 20:30 20:30 Creatine Kinase 180 H CK-MB (CK-2) 1.38 Troponin I < 0.012 NT-Pro-B Natriuret Pep 1200 H 01/31/18 01/31/18 01/31/18 02:37 02:37 08:10 Creatine Kinase 130 98 CK-MB (CK-2) 1.29 Troponin I < 0.012 NT-Pro-B Natriuret Pep 01/31/18 02/01/18 02/01/18 08:10 13:21 13:21 Creatine Kinase 874 H CK-MB (CK-2) 1.02 1.95 Troponin I < 0.012 0.019 NT-Pro-B Natriuret Pep 02/02/18 10:10 Creatine Kinase CK-MB (CK-2) Troponin I < 0.012 NT-Pro-B Natriuret Pep Impressions: Chest CT 01/30/18 00:00 IMPRESSION: Multiple areas of patchy consolidation and vqvfhet-sjoogn-wcdci opacity throughout both lungs, greatest in the right upper parahilar region. Moderate fat stranding in the left pararenal space. Head CT 02/01/18 15:11 IMPRESSION: No significant intracranial abnormalities were identified. Other findings as noted above. EVIDENCE OF ACUTE STROKE: NO. KUB X-Ray 02/04/18 22:21 IMPRESSION: A nasogastric catheter is present with tip overlying the body of the stomach, side port is below the GE junction. Moderate bowel gas. Left basilar atelectasis -effusion. Chest X-Ray 02/09/18 06:00 IMPRESSION: No significant change. Assessment & Plan - Diagnosis (1) Acute hypoxemic respiratory failure Is this a current diagnosis for this admission?: Yes Plan: at or near baseline (2) Aspiration pneumonia Qualifiers: Aspiration pneumonia type: unspecified Laterality: right Lung location: upper lobe of lung Qualified Code(s): J69.0 - Pneumonitis due to inhalation of food and vomit Is this a current diagnosis for this admission?: Yes (3) COPD (chronic obstructive pulmonary disease) Qualifiers: COPD type: unspecified COPD Qualified Code(s): J44.9 - Chronic obstructive pulmonary disease, unspecified Is this a current diagnosis for this admission?: Yes Plan: Continue current therapy (4) Thrombocytopenia Is this a current diagnosis for this admission?: No (5) Alcohol withdrawal seizure with complication Is this a current diagnosis for this admission?: No
== END 2018-02-14 16:15 | disposition home health service (06) | DRG 207 ==
LOC: ER 07:25 → EH 09:59 → 3S 15:05 → ICU 02-01 13:24 → 4W 02-12 14:52 → UNDODISIN 02-14 08:55
PROVIDERS: ADMIT Internal Medicine; ATTEND Internal Medicine
PROC: 3E0F73Z Introduction of Anti-inflammatory into Respiratory Tract, Via Natural or Artificial Opening (ICD-10-PCS; 2018-01-30)
PROC: 5A1955Z Respiratory Ventilation, Greater than 96 Consecutive Hours (ICD-10-PCS; principal; 2018-02-01)
PROC: 0BH17EZ Insertion of Endotracheal Airway into Trachea, Via Natural or Artificial Opening (ICD-10-PCS; 2018-02-01)
PROC: 5A09457 Assistance with Respiratory Ventilation, 24-96 Consecutive Hours, Continuous Positive Airway Pressure (ICD-10-PCS; 2018-02-08)
DX: J69.0 Pneumonitis due to inhalation of food and vomit (principal); J96.01 Acute respiratory failure with hypoxia; I49.01 Ventricular fibrillation; F10.239 Alcohol dependence with withdrawal, unspecified; I47.2 Ventricular tachycardia; J44.0 Chronic obstructive pulmonary disease with (acute) lower respiratory infection; I42.6 Alcoholic cardiomyopathy; F10.221 Alcohol dependence with intoxication delirium; F10.231 Alcohol dependence with withdrawal delirium; K70.30 Alcoholic cirrhosis of liver without ascites; F10.229 Alcohol dependence with intoxication, unspecified; Y90.6 Blood alcohol level of 120-199 mg/100 ml; J44.9 Chronic obstructive pulmonary disease, unspecified; D69.59 Other secondary thrombocytopenia; I45.81 Long QT syndrome; E78.00 Pure hypercholesterolemia, unspecified; I10 Essential (primary) hypertension; D69.6 Thrombocytopenia, unspecified; G43.909 Migraine, unspecified, not intractable, without status migrainosus; M19.90 Unspecified osteoarthritis, unspecified site; F32.9 Major depressive disorder, single episode, unspecified; F17.210 Nicotine dependence, cigarettes, uncomplicated; E87.6 Hypokalemia; E83.42 Hypomagnesemia; G40.909 Epilepsy, unspecified, not intractable, without status epilepticus; Z91.018 Allergy to other foods; Z78.1 Physical restraint status; Z79.82 Long term (current) use of aspirin; Z79.899 Other long term (current) drug therapy; Z82.61 Family history of arthritis; Z82.49 Family history of ischemic heart disease and other diseases of the circulatory system; Z80.9 Family history of malignant neoplasm, unspecified
CPT/HCPCS: 31500; 36415; 36600; 70460; 71045; 71250; 74018; 78452; 80048; 80053; 80061; 80076; 80307; 81001; 82140; 82150; 82272; 82550; 82553; 82570; 82803; 82962; 83036; 83605; 83690; 83735; 83880; 84100; 84156; 84439; 84443; 84478; 84484; 85025; 85610; 85730; 87040; 87070; 87086; 87205; 87493; 92950; 93005; 93010; 93017; 93306; 94002; 94003; 94640; 94660; 94668; 94799; 96361; 96365; 99291; A9500; J0280; J0330; J0360; J0692; J0696; J1100; J1170; J1630; J1940; J1956; J2060; J2270; J2704; J2785; J2920; J3411; J3475; J3490; J7030; J7050; J7512; J7620; Q9969; S0028

== ENCOUNTER → 2018-05-23 | Outpatient (CLI) | payer MEDICAID ==
[2018-05-27 06:18] LABS: TESTOSTERONE FREE (DIRECT) 9.2 pg/mL (6.8-21.5)
== END ==
LOC: OD 09:32
PROVIDERS: ATTEND Urology
DX: N52.2 Drug-induced erectile dysfunction (principal)
CPT/HCPCS: 36415; 84402; 84403

== ENCOUNTER 2018-09-17 10:55 | Emergency (ER) | payer MEDICAID ==
--- NOTE | 2018-09-17 11:17 | ER Document Report ---
ED General - General Stated Complaint: LEFT ARM PAIN Time Seen by Provider: 09/17/18 11:03 Mode of Arrival: Ambulatory Information source: Patient Notes: 43-year-old male brought to the emergency department by EMS status post fall. Patient states that he slipped down some stairs. Patient is having pain to the left forearm. There is a contusion to this area. Patient states that he is able to move his shoulder, elbow, wrist. He is just having pain localized to the area of the contusion. Patient also began complaining of neck and lower back pain after coming to the emergency department. Patient states that he has a history of chronic neck and back pain. He is currently on medication for this pain. He states that the fall has exacerbated his pain. He denies any numbness, tingling, weakness, bowel or bladder incontinence. Patient denies any head injury or loss of consciousness. TRAVEL OUTSIDE OF THE [place] IN LAST 30 DAYS: No - HPI Onset: Just prior to arrival Onset/Duration: Sudden Quality of pain: Throbbing Associated symptoms: Other - neck and back pain Exacerbated by: Movement Relieved by: Denies Similar symptoms previously: Yes Recently seen / treated by doctor: No - Related Data Allergies/Adverse Reactions: Coconut * [Coconut] Adverse Reaction (Severe, Verified 03/24/15 15:37) stomach swells pineapple [Pineapple] Adverse Reaction (Severe, Verified 03/24/15 15:37) stomach swells cherries Adverse Reaction (Severe, Uncoded 03/24/15 15:37) stomach swells Past Medical History - Social History Smoking Status: Current Every Day Smoker Family History: Arthritis, Hypertension, Malignancy - Past Medical History Cardiac Medical History: Reports: Hx Hypercholesterolemia, Hx Hypertension Denies: Hx Coronary Artery Disease, Hx Heart Attack Pulmonary Medical History: Reports: Hx Asthma, Hx Bronchitis, Hx COPD, Hx Pneumonia - multiple Neurological Medical History: Reports: Hx Migraine, Hx Seizures. Denies: Hx Cerebrovascular Accident Renal/ Medical History: Denies: Hx Peritoneal Dialysis GI Medical History: Reports: Hx Cirrhosis Musculoskeletal Medical History: Reports Hx Arthritis, Reports Hx Musculoskeletal Deformity, Reports Hx Musculoskeletal Trauma Psychiatric Medical History: Reports: Hx Depression Traumatic Medical History: Reports: Hx Fractures Past Surgical History: Reports: Hx Oral Surgery, Hx Orthopedic Surgery - bilateral knees, left hand, leg - Immunizations Immunizations up to date: Yes Hx Diphtheria, Pertussis, Tetanus Vaccination: Yes Hx Pneumococcal Vaccination: 07/16/13 Review of Systems - Review of Systems Constitutional: No symptoms reported EENT: No symptoms reported Cardiovascular: No symptoms reported Respiratory: No symptoms reported Gastrointestinal: No symptoms reported Genitourinary: No symptoms reported Male Genitourinary: No symptoms reported Musculoskeletal: Back pain, Neck pain Skin: Change in color Hematologic/Lymphatic: No symptoms reported Neurological/Psychological: No symptoms reported -: Yes All other systems reviewed and negative Physical Exam - Notes Notes: PHYSICAL EXAMINATION: GENERAL: Well-appearing, well-nourished and in no acute distress. HEAD: Atraumatic, normocephalic. EYES: Pupils equal round and reactive to light, extraocular movements intact, sclera anicteric, conjunctiva are normal. ENT: Nares patent, oropharynx clear without exudates. Moist mucous membranes. NECK: Bilateral paracervical muscle tenderness to palpation. LUNGS: Breath sounds clear to auscultation bilaterally and equal. No wheezes rales or rhonchi. HEART: Regular rate and rhythm without murmurs ABDOMEN: Soft, nontender, nondistended abdomen. No guarding, no rebound. No masses appreciated. Musculoskeletal: Lumbar paraspinal muscle tenderness to palpation. 2+ left radial pulse. Capillary refill less than 2 seconds to the L hand. Full ROM of the Left fingers, wrist, elbow. NEUROLOGICAL: Cranial nerves grossly intact. Normal speech, normal gait. Normal sensory, motor exams PSYCH: Normal mood, normal affect. SKIN: Warm, Dry, Contusion to the Left forearm. Course - Re-evaluation Re-evalutation: 09/17/18 12:34 CT cervical spine did not show an acute process. X-rays of the forearm, wrist, lumbar spine were done. No acute process is identified. The second metacarpal shows remote trauma. Nothing acute. C-spine cleared. Pain to cervical spine and lumbar area likely muscle strain versus chronic pain. I discussed the results with the patient. He admits to having trauma to the second metacarpal a few months ago. I instructed the patient to continue taking his medication as directed, to follow-up with his primary care physician this week, and to return to the emergency department for worsening symptoms. Patient is agreeable with plan of care. 09/17/18 12:36 Discharge - Discharge Clinical Impression: Muscle strain Contusion Qualifiers: Encounter type: initial encounter Contusion area: forearm Laterality: left Qualified Code(s): S50.12XA - Contusion of left forearm, initial encounter Condition: Good Disposition: HOME, SELF-CARE Instructions: Contusion ([facility]), Muscle Strain ([facility]) Referrals: WENDY TREJO II, MD [Primary Care Provider] - Follow up as needed
--- NOTE | 2018-09-17 11:50 | RADIOLOGY REPORT (SQ) ---
EXAM DESCRIPTION: FOREARM LEFT COMPLETED DATE/TIME: 09/17/2018 11:37 am REASON FOR STUDY: trauma COMPARISON: None. NUMBER OF VIEWS: Two views. TECHNIQUE: Two radiographic images acquired of the left forearm, including elbow and wrist in at guy st one projection. LIMITATIONS: None. FINDINGS: MINERALIZATION: Normal. BONES: No acute fracture. No worrisome bone lesions. SOFT TISSUES: No obvious swelling or foreign body. OTHER: No other significant finding. IMPRESSION: 1. NEGATIVE STUDY OF THE LEFT FOREARM. TECHNICAL DOCUMENTATION: JOB ID: [id number] [employer]- All Rights Reserved Reading location - IP/workstation name: [email or web address]
--- NOTE | 2018-09-17 11:52 | RADIOLOGY REPORT (SQ) ---
EXAM DESCRIPTION: WRIST LEFT 3 VIEWS COMPLETED DATE/TIME: 09/17/2018 11:37 am REASON FOR STUDY: trauma COMPARISON: None. NUMBER OF VIEWS: Three views. TECHNIQUE: AP, lateral, and oblique radiographic images acquired of the left wrist. LIMITATIONS: None. FINDINGS: MINERALIZATION: Normal. BONES: Deformity of the distal third of the second metacarpal bone may be related prior remote traum a. No acute fracture or dislocation. Normal alignment. SOFT TISSUES: No soft tissue swelling. No foreign body. OTHER: No other significant finding. IMPRESSION: 1. No acute osseous findings. 2. Deformity of the distal third of the second metacarpal bone may be related prior remote trauma. TECHNICAL DOCUMENTATION: JOB ID: [id number] [employer] All Rights Reserved Reading location - IP/workstation name: [email or web address]
--- NOTE | 2018-09-17 11:57 | RADIOLOGY REPORT (SQ) ---
EXAM DESCRIPTION: L SPINE WHOLE COMPLETED DATE/TIME: 09/17/2018 11:37 am REASON FOR STUDY: trauma COMPARISON: 01/05/2012 NUMBER OF VIEWS: Five views including obliques. TECHNIQUE: AP, lateral, oblique, and sacral radiographic images acquired of the lumbar spine. LIMITATIONS: None. FINDINGS: MINERALIZATION: Normal. SEGMENTATION: Normal. No transitional anatomy. ALIGNMENT: Normal. VERTEBRAE: Maintained height. No fracture or worrisome bone lesion. DISCS: Preserved height. Small osteophytes off of the L1 and L2 vertebrae. No significant end plate irregularity. POSTERIOR ELEMENTS: Pedicles and facets are intact. No pars defect or posterior arch defects. HARDWARE: None in the spine. PARASPINAL SOFT TISSUES: Normal. PELVIS: Intact as visualized. No fractures or worrisome bone lesions. SI joints intact. OTHER: Partially visualized hardware left hip. IMPRESSION: 1. No significant interval changes since the prior examination dated 01/05/2012. 2. No acute osseous findings. TECHNICAL DOCUMENTATION: JOB ID: [id number] [employer]- All Rights Reserved Reading location - IP/workstation name: [email or web address]
--- NOTE | 2018-09-17 12:18 | RADIOLOGY REPORT (SQ) ---
EXAM DESCRIPTION: CT CERVICAL SPINE WITHOUT COMPLETED DATE/TIME: 09/17/2018 11:59 am REASON FOR STUDY: trauma COMPARISON: CT cervical spine 01/21/2011, 06/26/2013 TECHNIQUE: Axial images acquired through the cervical spine without intravenous contrast. Images re viewed with lung, soft tissue and bone windows. Reconstructed coronal and sagittal MPR images review ed. Images stored on PACS. All CT scanners at this facility use dose modulation, iterative reconstruction, and/or weight based d osing when appropriate to reduce radiation dose to as low as reasonably achievable (ALARA). [facility]: Dose Right [facility]: CareDose [facility]: Dose Right [facility]: Teradose 4D [facility]: Fandium RADIATION DOSE: 21.6 mGy. LIMITATIONS: None. FINDINGS: ALIGNMENT: Anatomic. MINERALIZATION: Normal. VERTEBRAL BODIES: No fractures or dislocation. DISCS: Craniocervical junction, C1-2, C2-3 are unremarkable. At C3-4, mild posterior bulging is present without significant central canal or right foraminal narro wing. Moderate to high-grade left foraminal narrowing from facet and uncovertebral hypertrophy. At C4-5, no central stenosis. Mild bilateral foraminal narrowing right greater than left from facet and uncovertebral hypertrophy. At C5-6, broad diffuse posterior disc bulging is present causing borderline central canal narrowing. Moderate to high-grade bilateral foraminal narrowing from facet and uncovertebral hypertrophy. At C6-7, broad diffuse posterior disc bulge causes borderline central canal narrowing. High-grade bi lateral foraminal narrowing from facet and uncovertebral hypertrophy. C7-T1 is unremarkable. FACETS, LATERAL MASSES, POSTERIOR ELEMENTS: No fractures. No dislocation. No acute findings. HARDWARE: None in the spine. VISUALIZED RIBS: No fractures. LUNG APICES AND SOFT TISSUES: No significant or acute findings. OTHER: No other significant finding. IMPRESSION: No acute fracture or malalignment. Diffuse degenerative disc changes as above TECHNICAL DOCUMENTATION: JOB ID: [id number] Quality ID # [id number]: Final reports with documentation of one or more dose reduction techniques (e.g., Au tomated exposure control, adjustment of the mA and/or kV according to patient size, use of iterative reconstruction technique) 2010 [employer]- All Rights Reserved Reading location - IP/workstation name: [email or web address]
== END 2018-09-17 12:58 | disposition home or self-care (01) ==
LOC: ER 10:55
DX: S50.12XA Contusion of left forearm, initial encounter (principal); M79.602 Pain in left arm; M79.632 Pain in left forearm; M54.2 Cervicalgia; M54.9 Dorsalgia, unspecified; G89.29 Other chronic pain; W10.9XXA Fall (on) (from) unspecified stairs and steps, initial encounter; Z79.899 Other long term (current) drug therapy; F17.200 Nicotine dependence, unspecified, uncomplicated; I10 Essential (primary) hypertension; J44.9 Chronic obstructive pulmonary disease, unspecified
CPT/HCPCS: 99284; 73090; 72110; 73110; 72125; L0120

== ENCOUNTER 2018-11-04 15:35 | Inpatient (IN) | payer MEDICAID ==
[2018-11-04] MEDS ORDERED: IPRATROPIUM/ALBUTEROL 0.5-2.5 MG/3 ML AMPUL NEB ONE ×3 (16:38→18:32)
--- NOTE | 2018-11-04 16:41 | ER Document Report ---
ED General - General TRAVEL OUTSIDE OF THE [place] IN LAST 30 DAYS: No <BETH LINARES - Last Filed: 11/04/18 19:46> <DEVON YOUSIF - Last Filed: 11/04/18 19:52> - General Chief Complaint: Breathing Difficulty Stated Complaint: DIFFICULTY BREATHING Time Seen by Provider: 11/04/18 16:34 Notes: Patient is a 43-year-old male who presents to the emergency department with a chief complaint of altered mental status and difficulty breathing. He states that he has had multiple falls for the past couple days and his last fall was 3 days ago. He does complain of abdominal pain on his right side of his abdomen, where there is bruising. He denies any chest pain, except for when he coughs. He is brought in by ambulance and his oxygen saturation was 80% on room air at home. He was placed on 3 L nasal cannula and his oxygen saturation increased to 96%. He has a past medical history of seizures, delusions, alcohol abuse, Wernicke Korsakoff's syndrome, and cardiac arrest. He does admit to smoking 1 pack cigarettes a day and drinks 2-3 40 ounces of beer in a day. He states that he did cut back on his drinking and smoking cigarettes. (BETH LINARES) - Related Data Allergies/Adverse Reactions: Coconut * [Coconut] Adverse Reaction (Severe, Verified 03/24/15 15:37) stomach swells pineapple [Pineapple] Adverse Reaction (Severe, Verified 03/24/15 15:37) stomach swells cherries Adverse Reaction (Severe, Uncoded 03/24/15 15:37) stomach swells Past Medical History - Social History Smoking Status: Current Every Day Smoker Frequency of alcohol use: Heavy Drug Abuse: None Family History: Arthritis, Hypertension, Malignancy Patient has suicidal ideation: No Patient has homicidal ideation: No - Past Medical History Cardiac Medical History: Reports: Hx Hypercholesterolemia, Hx Hypertension Denies: Hx Coronary Artery Disease, Hx Heart Attack Pulmonary Medical History: Reports: Hx Asthma, Hx Bronchitis, Hx COPD, Hx Pneumonia - multiple Neurological Medical History: Reports: Hx Migraine, Hx Seizures. Denies: Hx Cerebrovascular Accident Renal/ Medical History: Denies: Hx Peritoneal Dialysis GI Medical History: Reports: Hx Cirrhosis Musculoskeletal Medical History: Reports Hx Arthritis, Reports Hx Musculoskeletal Deformity, Reports Hx Musculoskeletal Trauma Psychiatric Medical History: Reports: Hx Depression Traumatic Medical History: Reports: Hx Fractures Past Surgical History: Reports: Hx Oral Surgery, Hx Orthopedic Surgery - bilateral knees, left hand, leg - Immunizations Immunizations up to date: Yes Hx Diphtheria, Pertussis, Tetanus Vaccination: Yes Hx Pneumococcal Vaccination: 07/16/13 <BETH LINARES - Last Filed: 11/04/18 19:46> Review of Systems <BETH LINARES - Last Filed: 11/04/18 19:46> - Review of Systems Notes: REVIEW OF SYSTEMS: CONSTITUTIONAL : Denies recent illness. Denies recent unintentional weight loss. Denies fever, chills, or sweats. EENT: Denies eye, ear, throat, or mouth pain, discharge, or symptoms. Denies nasal or sinus congestion. CARDIOVASCULAR: Denies chest pain. RESPIRATORY: See HPI GASTROINTESTINAL: See HPI GENITOURINARY: Denies difficulty urinating, burning, blood in urine, urgency or frequency. MUSCULOSKELETAL: Denies neck and back pain. Denies joint pain or swelling. SKIN: Denies rash, itchiness, or lesions HEMATOLOGIC : Denies easy bruising or bleeding. LYMPHATIC: Denies swollen, painful, enlarged glands. NEUROLOGICAL: See HPI PSYCHIATRIC: Denies stress, anxiety, alteration in sleep patterns, or depression. All other systems reviewed and negative. (BETH LINARES) Physical Exam <BETH LINARES - Last Filed: 11/04/18 19:46> - Vital signs Vitals: Temp Pulse Resp BP Pulse Ox 98.1 F 98 19 134/95 H 96 11/04/18 15:43 11/04/18 15:43 11/04/18 15:43 11/04/18 15:43 11/04/18 15:43 - Notes Notes: PHYSICAL EXAMINATION: GENERAL: Ill-appearing, mild distress. HEAD: Normocephalic, atraumatic. EYES: PERRL, conjunctiva normal, all extraocular movements intact, sclera nonicteric ENT: Dry mucous membranes. NECK: Supple, no noticeable swelling, redness, rash. Normal range of motion. LUNGS: Expiratory wheezes noted throughout. CARDIOVASCULAR: S1-S2, regular rate, regular rhythm. Radial pulses 2+, normal. ABDOMEN: Normoactive bowel sounds. Soft, nontender, no guarding, no rebound tenderness, and no masses palpated. Bruising noted to right abdomen. EXTREMITIES: Normal strength and range of motion, no pitting or edema. No cyanosis. NEUROLOGICAL: Moves all extremities upon command. Strength 5/5 in all extremities. PSYCH: Normal mood, normal affect. SKIN: Warm, dry. No rash, lesions, ulcerations noted. Normal skin turgor. (BETH LINARES) Course - Laboratory Result Diagrams: 11/04/18 16:03 11/04/18 16:03 <BETH LINARES - Last Filed: 11/04/18 19:46> - Laboratory Result Diagrams: 11/04/18 16:03 11/04/18 16:03 <DEVON YOUSIF - Last Filed: 11/04/18 19:52> - Re-evaluation Re-evalutation: 11/04/18 16:42 Patient does have notable expiratory wheezes upon auscultation to bilateral lung fournier. He received a DuoNeb treatment. He also be sent for a CT of the head to rule out any intracranial process since he has been falling multiple times. A chest x-ray will be done and a twelve-lead EKG to be done. 11/04/18 17:36 Patient's x-ray is negative for pneumonia. He does still have expiratory wheezes noted throughout, and he is now sending course. I will order another DuoNeb treatment. I also instructed the patient to cough to help get any secretions out of his bronchials. 11/04/18 18:00 Patient is neutropenic with a WBC count of 2800. This is new for him. He also has thrombocytopenia at 54,000. 11/04/18 18:54 I have spoke with Dr. Yousif and he will admit the patient to IMCU. He would like the patient to have a banana bag, and a toxicology screen, and start Ativan as needed. (BETH LINARES) - Vital Signs Vital signs: Temp Pulse Resp BP Pulse Ox 98.1 F 98 18 134/95 H 92 11/04/18 15:43 11/04/18 15:43 11/04/18 19:00 11/04/18 15:43 11/04/18 19:00 - Laboratory Laboratory results interpreted by me: 11/04/18 11/04/18 11/04/18 16:03 16:03 16:03 WBC 2.8 L RDW 16.7 H Plt Count 54 L Monocytes % 14.4 H Absolute Neutrophils 1.3 L Sodium 145.2 H Carbon Dioxide 34 H Glucose 111 H AST 131 H Serum Alcohol 322 H* - EKG Interpretation by Me Additional EKG results interpreted by me: 11/04/18 16:52 Sinus rhythm. Heart rate 98; NM 168; QRS 94; QT 376; QTC 481. No ST elevations or depressions. No acute change from previous EKG. (BETH LINARES) Discharge - Discharge Admitting Provider: [facility] Admitted: IMCU <BETH LINARES - Last Filed: 11/04/18 19:46> <DEVON YOUSIF - Last Filed: 11/04/18 19:52> - Discharge Clinical Impression: Hypoxia, Thrombocytopenia, COPD exacerbation Neutropenia Qualifiers: Neutropenia type: other Qualified Code(s): D70.8 - Other neutropenia Disposition: ADMITTED INPATIENT
--- NOTE | 2018-11-04 17:12 | RADIOLOGY REPORT (SQ) ---
EXAM DESCRIPTION: CHEST SINGLE VIEW COMPLETED DATE/TIME: 11/04/2018 4:51 pm REASON FOR STUDY: AMS COMPARISON: 04/28/2017 TECHNIQUE: Single frontal radiographic view of the chest acquired. NUMBER OF VIEWS: One view. LIMITATIONS: None. FINDINGS: LUNGS AND PLEURA: No pneumothorax. No consolidation or pleural effusion. MEDIASTINUM AND HILAR STRUCTURES: Stable. HEART AND VASCULAR STRUCTURES: Stable. BONES: No acute findings. HARDWARE: None in the chest. OTHER: No other significant finding. IMPRESSION: NO ACUTE FINDINGS. TECHNICAL DOCUMENTATION: JOB ID: [id number] [place]-72 2010 [email or web address]- All Rights Reserved Reading location - IP/workstation name: [email or web address]
[2018-11-04 17:18] LABS: ALANINE AMINOTRANSFERASE 55 U/L (21-72); ALBUMIN 4.3 g/dL (3.5-5.0); ALKALINE PHOSPHATASE 79 U/L (38-126); ANION GAP 9 (5-19); ASPARTATE AMINO TRANSFERASE 131 U/L (17-59); BILIRUBIN,DIRECT 0.2 mg/dL (0.0-0.4); BILIRUBIN,TOTAL 0.4 mg/dL (0.2-1.3); BLOOD UREA NITROGEN 7 mg/dL (7-20); CALCIUM 9.2 mg/dL (8.4-10.2); CARBON DIOXIDE 34 mmol/L (22-30); CHLORIDE 102 mmol/L (98-107); GLUCOSE 111 mg/dL (75-110); POTASSIUM 4.4 mmol/L (3.6-5.0); SODIUM 145.2 mmol/L (137-145); TOTAL PROTEIN 7.4 g/dL (6.3-8.2)
[2018-11-04 17:43] LABS: ABSOLUTE BASOPHILS # (AUTO) 0.1 10^3/uL (0.0-0.2); ABSOLUTE MONOCYTES (AUTO) 0.4 10^3/uL (0.1-1.4); ABSOLUTE NEUT (AUTO) 1.3 10^3/uL (1.7-8.2); BASOPHILS % (AUTO) 1.9 % (0-2); EOSINOPHILS % (AUTO) 1.5 % (0-6); HEMATOCRIT 46.5 % (37.9-51.0); HEMOGLOBIN 15.8 g/dL (13.5-17.0); LYMPHOCYTES % (AUTO) 35.3 % (13-45); MEAN CORPUSCULAR HEMOGLOBIN 32.4 pg (27.0-33.4); MEAN CORPUSCULAR HGB CONC 33.9 g/dL (32.0-36.0); MEAN CORPUSCULAR VOLUME 95 fl (80-97); MONOCYTES % (AUTO) 14.4 % (3-13); RED BLOOD COUNT 4.87 10^6/uL (4.35-5.55); RED CELL DISTRIBUTION WIDTH 16.7 % (11.5-14.0); SEGMENTED NEUTROPHILS % (AUTO) 46.9 % (42-78); TOTAL CELLS COUNTED % (AUTO) 100 %; WHITE BLOOD COUNT 2.8 10^3/uL (4.0-10.5)
[2018-11-04 17:56] LABS: CREATINE KINASE MB 1.33 ng/mL (<4.55); TROPONIN I < 0.012 ng/mL
[2018-11-04] MEDS ORDERED: NORMAL SALINE 1000 ML 1,000 ML with POTASSIUM CHLORIDE 20 MEQ, MAGNESIUM SULFATE 8 MEQ,... IV SCH ×5 (18:00)
--- NOTE | 2018-11-04 18:04 | RADIOLOGY REPORT (SQ) ---
EXAM DESCRIPTION: CT HEAD WITHOUT COMPLETED DATE/TIME: 11/04/2018 5:54 pm REASON FOR STUDY: AMS COMPARISON: 02/01/2018 and earlier TECHNIQUE: Axial images acquired through the brain without intravenous contrast. Images reviewed wi th bone, brain and subdural windows. Additional sagittal and coronal reconstructions were generated. Images stored on PACS. All CT scanners at this facility use dose modulation, iterative reconstruction, and/or weight based d osing when appropriate to reduce radiation dose to as low as reasonably achievable (ALARA). [facility]: Dose Right [facility]: CareDose [facility]: Dose Right [facility]: Teradose 4D [facility]: Smart [employer] RADIATION DOSE: CT Rad equipment meets quality standard of care and radiation dose reduction techniq ues were employed. CTDIvol: 53.2 mGy. DLP: 1070 mGy-cm. mGy. LIMITATIONS: None. FINDINGS: VENTRICLES: Normal size and contour. CEREBRUM: No masses. No hemorrhage. No midline shift. No evidence for acute infarction. Normal gra y/white matter differentiation. No areas of low density in the white matter. CEREBELLUM: No masses. No hemorrhage. No alteration of density. No evidence for acute infarction. EXTRAAXIAL SPACES: No fluid collections. No masses. ORBITS AND GLOBE: No intra- or extraconal masses. Normal contour of globe without masses. CALVARIUM: No fracture. PARANASAL SINUSES: No fluid or mucosal thickening. SOFT TISSUES: No mass or hematoma. OTHER: No other significant finding. IMPRESSION: NO ACUTE INTRACRANIAL IMAGING FINDINGS. EVIDENCE OF ACUTE STROKE: NO. COMMENT: Quality ID # [id number]: Final reports with documentation of one or more dose reduction techniques (e.g., Automated exposure control, adjustment of the mA and/or kV according to patient size, use of iterative reconstruction technique) TECHNICAL DOCUMENTATION: JOB ID: [id number] [employer]- All Rights Reserved Reading location - IP/workstation name: [email or web address]
[2018-11-04 18:07] LABS: PLATELET COUNT 54 10^3/uL (150-450)
--- NOTE | 2018-11-04 18:11 | RADIOLOGY REPORT (SQ) ---
EXAM DESCRIPTION: CT ABD/PELVIS WITH IV ONLY COMPLETED DATE/TIME: 11/04/2018 5:57 pm REASON FOR STUDY: fall COMPARISON: None. TECHNIQUE: CT scan of the abdomen and pelvis performed using helical scanning technique with dynamic intravenous contrast injection. No oral contrast. Images reviewed with lung, soft tissue, and bone w indows. Reconstructed coronal and sagittal MPR images reviewed. Delayed images for evaluation of the urinary system also acquired. All images stored on PACS. All CT scanners at this facility use dose modulation, iterative reconstruction, and/or weight based d osing when appropriate to reduce radiation dose to as low as reasonably achievable (ALARA). [facility]: Dose Right [facility]: CareDose [facility]: Dose Right [facility]: Teradose 4D [facility]: [employer] CONTRAST TYPE AND DOSE: contrast/concentration: Isovue 350.00 mg/ml; Total Contrast Delivered: 100.0 ml; Total Saline Delivered: 72.0 ml RENAL FUNCTION: GFR > 60. RADIATION DOSE: CT Rad equipment meets quality standard of care and radiation dose reduction techniq ues were employed. CTDIvol: 9.6 - 14.4 mGy. DLP: 1324 mGy-cm.. LIMITATIONS: None. FINDINGS: LOWER CHEST: No significant findings. LIVER: Diffuse fatty infiltration. Normal size. No enhancing masses. No dilated ducts. SPLEEN: Normal size. No focal lesions. PANCREAS: No masses identified. No significant calcifications. No adjacent inflammation or peripancre atic fluid collections. Pancreatic duct not dilated. GALLBLADDER: No calcified stones. No inflammatory changes to suggest cholecystitis. ADRENAL GLANDS: No significant masses. RIGHT KIDNEY AND URETER: No cysts identified. No solid masses identified. No calcified stones. No hyd ronephrosis or hydroureter. LEFT KIDNEY AND URETER: No cysts identified. No solid masses identified. No calcified stones. No hydr onephrosis or hydroureter. AORTA AND VESSELS: No aneurysm. No dissection. Renal arteries, SMA, celiac without significant stenos is. RETROPERITONEUM: No bulky retroperitoneal adenopathy. BOWEL AND PERITONEAL CAVITY: No obstruction or inflammatory changes. No free fluid. APPENDIX: Normal. PELVIS: No mass. No free fluid. Unremarkable bladder. ABDOMINAL WALL: No masses. No hernias. BONES: No acute findings. OTHER: No other significant finding. IMPRESSION: NO ACUTE FINDINGS IN THE ABDOMEN OR PELVIS ON CT SCAN WITH IV CONTRAST. Diffuse fatty l iver. TECHNICAL DOCUMENTATION: JOB ID: [id number] [place]-72 Quality ID # [id number]: Final reports with documentation of one or more dose reduction techniques (e.g., Au tomated exposure control, adjustment of the mA and/or kV according to patient size, use of iterative reconstruction technique) 2010 [employer]- All Rights Reserved Reading location - IP/workstation name: [email or web address]
[2018-11-04] MEDS ORDERED: LORAZEPAM INJ 2 MG/1 ML VIAL IV ONE (18:36)
[2018-11-04] MEDS ORDERED: ONDANSETRON HCL INJ/PF 4 MG/2 ML SDV IV PRN (18:50)
[2018-11-04] MEDS ORDERED: LORAZEPAM 1 MG TABLET PO PRN ×2 (18:52→18:59)
[2018-11-04] MEDS ORDERED: NORMAL SALINE 1000 ML 1,000 ML IV PRN (18:57)
[2018-11-04 19:54] LABS: ARTERIAL BLOOD BASE EXCESS 5.3 mmol/L; ARTERIAL BLOOD FIO2 4L; ARTERIAL BLOOD H2CO3 1.82 mmol/L (1.05-1.35); ARTERIAL BLOOD O2 SATURATION 96.7 % (94-98); ARTERIAL BLOOD PCO2 60.5 mmHg (35-45); ARTERIAL BLOOD PH 7.36 (7.35-7.45); ARTERIAL BLOOD PO2 94.1 mmHg (80-100); ARTERIAL BLOOD TOTAL CO2 34.9 mmol/L (23-27)
--- NOTE | 2018-11-04 20:21 | PDOC H&P ---
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 and thrombocytopenia respiratory distressed came to the emergency department with altered mental status and not feeling well and a frequent fall and complaining of right-sided abdominal pain In the emergency department patient underwent for the CT head was negative and patient CT abdomen and pelvis was done was also negative for any acute finding or any acute bleed As usual alcoholic intoxications and level is more than legal limits Patient also found to be a thrombocytopenia and also low blood count Patient's denied any chest pain to than any shortness of the breath except for increasing more cough and patient was hypoxic and mostly COPD acute exacerbations and whezzing Patient's PCO2 is 60 Patient at this point admitting in the IMCU put the patient on alcohol withdrawal protocol Patient we also consult the track laying equipment operator Patient overall prognosis is very poor with no noncompliance with the multiple comorbidity with alcohol related issues as per Dr. Umana's previous note r sandoval Past Medical History Cardiac Medical History: Reports: Hyperlipidema, Hypertension Denies: Coronary Artery Disease, Myocardial Infarction Pulmonary Medical History: Reports: Asthma, Bronchitis, Chronic Obstructive Pulmonary Disease (COPD), Pneumonia - multiple Neurological Medical History: Reports: Migraine, Seizures GI Medical History: Reports: Cirrhosis Musculoskeltal Medical History: Reports: Arthritis Psychiatric Medical History: Reports: Alcohol Dependency, Depression Hematology: Denies: Anemia Past Surgical History Past Surgical History: Reports: Orthopedic Surgery - bilateral knees, left hand, leg Social History Smoking Status: Current Every Day Smoker Frequency of Alcohol Use: Heavy Hx Recreational Drug Use: No Drugs: None Hx Prescription Drug Abuse: No Family History Family History: Arthritis, Hypertension, Malignancy Parental Family History Reviewed: Yes Children Family History Reviewed: Yes Sibling(s) Family History Reviewed.: Yes Medication/Allergy Home Medications: Albuterol Sulfate [Proair HFA Inhalation Aerosol 8.5 gm MDI] 2 puff IH Q4HP PRN 01/30/18 Albuterol Sulfate [Ventolin 0.083% Neb 2.5 mg/3 mL Ampul] 2.5 mg NEB RTQ4HP PRN 01/30/18 Clonidine HCl [Catapres 0.2 mg Tablet] 0.2 mg PO Q8 01/30/18 Cyclobenzaprine HCl [Flexeril 10 mg Tablet] 10 mg PO TID 01/30/18 Diazepam [Valium 5 mg Tablet] 5 mg PO QPMP PRN 01/30/18 Donepezil HCl [Aricept 5 mg Tablet] 5 mg PO QHS 01/30/18 Fluoxetine HCl [Prozac] 40 mg PO QAM 01/30/18 Fluticasone/Salmeterol [Advair 250-50 Diskus 28 dose] 1 puff IH Q12 01/30/18 Levetiracetam [Keppra 500 mg Tablet] 500 mg PO Q12 01/30/18 Pregabalin [Lyrica 50 mg Capsule] 50 mg PO Q12 01/30/18 Quetiapine Fumarate [Seroquel Xr] 150 mg PO QPM 01/30/18 Thiamine HCl [Vitamin B-1] 500 mg PO DAILY 01/30/18 Tiotropium [place] [Spiriva Handihaler 18 mcg/dose (30 Dose)] 18 mcg PO DAILY 01/30/18 Trazodone HCl [Desyrel] 150 mg PO QHS 01/30/18 Allergies/Adverse Reactions: Coconut * [Coconut] Adverse Reaction (Severe, Verified 03/24/15 15:37) stomach swells pineapple [Pineapple] Adverse Reaction (Severe, Verified 03/24/15 15:37) stomach swells cherries Adverse Reaction (Severe, Uncoded 03/24/15 15:37) stomach swells Review of Systems Constitutional: PRESENT: fatigue, weakness. ABSENT: chills, fever(s), headache(s), weight gain, weight loss Eyes: ABSENT: visual disturbances Ears: ABSENT: hearing changes Cardiovascular: PRESENT: dyspnea on exertion. ABSENT: chest pain, edema, orthropnea, palpitations Respiratory: ABSENT: cough, hemoptysis Gastrointestinal: ABSENT: abdominal pain, constipation, diarrhea, hematemesis, hematochezia, nausea, vomiting Genitourinary: ABSENT: dysuria, hematuria Musculoskeletal: ABSENT: joint swelling Integumentary: ABSENT: rash, wounds Neurological: PRESENT: abnormal gait. ABSENT: abnormal speech, confusion, dizziness, focal weakness, syncope Psychiatric: ABSENT: anxiety, depression, homidical ideation, suicidal ideation Endocrine: ABSENT: cold intolerance, heat intolerance, menstrual abnormalities, polydipsia, polyuria Hematologic/Lymphatic: ABSENT: easy bleeding, easy bruising, lymphadenopathy Physical Exam Vital Signs: Temp Pulse Resp BP Pulse Ox 98.1 F 98 11 L 121/90 H 90 L 11/04/18 15:43 11/04/18 15:43 11/04/18 20:01 11/04/18 20:01 11/04/18 20:01 Intake & Output 11/03/18 11/04/18 11/05/18 06:59 06:59 06:59 Weight 91.1 kg General appearance: PRESENT: no acute distress, well-developed, well-nourished Head exam: PRESENT: atraumatic, normocephalic Eye exam: PRESENT: conjunctiva pink, EOMI, PERRLA. ABSENT: scleral icterus Ear exam: PRESENT: normal external ear exam Mouth exam: PRESENT: moist, tongue midline Neck exam: PRESENT: full ROM. ABSENT: carotid bruit, JVD, lymphadenopathy, thyromegaly Respiratory exam: PRESENT: decreased breath sounds Cardiovascular exam: PRESENT: RRR. ABSENT: diastolic murmur, rubs, systolic murmur Vascular exam: PRESENT: normal capillary refill GI/Abdominal exam: PRESENT: normal bowel sounds, soft. ABSENT: distended, guarding, mass, organolmegaly, rebound, tenderness Rectal exam: PRESENT: deferred Extremities exam: ABSENT: pedal edema Neurological exam: PRESENT: alert, awake, oriented to person, oriented to place. ABSENT: motor sensory deficit Psychiatric exam: PRESENT: appropriate affect, normal mood. ABSENT: homicidal ideation, suicidal ideation Skin exam: PRESENT: dry, intact, warm. ABSENT: cyanosis, rash Results Laboratory Results: 11/04/18 16:03 11/04/18 16:03 11/04/18 11/04/18 11/04/18 16:03 16:03 19:05 WBC 2.8 L RBC 4.87 Hgb 15.8 Hct 46.5 MCV 95 MCH 32.4 MCHC 33.9 RDW 16.7 H Plt Count 54 L Seg Neutrophils % 46.9 Lymphocytes % 35.3 Monocytes % 14.4 H Eosinophils % 1.5 Basophils % 1.9 Absolute Neutrophils 1.3 L Absolute Lymphocytes 1.0 Absolute Monocytes 0.4 Absolute Eosinophils 0.0 Absolute Basophils 0.1 Carbonic Acid HCO3/H2CO3 Ratio ABG pH ABG pCO2 ABG pO2 ABG HCO3 ABG O2 Saturation ABG Base Excess FiO2 Sodium 145.2 H Potassium 4.4 Chloride 102 Carbon Dioxide 34 H Anion Gap 9 BUN 7 Creatinine 0.61 Est GFR ( Amer) > 60 Est GFR (Non-Af Amer) > 60 Glucose 111 H Calcium 9.2 Total Bilirubin 0.4 AST 131 H ALT 55 Alkaline Phosphatase 79 Ammonia < 8.7 L Total Protein 7.4 Albumin 4.3 11/04/18 19:44 WBC RBC Hgb Hct MCV MCH MCHC RDW Plt Count Seg Neutrophils % Lymphocytes % Monocytes % Eosinophils % Basophils % Absolute Neutrophils Absolute Lymphocytes Absolute Monocytes Absolute Eosinophils Absolute Basophils Carbonic Acid 1.82 H HCO3/H2CO3 Ratio 18:1 ABG pH 7.36 ABG pCO2 60.5 H ABG pO2 94.1 ABG HCO3 33.0 H ABG O2 Saturation 96.7 ABG Base Excess 5.3 FiO2 4L Sodium Potassium Chloride Carbon Dioxide Anion Gap BUN Creatinine Est GFR ( Amer) Est GFR (Non-Af Amer) Glucose Calcium Total Bilirubin AST ALT Alkaline Phosphatase Ammonia Total Protein Albumin 11/04/18 11/04/18 16:03 16:03 Creatine Kinase 149 CK-MB (CK-2) 1.33 Troponin I < 0.012 Impressions: Chest X-Ray 11/04/18 16:34 IMPRESSION: NO ACUTE FINDINGS. Head CT 11/04/18 16:35 IMPRESSION: NO ACUTE INTRACRANIAL IMAGING FINDINGS. EVIDENCE OF ACUTE STROKE: NO. Abdomen/Pelvis CT 11/04/18 16:38 IMPRESSION: NO ACUTE FINDINGS IN THE ABDOMEN OR PELVIS ON CT SCAN WITH IV CONTRAST. Diffuse fatty liver. Assessment & Plan - Diagnosis (1) COPD exacerbation Is this a current diagnosis for this admission?: Yes Plan: Start the patient in the DuoNeb nebulizer and Solu-Medrol (2) Hypoxia Is this a current diagnosis for this admission?: Yes Plan: Put the patient on oxygen consult the Dr. Zapata (3) Thrombocytopenia Is this a current diagnosis for this admission?: Yes Plan: Consult the track laying equipment operator for further evaluations most likely liver cirrhosis (4) Acute respiratory failure with hypoxia Is this a current diagnosis for this admission?: Yes Plan: The patient on a BiPAP (5) Alcohol intoxication Qualifiers: Complication of substance-induced condition: with delirium Qualified Code(s): F10.921 - Alcohol use, unspecified with intoxication delirium Is this a current diagnosis for this admission?: Yes (6) Alcohol withdrawal syndrome Qualifiers: Complication of substance-induced condition: with unspecified complication Qualified Code(s): F10.239 - Alcohol dependence with withdrawal, unspecified Is this a current diagnosis for this admission?: Yes Plan: Put the patient's on alcohol withdrawal protocol (7) Alcoholic cirrhosis of liver Is this a current diagnosis for this admission?: Yes (8) Hypertension Qualifiers: Hypertension type: essential hypertension Qualified Code(s): I10 - Essential (primary) hypertension Is this a current diagnosis for this admission?: Yes - Time Time Spent: 50 to 70 Minutes Medications reviewed and adjusted accordingly: Yes Anticipated discharge: SNF Within: Other - Inpatient Certification Based on my medical assessment, after consideration of the patient's comorbidities, presenting symptoms, or acuity I expect that the services needed warrant INPATIENT care.: Yes I certify that my determination is in accordance with my understanding of Medicare's requirements for reasonable and necessary INPATIENT services [42 CFR 412.3e].: Yes Medical Necessity: Need Close Monitoring Due to Risk of Patient Decompensation, Need For Continuous Telemetry Monitoring, Need for Nebulizer Therapy and Monitoring of Response Post Hospital Care: D/C Sales Professional Documentation - Plan Summary Plan Summary: Admit the patient in IMCU See MD orders
[2018-11-04] MEDS: IPRATROPIUM/ALBUTEROL 0.5-2.5 MG/3 ML AMPUL NEB SCH (21:25)
[2018-11-04] MEDS: FAMOTIDINE 20 MG TABLET PO SCH (22:10)
[2018-11-04] MEDS: METHYLPREDNISOLONE INJ 40 MG/1 ML SDV IV SCH (22:13)
[2018-11-04 22:43] LABS: APPEARANCE,URINE CLEAR; BILIRUBIN,URINE NEGATIVE (NEGATIVE); COLOR,URINE YELLOW; GLUCOSE, URINE NEGATIVE (NEGATIVE); KETONES,URINE NEGATIVE (NEGATIVE); LEUKOCYTE ESTERASE,URINE NEGATIVE (NEGATIVE); NITRITE,URINE NEGATIVE (NEGATIVE); PROTEIN,URINE NEGATIVE (NEGATIVE); UROBILINOGEN,URINE NEGATIVE mg/dL (<2.0)
[2018-11-04 22:57] LABS: URINE AMPHETAMINES SCREEN NEGATIVE; URINE BARBITURATES SCREEN NEGATIVE; URINE BENZODIAZEPINES SCREEN UNCONFIRMED POSITIVE; URINE COCAINE SCREEN NEGATIVE; URINE MARIJUANA (THC) SCREEN UNCONFIRMED POSITIVE; URINE METHADONE SCREEN NEGATIVE; URINE PHENCYCLIDINE SCREEN NEGATIVE
[2018-11-04] MEDS ORDERED: TRAZODONE HCL 50 MG TABLET PO ONE (23:00)
[2018-11-04] MEDS ORDERED: LORAZEPAM INJ 2 MG/ML VIAL (4 MG PRN DOSE) IV (23:30)
[2018-11-04] MEDS ORDERED: PREGABALIN 50 MG CAPSULE PO ONE (23:45)
[2018-11-04] MEDS ORDERED: DONEPEZIL HCL 5 MG TABLET PO ONE (23:45)
[2018-11-04] MEDS ORDERED: LEVETIRACETAM 500 MG TABLET PO ONE (23:45)
--- NOTE | 2018-11-04 23:48 | EKG REPORT ---
SEVERITY:- ABNORMAL ECG - SINUS RHYTHM NONSPECIFIC T ABNORMALITIES, ANT-LAT LEADS BORDERLINE PROLONGED QT INTERVAL : Confirmed by: Cherelle Castro 04-Nov-2018 23:47:38
[2018-11-04] MEDS: LORAZEPAM INJ 2 MG/1 ML VIAL (TAPER DOSING) IV SCH (23:57)
[2018-11-05] MEDS: IPRATROPIUM/ALBUTEROL 0.5-2.5 MG/3 ML AMPUL NEB SCH ×6 (00:05→20:11)
[2018-11-05] MEDS: NORMAL SALINE 1000 ML 1,000 ML IV PRN ×2 (00:24→10:35)
[2018-11-05] MEDS: METHYLPREDNISOLONE INJ 40 MG/1 ML SDV IV SCH ×3 (05:11→22:57)
[2018-11-05] MEDS: CLONIDINE HCL 0.2 MG TABLET PO SCH ×3 (05:11→21:10)
[2018-11-05] MEDS: LORAZEPAM INJ 2 MG/1 ML VIAL (TAPER DOSING) IV SCH ×3 (05:12→17:26)
[2018-11-05 06:47] LABS: ABSOLUTE LYMPHOCYTES (AUTO) 0.2 10^3/uL (0.5-4.7); ABSOLUTE MONOCYTES (AUTO) 0.1 10^3/uL (0.1-1.4); ABSOLUTE NEUT (AUTO) 2.6 10^3/uL (1.7-8.2); BASOPHILS % (AUTO) 0.6 % (0-2); EOSINOPHILS % (AUTO) 0.1 % (0-6); HEMATOCRIT 44.8 % (37.9-51.0); HEMOGLOBIN 15.1 g/dL (13.5-17.0); LYMPHOCYTES % (AUTO) 7.5 % (13-45); MEAN CORPUSCULAR HEMOGLOBIN 32.4 pg (27.0-33.4); MEAN CORPUSCULAR HGB CONC 33.8 g/dL (32.0-36.0); MEAN CORPUSCULAR VOLUME 96 fl (80-97); MONOCYTES % (AUTO) 2.1 % (3-13); RED BLOOD COUNT 4.67 10^6/uL (4.35-5.55); RED CELL DISTRIBUTION WIDTH 16.5 % (11.5-14.0); SEGMENTED NEUTROPHILS % (AUTO) 89.7 % (42-78); TOTAL CELLS COUNTED % (AUTO) 100 %; WHITE BLOOD COUNT 2.9 10^3/uL (4.0-10.5)
[2018-11-05 07:23] LABS: PLATELET COUNT 53 10^3/uL (150-450)
[2018-11-05 07:37] LABS: ALBUMIN 4.1 g/dL (3.5-5.0); ALKALINE PHOSPHATASE 70 U/L (38-126); ANION GAP 10 (5-19); ASPARTATE AMINO TRANSFERASE 82 U/L (17-59); BILIRUBIN,DIRECT 0.4 mg/dL (0.0-0.4); BILIRUBIN,TOTAL 0.6 mg/dL (0.2-1.3); BLOOD UREA NITROGEN 7 mg/dL (7-20); CALCIUM 8.7 mg/dL (8.4-10.2); CARBON DIOXIDE 30 mmol/L (22-30); CHLORIDE 101 mmol/L (98-107); GLUCOSE 149 mg/dL (75-110); POTASSIUM 4.6 mmol/L (3.6-5.0); SODIUM 141.3 mmol/L (137-145); TOTAL PROTEIN 7.2 g/dL (6.3-8.2)
[2018-11-05 08:05] LABS: ALANINE AMINOTRANSFERASE 50 U/L (21-72)
[2018-11-05] MEDS: FLUOXETINE HCL 20 MG CAPSULE PO SCH (08:41)
[2018-11-05] MEDS ORDERED: LEVETIRACETAM 500 MG TABLET PO SCH (10:00)
[2018-11-05] MEDS ORDERED: THIAMINE HCL 100 MG, FOLIC ACID 1 MG in NORMAL SALINE 250 ML IV SCH ×2 (10:00→22:00)
[2018-11-05] MEDS ORDERED: ONDANSETRON HCL INJ/PF 4 MG/2 ML SDV IV PRN (10:30)
[2018-11-05] MEDS: DOCUSATE SODIUM 100 MG CAPSULE PO SCH ×2 (10:34→17:26)
[2018-11-05] MEDS: FAMOTIDINE 20 MG TABLET PO SCH ×2 (10:34→21:10)
[2018-11-05] MEDS: TIOTROPIUM BROMIDE DPI 5 CAP/KIT (18 MCG/CAP) IH SCH (10:34)
[2018-11-05] MEDS: PREGABALIN 50 MG CAPSULE PO SCH ×2 (10:34→21:10)
[2018-11-05] MEDS: FLUTICASONE/SALMETEROL DISKUS 250-50 MCG/DOSE IH SCH ×2 (10:35→21:10)
[2018-11-05] MEDS: BANANA BAG (EDIT INGREDIENTS/RATE) IV SCH ×5 (17:26)
[2018-11-05] MEDS ORDERED: (PENDING PHARMACY ID) (Quetiapine Fumarate [Seroquel Xr] 150 MG) PO SCH (18:00)
--- NOTE | 2018-11-05 19:51 | PDOC PROGRESS REPORT ---
Subjective Progress Note for:: 11/05/18 Subjective:: Patient was seen by the bedside, he has alcohol problem, he came to the emergency room for evaluation of fall, altered mental status, he was alcohol intoxicated. I saw him by the bedside this afternoon, his last alcohol drink was on Monday, he was having tremors, he has tachycardia, he has a history of alcohol withdrawal syndrome and also history of cardiac arrest felt to be due to torsades. Patient is near the 72-hour window when he will likely go into DTs, he will be treated with intravenous Lorazepam infusion, he has COPD actively wheezing, the Lorazepam infusion carries a risk of respiratory suppression that may require mechanical ventilation. He will be transferred to ICU for close monitoring and if needed will be intubated to protect his airway. Reason For Visit: COPD ACUTE Physical Exam Vital Signs: Temp Pulse Resp BP Pulse Ox 98.0 F 100 20 161/91 H 92 11/05/18 18:48 11/05/18 19:00 11/05/18 18:48 11/05/18 18:48 11/05/18 18:48 Intake & Output 11/04/18 11/05/18 11/06/18 06:59 06:59 06:59 Intake Total 3081 Output Total 0 1200 Balance 0 1881 Weight 89.4 kg General appearance: PRESENT: mild distress Eye exam: PRESENT: PERRLA Respiratory exam: PRESENT: wheezes Cardiovascular exam: PRESENT: +S1, +S2 GI/Abdominal exam: PRESENT: soft Neurological exam: PRESENT: alert, ataxia Results Laboratory Results: 11/05/18 06:12 11/05/18 07:15 11/04/18 11/04/18 11/05/18 19:44 22:18 06:12 WBC 2.9 L RBC 4.67 Hgb 15.1 Hct 44.8 MCV 96 MCH 32.4 MCHC 33.8 RDW 16.5 H Plt Count 53 L Seg Neutrophils % 89.7 H Lymphocytes % 7.5 L Monocytes % 2.1 L Eosinophils % 0.1 Basophils % 0.6 Absolute Neutrophils 2.6 Absolute Lymphocytes 0.2 L Absolute Monocytes 0.1 Absolute Eosinophils 0.0 Absolute Basophils 0.0 Carbonic Acid 1.82 H HCO3/H2CO3 Ratio 18:1 ABG pH 7.36 ABG pCO2 60.5 H ABG pO2 94.1 ABG HCO3 33.0 H ABG O2 Saturation 96.7 ABG Base Excess 5.3 FiO2 4L Sodium Potassium Chloride Carbon Dioxide Anion Gap BUN Creatinine Est GFR ( Amer) Est GFR (Non-Af Amer) Glucose Calcium Total Bilirubin AST ALT Alkaline Phosphatase Total Protein Albumin Urine Color YELLOW Urine Appearance CLEAR Urine pH 5.0 Ur Specific [place] 1.060 Urine Protein NEGATIVE Urine Glucose (UA) NEGATIVE Urine Ketones NEGATIVE Urine Blood NEGATIVE Urine Nitrite NEGATIVE Ur Leukocyte Esterase NEGATIVE Urine WBC (Auto) 0 Urine RBC (Auto) 0 11/05/18 11/05/18 06:12 07:15 WBC RBC Hgb Hct MCV MCH MCHC RDW Plt Count Seg Neutrophils % Lymphocytes % Monocytes % Eosinophils % Basophils % Absolute Neutrophils Absolute Lymphocytes Absolute Monocytes Absolute Eosinophils Absolute Basophils Carbonic Acid HCO3/H2CO3 Ratio ABG pH ABG pCO2 ABG pO2 ABG HCO3 ABG O2 Saturation ABG Base Excess FiO2 Sodium Cancelled 141.3 Potassium Cancelled 4.6 Chloride Cancelled 101 Carbon Dioxide Cancelled 30 Anion Gap Cancelled 10 BUN Cancelled 7 Creatinine Cancelled 0.49 L Est GFR ( Amer) Cancelled > 60 Est GFR (Non-Af Amer) Cancelled > 60 Glucose Cancelled 149 H Calcium Cancelled 8.7 Total Bilirubin Cancelled 0.6 AST Cancelled 82 H ALT Cancelled 50 Alkaline Phosphatase Cancelled 70 Total Protein Cancelled 7.2 Albumin Cancelled 4.1 Urine Color Urine Appearance Urine pH Ur Specific [place] Urine Protein Urine Glucose (UA) Urine Ketones Urine Blood Urine Nitrite Ur Leukocyte Esterase Urine WBC (Auto) Urine RBC (Auto) 11/04/18 11/04/18 16:03 16:03 Creatine Kinase 149 CK-MB (CK-2) 1.33 Troponin I < 0.012 Impressions: Chest X-Ray 11/04/18 16:34 IMPRESSION: NO ACUTE FINDINGS. Head CT 11/04/18 16:35 IMPRESSION: NO ACUTE INTRACRANIAL IMAGING FINDINGS. EVIDENCE OF ACUTE STROKE: NO. Abdomen/Pelvis CT 11/04/18 16:38 IMPRESSION: NO ACUTE FINDINGS IN THE ABDOMEN OR PELVIS ON CT SCAN WITH IV CON TRAST. Diffuse fatty liver. Assessment & Plan - Diagnosis (1) Alcohol intoxication in active alcoholic with delirium Is this a current diagnosis for this admission?: Yes Plan: Start intravenous lorazepam infusion, at 1 mg/h, who increased to 2mg/hr to full sedation for 72 hours (2) COPD with acute exacerbation Is this a current diagnosis for this admission?: Yes Plan: Continue Solu-Medrol that was started by Dr. Lane - Plan Summary Plan Summary: Continue Solu-Medrol, start thiamine 100 MG IV daily
[2018-11-05] MEDS: LEVETIRACETAM 500 MG/NACL-ISO 500 MG/100 ML RTUPB IV SCH (21:01)
[2018-11-05] MEDS: TRAZODONE HCL 50 MG TABLET PO SCH (21:10)
[2018-11-05] MEDS: DONEPEZIL HCL 5 MG TABLET PO SCH (21:11)
[2018-11-05] MEDS: LORAZEPAM 24 MG/240 ML BAG IV PRN (22:58)
[2018-11-06] MEDS: IPRATROPIUM/ALBUTEROL 0.5-2.5 MG/3 ML AMPUL NEB SCH ×6 (00:31→19:48)
[2018-11-06 04:15] LABS: HEMATOCRIT 44.8 % (37.9-51.0); MEAN CORPUSCULAR HEMOGLOBIN 31.8 pg (27.0-33.4); MEAN CORPUSCULAR HGB CONC 33.4 g/dL (32.0-36.0); MEAN CORPUSCULAR VOLUME 95 fl (80-97); RED BLOOD COUNT 4.72 10^6/uL (4.35-5.55); WHITE BLOOD COUNT 5.4 10^3/uL (4.0-10.5)
[2018-11-06 04:44] LABS: ABSOLUTE LYMPHOCYTES# (MANUAL) 0.3 10^3/uL (0.5-4.7); ABSOLUTE MONOCYTES # (MANUAL) 0.3 10^3/uL (0.1-1.4); ABSOLUTE NEUTROPHILS# (MANUAL) 4.8 10^3/uL (1.7-8.2); BASOPHILS % (MANUAL) 0 % (0-2); EOSINOPHILS % (MANUAL) 0 % (0-6); LYMPHOCYTES % (MANUAL) 6 % (13-45); MONOCYTES % (MANUAL) 5 % (3-13); SEGMENTED NEUTROPHILS % (MAN) 89 % (42-78); TOTAL CELLS COUNTED 100
[2018-11-06 04:48] LABS: ANISOCYTOSIS 1+; POLYCHROMASIA SLIGHT
[2018-11-06 04:49] LABS: PLATELET COMMENT DECREASED; PLATELET GIANT PRESENT; PLATELET LARGE PRESENT
[2018-11-06 04:52] LABS: PLATELET COUNT 42 10^3/uL (150-450)
[2018-11-06] MEDS: METHYLPREDNISOLONE INJ 40 MG/1 ML SDV IV SCH ×3 (05:50→22:23)
[2018-11-06] MEDS: CLONIDINE HCL 0.2 MG TABLET PO SCH ×3 (05:50→22:24)
[2018-11-06] MEDS: LEVETIRACETAM 500 MG/NACL-ISO 500 MG/100 ML RTUPB IV SCH ×2 (05:50→17:05)
[2018-11-06] MEDS: LORAZEPAM 24 MG/240 ML BAG IV PRN ×4 (06:51→20:06)
[2018-11-06] MEDS: FLUTICASONE/SALMETEROL DISKUS 250-50 MCG/DOSE IH SCH ×2 (09:21→22:22)
[2018-11-06] MEDS: FAMOTIDINE 20 MG TABLET PO SCH ×2 (09:21→22:23)
[2018-11-06] MEDS: PREGABALIN 50 MG CAPSULE PO SCH ×2 (09:21→22:24)
[2018-11-06] MEDS: FLUOXETINE HCL 20 MG CAPSULE PO SCH (09:21)
[2018-11-06] MEDS: DOCUSATE SODIUM 100 MG CAPSULE PO SCH ×2 (09:21→18:03)
[2018-11-06] MEDS: TIOTROPIUM BROMIDE DPI 5 CAP/KIT (18 MCG/CAP) IH SCH (09:22)
[2018-11-06] MEDS: HYDRALAZINE HCL 25 MG TABLET PO SCH ×2 (13:17→22:25)
[2018-11-06 16:22] LABS: ALANINE AMINOTRANSFERASE 42 U/L (21-72); ALBUMIN 4.3 g/dL (3.5-5.0); ALKALINE PHOSPHATASE 76 U/L (38-126); ANION GAP 7 (5-19); ASPARTATE AMINO TRANSFERASE 58 U/L (17-59); BILIRUBIN,DIRECT 0.2 mg/dL (0.0-0.4); BILIRUBIN,TOTAL 0.8 mg/dL (0.2-1.3); BLOOD UREA NITROGEN 10 mg/dL (7-20); CALCIUM 9.1 mg/dL (8.4-10.2); CARBON DIOXIDE 31 mmol/L (22-30); CHLORIDE 97 mmol/L (98-107); GLUCOSE 120 mg/dL (75-110); SODIUM 134.6 mmol/L (137-145); TOTAL PROTEIN 7.3 g/dL (6.3-8.2)
[2018-11-06] MEDS: BANANA BAG (EDIT INGREDIENTS/RATE) IV SCH ×5 (18:03)
[2018-11-06] MEDS ORDERED: TRAMADOL HCL 50 MG TABLET PO PRN (19:54)
[2018-11-06] MEDS: TRAMADOL HCL 50 MG TABLET PO PRN (20:34)
--- NOTE | 2018-11-06 21:41 | PDOC PROGRESS REPORT ---
Subjective Progress Note for:: 11/06/18 Subjective:: Patient seen by the bedside, presently on Lorazepam infusion at 3 mg/h, patient is awake alert, he needs to be fully sedated to prevent DTs, I advised the nursing staff to increase infusion rate to 5 mg/h to achieve full sedation Reason For Visit: COPD ACUTE Physical Exam Vital Signs: Temp Pulse Resp BP Pulse Ox 98 F 76 16 166/95 H 94 11/06/18 19:44 11/06/18 19:00 11/06/18 18:00 11/06/18 18:00 11/06/18 18:00 Intake & Output 11/05/18 11/06/18 11/07/18 06:59 06:59 06:59 Intake Total 4440 838 Output Total 0 4500 2050 Balance 0 -60 -1212 Weight 89.4 kg 89.4 kg General appearance: PRESENT: no acute distress Eye exam: PRESENT: PERRLA Respiratory exam: PRESENT: clear to auscultation nikia Cardiovascular exam: PRESENT: +S1, +S2 GI/Abdominal exam: PRESENT: soft Neurological exam: PRESENT: alert Results Laboratory Results: 11/06/18 03:34 11/06/18 15:50 11/06/18 11/06/18 03:34 15:50 WBC 5.4 RBC 4.72 Hgb 15.0 Hct 44.8 MCV 95 MCH 31.8 MCHC 33.4 RDW 16.0 H Plt Count 42 L Seg Neutrophils % Not Reportable Lymphocytes % Not Reportable Monocytes % Not Reportable Eosinophils % Not Reportable Basophils % Not Reportable Absolute Neutrophils Not Reportable Absolute Lymphocytes Not Reportable Absolute Monocytes Not Reportable Absolute Eosinophils Not Reportable Absolute Basophils Not Reportable Sodium 134.6 L Potassium 4.0 Chloride 97 L Carbon Dioxide 31 H Anion Gap 7 BUN 10 Creatinine 0.55 Est GFR ( Amer) > 60 Est GFR (Non-Af Amer) > 60 Glucose 120 H Calcium 9.1 Total Bilirubin 0.8 AST 58 ALT 42 Alkaline Phosphatase 76 Total Protein 7.3 Albumin 4.3 11/04/18 22:18 Clean Catch Midstream Urine Culture - Final Mixed Urogenital Nayeli 11/04/18 11/04/18 16:03 16:03 Creatine Kinase 149 CK-MB (CK-2) 1.33 Troponin I < 0.012 Impressions: Chest X-Ray 11/04/18 16:34 IMPRESSION: NO ACUTE FINDINGS. Head CT 11/04/18 16:35 IMPRESSION: NO ACUTE INTRACRANIAL IMAGING FINDINGS. EVIDENCE OF ACUTE STROKE: NO. Abdomen/Pelvis CT 11/04/18 16:38 IMPRESSION: NO ACUTE FINDINGS IN THE ABDOMEN OR PELVIS ON CT SCAN WITH IV CON TRAST. Diffuse fatty liver. Assessment & Plan - Diagnosis (1) Alcohol intoxication in active alcoholic with delirium Is this a current diagnosis for this admission?: Yes Plan: increase Lorazepam infusion to 5 mg/h to achieve full sedation (2) COPD with acute exacerbation Is this a current diagnosis for this admission?: Yes
[2018-11-06] MEDS: TRAZODONE HCL 50 MG TABLET PO SCH (22:24)
[2018-11-06] MEDS: DONEPEZIL HCL 5 MG TABLET PO SCH (22:24)
[2018-11-07] MEDS: LORAZEPAM 24 MG/240 ML BAG IV PRN ×5 (00:35→20:02)
[2018-11-07] MEDS: IPRATROPIUM/ALBUTEROL 0.5-2.5 MG/3 ML AMPUL NEB SCH ×6 (00:59→21:44)
[2018-11-07 04:34] LABS: HEMATOCRIT 46.3 % (37.9-51.0); HEMOGLOBIN 15.7 g/dL (13.5-17.0); MEAN CORPUSCULAR HEMOGLOBIN 32.3 pg (27.0-33.4); MEAN CORPUSCULAR HGB CONC 33.9 g/dL (32.0-36.0); MEAN CORPUSCULAR VOLUME 95 fl (80-97); RED BLOOD COUNT 4.86 10^6/uL (4.35-5.55); RED CELL DISTRIBUTION WIDTH 16.2 % (11.5-14.0); WHITE BLOOD COUNT 5.3 10^3/uL (4.0-10.5)
[2018-11-07 04:38] LABS: PLATELET COUNT 40 10^3/uL (150-450)
[2018-11-07 04:55] LABS: ABSOLUTE LYMPHOCYTES# (MANUAL) 0.4 10^3/uL (0.5-4.7); ABSOLUTE MONOCYTES # (MANUAL) 0.2 10^3/uL (0.1-1.4); ABSOLUTE NEUTROPHILS# (MANUAL) 4.7 10^3/uL (1.7-8.2); BASOPHILS % (MANUAL) 0 % (0-2); EOSINOPHILS % (MANUAL) 0 % (0-6); LYMPHOCYTES % (MANUAL) 7 % (13-45); MONOCYTES % (MANUAL) 3 % (3-13); SEGMENTED NEUTROPHILS % (MAN) 89 % (42-78); TOTAL CELLS COUNTED 100
[2018-11-07 04:56] LABS: ANISOCYTOSIS 1+; PLATELET COMMENT DECREASED; TOXIC VACUOLATION PRESENT
[2018-11-07] MEDS ORDERED: LEVETIRACETAM 500 MG/NACL-ISO 500 MG/100 ML RTUPB IV ONE (06:04)
[2018-11-07] MEDS: LEVETIRACETAM 500 MG/NACL-ISO 500 MG/100 ML RTUPB IV SCH ×2 (06:10→17:26)
[2018-11-07] MEDS: CLONIDINE HCL 0.2 MG TABLET PO SCH ×3 (06:11→21:18)
[2018-11-07] MEDS: HYDRALAZINE HCL 25 MG TABLET PO SCH ×3 (06:11→21:17)
[2018-11-07] MEDS: METHYLPREDNISOLONE INJ 40 MG/1 ML SDV IV SCH ×3 (08:10→21:17)
[2018-11-07] MEDS: PREGABALIN 50 MG CAPSULE PO SCH ×2 (09:11→21:18)
[2018-11-07] MEDS: DOCUSATE SODIUM 100 MG CAPSULE PO SCH ×2 (09:11→17:16)
[2018-11-07] MEDS: FLUOXETINE HCL 20 MG CAPSULE PO SCH (09:11)
[2018-11-07] MEDS: FAMOTIDINE 20 MG TABLET PO SCH ×2 (09:11→21:18)
[2018-11-07] MEDS: TRAMADOL HCL 50 MG TABLET PO PRN ×2 (09:12→17:26)
[2018-11-07] MEDS: TIOTROPIUM BROMIDE DPI 5 CAP/KIT (18 MCG/CAP) IH SCH (09:12)
[2018-11-07] MEDS: FLUTICASONE/SALMETEROL DISKUS 250-50 MCG/DOSE IH SCH ×2 (09:12→21:19)
[2018-11-07] MEDS: NORMAL SALINE 1000 ML 1,000 ML IV PRN (09:21)
[2018-11-07] MEDS: BANANA BAG (EDIT INGREDIENTS/RATE) IV SCH ×5 (17:26)
[2018-11-07] MEDS: NICOTINE 21 MG/24 HR PATCH.TD24 TD SCH (17:57)
--- NOTE | 2018-11-07 18:28 | PDOC PROGRESS REPORT ---
Subjective Progress Note for:: 11/07/18 Subjective:: Patient was seen by the bedside today still in ICU on lorazepam infusion presently on 5 mg/h still awake Reason For Visit: COPD ACUTE Physical Exam Vital Signs: Temp Pulse Resp BP Pulse Ox 99.1 F 82 19 147/102 H 97 11/07/18 17:00 11/07/18 17:00 11/07/18 18:00 11/07/18 17:57 11/07/18 18:00 Intake & Output 11/06/18 11/07/18 11/08/18 06:59 06:59 06:59 Intake Total 4440 1282 1703 Output Total 4500 3525 1900 Balance -60 -2193 -197 Weight 89.4 kg 87 kg General appearance: PRESENT: no acute distress Eye exam: PRESENT: PERRLA Respiratory exam: PRESENT: wheezes Cardiovascular exam: PRESENT: +S1, +S2 Neurological exam: PRESENT: alert Results Laboratory Results: 11/07/18 03:58 11/06/18 15:50 11/07/18 03:58 WBC 5.3 RBC 4.86 Hgb 15.7 Hct 46.3 MCV 95 MCH 32.3 MCHC 33.9 RDW 16.2 H Plt Count 40 L Seg Neutrophils % Not Reportable Lymphocytes % Not Reportable Monocytes % Not Reportable Eosinophils % Not Reportable Basophils % Not Reportable Absolute Neutrophils Not Reportable Absolute Lymphocytes Not Reportable Absolute Monocytes Not Reportable Absolute Eosinophils Not Reportable Absolute Basophils Not Reportable 11/04/18 11/04/18 16:03 16:03 Creatine Kinase 149 CK-MB (CK-2) 1.33 Troponin I < 0.012 Impressions: Chest X-Ray 11/04/18 16:34 IMPRESSION: NO ACUTE FINDINGS. Head CT 11/04/18 16:35 IMPRESSION: NO ACUTE INTRACRANIAL IMAGING FINDINGS. EVIDENCE OF ACUTE STROKE: NO. Abdomen/Pelvis CT 11/04/18 16:38 IMPRESSION: NO ACUTE FINDINGS IN THE ABDOMEN OR PELVIS ON CT SCAN WITH IV CONTRAST. Diffuse fatty liver. Assessment & Plan - Diagnosis (1) Alcohol intoxication in active alcoholic with delirium Is this a current diagnosis for this admission?: Yes Plan: Continue Lorazepam infusion at the present infusion rate (2) COPD with acute exacerbation Is this a current diagnosis for this admission?: Yes Plan: Continue IV Solu-Medrol (3) Acute hypercapnic respiratory failure Is this a current diagnosis for this admission?: Yes Plan: Patient presently not requiring noninvasive positive pressure ventilation with BiPAP presently on nasal cannula at 2 L/min of oxygen (4) Thrombocytopenia Is this a current diagnosis for this admission?: Yes Plan: 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
[2018-11-07] MEDS: DONEPEZIL HCL 5 MG TABLET PO SCH (21:17)
[2018-11-07] MEDS: TRAZODONE HCL 50 MG TABLET PO SCH (21:17)
[2018-11-07] MEDS: Quetiapine Fumarate [Seroquel Xr] 300 MG PO SCH (21:58)
[2018-11-07] MEDS ORDERED: Quetiapine Fumarate [Seroquel Xr] 300 MG PO SCH (22:00)
[2018-11-07] MEDS ORDERED: QUETIAPINE FUMARATE 150 MG PO SCH (22:00)
[2018-11-08] MEDS: LORAZEPAM 24 MG/240 ML BAG IV PRN ×5 (00:53→21:11)
[2018-11-08] MEDS: IPRATROPIUM/ALBUTEROL 0.5-2.5 MG/3 ML AMPUL NEB SCH ×6 (01:06→19:48)
[2018-11-08 04:52] LABS: ARTERIAL BLOOD BASE EXCESS 1.6 mmol/L; ARTERIAL BLOOD H2CO3 1.22 mmol/L (1.05-1.35); ARTERIAL BLOOD HCO3 26.1 mmol/L (20-24); ARTERIAL BLOOD O2 SATURATION 90.8 % (94-98); ARTERIAL BLOOD PCO2 40.6 mmHg (35-45); ARTERIAL BLOOD PH 7.43 (7.35-7.45); ARTERIAL BLOOD PO2 58.1 mmHg (80-100); ARTERIAL BLOOD TOTAL CO2 27.3 mmol/L (23-27)
[2018-11-08 04:55] LABS: ARTERIAL BLOOD FIO2 ROOM AIR
[2018-11-08] MEDS: METHYLPREDNISOLONE INJ 40 MG/1 ML SDV IV SCH ×3 (05:16→21:06)
[2018-11-08] MEDS: HYDRALAZINE HCL 25 MG TABLET PO SCH ×3 (05:16→21:04)
[2018-11-08] MEDS: CLONIDINE HCL 0.2 MG TABLET PO SCH ×3 (05:16→21:05)
[2018-11-08] MEDS: LEVETIRACETAM 500 MG/NACL-ISO 500 MG/100 ML RTUPB IV SCH ×2 (05:16→17:37)
[2018-11-08 05:33] LABS: ABSOLUTE LYMPHOCYTES (AUTO) 0.3 10^3/uL (0.5-4.7); ABSOLUTE MONOCYTES (AUTO) 0.2 10^3/uL (0.1-1.4); ABSOLUTE NEUT (AUTO) 3.8 10^3/uL (1.7-8.2); HEMATOCRIT 46.6 % (37.9-51.0); HEMOGLOBIN 15.7 g/dL (13.5-17.0); LYMPHOCYTES % (AUTO) 7.8 % (13-45); MEAN CORPUSCULAR HEMOGLOBIN 32.4 pg (27.0-33.4); MEAN CORPUSCULAR HGB CONC 33.6 g/dL (32.0-36.0); MEAN CORPUSCULAR VOLUME 96 fl (80-97); MONOCYTES % (AUTO) 4.4 % (3-13); RED BLOOD COUNT 4.84 10^6/uL (4.35-5.55); RED CELL DISTRIBUTION WIDTH 16.3 % (11.5-14.0); SEGMENTED NEUTROPHILS % (AUTO) 87.8 % (42-78); TOTAL CELLS COUNTED % (AUTO) 100 %; WHITE BLOOD COUNT 4.3 10^3/uL (4.0-10.5)
[2018-11-08 05:43] LABS: ALANINE AMINOTRANSFERASE 42 U/L (21-72); ALBUMIN 3.7 g/dL (3.5-5.0); ALKALINE PHOSPHATASE 62 U/L (38-126); ANION GAP 6 (5-19); ASPARTATE AMINO TRANSFERASE 46 U/L (17-59); BILIRUBIN,DIRECT 0.3 mg/dL (0.0-0.4); BILIRUBIN,TOTAL 0.7 mg/dL (0.2-1.3); BLOOD UREA NITROGEN 10 mg/dL (7-20); CALCIUM 8.2 mg/dL (8.4-10.2); CARBON DIOXIDE 26 mmol/L (22-30); CHLORIDE 104 mmol/L (98-107); GLUCOSE 152 mg/dL (75-110); POTASSIUM 3.8 mmol/L (3.6-5.0); SODIUM 135.9 mmol/L (137-145); TOTAL PROTEIN 6.5 g/dL (6.3-8.2)
[2018-11-08 05:50] LABS: PLATELET COUNT 41 10^3/uL (150-450)
[2018-11-08] MEDS: FAMOTIDINE 20 MG TABLET PO SCH ×2 (10:39→21:05)
[2018-11-08] MEDS: PREGABALIN 50 MG CAPSULE PO SCH ×2 (10:39→21:05)
[2018-11-08] MEDS: FLUOXETINE HCL 20 MG CAPSULE PO SCH (10:39)
[2018-11-08] MEDS: NICOTINE 21 MG/24 HR PATCH.TD24 TD SCH (10:39)
[2018-11-08] MEDS: DOCUSATE SODIUM 100 MG CAPSULE PO SCH ×2 (10:40→17:33)
[2018-11-08] MEDS: TIOTROPIUM BROMIDE DPI 5 CAP/KIT (18 MCG/CAP) IH SCH (10:41)
[2018-11-08] MEDS: FLUTICASONE/SALMETEROL DISKUS 250-50 MCG/DOSE IH SCH ×2 (10:41→21:05)
[2018-11-08] MEDS: NORMAL SALINE 1000 ML 1,000 ML IV PRN (13:11)
[2018-11-08] MEDS: TRAMADOL HCL 50 MG TABLET PO PRN (17:36)
[2018-11-08] MEDS: BANANA BAG (EDIT INGREDIENTS/RATE) IV SCH ×5 (17:37)
[2018-11-08] MEDS ORDERED: QUETIAPINE FUMARATE 150 MG PO SCH (18:00)
[2018-11-08] MEDS: DONEPEZIL HCL 5 MG TABLET PO SCH (21:05)
[2018-11-08] MEDS: TRAZODONE HCL 50 MG TABLET PO SCH (21:05)
[2018-11-08] MEDS: Quetiapine Fumarate [Seroquel Xr] 300 MG PO SCH (21:06)
--- NOTE | 2018-11-08 21:52 | PDOC PROGRESS REPORT ---
Subjective Progress Note for:: 11/08/18 Subjective:: Patient seen by the bedside Reason For Visit: COPD ACUTE Physical Exam Vital Signs: Temp Pulse Resp BP Pulse Ox 98.1 F 100 21 H 134/92 H 95 11/08/18 19:48 11/08/18 20:00 11/08/18 20:00 11/08/18 19:11 11/08/18 20:00 Intake & Output 11/07/18 11/08/18 11/09/18 06:59 06:59 06:59 Intake Total 1282 3401 2620 Output Total 3475 4900 1590 Balance -2193 -1498 1030 Weight 87 kg 88.2 kg General appearance: PRESENT: no acute distress Eye exam: PRESENT: PERRLA Respiratory exam: PRESENT: wheezes Cardiovascular exam: PRESENT: +S1, +S2 GI/Abdominal exam: PRESENT: soft Neurological exam: PRESENT: alert Results Laboratory Results: 11/08/18 04:50 11/08/18 04:50 11/08/18 11/08/18 11/08/18 04:40 04:50 04:50 WBC 4.3 RBC 4.84 Hgb 15.7 Hct 46.6 MCV 96 MCH 32.4 MCHC 33.6 RDW 16.3 H Plt Count 41 L Seg Neutrophils % 87.8 H Lymphocytes % 7.8 L Monocytes % 4.4 Eosinophils % 0.0 Basophils % 0.0 Absolute Neutrophils 3.8 Absolute Lymphocytes 0.3 L Absolute Monocytes 0.2 Absolute Eosinophils 0.0 Absolute Basophils 0.0 Carbonic Acid 1.22 HCO3/H2CO3 Ratio 21:1 ABG pH 7.43 ABG pCO2 40.6 ABG pO2 58.1 L ABG HCO3 26.1 H ABG O2 Saturation 90.8 L ABG Base Excess 1.6 FiO2 ROOM AIR Sodium 135.9 L Potassium 3.8 Chloride 104 Carbon Dioxide 26 Anion Gap 6 BUN 10 Creatinine 0.48 L Est GFR ( Amer) > 60 Est GFR (Non-Af Amer) > 60 Glucose 152 H Calcium 8.2 L Magnesium 2.4 H Total Bilirubin 0.7 AST 46 ALT 42 Alkaline Phosphatase 62 Total Protein 6.5 Albumin 3.7 11/04/18 11/04/18 16:03 16:03 Creatine Kinase 149 CK-MB (CK-2) 1.33 Troponin I < 0.012 Impressions: Chest X-Ray 11/04/18 16:34 IMPRESSION: NO ACUTE FINDINGS. Head CT 11/04/18 16:35 IMPRESSION: NO ACUTE INTRACRANIAL IMAGING FINDINGS. EVIDENCE OF ACUTE STROKE: NO. Abdomen/Pelvis CT 11/04/18 16:38 IMPRESSION: NO ACUTE FINDINGS IN THE ABDOMEN OR PELVIS ON CT SCAN WITH IV CONTRAST. Diffuse fatty liver. 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
[2018-11-09] MEDS: IPRATROPIUM/ALBUTEROL 0.5-2.5 MG/3 ML AMPUL NEB SCH ×6 (00:16→20:05)
[2018-11-09] MEDS: TRAMADOL HCL 50 MG TABLET PO PRN ×3 (00:36→21:25)
[2018-11-09] MEDS: LORAZEPAM 24 MG/240 ML BAG IV PRN ×3 (02:51→13:09)
[2018-11-09] MEDS: NORMAL SALINE 1000 ML 1,000 ML IV PRN ×2 (04:22→15:20)
[2018-11-09] MEDS: CLONIDINE HCL 0.2 MG TABLET PO SCH ×3 (05:49→21:26)
[2018-11-09] MEDS: LEVETIRACETAM 500 MG/NACL-ISO 500 MG/100 ML RTUPB IV SCH ×2 (05:49→17:17)
[2018-11-09] MEDS: HYDRALAZINE HCL 25 MG TABLET PO SCH ×3 (05:50→21:26)
[2018-11-09] MEDS: METHYLPREDNISOLONE INJ 40 MG/1 ML SDV IV SCH ×3 (05:50→21:25)
[2018-11-09] MEDS: TIOTROPIUM BROMIDE DPI 5 CAP/KIT (18 MCG/CAP) IH SCH (09:44)
[2018-11-09] MEDS: PREGABALIN 50 MG CAPSULE PO SCH ×2 (09:45→21:25)
[2018-11-09] MEDS: FLUTICASONE/SALMETEROL DISKUS 250-50 MCG/DOSE IH SCH ×2 (09:45→21:26)
[2018-11-09] MEDS: NICOTINE 21 MG/24 HR PATCH.TD24 TD SCH (09:45)
[2018-11-09] MEDS: DOCUSATE SODIUM 100 MG CAPSULE PO SCH ×2 (09:45→17:13)
[2018-11-09] MEDS: FAMOTIDINE 20 MG TABLET PO SCH ×2 (09:45→21:26)
[2018-11-09] MEDS: FLUOXETINE HCL 20 MG CAPSULE PO SCH (09:45)
[2018-11-09] MEDS: LORAZEPAM INJ 2 MG/1 ML VIAL IV PRN (15:57)
--- NOTE | 2018-11-09 20:14 | PDOC PROGRESS REPORT ---
Subjective Progress Note for:: 11/09/18 Subjective:: Patient was seen by the bedside, he is presently of Lorazepam infusion now on Lorazepam as needed, will downgrade to stepdown unit Reason For Visit: COPD ACUTE Physical Exam Vital Signs: Temp Pulse Resp BP Pulse Ox 98.6 F 91 14 159/99 H 95 11/09/18 19:45 11/09/18 18:00 11/09/18 18:12 11/09/18 18:12 11/09/18 18:12 Intake & Output 11/08/18 11/09/18 11/10/18 06:59 06:59 06:59 Intake Total 3401 4883 2474 Output Total 4900 3790 3475 Balance -1499 1093 -1001 Weight 88.2 kg 90.1 kg General appearance: PRESENT: no acute distress Eye exam: PRESENT: PERRLA Respiratory exam: PRESENT: clear to auscultation nikia Cardiovascular exam: PRESENT: +S1, +S2 GI/Abdominal exam: PRESENT: soft Neurological exam: PRESENT: alert Results Laboratory Results: 11/08/18 04:50 11/08/18 04:50 11/04/18 19:05 Blood Blood Culture - Final NO GROWTH IN 5 DAYS 11/04/18 16:03 Blood Blood Culture - Final NO GROWTH IN 5 DAYS 11/04/18 11/04/18 16:03 16:03 Creatine Kinase 149 CK-MB (CK-2) 1.33 Troponin I < 0.012 Impressions: Chest X-Ray 11/04/18 16:34 IMPRESSION: NO ACUTE FINDINGS. Head CT 11/04/18 16:35 IMPRESSION: NO ACUTE INTRACRANIAL IMAGING FINDINGS. EVIDENCE OF ACUTE STROKE: NO. Abdomen/Pelvis CT 11/04/18 16:38 IMPRESSION: NO ACUTE FINDINGS IN THE ABDOMEN OR PELVIS ON CT SCAN WITH IV CONTRAST. Diffuse fatty liver. Assessment & Plan - Diagnosis (1) Alcohol intoxication in active alcoholic with delirium Is this a current diagnosis for this admission?: Yes Plan: Patient presently on as needed lorazepam (2) COPD with acute exacerbation Is this a current diagnosis for this admission?: Yes Plan: Patient on IV Solu-Medrol (3) Acute hypercapnic respiratory failure Is this a current diagnosis for this admission?: Yes (4) Thrombocytopenia Is this a current diagnosis for this admission?: Yes
[2018-11-09] MEDS: BANANA BAG (EDIT INGREDIENTS/RATE) IV SCH ×5 (20:50)
[2018-11-09] MEDS: TRAZODONE HCL 50 MG TABLET PO SCH (21:26)
[2018-11-09] MEDS: Quetiapine Fumarate [Seroquel Xr] 300 MG PO SCH (21:27)
[2018-11-09] MEDS: DONEPEZIL HCL 5 MG TABLET PO SCH (21:27)
[2018-11-10] MEDS: IPRATROPIUM/ALBUTEROL 0.5-2.5 MG/3 ML AMPUL NEB SCH ×6 (00:28→19:03)
[2018-11-10] MEDS: METHYLPREDNISOLONE INJ 40 MG/1 ML SDV IV SCH ×2 (05:33→13:24)
[2018-11-10] MEDS: LEVETIRACETAM 500 MG/NACL-ISO 500 MG/100 ML RTUPB IV SCH ×2 (05:33→17:24)
[2018-11-10] MEDS: HYDRALAZINE HCL 25 MG TABLET PO SCH ×3 (05:33→21:06)
[2018-11-10] MEDS: CLONIDINE HCL 0.2 MG TABLET PO SCH ×3 (05:33→21:06)
[2018-11-10] MEDS: NORMAL SALINE 1000 ML 1,000 ML IV PRN (06:00)
[2018-11-10] MEDS: TRAMADOL HCL 50 MG TABLET PO PRN ×2 (07:51→21:06)
[2018-11-10] MEDS: FLUOXETINE HCL 20 MG CAPSULE PO SCH (07:51)
[2018-11-10] MEDS: TIOTROPIUM BROMIDE DPI 5 CAP/KIT (18 MCG/CAP) IH SCH (09:00)
[2018-11-10] MEDS: FAMOTIDINE 20 MG TABLET PO SCH ×2 (09:00→21:07)
[2018-11-10] MEDS: PREGABALIN 50 MG CAPSULE PO SCH ×2 (09:00→21:06)
[2018-11-10] MEDS: FLUTICASONE/SALMETEROL DISKUS 250-50 MCG/DOSE IH SCH ×2 (09:01→21:05)
[2018-11-10] MEDS: DOCUSATE SODIUM 100 MG CAPSULE PO SCH ×2 (09:01→17:24)
[2018-11-10] MEDS: NICOTINE 21 MG/24 HR PATCH.TD24 TD SCH (09:01)
[2018-11-10] MEDS: LORAZEPAM INJ 2 MG/1 ML VIAL IV PRN ×3 (10:38→18:36)
[2018-11-10] MEDS: ACETAMINOPHEN 325 MG TABLET PO PRN (11:36)
--- NOTE | 2018-11-10 16:15 | PDOC PROGRESS REPORT ---
Subjective Progress Note for:: 11/10/18 Subjective:: Patient seen by the bedside no new complaints yesterday he was downgraded to stepdown unit but he still in ICU because there is no bed in IMCU Reason For Visit: COPD ACUTE Physical Exam Vital Signs: Temp Pulse Resp BP Pulse Ox 98.4 F 102 H 19 140/95 H 92 11/10/18 12:00 11/10/18 14:00 11/10/18 12:00 11/10/18 12:33 11/10/18 12:32 Intake & Output 11/09/18 11/10/18 11/11/18 06:59 06:59 06:59 Intake Total 4883 4492 305 Output Total 3790 5800 250 Balance 1093 -1308 55 Weight 90.1 kg 89.5 kg General appearance: PRESENT: no acute distress Eye exam: PRESENT: PERRLA Respiratory exam: PRESENT: wheezes Cardiovascular exam: PRESENT: +S1, +S2 Neurological exam: PRESENT: alert Results Laboratory Results: 11/08/18 04:50 11/08/18 04:50 11/04/18 19:05 Blood Blood Culture - Final NO GROWTH IN 5 DAYS 11/04/18 16:03 Blood Blood Culture - Final NO GROWTH IN 5 DAYS 11/04/18 11/04/18 16:03 16:03 Creatine Kinase 149 CK-MB (CK-2) 1.33 Troponin I < 0.012 Impressions: Chest X-Ray 11/04/18 16:34 IMPRESSION: NO ACUTE FINDINGS. Head CT 11/04/18 16:35 IMPRESSION: NO ACUTE INTRACRANIAL IMAGING FINDINGS. EVIDENCE OF ACUTE STROKE: NO. Abdomen/Pelvis CT 11/04/18 16:38 IMPRESSION: NO ACUTE FINDINGS IN THE ABDOMEN OR PELVIS ON CT SCAN WITH IV CONTRAST. Diffuse fatty liver. Assessment & Plan - Diagnosis (1) Alcohol intoxication in active alcoholic with delirium Is this a current diagnosis for this admission?: Yes (2) COPD with acute exacerbation Is this a current diagnosis for this admission?: Yes (3) Acute hypercapnic respiratory failure Is this a current diagnosis for this admission?: Yes (4) Thrombocytopenia Is this a current diagnosis for this admission?: Yes - Plan Summary Plan Summary: Discontinue intravenous Solu-Medrol, start p.o. prednisone
[2018-11-10] MEDS: PREDNISONE 20 MG TABLET PO SCH (17:24)
[2018-11-10] MEDS: BANANA BAG (EDIT INGREDIENTS/RATE) IV SCH ×5 (18:36)
[2018-11-10] MEDS: TRAZODONE HCL 50 MG TABLET PO SCH (21:06)
[2018-11-10] MEDS: DONEPEZIL HCL 5 MG TABLET PO SCH (21:06)
[2018-11-10] MEDS: Quetiapine Fumarate [Seroquel Xr] 300 MG PO SCH (21:07)
[2018-11-11] MEDS: IPRATROPIUM/ALBUTEROL 0.5-2.5 MG/3 ML AMPUL NEB SCH ×6 (00:31→20:41)
[2018-11-11] MEDS: HYDRALAZINE HCL 25 MG TABLET PO SCH ×3 (05:59→21:16)
[2018-11-11] MEDS: CLONIDINE HCL 0.2 MG TABLET PO SCH ×3 (05:59→21:16)
[2018-11-11] MEDS: LEVETIRACETAM 500 MG/NACL-ISO 500 MG/100 ML RTUPB IV SCH ×2 (05:59→18:22)
[2018-11-11] MEDS: NORMAL SALINE 1000 ML 1,000 ML IV PRN (06:00)
[2018-11-11] MEDS: TRAMADOL HCL 50 MG TABLET PO PRN (09:34)
[2018-11-11] MEDS: NICOTINE 21 MG/24 HR PATCH.TD24 TD SCH (09:34)
[2018-11-11] MEDS: FLUOXETINE HCL 20 MG CAPSULE PO SCH (09:34)
[2018-11-11] MEDS: PREGABALIN 50 MG CAPSULE PO SCH ×2 (09:34→21:16)
[2018-11-11] MEDS: PREDNISONE 20 MG TABLET PO SCH (09:34)
[2018-11-11] MEDS: FAMOTIDINE 20 MG TABLET PO SCH ×2 (09:34→21:17)
[2018-11-11] MEDS: DOCUSATE SODIUM 100 MG CAPSULE PO SCH ×2 (09:35→18:22)
[2018-11-11] MEDS: FLUTICASONE/SALMETEROL DISKUS 250-50 MCG/DOSE IH SCH ×2 (09:35→21:17)
[2018-11-11] MEDS: TIOTROPIUM BROMIDE DPI 5 CAP/KIT (18 MCG/CAP) IH SCH (09:35)
[2018-11-11] MEDS: LORAZEPAM INJ 2 MG/1 ML VIAL IV PRN ×4 (09:52→21:22)
[2018-11-11 14:34] LABS: ALANINE AMINOTRANSFERASE 84 U/L (21-72); ALBUMIN 3.9 g/dL (3.5-5.0); ALKALINE PHOSPHATASE 61 U/L (38-126); ANION GAP 9 (5-19); ASPARTATE AMINO TRANSFERASE 78 U/L (17-59); BILIRUBIN,DIRECT 0.2 mg/dL (0.0-0.4); BILIRUBIN,TOTAL 0.7 mg/dL (0.2-1.3); BLOOD UREA NITROGEN 20 mg/dL (7-20); CALCIUM 9.1 mg/dL (8.4-10.2); CARBON DIOXIDE 27 mmol/L (22-30); CHLORIDE 99 mmol/L (98-107); GLUCOSE 95 mg/dL (75-110); SODIUM 134.6 mmol/L (137-145); TOTAL PROTEIN 6.5 g/dL (6.3-8.2)
[2018-11-11 14:38] LABS: ABSOLUTE LYMPHOCYTES (AUTO) 0.6 10^3/uL (0.5-4.7); ABSOLUTE MONOCYTES (AUTO) 1.1 10^3/uL (0.1-1.4); ABSOLUTE NEUT (AUTO) 5.5 10^3/uL (1.7-8.2); BASOPHILS % (AUTO) 0.4 % (0-2); EOSINOPHILS % (AUTO) 0.2 % (0-6); HEMOGLOBIN 16.4 g/dL (13.5-17.0); LYMPHOCYTES % (AUTO) 7.8 % (13-45); MEAN CORPUSCULAR HEMOGLOBIN 31.7 pg (27.0-33.4); MEAN CORPUSCULAR HGB CONC 33.5 g/dL (32.0-36.0); MEAN CORPUSCULAR VOLUME 95 fl (80-97); MONOCYTES % (AUTO) 15.3 % (3-13); RED BLOOD COUNT 5.18 10^6/uL (4.35-5.55); RED CELL DISTRIBUTION WIDTH 15.6 % (11.5-14.0); SEGMENTED NEUTROPHILS % (AUTO) 76.3 % (42-78); TOTAL CELLS COUNTED % (AUTO) 100 %; WHITE BLOOD COUNT 7.2 10^3/uL (4.0-10.5)
[2018-11-11 14:56] LABS: PLATELET COUNT 82 10^3/uL (150-450)
--- NOTE | 2018-11-11 16:58 | PDOC PROGRESS REPORT ---
Subjective Progress Note for:: 11/11/18 Subjective:: Patient now downgraded to IMCU floor, discontinue Jordan catheter, ambulate patient hopefully discharge home in 24-48 hours Reason For Visit: COPD ACUTE Physical Exam Vital Signs: Temp Pulse Resp BP Pulse Ox 98.2 F 99 18 134/83 H 97 11/11/18 16:00 11/11/18 16:00 11/11/18 16:00 11/11/18 16:00 11/11/18 16:00 Intake & Output 11/10/18 11/11/18 11/12/18 06:59 06:59 06:59 Intake Total 4492 3328 Output Total 5800 1935 400 Balance -1304 -347 -400 Weight 89.5 kg 90.4 kg General appearance: PRESENT: no acute distress Eye exam: PRESENT: scleral icterus Respiratory exam: PRESENT: clear to auscultation nikia Cardiovascular exam: PRESENT: +S1, +S2 GI/Abdominal exam: PRESENT: soft Neurological exam: PRESENT: alert Results Laboratory Results: 11/11/18 13:55 11/11/18 13:55 11/11/18 11/11/18 13:55 13:55 WBC 7.2 RBC 5.18 Hgb 16.4 Hct 49.0 MCV 95 MCH 31.7 MCHC 33.5 RDW 15.6 H Plt Count 82 L Seg Neutrophils % 76.3 Lymphocytes % 7.8 L Monocytes % 15.3 H Eosinophils % 0.2 Basophils % 0.4 Absolute Neutrophils 5.5 Absolute Lymphocytes 0.6 Absolute Monocytes 1.1 Absolute Eosinophils 0.0 Absolute Basophils 0.0 Sodium 134.6 L Potassium 4.0 Chloride 99 Carbon Dioxide 27 Anion Gap 9 BUN 20 Creatinine 0.80 Est GFR ( Amer) > 60 Est GFR (Non-Af Amer) > 60 Glucose 95 Calcium 9.1 Total Bilirubin 0.7 AST 78 H ALT 84 H Alkaline Phosphatase 61 Total Protein 6.5 Albumin 3.9 11/04/18 11/04/18 16:03 16:03 Creatine Kinase 149 CK-MB (CK-2) 1.33 Troponin I < 0.012 Impressions: Chest X-Ray 11/04/18 16:34 IMPRESSION: NO ACUTE FINDINGS. Head CT 11/04/18 16:35 IMPRESSION: NO ACUTE INTRACRANIAL IMAGING FINDINGS. EVIDENCE OF ACUTE STROKE: NO. Abdomen/Pelvis CT 11/04/18 16:38 IMPRESSION: NO ACUTE FINDINGS IN THE ABDOMEN OR PELVIS ON CT SCAN WITH IV CONTRAST. Diffuse fatty liver. Assessment & Plan - Diagnosis (1) Alcohol intoxication in active alcoholic with delirium Is this a current diagnosis for this admission?: Yes (2) COPD with acute exacerbation Is this a current diagnosis for this admission?: Yes (3) Acute hypercapnic respiratory failure Is this a current diagnosis for this admission?: Yes (4) Thrombocytopenia Is this a current diagnosis for this admission?: Yes
[2018-11-11] MEDS: BANANA BAG (EDIT INGREDIENTS/RATE) IV SCH ×5 (18:16)
[2018-11-11] MEDS: DONEPEZIL HCL 5 MG TABLET PO SCH (21:16)
[2018-11-11] MEDS: Quetiapine Fumarate [Seroquel Xr] 300 MG PO SCH (21:17)
[2018-11-11] MEDS: TRAZODONE HCL 50 MG TABLET PO SCH (21:17)
[2018-11-12] MEDS: IPRATROPIUM/ALBUTEROL 0.5-2.5 MG/3 ML AMPUL NEB SCH ×5 (00:24→16:52)
[2018-11-12] MEDS: LEVETIRACETAM 500 MG/NACL-ISO 500 MG/100 ML RTUPB IV SCH (05:43)
[2018-11-12] MEDS: HYDRALAZINE HCL 25 MG TABLET PO SCH ×2 (05:43→17:04)
[2018-11-12] MEDS: CLONIDINE HCL 0.2 MG TABLET PO SCH ×2 (05:47→14:46)
[2018-11-12] MEDS: FLUOXETINE HCL 20 MG CAPSULE PO SCH (08:52)
[2018-11-12] MEDS: FAMOTIDINE 20 MG TABLET PO SCH (09:21)
[2018-11-12] MEDS: PREGABALIN 50 MG CAPSULE PO SCH (09:21)
[2018-11-12] MEDS: PREDNISONE 20 MG TABLET PO SCH (09:21)
[2018-11-12] MEDS: DOCUSATE SODIUM 100 MG CAPSULE PO SCH ×2 (09:21→17:49)
[2018-11-12] MEDS: LORAZEPAM INJ 2 MG/1 ML VIAL IV PRN ×2 (09:22→14:46)
[2018-11-12] MEDS: FLUTICASONE/SALMETEROL DISKUS 250-50 MCG/DOSE IH SCH (09:25)
[2018-11-12] MEDS: NICOTINE 21 MG/24 HR PATCH.TD24 TD SCH (12:16)
[2018-11-12] MEDS: ACETAMINOPHEN 325 MG TABLET PO PRN (12:21)
[2018-11-12] MEDS: TIOTROPIUM BROMIDE DPI 5 CAP/KIT (18 MCG/CAP) IH SCH (14:43)
[2018-11-12 18:42] VITALS: BP 159/98
--- NOTE | 2018-11-12 20:29 | PDOC DISCHARGE SUMMARY ---
General - Admit/Disc Date/PCP Admission Date/Primary Care Provider: 11/04/18 19:04 TOMAS UMANA MD Discharge Date: 11/12/18 - Discharge Diagnosis (1) Acute hypercapnic respiratory failure Is this a current diagnosis for this admission?: Yes (2) Alcohol intoxication in active alcoholic with delirium Is this a current diagnosis for this admission?: Yes (3) COPD with acute exacerbation Is this a current diagnosis for this admission?: Yes (4) Thrombocytopenia Is this a current diagnosis for this admission?: Yes - Additional Information Resuscitation Status: Full Code Discharge Diet: As Tolerated Discharge Activity: Activity As Tolerated Prescriptions: Prednisone [Deltasone 20 mg Tablet] 20 mg PO DAILY #5 tablet Home Medications: Albuterol Sulfate [Proair HFA Inhalation Aerosol 8.5 gm MDI] 2 puff IH Q4HP PRN 11/05/18 Albuterol Sulfate [Ventolin 0.083% Neb 2.5 mg/3 mL Ampul] 2.5 mg NEB RTQ4HP PRN 11/05/18 Clonidine HCl [Catapres 0.2 mg Tablet] 0.2 mg PO Q8 11/05/18 Cyclobenzaprine HCl [Flexeril 10 mg Tablet] 10 mg PO TID 11/05/18 Donepezil HCl [Aricept 5 mg Tablet] 5 mg PO QHS 11/05/18 Fluoxetine HCl [Prozac] 40 mg PO QAM 11/05/18 Fluticasone/Salmeterol [Advair 250-50 Diskus 14 Dose/Diskus] 2 puff IH Q12 11/05/18 Levetiracetam [Keppra 500 mg Tablet] 500 mg PO BID 11/05/18 Pregabalin [Lyrica 50 mg Capsule] 50 mg PO Q12 11/05/18 Quetiapine Fumarate [Seroquel Xr] 300 mg PO QPM 11/05/18 Thiamine HCl [Thiamine 100 mg Tablet] 100 mg PO WSUPPER 11/05/18 Thiamine HCl [Thiamine 100 mg Tablet] 200 mg PO Q12 11/05/18 Tiotropium [place] [Spiriva Handihaler 5 Cap/Kit (18 Mcg/Cap)] 1 cap IH DAILY 11/05/18 Trazodone HCl [Desyrel] 150 mg PO QPM 11/05/18 Prednisone [Deltasone 20 mg Tablet] 20 mg PO DAILY #5 tablet 11/12/18 History of Present Illness History of Present Illness: RODNEY LANE is a 43 year old male,He presented with acute hypercapnic respiratory failure due to COPD exacerbation, alcohol intoxication with alcohol related encephalopathy, alcohol related,Thrombocytopenia Hospital Course Hospital Course: Patient was admitted for the management of alcohol intoxication with alcohol related encephalopathy, acute hypercapnic respiratory failure due to COPD exacerbation. He was treated with IV Solu-Medrol initially he was managed in stepdown unit at intermediate care unit, he was transferred to intensive care unit because he was started on Lorazepam infusion this was done to prevent delirium tremens DTs. He was treated with Lorazepam infusion up to 6 mg/h to full sedation patient maintained his airway did not require any invasive mechanical ventilation, the acute COPD exacerbation was treated with intravenous Solu-Medrol, bronchodilators. He spent quite a while in the intensive care unit he has alcohol related to thrombocytopeniaenia partly due to alcohol liver disease. Physical Exam Vital Signs: Temp Pulse Resp BP Pulse Ox 98.2 F 95 14 159/98 H 99 11/12/18 18:37 11/12/18 18:37 11/12/18 18:37 11/12/18 18:37 11/12/18 18:37 Intake & Output 11/11/18 11/12/18 11/13/18 06:59 06:59 06:59 Intake Total 3328 3515 355 Output Total 3675 1050 Balance -347 2465 355 Weight 90.4 kg 91.2 kg General appearance: PRESENT: no acute distress, well-developed, well-nourished Head exam: PRESENT: atraumatic, normocephalic Eye exam: PRESENT: conjunctiva pink, EOMI, PERRLA Ear exam: PRESENT: normal external ear exam Mouth exam: PRESENT: moist, tongue midline Neck exam: PRESENT: full ROM Respiratory exam: PRESENT: clear to auscultation nikia Cardiovascular exam: PRESENT: RRR, +S1, +S2 Pulses: PRESENT: normal dorsalis pedis pul, +2 pedal pulses bilateral Vascular exam: PRESENT: normal capillary refill GI/Abdominal exam: PRESENT: normal bowel sounds, soft Rectal exam: PRESENT: deferred Neurological exam: PRESENT: alert, awake, oriented to person, oriented to place, oriented to time, oriented to situation, CN II-XII grossly intact Psychiatric exam: PRESENT: appropriate affect, normal mood Skin exam: PRESENT: dry, intact, warm Results Laboratory Results: 11/11/18 13:55 11/11/18 13:55 11/04/18 11/04/18 16:03 16:03 Creatine Kinase 149 CK-MB (CK-2) 1.33 Troponin I < 0.012 Impressions: Chest X-Ray 11/04/18 16:34 IMPRESSION: NO ACUTE FINDINGS. Head CT 11/04/18 16:35 IMPRESSION: NO ACUTE INTRACRANIAL IMAGING FINDINGS. EVIDENCE OF ACUTE STROKE: NO. Abdomen/Pelvis CT 11/04/18 16:38 IMPRESSION: NO ACUTE FINDINGS IN THE ABDOMEN OR PELVIS ON CT SCAN WITH IV CONTRAST. Diffuse fatty liver. Qualifiers - * PATIENT BEING DISCHARGED WITH ANY OF THE FOLLOWING DIAGNOSIS: No
== END 2018-11-12 18:58 | disposition home or self-care (01) | DRG 189 ==
LOC: ER 15:35 → EH 19:04 → 3S 23:02 → ICU 11-05 21:36 → 3W 11-11 11:38
PROVIDERS: ADMIT Internal Medicine; ATTEND Internal Medicine
DX: J96.02 Acute respiratory failure with hypercapnia (principal); J44.1 Chronic obstructive pulmonary disease with (acute) exacerbation; F10.221 Alcohol dependence with intoxication delirium; D69.6 Thrombocytopenia, unspecified; I10 Essential (primary) hypertension; E78.5 Hyperlipidemia, unspecified; G43.909 Migraine, unspecified, not intractable, without status migrainosus; R56.9 Unspecified convulsions; M19.90 Unspecified osteoarthritis, unspecified site; F32.9 Major depressive disorder, single episode, unspecified; Z79.899 Other long term (current) drug therapy; F17.200 Nicotine dependence, unspecified, uncomplicated; Z91.018 Allergy to other foods
CPT/HCPCS: 36415; 70450; 71045; 74177; 80053; 80307; 81001; 82140; 82550; 82553; 82803; 83735; 84484; 85025; 87040; 87086; 93005; 93010; 94640; 99285; J1953; J2060; J2405; J2920; J3411; J3475; J3480; J3490; J7030; J7512; J7620

== ENCOUNTER 2019-03-18 20:27 | Emergency (ER) | payer MEDICAID ==
[2019-03-18 20:57] LABS: ABSOLUTE LYMPHOCYTES (AUTO) 1.2 10^3/uL (0.5-4.7); ABSOLUTE MONOCYTES (AUTO) 0.4 10^3/uL (0.1-1.4); ABSOLUTE NEUT (AUTO) 1.2 10^3/uL (1.7-8.2); BASOPHILS % (AUTO) 1.7 % (0-2); EOSINOPHILS % (AUTO) 0.8 % (0-6); HEMATOCRIT 46.2 % (37.9-51.0); HEMOGLOBIN 15.6 g/dL (13.5-17.0); LYMPHOCYTES % (AUTO) 43.4 % (13-45); MEAN CORPUSCULAR HEMOGLOBIN 32.5 pg (27.0-33.4); MEAN CORPUSCULAR HGB CONC 33.8 g/dL (32.0-36.0); MEAN CORPUSCULAR VOLUME 96 fl (80-97); SEGMENTED NEUTROPHILS % (AUTO) 40.1 % (42-78); TOTAL CELLS COUNTED % (AUTO) 100 %; WHITE BLOOD COUNT 2.9 10^3/uL (4.0-10.5)
[2019-03-18 21:10] LABS: ALANINE AMINOTRANSFERASE 35 U/L (21-72); ALBUMIN 4.6 g/dL (3.5-5.0); ALKALINE PHOSPHATASE 64 U/L (38-126); ANION GAP 13 (5-19); ASPARTATE AMINO TRANSFERASE 97 U/L (17-59); BILIRUBIN,DIRECT 0.3 mg/dL (0.0-0.4); BILIRUBIN,TOTAL 0.4 mg/dL (0.2-1.3); BLOOD UREA NITROGEN 9 mg/dL (7-20); CALCIUM 9.2 mg/dL (8.4-10.2); CARBON DIOXIDE 30 mmol/L (22-30); CHLORIDE 101 mmol/L (98-107); CREATINE KINASE 366 U/L (55-170); GLUCOSE 104 mg/dL (75-110); POTASSIUM 4.4 mmol/L (3.6-5.0); TOTAL PROTEIN 7.8 g/dL (6.3-8.2)
[2019-03-18 21:19] LABS: PLATELET COUNT 87 10^3/uL (150-450)
[2019-03-18 21:22] LABS: CREATINE KINASE MB 3.01 ng/mL (<4.55); TROPONIN I < 0.012 ng/mL
--- NOTE | 2019-03-18 21:24 | ER Document Report ---
ED General - General Stated Complaint: REPORTED SYNCOPAL EVENTS Time Seen by Provider: 03/18/19 21:10 Primary Care Provider: [facility] [Provider Group] - Follow up tomorrow TOMAS UMANA MD [Primary Care Provider] - Follow up in 3-5 days Notes: Patient is a 43-year-old male that comes to the emergency department for chief complaint of passing out and having a seizure at home. He states that he got up, felt lightheaded, stumbled into a table, and then passed out. states he had shaking like he was having a seizure. He states he has done this frequently in the past but more frequently over the past week or so. He denies headache or hitting his head. Patient has extensive medical history including alcohol abuse, alcohol withdrawals, Wernicke-Korsakoff syndrome, seizure disorder on Keppra, COPD with current smoking, hypertension, cirrhosis. He continues to drink and smoke, admits to alcohol today and states if he does not drink he gets severe withdrawals. TRAVEL OUTSIDE OF THE [place] IN LAST 30 DAYS: No - Related Data Allergies/Adverse Reactions: Coconut * [Coconut] Adverse Reaction (Severe, Verified 03/24/15 15:37) stomach swells pineapple [Pineapple] Adverse Reaction (Severe, Verified 03/24/15 15:37) stomach swells cherries Adverse Reaction (Severe, Uncoded 03/24/15 15:37) stomach swells Past Medical History - General Information source: Patient - Social History Smoking Status: Current Every Day Smoker Smoking Education Provided: Yes - <3 min Frequency of alcohol use: Heavy Drug Abuse: None Lives with: Spouse/Significant other Family History: Arthritis, Hypertension, Malignancy - Past Medical History Cardiac Medical History: Reports: Hx Hypercholesterolemia, Hx Hypertension Denies: Hx Coronary Artery Disease, Hx Heart Attack Pulmonary Medical History: Reports: Hx Asthma, Hx Bronchitis, Hx COPD, Hx Pneumonia - multiple Neurological Medical History: Reports: Hx Migraine, Hx Seizures. Denies: Hx C erebrovascular Accident Renal/ Medical History: Denies: Hx Peritoneal Dialysis GI Medical History: Reports: Hx Cirrhosis Musculoskeletal Medical History: Reports Hx Arthritis, Reports Hx Musculoskeletal Deformity, Reports Hx Musculoskeletal Trauma Psychiatric Medical History: Reports: Hx Depression Traumatic Medical History: Reports: Hx Fractures Past Surgical History: Reports: Hx Oral Surgery, Hx Orthopedic Surgery - bilateral knees, left hand, leg - Immunizations Immunizations up to date: Yes Hx Diphtheria, Pertussis, Tetanus Vaccination: Yes Hx Pneumococcal Vaccination: 07/16/13 Review of Systems - Review of Systems Constitutional: No symptoms reported EENT: No symptoms reported Cardiovascular: No symptoms reported Respiratory: No symptoms reported Gastrointestinal: No symptoms reported Genitourinary: No symptoms reported Male Genitourinary: No symptoms reported Musculoskeletal: No symptoms reported Skin: No symptoms reported Hematologic/Lymphatic: No symptoms reported Neurological/Psychological: See HPI Physical Exam - Vital signs Vitals: Pulse Ox 88 L 03/18/19 20:34 - Notes Notes: GENERAL: Alert, interacts well. No acute distress. Somewhat unkempt and disheveled. HEAD: Normocephalic, atraumatic. EYES: Pupils equal, round, and reactive to light. Extraocular movements intact. ENT: Oral mucosa dry, tongue midline. Oropharynx unremarkable. Airway patent. Nares patent, no nasal septal hematoma, TM's intact. NECK: Full range of motion. Supple. Trachea midline. LUNGS: Clear to auscultation bilaterally, no wheezes, rales, or rhonchi. No respiratory distress. HEART: Regular rate and rhythm. No murmur ABDOMEN: Soft, non-tender. Non-distended. Bowel sounds present in all 4 quadrants. GENITOURINARY: Deferred EXTREMITIES: Moves all 4 extremities spontaneously. No edema, normal radial and dorsalis pedis pulses bilaterally. No cyanosis. BACK: no cervical, thoracic, lumbar midline tenderness. No saddle anesthesia, normal distal neurovascular exam. Moves all extremities in full range of motion. NEUROLOGICAL: Alert and oriented x3. Normal speech. Cranial nerves II through XII grossly intact. PSYCH: Normal affect, normal mood. SKIN: Evan. Course - Re-evaluation Re-evalutation: was reporting to me that she felt patient was confused and could not 9. Patient answers all orientation questions without difficulty, he is alert, I did have him get out of bed and he ambulated without any difficulty or signs of ataxia on his own. CBC shows thrombocytopenia which is most likely secondary to cirrhosis from alcohol abuse. Patient has no current bleeding. No chest pain. He did have a reported seizure, his alcohol level is greater than 380. This is actually patient's approximate baseline. He functions quite well at this level unfortunately. Chest x-ray unremarkable. I did discuss patient with Dr. Harrington, she did recommend that because of the fall and seizure along with his alcohol intoxication and thrombocytopenia that we perform a CAT scan of the head/neck, this was performed and shows no acute findings. Did reevaluate patient again, he is requesting to leave. He remains awake and alert. He does have a ride home with his . I did discuss the details with his , they both state that they need to get patient enrolled into detox and they will perform this outpatient. Stable at time of discharge. - Vital Signs Vital signs: Temp Pulse Resp BP Pulse Ox 98.7 F 72 19 136/82 H 94 03/19/19 02:00 03/19/19 02:00 03/19/19 02:00 03/19/19 02:00 03/19/19 02:00 - Laboratory Result Diagrams: 03/18/19 19:53 03/18/19 19:53 Laboratory results interpreted by me: 03/18/19 03/18/19 03/18/19 19:53 19:53 19:53 WBC 2.9 L RDW 17.0 H Plt Count 87 L Seg Neutrophils % 40.1 L Monocytes % 14.0 H Absolute Neutrophils 1.2 L AST 97 H Creatine Kinase 366 H Serum Alcohol 381 H* Discharge - Discharge Clinical Impression: Seizure disorder, Seizure, Thrombocytopenia Alcohol intoxication Qualifiers: Complication of substance-induced condition: with unspecified complication Qualified Code(s): F10.929 - Alcohol use, unspecified with intoxication, unspecified Fall Qualifiers: Encounter type: initial encounter Qualified Code(s): W19.XXXA - Unspecified fall, initial encounter Condition: Stable Disposition: HOME, SELF-CARE Additional Instructions: Your imaging and work-up did not show any concerning findings at this time except for expected low platelets. Unfortunately alcohol intoxication increases your chances of having a seizure. Continue Keppra, follow-up with [facility], consider placement in detox. Follow-up closely with your primary care as well. Return for any concerning symptoms including repeat seizures, fever, vomiting, or any other concerning or worsening symptoms. Referrals: [facility] [Provider Group] - Follow up tomorrow TOMAS UMANA MD [Primary Care Provider] - Follow up in 3-5 days
--- NOTE | 2019-03-18 22:10 | RADIOLOGY REPORT (SQ) ---
EXAM DESCRIPTION: XR CHEST 1 VIEW COMPLETED DATE/TME: 03/18/2019 21:25 CLINICAL HISTORY: 43 years, Male, syncope, tachycardia, hypoxia COMPARISON: Prior study from 11/04/2018 NUMBER OF VIEWS: One TECHNIQUE: Single frontal view of the chest was obtained portably. LIMITATIONS: None. FINDINGS: Cardiac and mediastinal contours are normal in appearance. Lungs are clear. No pleural effusion or pneumothorax. IMPRESSION: No acute disease. copyright 2010 [employer]- All Rights Reserved
[2019-03-18] MEDS ORDERED: NORMAL SALINE 500 ML IV ONE (22:51)
--- NOTE | 2019-03-19 00:44 | RADIOLOGY REPORT (SQ) ---
CT HEAD WITHOUT IV CONTRAST HISTORY: Fall. Head injury. COMPARISON: 02/01/2018 TECHNIQUE: CT scan of the brain without IV contrast. This exam was performed according to our departmental dose-optimization program, which includes automated exposure control, adjustment of the mA and/or kV according to patient size and/or use of iterative reconstruction technique. FINDINGS: Diffuse involutional changes are present. No evidence of acute infarction, intracranial hemorrhage, extra-axial fluid collection, or midline shift. Mild mucosal thickening of the right maxillary sinus. No air-fluid levels are seen. No depressed skull fracture. IMPRESSION: No acute intracranial findings.
--- NOTE | 2019-03-19 00:56 | RADIOLOGY REPORT (SQ) ---
EXAM DESCRIPTION: [facility]: CT CERVICAL SPINE WITHOUT IV CONTRAST CLINICAL HISTORY: 43 years Male; fall, ? head injury, ETOH TECHNIQUE: Noncontrast cervical spine CT with sagittal and coronal reconstructions. All CT scans at this facility use dose modulation, iterative reconstruction, and/or weight based dosing when appropriate to reduce radiation dose to as low as reasonably achievable. COMPARISON: CT 09/17/2018 FINDINGS: No focal subluxation. Chronic degenerative changes are similar to the prior exam. C3-C4: Osteophytic ridging with left foraminal stenosis. C4-C5: Osteophytic ridging with mild right foraminal stenosis. C5-C6: Osteophytic ridging with severe left and moderate right foraminal stenosis. C6-C7: Osteophytic ridging with severe bilateral foraminal stenosis. No acute prevertebral edema. There is no acute fracture of the cervical spine. No epidural hematoma. IMPRESSION: 1. No acute cervical spine fracture 2. Chronic degenerative changes as described..
[2019-03-19 02:25] VITALS: BP 136/82
--- NOTE | 2019-03-19 07:53 | EKG REPORT ---
SEVERITY:- OTHERWISE NORMAL ECG - SINUS TACHYCARDIA : Confirmed by: Daniel Arciniega MD 19-Mar-2019 07:52:26
== END 2019-03-19 02:20 | disposition home or self-care (01) ==
LOC: ER 20:27
DX: Z04.3 Encounter for examination and observation following other accident (principal); G40.909 Epilepsy, unspecified, not intractable, without status epilepticus; Z79.899 Other long term (current) drug therapy; F10.129 Alcohol abuse with intoxication, unspecified; D69.6 Thrombocytopenia, unspecified; J44.9 Chronic obstructive pulmonary disease, unspecified; I10 Essential (primary) hypertension; F17.200 Nicotine dependence, unspecified, uncomplicated
CPT/HCPCS: 93005; 99285; 96360; 36415; 82553; 80307; 82550; 85025; 80053; 84484; 71045; 70450; 72125; 93010; J7040

== ENCOUNTER 2019-06-17 19:55 | Inpatient (IN) | payer MEDICAID ==
[~2019-06-17 19:55] MED LIST: NORMAL SALINE 1000 ML 1,000 ML with POTASSIUM CHLORIDE 20 MEQ, MAGNESIUM SULFATE 8 MEQ,... IV SCH
[2019-06-17] MEDS ORDERED: ALBUTEROL SULFATE 0.083% NEB 2.5 MG/3 ML AMPUL NEB ONE (20:06)
--- NOTE | 2019-06-17 20:19 | ER Document Report ---
ED General - General Chief Complaint: Shortness Of Breath Stated Complaint: DIFFICULTY BREATHING Time Seen by Provider: 06/17/19 19:59 Primary Care Provider: TOMAS UMANA MD [Primary Care Provider] - Follow up as needed Mode of Arrival: Medic Information source: Patient TRAVEL OUTSIDE OF THE [place] IN LAST 30 DAYS: No - HPI Notes: Patient arrives complaining of shortness of breath. He states this is been going on for several days. He states in general he is not been feeling well. He states that he is a chronic pain patient and is been out of his Percocet as well for 3 days. He also states that he does drink daily approximately 240 ounce beers. He states he said no vomiting or diarrhea. He states he has had a cough productive of white sputum. He has had some generalized malaise. No known fevers. No chest pain. He states he does have seizure disorder and had a seizure every 2 to 3 days. States his last seizure was approximately 2 days ago. He states he has not missed any doses of his medications. Shortness of breath has been constant. Is worse with exertion and better with rest. There is no radiation of the symptoms. Symptoms have been moderate. - Related Data Allergies/Adverse Reactions: Coconut * [Coconut] Adverse Reaction (Severe, Verified 03/24/15 15:37) stomach swells pineapple [Pineapple] Adverse Reaction (Severe, Verified 03/24/15 15:37) stomach swells cherries Adverse Reaction (Severe, Uncoded 03/24/15 15:37) stomach swells Past Medical History - General Information source: Patient - Social History Smoking Status: Current Every Day Smoker Frequency of alcohol use: Heavy Drug Abuse: None Family History: Arthritis, Hypertension, Malignancy Patient has suicidal ideation: No Patient has homicidal ideation: No - Past Medical History Cardiac Medical History: Reports: Hx Hypercholesterolemia, Hx Hypertension Denies: Hx Coronary Artery Disease, Hx Heart Attack Pulmonary Medical History: Reports: Hx Asthma, Hx Bronchitis, Hx COPD, Hx Pneumonia - multiple Neurological Medical History: Reports: Hx Migraine, Hx Seizures. Denies: Hx Cerebrovascular Accident Renal/ Medical History: Denies: Hx Peritoneal Dialysis GI Medical History: Reports: Hx Cirrhosis Musculoskeletal Medical History: Reports Hx Arthritis, Reports Hx Musculoskele carlos Deformity, Reports Hx Musculoskeletal Trauma Psychiatric Medical History: Reports: Hx Depression Traumatic Medical History: Reports: Hx Fractures Past Surgical History: Reports: Hx Oral Surgery, Hx Orthopedic Surgery - bi lateral knees, left hand, leg - Immunizations Immunizations up to date: Yes Hx Diphtheria, Pertussis, Tetanus Vaccination: Yes Hx Pneumococcal Vaccination: 07/16/13 Review of Systems - Review of Systems Constitutional: Malaise, Weakness Cardiovascular: denies: Chest pain, Palpitations Respiratory: Cough, Short of breath Gastrointestinal: denies: Diarrhea, Vomiting -: Yes All other systems reviewed and negative Physical Exam - Vital signs Vitals: Resp Pulse Ox 14 91 L 06/17/19 20:03 06/17/19 20:03 Interpretation: Normal - General General appearance: Appears well, Alert In distress: None - HEENT Head: Normocephalic, Atraumatic Eyes: Normal Pupils: PERRL - Respiratory Respiratory status: No respiratory distress Chest status: Nontender Breath sounds: Rhonchi - In all fournier, Wheezing Chest palpation: Normal - Cardiovascular Rhythm: Regular Heart sounds: Normal auscultation Murmur: No - Abdominal Inspection: Normal Distension: No distension Bowel sounds: Normal Tenderness: Nontender Organomegaly: No organomegaly - Back Back: Normal, Nontender - Extremities General upper extremity: Normal inspection, Nontender, Normal color, Normal ROM, Normal temperature General lower extremity: Normal inspection, Nontender, Normal color, Normal ROM, Normal temperature, Normal weight bearing. No: Curtis's sign - Neurological Neuro grossly intact: Yes Cognition: Normal Orientation: AAOx4 [place] Coma Scale Eye Opening: Spontaneous [place] Coma Scale Verbal: Oriented [place] Coma Scale Motor: Obeys Commands [place]ara Coma Scale Total: 15 Speech: Normal Motor strength normal: LUE, RUE, LLE, RLE Sensory: Normal - Psychological Associated symptoms: Normal affect, Normal mood - Skin Skin Temperature: Warm Skin Moisture: Dry Skin Color: Normal Course - Re-evaluation Re-evalutation: 06/17/19 22:18 Patient reexamined just now. Patient is resting comfortably in the bed. Saturations are 98% on 1 L. His respirations are unlabored. He still does have some rhonchi. CT scan shows no evidence of PE or pneumonia. Laboratories are essentially unremarkable other than alcohol intoxication. I have spoken with Dr. Lane who has accepted the patient for admission. - Vital Signs Vital signs: Temp Pulse Resp BP Pulse Ox 98.1 F 96 13 157/110 H 97 06/17/19 20:06 06/17/19 20:06 06/17/19 21:28 06/17/19 21:28 06/17/19 21:28 - Laboratory Result Diagrams: 06/17/19 19:25 06/17/19 19:25 Laboratory results interpreted by me: 06/17/19 06/17/19 06/17/19 19:25 19:25 20:57 RDW 16.9 H Plt Count 70 L Carbonic Acid 1.65 H ABG pCO2 54.7 H ABG HCO3 30.0 H ABG Total CO2 31.7 H AST 69 H Laboratory 06/17/19 06/17/19 06/17/19 19:25 19:25 19:25 WBC 5.1 RBC 4.77 Hgb 15.3 Hct 45.9 MCV 96 MCH 32.2 MCHC 33.4 RDW 16.9 H Plt Count 70 L Lymph % (Auto) 25.5 [place] % (Auto) 12.0 Eos % (Auto) 0.9 Baso % (Auto) 0.6 Absolute Neuts (auto) 3.1 Absolute Lymphs (auto) 1.3 Absolute Monos (auto) 0.6 Absolute Eos (auto) 0.0 Absolute Basos (auto) 0.0 Seg Neutrophils % 61.0 Carbonic Acid HCO3/H2CO3 Ratio ABG pH ABG pCO2 ABG pO2 ABG HCO3 ABG Total CO2 ABG O2 Saturation ABG Base Excess FiO2 Sodium 143.6 Potassium 4.1 Chloride 101 Carbon Dioxide 30 Anion Gap 13 BUN 7 Creatinine 0.60 Est GFR ( Amer) > 60 Est GFR (MDRD) Non-Af > 60 Glucose 101 Calcium 9.3 Total Bilirubin 0.5 Direct Bilirubin 0.4 Neonat Total Bilirubin Not Reportable Neonat Direct Bilirubin Not Reportable Neonat Indirect Bili Not Reportable AST 69 H ALT 24 Alkaline Phosphatase 70 Troponin I < 0.012 Total Protein 8.0 Albumin 4.7 Serum Alcohol 286 06/17/19 20:57 WBC RBC Hgb Hct MCV MCH MCHC RDW Plt Count Lymph % (Auto) [place] % (Auto) Eos % (Auto) Baso % (Auto) Absolute Neuts (auto) Absolute Lymphs (auto) Absolute Monos (auto) Absolute Eos (auto) Absolute Basos (auto) Seg Neutrophils % Carbonic Acid 1.65 H HCO3/H2CO3 Ratio 18:1 ABG pH 7.36 ABG pCO2 54.7 H ABG pO2 94.6 ABG HCO3 30.0 H ABG Total CO2 31.7 H ABG O2 Saturation 96.8 ABG Base Excess 3.0 FiO2 32% Sodium Potassium Chloride Carbon Dioxide Anion Gap BUN Creatinine Est GFR ( Amer) Est GFR (MDRD) Non-Af Glucose Calcium Total Bilirubin Direct Bilirubin Neonat Total Bilirubin Neonat Direct Bilirubin Neonat Indirect Bili AST ALT Alkaline Phosphatase Troponin I Total Protein Albumin Serum Alcohol - Diagnostic Test Radiology reviewed: Image reviewed, Reports reviewed Radiology results interpreted by me: 06/17/19 22:18 Chest/Abdomen CTA 06/17/19 20:26 IMPRESSION: 1. Enlarged 35 mm main pulmonary artery suspicious for pulmonary hypertension. No change since 2018. No evidence for pulmonary embolus. 2. No suspicious acute lung or pleural abnormalities. Very subtle density in the super segment of left lower lobe is possible residual of previous process. In 2018 there were multiple groundglass opacities. 3. Advanced fatty liver. - EKG Interpretation by [facility] EKG shows normal: Sinus rhythm Rate: Tachycardia - 100 Rhythm: NSR [place]/QRS: No: Right axis deviation, Left axis deviation Discharge - Discharge Clinical Impression: COPD exacerbation Alcohol intoxication Qualifiers: Complication of substance-induced condition: with unspecified complication Qualified Code(s): F10.929 - Alcohol use, unspecified with intoxication, unspecified Condition: Serious Disposition: ADMITTED INPATIENT Admitting Provider: [facility] Admitted: Telemetry Referrals: TOMAS UMANA MD [Primary Care Provider] - Follow up as needed
[2019-06-17 20:37] LABS: ABSOLUTE LYMPHOCYTES (AUTO) 1.3 10^3/uL (0.5-4.7); ABSOLUTE MONOCYTES (AUTO) 0.6 10^3/uL (0.1-1.4); ABSOLUTE NEUT (AUTO) 3.1 10^3/uL (1.7-8.2); BASOPHILS % (AUTO) 0.6 % (0-2); EOSINOPHILS % (AUTO) 0.9 % (0-6); HEMATOCRIT 45.9 % (37.9-51.0); HEMOGLOBIN 15.3 g/dL (13.5-17.0); LYMPHOCYTES % (AUTO) 25.5 % (13-45); MEAN CORPUSCULAR HEMOGLOBIN 32.2 pg (27.0-33.4); MEAN CORPUSCULAR HGB CONC 33.4 g/dL (32.0-36.0); MEAN CORPUSCULAR VOLUME 96 fl (80-97); RED BLOOD COUNT 4.77 10^6/uL (4.35-5.55); RED CELL DISTRIBUTION WIDTH 16.9 % (11.5-14.0); TOTAL CELLS COUNTED % (AUTO) 100 %; WHITE BLOOD COUNT 5.1 10^3/uL (4.0-10.5)
[2019-06-17 20:51] LABS: ALBUMIN 4.7 g/dL (3.5-5.0); ALCOHOL 286 mg/dL (NONE DETECTED); ALKALINE PHOSPHATASE 70 U/L (38-126); ANION GAP 13 (5-19); ASPARTATE AMINO TRANSFERASE 69 U/L (17-59); BILIRUBIN,DIRECT 0.4 mg/dL (0.0-0.4); BILIRUBIN,TOTAL 0.5 mg/dL (0.2-1.3); BLOOD UREA NITROGEN 7 mg/dL (7-20); CALCIUM 9.3 mg/dL (8.4-10.2); CARBON DIOXIDE 30 mmol/L (22-30); CHLORIDE 101 mmol/L (98-107); GLUCOSE 101 mg/dL (75-110); POTASSIUM 4.1 mmol/L (3.6-5.0)
[2019-06-17 20:55] LABS: PLATELET COUNT 70 10^3/uL (150-450)
[2019-06-17 21:10] LABS: ARTERIAL BLOOD H2CO3 1.65 mmol/L (1.05-1.35); ARTERIAL BLOOD O2 SATURATION 96.8 % (94-98); ARTERIAL BLOOD PCO2 54.7 mmHg (35-45); ARTERIAL BLOOD PH 7.36 (7.35-7.45); ARTERIAL BLOOD PO2 94.6 mmHg (80-100); ARTERIAL BLOOD TOTAL CO2 31.7 mmol/L (23-27)
[2019-06-17 21:11] LABS: ARTERIAL BLOOD FIO2 32%
[2019-06-17] MEDS ORDERED: KETOROLAC TROMETHAMINE INJ/PF 30 MG/1 ML SDV IV ONE (21:43)
--- NOTE | 2019-06-17 22:07 | RADIOLOGY REPORT (SQ) ---
EXAM DESCRIPTION: CT angiography of the chest with IV contrast. CLINICAL HISTORY: 43 years, Male, hypoxic COMPARISON: Noncontrast CT chest from 01/30/2018. TECHNIQUE: Axial images through the chest were performed after the administration of intravenous contrast using a pulmonary embolus protocol. MIPS were performed. This exam was performed according to our departmental dose-optimization program which includes use of Automated Exposure Control, adjustment of the mA and/or kV according to patient size and/or use of iterative reconstruction technique. 100 mL of Omnipaque 350. FINDINGS: A large 35 mm main pulmonary artery. Unchanged since 2018. No evidence for pulmonary embolus. Aorta is unremarkable. Mild left cardiomegaly unchanged. No evidence for mediastinal adenopathy. Small lymph nodes are unchanged. No evidence for pericardial effusion. Lungs are demonstrated without suspicious findings. Tiny parenchymal opacity superior segment left lower lobe. Series [address] from 01/30/2013 demonstrated multiple focal groundglass opacities and this is most likely a remnant of this process. No suspicious pleural disease. Limited images of the upper abdomen and straight advanced fatty liver. IMPRESSION: 1. Enlarged 35 mm main pulmonary artery suspicious for pulmonary hypertension. No change since 2018. No evidence for pulmonary embolus. 2. No suspicious acute lung or pleural abnormalities. Very subtle density in the super segment of left lower lobe is possible residual of previous process. In 2018 there were multiple groundglass opacities. 3. Advanced fatty liver.
[2019-06-17] MEDS ORDERED: AZITHROMYCIN INJ 500 MG VIAL IV ONE (22:10)
[2019-06-17] MEDS ORDERED: CEFTRIAXONE 2 GM/D5W RTU 2 GM/50 ML RTUPB IV ONE (22:10)
[2019-06-17] MEDS ORDERED: ACETAMINOPHEN 325 MG TABLET PO PRN (22:20)
[2019-06-17] MEDS ORDERED: NORMAL SALINE 1000 ML 1,000 ML IV PRN (22:29)
[2019-06-17] MEDS ORDERED: FAMOTIDINE 20 MG TABLET PO ONE (23:15)
[2019-06-17] MEDS ORDERED: CEFEPIME 1 GM/D5W RTU 1 GM/50 ML RTUPB IV ONE (23:15)
[2019-06-17] MEDS ORDERED: PREGABALIN 100 MG CAPSULE PO SCH (23:45)
[2019-06-17] MEDS ORDERED: (PENDING PHARMACY ID) (Fluticasone/Salmeterol 2 PUFF) IH SCH (23:45)
[2019-06-17] MEDS ORDERED: ALBUTEROL SULFATE HFA (90 MCG/PUFF) 200 PUFF/8.5 GM MDI IH PRN (23:47)
[2019-06-17] MEDS ORDERED: SILDENAFIL CITRATE 20 MG TABLET PO PRN (23:47)
[2019-06-17] MEDS ORDERED: ALBUTEROL SULFATE 0.083% NEB 2.5 MG/3 ML AMPUL NEB PRN (23:47)
[2019-06-18] MEDS ORDERED: LEVETIRACETAM 500 MG TABLET PO ONE (00:15)
[2019-06-18] MEDS: LORAZEPAM 1 MG TABLET PO PRN ×3 (02:21→17:42)
[2019-06-18 02:36] LABS: CREATINE KINASE MB 1.89 ng/mL (<4.55)
[2019-06-18 02:40] LABS: TROPONIN I < 0.012 ng/mL
[2019-06-18] MEDS: CYCLOBENZAPRINE HCL 10 MG TABLET PO SCH ×2 (05:42→13:14)
[2019-06-18] MEDS: CLONIDINE HCL 0.2 MG TABLET PO SCH ×2 (05:42→13:15)
[2019-06-18] MEDS ORDERED: METHYLPREDNISOLONE INJ 40 MG/1 ML SDV IV SCH (06:00)
[2019-06-18 07:58] LABS: ABSOLUTE LYMPHOCYTES (AUTO) 0.2 10^3/uL (0.5-4.7); ABSOLUTE MONOCYTES (AUTO) 0.1 10^3/uL (0.1-1.4); ABSOLUTE NEUT (AUTO) 3.2 10^3/uL (1.7-8.2); BASOPHILS % (AUTO) 0.8 % (0-2); HEMATOCRIT 42.4 % (37.9-51.0); HEMOGLOBIN 14.3 g/dL (13.5-17.0); LYMPHOCYTES % (AUTO) 6.4 % (13-45); MEAN CORPUSCULAR HEMOGLOBIN 32.2 pg (27.0-33.4); MEAN CORPUSCULAR HGB CONC 33.6 g/dL (32.0-36.0); MEAN CORPUSCULAR VOLUME 96 fl (80-97); MONOCYTES % (AUTO) 1.5 % (3-13); RED BLOOD COUNT 4.43 10^6/uL (4.35-5.55); RED CELL DISTRIBUTION WIDTH 16.8 % (11.5-14.0); SEGMENTED NEUTROPHILS % (AUTO) 91.3 % (42-78); TOTAL CELLS COUNTED % (AUTO) 100 %; WHITE BLOOD COUNT 3.5 10^3/uL (4.0-10.5)
[2019-06-18 08:09] LABS: ANION GAP 9 (5-19); BLOOD UREA NITROGEN 8 mg/dL (7-20); CALCIUM 8.8 mg/dL (8.4-10.2); CARBON DIOXIDE 30 mmol/L (22-30); CHLORIDE 100 mmol/L (98-107); CREATINE KINASE 217 U/L (55-170); GLUCOSE 157 mg/dL (75-110); POTASSIUM 4.3 mmol/L (3.6-5.0)
[2019-06-18] MEDS: IPRATROPIUM/ALBUTEROL 0.5-2.5 MG/3 ML AMPUL NEB SCH ×3 (08:18→16:14)
[2019-06-18 08:22] LABS: CREATINE KINASE MB 1.71 ng/mL (<4.55)
[2019-06-18 08:27] LABS: TROPONIN I < 0.012 ng/mL
[2019-06-18 08:35] LABS: PLATELET COUNT 71 10^3/uL (150-450)
[2019-06-18] MEDS ORDERED: THIAMINE HCL 100 MG TABLET PO SCH (10:00)
[2019-06-18] MEDS ORDERED: CEFEPIME 1 GM/D5W RTU 1 GM/50 ML RTUPB IV SCH (10:00)
[2019-06-18] MEDS ORDERED: TIOTROPIUM BROMIDE DPI 5 CAP/KIT (18 MCG/CAP) IH SCH (10:00)
[2019-06-18] MEDS ORDERED: FLUOXETINE HCL 20 MG CAPSULE PO SCH (10:00)
[2019-06-18] MEDS ORDERED: FAMOTIDINE 20 MG TABLET PO SCH (10:00)
[2019-06-18] MEDS ORDERED: LEVETIRACETAM 500 MG TABLET PO SCH (10:00)
[2019-06-18] MEDS ORDERED: DOCUSATE SODIUM 100 MG CAPSULE PO SCH (10:00)
[2019-06-18] MEDS ORDERED: FLUTICASONE/VILANTEROL 200-25 MCG/DOSE IH SCH (10:00)
--- NOTE | 2019-06-18 11:00 | PDOC CONSULTATION ---
Consultation Consult Date: 06/18/19 Attending physician:: DEVON YOUSIF Provider Consulted: AMINTA WADE Consult reason:: Dyspnea History of Present Illness Admission Date/PCP: 06/17/19 22:30 TOMAS UMANA MD History of Present Illness: [address] is a 43 year old male but he 3-year-old male presented to the emergency room increasing shortness of breath he was borderline hypoxic and started on nebulized treatments and subsequently he was admitted after PE was not found to be nonexistent. He states that shortness of breath has been increasing over the last several months with a cough that is sometimes productive of yellow phlegm he denies hemoptysis his PPD was negative dates unknown he has no history of chronic lung disease as a child or adolescent. Admits to exposure to large amounts of passive smoke as a child as well as an adult he is self smoked a pack a day for 30 years and continues to smoke at this time he has been a garza as well as pain during the past. He has 1 dog no recent travel he denies angina-like chest pain sleeps on 2 pillows occasional PND occasional nocturnal cough no edema he admits to snoring restless sleep nocturia 1-2 times per night unrestful sleep and daytime somnolence Past Medical History Cardiac Medical History: Reports: Hyperlipidema, Hypertension Denies: Coronary Artery Disease, Myocardial Infarction Pulmonary Medical History: Reports: Asthma, Bronchitis, Chronic Obstructive Pulmonary Disease (COPD), Pneumonia - multiple Neurological Medical History: Reports: Migraine, Seizures GI Medical History: Reports: Cirrhosis Musculoskeltal Medical History: Reports: Arthritis Psychiatric Medical History: Reports: Depression, Tobacco Dependency Hematology: Denies: Anemia Past Surgical History Past Surgical History: Reports: Orthopedic Surgery - bilateral knees, left hand, leg Social History Smoking Status: Current Every Day Smoker Cigarettes Packs Per Day: 1 Number of Years Smokin Last Time Smoked: 06/17/19 Passive smoke exposure as: Both Frequency of Alcohol Use: Heavy Hx Recreational Drug Use: No Drugs: None Hx Prescription Drug Abuse: No Do you have pets?: Yes Have you had any respiratory illnesses as a child?: No Have you been exposed to any sick contacts recently?: No Have you had any recent respiratory illnesses?: Yes Have you travelled outside of [place] in the past 12 months?: No Family History Family History: Arthritis, Hypertension, Malignancy Parental Family History Reviewed: No Children Family History Reviewed: No Sibling(s) Family History Reviewed.: No Medication/Allergy Home Medications: Albuterol Sulfate [Proair HFA Inhalation Aerosol 8.5 gm MDI] 2 puff IH Q4HP PRN 11/05/18 Albuterol Sulfate [Ventolin 0.083% Neb 2.5 mg/3 mL Ampul] 2.5 mg NEB RTQ4HP PRN 11/05/18 Clonidine HCl [Catapres 0.2 mg Tablet] 0.2 mg PO Q8 11/05/18 Cyclobenzaprine HCl [Flexeril 10 mg Tablet] 10 mg PO TID 11/05/18 Donepezil HCl [Aricept 5 mg Tablet] 5 mg PO QHS 11/05/18 Fluoxetine HCl [Prozac] 40 mg PO QAM 11/05/18 Fluticasone/Salmeterol [Advair 250-50 Diskus 14 Dose/Diskus] 2 puff IH Q12 11/05/18 Levetiracetam [Keppra 500 mg Tablet] 500 mg PO BID 11/05/18 Pregabalin [Lyrica 50 mg Capsule] 500 mg PO Q12 11/05/18 Quetiapine Fumarate [Seroquel Xr] 300 mg PO QPM 11/05/18 Thiamine HCl [Thiamine 100 mg Tablet] 500 mg PO WSUPPER 11/05/18 Tiotropium [place] [Spiriva Handihaler 5 Cap/Kit (18 Mcg/Cap)] 1 cap IH DAILY 11/05/18 Trazodone HCl [Desyrel] 150 mg PO QPM 11/05/18 Sildenafil Citrate 20 mg PO PRN PRN MDD 20 mg 06/17/19 Allergies/Adverse Reactions: Coconut * [Coconut] Adverse Reaction (Severe, Verified 03/24/15 15:37) stomach swells pineapple [Pineapple] Adverse Reaction (Severe, Verified 03/24/15 15:37) stomach swells cherries Adverse Reaction (Severe, Uncoded 03/24/15 15:37) stomach swells Review of Systems Constitutional: PRESENT: chills. ABSENT: anorexia, fatigue, headache(s), night sweats, weight gain, weight loss Eyes: ABSENT: visual disturbances Ears: ABSENT: hearing changes Nose, Mouth, and Throat: ABSENT: mouth pain, sore throat Cardiovascular: PRESENT: dyspnea on exertion, orthropnea. ABSENT: palpitations Respiratory: PRESENT: cough, dyspnea, sputum. ABSENT: hemoptysis Gastrointestinal: ABSENT: abdominal pain, bloating, coffee ground emesis, dysphagia, hematemesis, hematochezia, melena Genitourinary: ABSENT: dysuria, hematuria Musculoskeletal: ABSENT: deformity, joint swelling Integumentary: ABSENT: pruritus, rash Neurological: ABSENT: abnormal gait, abnormal movements, abnormal speech, confusion, frequent falls, lack of coordination, memory loss, numbness, p aresthesias Psychiatric: PRESENT: depression. ABSENT: hallucinations, homidical ideation, suicidal ideation Endocrine: ABSENT: cold intolerance, heat intolerance, polydipsia, polyuria Hematologic/Lymphatic: ABSENT: lymphadenopathy Allergic/Immunologic: PRESENT: seasonal rhinorrhea Physical Exam Vital Signs: Temp Pulse Resp BP Pulse Ox 98.0 F 66 16 140/81 H 91 L 06/18/19 07:40 06/18/19 08:18 06/18/19 08:18 06/18/19 07:40 06/18/19 08:18 Intake & Output 06/17/19 06/18/19 06/19/19 06:59 06:59 06:59 Intake Total 50 Balance 50 Weight 91.3 kg General appearance: PRESENT: no acute distress, cooperative, disheveled, well- developed, well-nourished Head exam: PRESENT: atraumatic, normocephalic Eye exam: PRESENT: conjunctiva pale, EOMI. ABSENT: nystagmus Mouth exam: PRESENT: dry mucosa, neck supple, tongue midline Neck exam: ABSENT: carotid bruit, full ROM, JVD, lymphadenopathy, meningismus, tenderness, thyromegaly, tracheal deviation, tracheostomy, other Respiratory exam: PRESENT: decreased breath sounds, prolonged expiratory phas, rales, rhonchi, symmetrical, unlabored, wheezes. ABSENT: retraction, stridor, tachypnea Cardiovascular exam: PRESENT: RRR, +S1, +S2. ABSENT: tachycardia Pulses: PRESENT: normal radial pulses GI/Abdominal exam: PRESENT: tenderness. ABSENT: distended, mass, rebound, soft Extremities exam: ABSENT: calf tenderness, clubbing, full ROM, joint swelling, tenderness Musculoskeletal exam: ABSENT: deformity, dislocation, tenderness Neurological exam: PRESENT: alert, awake Psychiatric exam: PRESENT: appropriate affect Skin exam: PRESENT: dry, warm Results Laboratory Results: 06/18/19 07:35 06/18/19 07:35 06/17/19 06/17/19 06/17/19 19:25 19:25 20:57 WBC 5.1 RBC 4.77 Hgb 15.3 Hct 45.9 MCV 96 MCH 32.2 MCHC 33.4 RDW 16.9 H Plt Count 70 L Seg Neutrophils % 61.0 Carbonic Acid 1.65 H HCO3/H2CO3 Ratio 18:1 ABG pH 7.36 ABG pCO2 54.7 H ABG pO2 94.6 ABG HCO3 30.0 H ABG O2 Saturation 96.8 ABG Base Excess 3.0 FiO2 32% Sodium 143.6 Potassium 4.1 Chloride 101 Carbon Dioxide 30 Anion Gap 13 BUN 7 Creatinine 0.60 Est GFR ( Amer) > 60 Glucose 101 Calcium 9.3 Magnesium Total Bilirubin 0.5 AST 69 H Alkaline Phosphatase 70 Total Protein 8.0 Albumin 4.7 06/18/19 06/18/19 07:35 07:35 WBC 3.5 L RBC 4.43 Hgb 14.3 Hct 42.4 MCV 96 MCH 32.2 MCHC 33.6 RDW 16.8 H Plt Count 71 L Seg Neutrophils % 91.3 H Carbonic Acid HCO3/H2CO3 Ratio ABG pH ABG pCO2 ABG pO2 ABG HCO3 ABG O2 Saturation ABG Base Excess FiO2 Sodium 139.2 Potassium 4.3 Chloride 100 Carbon Dioxide 30 Anion Gap 9 BUN 8 Creatinine 0.50 L Est GFR ( Amer) > 60 Glucose 157 H Calcium 8.8 Magnesium 1.8 Total Bilirubin AST Alkaline Phosphatase Total Protein Albumin 06/17/19 06/18/19 06/18/19 19:25 01:40 01:40 Creatine Kinase 277 H CK-MB (CK-2) 1.89 Troponin I < 0.012 < 0.012 06/18/19 06/18/19 07:35 07:35 Creatine Kinase 217 H CK-MB (CK-2) 1.71 Troponin I < 0.012 Impressions: Chest/Abdomen CTA 06/17/19 20:26 IMPRESSION: 1. Enlarged 35 mm main pulmonary artery suspicious for pulmonary hypertension. No change since 2017. No evidence for pulmonary embolus. 2. No suspicious acute lung or pleural abnormalities. Very subtle density in the super segment of left lower lobe is possible residual of previous process. In 2018 there were multiple groundglass opacities. 3. Advanced fatty liver. Assessment & Plan - Diagnosis (1) Uncontrolled daytime somnolence Is this a current diagnosis for this admission?: Yes Plan: Schedule nocturnal polysomnogram (2) COPD exacerbation Is this a current diagnosis for this admission?: Yes Plan: Continue current bronchodilator therapy as initiated (3) Acute respiratory failure with hypoxia Is this a current diagnosis for this admission?: Yes Plan: Supplemental oxygen (4) Hypertension Qualifiers: Hypertension type: essential hypertension Qualified Code(s): I10 - Essential (primary) hypertension Is this a current diagnosis for this admission?: Yes Plan: stable at this time (5) Pulmonary hypertension Is this a current diagnosis for this admission?: Yes Plan: Suggested by symptoms as well as the large size of his pulmonary artery and will need a right heart catheterization (6) Tobacco abuse Is this a current diagnosis for this admission?: Yes Plan: Stop smoking (7) Tobacco abuse counseling Is this a current diagnosis for this admission?: Yes Plan: Discussed at length risk and dangers associated with continued tobacco use
[2019-06-18] MEDS ORDERED: METHYLPREDNISOLONE INJ 125 MG/2 ML SDV IV SCH (14:00)
[2019-06-18 14:41] LABS: CREATINE KINASE MB 1.72 ng/mL (<4.55)
[2019-06-18 15:00] LABS: TROPONIN I < 0.012 ng/mL
[2019-06-18 16:17] VITALS: BP 171/92
[2019-06-18] MEDS ORDERED: (PENDING PHARMACY ID) (Quetiapine Fumarate [Seroquel Xr] 300 MG) PO SCH (18:00)
[2019-06-18] MEDS ORDERED: TRAZODONE HCL 50 MG TABLET PO SCH (18:00)
--- NOTE | 2019-06-18 21:34 | PDOC H&P ---
History of Present Illness Admission Date/PCP: 06/17/19 22:30 TOMAS UMANA MD History of Present Illness: RODNEY L[address] is a 43 year old male, Patient is a recalcitrant chronic alc oholic, he came to the emergency room last night for evaluation of shortness of breath, CTA of the chest was done, it was negative for pulmonary embolus there was no definite infiltrate to suggest pneumonia, The alcohol level was 286, hospital admission was advised by the ED providers. When I saw him on the floor ,patient was alert oriented he was not in any distress, I am not exactly sure why he was admitted ,is a chronic walking alcoholic, he has failed multiple alcohol rehabilitation session, I do not see any indication for inpatient care at this time ,though the alcohol level is high but patient is very alert oriented I am afraid if patient states more than 72 hours he will go into alc ohol withdrawal syndrome he has done this before that resulted in ICU care. Past Medical History Cardiac Medical History: Reports: Hyperlipidema, Hypertension Pulmonary Medical History: Reports: Asthma, Bronchitis, Chronic Obstructive Pulmonary Disease (COPD), Pneumonia - multiple Neurological Medical History: Reports: Migraine, Seizures GI Medical History: Reports: Cirrhosis Musculoskeltal Medical History: Reports: Arthritis Psychiatric Medical History: Reports: Depression, Tobacco Dependency Hematology: Denies: Anemia Past Surgical History Past Surgical History: Reports: Orthopedic Surgery - bilateral knees, left hand, leg Social History Smoking Status: Current Every Day Smoker Cigarettes Packs Per Day: 1 Number of Years Smokin Last Time Smoked: 06/17/19 Frequency of Alcohol Use: Heavy Hx Recreational Drug Use: No Drugs: None Hx Prescription Drug Abuse: No Family History Family History: Arthritis, Hypertension, Malignancy Parental Family History Reviewed: Yes Children Family History Reviewed: Yes Sibling(s) Family History Reviewed.: Yes Medication/Allergy Home Medications: Albuterol Sulfate [Proair HFA Inhalation Aerosol 8.5 gm MDI] 2 puff IH Q4HP PRN 11/05/18 Albuterol Sulfate [Ventolin 0.083% Neb 2.5 mg/3 mL Ampul] 2.5 mg NEB RTQ4HP PRN 11/05/18 Clonidine HCl [Catapres 0.2 mg Tablet] 0.2 mg PO Q8 11/05/18 Cyclobenzaprine HCl [Flexeril 10 mg Tablet] 10 mg PO Q8HP PRN 11/05/18 Donepezil HCl [Aricept 5 mg Tablet] 5 mg PO QHS 11/05/18 Fluoxetine HCl [Prozac] 40 mg PO QAM 11/05/18 Fluticasone/Salmeterol [Advair 250-50 Diskus 14 Dose/Diskus] 2 puff IH Q12 11/05/18 Levetiracetam [Keppra 500 mg Tablet] 500 mg PO Q12 11/05/18 Pregabalin [Lyrica 50 mg Capsule] 50 mg PO Q12 11/05/18 Quetiapine Fumarate [Seroquel Xr] 300 mg PO QPM 11/05/18 Thiamine HCl [Thiamine 100 mg Tablet] 500 mg PO WSUPPER 11/05/18 Tiotropium [place] [Spiriva Handihaler 5 Cap/Kit (18 Mcg/Cap)] 1 cap IH DAILY 11/05/18 Trazodone HCl [Desyrel] 150 mg PO QPM 11/05/18 Sildenafil Citrate 20 mg PO ASDIR PRN MDD 20 mg 06/17/19 Allergies/Adverse Reactions: Coconut * [Coconut] Adverse Reaction (Severe, Verified 03/24/15 15:37) stomach swells pineapple [Pineapple] Adverse Reaction (Severe, Verified 03/24/15 15:37) stomach swells cherries Adverse Reaction (Severe, Uncoded 03/24/15 15:37) stomach swells Review of Systems Constitutional: ABSENT: chills, fever(s), headache(s), weight gain, weight loss Eyes: ABSENT: visual disturbances Ears: ABSENT: hearing changes Cardiovascular: PRESENT: dyspnea on exertion. ABSENT: chest pain, edema, orthropnea, palpitations Respiratory: ABSENT: cough, hemoptysis Gastrointestinal: ABSENT: abdominal pain, constipation, diarrhea, hematemesis, hematochezia, nausea, vomiting Genitourinary: ABSENT: dysuria, hematuria Musculoskeletal: ABSENT: joint swelling Integumentary: ABSENT: rash, wounds Neurological: ABSENT: abnormal gait, abnormal speech, confusion, dizziness, focal weakness, syncope Psychiatric: ABSENT: anxiety, depression, homidical ideation, suicidal ideation Endocrine: ABSENT: cold intolerance, heat intolerance, menstrual abnormalities, polydipsia, polyuria Hematologic/Lymphatic: ABSENT: easy bleeding, easy bruising, lymphadenopathy Physical Exam Vital Signs: Temp Pulse Resp BP Pulse Ox 98.2 F 74 18 171/92 H 95 06/18/19 15:39 06/18/19 16:14 06/18/19 16:14 06/18/19 15:39 06/18/19 16:14 Intake & Output 06/17/19 06/18/19 06/19/19 06:59 06:59 06:59 Intake Total 50 650 Balance 50 650 Weight 91.3 kg General appearance: PRESENT: no acute distress, well-developed, well-nourished Head exam: PRESENT: atraumatic, normocephalic Eye exam: PRESENT: conjunctiva pink, EOMI, PERRLA Ear exam: PRESENT: normal external ear exam Mouth exam: PRESENT: moist, tongue midline Respiratory exam: PRESENT: clear to auscultation nikia Cardiovascular exam: PRESENT: RRR, +S1, +S2 Vascular exam: PRESENT: normal capillary refill GI/Abdominal exam: PRESENT: normal bowel sounds, soft Rectal exam: PRESENT: deferred Neurological exam: PRESENT: alert, awake, oriented to person, oriented to place, oriented to time, oriented to situation, CN II-XII grossly intact. ABSENT: motor sensory deficit Psychiatric exam: PRESENT: appropriate affect, normal mood Skin exam: PRESENT: dry, intact, warm Results Laboratory Results: 06/18/19 07:35 06/18/19 07:35 06/18/19 06/18/19 07:35 07:35 WBC 3.5 L RBC 4.43 Hgb 14.3 Hct 42.4 MCV 96 MCH 32.2 MCHC 33.6 RDW 16.8 H Plt Count 71 L Seg Neutrophils % 91.3 H Sodium 139.2 Potassium 4.3 Chloride 100 Carbon Dioxide 30 Anion Gap 9 BUN 8 Creatinine 0.50 L Est GFR ( Amer) > 60 Glucose 157 H Calcium 8.8 Magnesium 1.8 06/17/19 06/18/19 06/18/19 19:25 01:40 01:40 Creatine Kinase 277 H CK-MB (CK-2) 1.89 Troponin I < 0.012 < 0.012 06/18/19 06/18/19 06/18/19 07:35 07:35 13:40 Creatine Kinase 217 H 234 H CK-MB (CK-2) 1.71 Troponin I < 0.012 06/18/19 13:40 Creatine Kinase CK-MB (CK-2) 1.72 Troponin I < 0.012 Impressions: Chest/Abdomen CTA 06/17/19 20:26 IMPRESSION: 1. Enlarged 35 mm main pulmonary artery suspicious for pulmonary hypertension. No change since 2018. No evidence for pulmonary embolus. 2. No suspicious acute lung or pleural abnormalities. Very subtle density in the super segment of left lower lobe is possible residual of previous process. In 2018 there were multiple groundglass opacities. 3. Advanced fatty liver. Assessment & Plan - Diagnosis (1) Alcohol abuse Is this a current diagnosis for this admission?: Yes Plan: Patient is encouraged to return back to alcohol rehabilitation (2) Chronic obstructive pulmonary disease Qualifiers: COPD type: unspecified COPD Qualified Code(s): J44.9 - Chronic obstructive pulmonary disease, unspecified Is this a current diagnosis for this admission?: Yes Plan: He has COPD from years of smoking
[2019-06-18] MEDS ORDERED: QUETIAPINE FUMARATE 100 MG TABLET PO SCH (22:00)
[2019-06-18] MEDS ORDERED: PREGABALIN 50 MG CAPSULE PO SCH (22:00)
[2019-06-18] MEDS ORDERED: DONEPEZIL HCL 5 MG TABLET PO SCH (22:00)
--- NOTE | 2019-06-18 23:14 | EKG REPORT ---
SEVERITY:- BORDERLINE ECG - SINUS TACHYCARDIA BORDERLINE PROLONGED QT INTERVAL : Confirmed by: Cherelle Castro 18-Jun-2019 23:13:21
== END 2019-06-18 18:26 | disposition home or self-care (01) | DRG 204 ==
LOC: ER 19:55 → EH 22:30 → 3W 06-18 00:24
PROVIDERS: ADMIT Internal Medicine; ATTEND Internal Medicine
DX: R06.02 Shortness of breath (principal); F10.129 Alcohol abuse with intoxication, unspecified; Y90.8 Blood alcohol level of 240 mg/100 ml or more; E78.5 Hyperlipidemia, unspecified; I10 Essential (primary) hypertension; K74.60 Unspecified cirrhosis of liver; F17.210 Nicotine dependence, cigarettes, uncomplicated; J44.9 Chronic obstructive pulmonary disease, unspecified; Z79.51 Long term (current) use of inhaled steroids; Z79.899 Other long term (current) drug therapy; Z91.018 Allergy to other foods
CPT/HCPCS: 36415; 36600; 71275; 80048; 80053; 80307; 82550; 82553; 82803; 83735; 84484; 85025; 87040; 93005; 93010; J0456; J0692; J1885; J2920; J2930; J3411; J3475; J3480; J3490; J7030; J7620